=== PATIENT | male | born 1965 | race Caucasian/White ===

== ENCOUNTER 2017-12-19 02:00 | Emergency (ER) | payer OTHER, MEDICARE ==
[2017-12-19] MEDS ORDERED: Ketorolac Tromethamine 60 MG/2 ML VIAL ONE (03:55)
--- NOTE | 2017-12-19 07:56 | RAD ---
LEFT HIP TWO VIEWS: History: Fall, left hip pain. FINDINGS/IMPRESSION: No definite fracture or dislocation is seen. POS: [facility]
== END 2017-12-19 04:10 | disposition home or self-care (01) ==
LOC: ERS 02:00
DX: S70.02XA Contusion of left hip, initial encounter (principal); E78.5 Hyperlipidemia, unspecified; E78.00 Pure hypercholesterolemia, unspecified; K74.60 Unspecified cirrhosis of liver; E11.9 Type 2 diabetes mellitus without complications; F32.9 Major depressive disorder, single episode, unspecified; F17.210 Nicotine dependence, cigarettes, uncomplicated; Z79.4 Long term (current) use of insulin; Z79.899 Other long term (current) drug therapy; Z86.73 Personal history of transient ischemic attack (TIA), and cerebral infarction without residual deficits; Z79.891 Long term (current) use of opiate analgesic; W01.0XXA Fall on same level from slipping, tripping and stumbling without subsequent striking against object, initial encounter
CPT/HCPCS: 96372; J1885

== ENCOUNTER 2018-02-02 21:11 | Inpatient (IN) | payer MEDICARE, OTHER ==
[~2018-02-02 21:11] MED LIST: ISOVUE-370 76%-LOCM 1 ML ONE
[2018-02-02 21:45] LABS: #Eosinphils 0.1 thou/uL (0.0-0.7); #Lymphocytes 0.9 thou/uL (1.20-3.40); #Monocytes 0.2 thou/uL (0.11-0.59); #Neutrophils 2.4 thou/uL (1.40-6.50); %Basophils 0.6 % (0.0-1.0); %Lymphocytes 24.7 % (21.0-51.0); %Monocytes 4.5 % (0.0-10.0); %Neutrophils 66.2 % (42.0-75.0); Hemoglobin 13.9 g/dL (14.0-18.0); Mean Corpuscular Hemoglobin 30.5 pg (27.0-31.0); Mean Corpuscular Volume 92.5 fl (80.0-94.0); Mean Platelet Volume 7.1 fL (7.4-10.4); Platelet Count 66 thou/uL (130-400); RBC Distribution Width 13.2 % (11.5-14.5); Red Blood Cell (RBC) Count 4.55 mill/uL (4.70-6.10); White Blood Cell (WBC) Count 3.7 thou/uL (4.8-10.8)
[2018-02-02 22:04] LABS: ALT (SGPT) 18 U/L (8-55); AST (SGOT) 19 U/L (5-34); Albumin 3.2 g/dL (3.5-5.0); Alkaline Phosphatase 180 U/L (40-150); Anion Gap 12 mmol/L (10-20); BUN (Urea Nitrogen) 11 mg/dL (8.9-20.6); Bilirubin, Total 1.6 mg/dL (0.2-1.2); CK (CPK) 45 U/L (30-200); Calc. Creatinine Clearance 0 mL/min (70-130); Calcium 8.8 mg/dL (7.8-10.44); Carbon Dioxide 24 mmol/L (22-29); Chloride 105 mmol/L (98-107); Estimated GFR-MDRD Greater than 90; Globulin 3.7 g/dL (2.4-3.5); Glucose 230 mg/dL (70-105); Lipase 70 U/L (8-78); Potassium 3.3 mmol/L (3.5-5.1); Protein, Total 6.9 g/dL (6.0-8.3); Sodium 138 mmol/L (136-145)
[2018-02-02 22:07] LABS: Base Excess-Venous 0.9 mmol/L (0 (+/- 2.5)); Bicarbonate (HCO3v) 26.4 mmol/L (1.0-85.0); CO2 Tension (PvCO2) 44.3 mmHg (41.0-51.0); Calcium, Ionized 1.13 mmol/L (1.12-1.32); Hemoglobin - Calc 13.7 g/dL (12.0-18.0); O2 Tension (PvO2) 39.7 mmHg (35.0-45.0); Potassium 3.5 mmol/L (3.4-4.7); T. Carbon Dioxide 27.8 mmol/L (1.0-85.0); pH (Venous) 7.383 (7.35-7.45); vO2 Saturation-calc 73.3 % (94-98)
--- NOTE | 2018-02-02 22:24 | RAD ---
PORTABLE AP CHEST X-RAY 02/02/18 HISTORY: Chest pain. Intermittent altered mental status. Liver failure. COMPARISON: 06/24/15. FINDINGS: Endotracheal tube is not visualized on this exam. The cardiac silhouette and pulmonary vasculature ar e within normal limits for the portable technique of the study. The lungs are clear. There is persist ent mild elevation of the right hemidiaphragm. No other interval change. IMPRESSION: No acute cardiopulmonary process. POS: [facility]
[2018-02-02 22:27] LABS: Bilirubin Negative (Negative); Blood, Urine Small (Negative); Clarity CLEAR (Clear); Glucose, Urine (Dipstick) >=1000 mg/dL (Negative); Leukocyte Negative (Negative); Nitrite Negative (Negative); Protein, Urine (Dipstick) 30 mg/dL (Neg-Trace); Specific Gravity, Urine 1.035 (1.002-1.036); pH, Urine 6.5 (5.0-9.0)
[2018-02-02 22:29] LABS: Bacteria/HPF None Seen HPF (None Seen); Hyaline Casts/LPF 0-3 HYALINE CAST LPF (0-3 Hyaline); Pathc Cast-AUWi Flag 0.14 (0-2.49); Squamous Epithelial None Seen HPF (0-3); WBC/HPF 0-3 HPF (0-3)
[2018-02-02] MEDS ORDERED: Potassium Chloride 20 MEQ TAB ONE (22:30)
[2018-02-02] MEDS ORDERED: Fentanyl 100 MCG/2 ML VIAL ONE (22:30)
--- NOTE | 2018-02-02 23:08 | CT ---
NONCONTRAST CT HEAD 02/02/18 HISTORY: Altered mental status. Drowsiness and weakness. COMPARISON: MRI of brain on 05/01/13. FINDINGS: Noted on prior MRI examination, there is an area of encephalomalacia in the left occipital lobe. A fe w scattered low density areas are seen in the periventricular and subcortical white matter which are nonspecific but likely reflective of chronic small vessel ischemic changes, better visualized on prio r MRI exam. There is no evidence of an acute cortical infarction, hemorrhage, mass effect or midline shift. There is no evidence of hydrocephalus. Visualized paranasal sinuses and mastoid air cells are clear. Calvarial structures are intact. IMPRESSION: 1. No acute intracranial abnormality is demonstrated. 2. Stable encephalomalacia left occipital lobe likely related to prior infarction. POS: [facility]
[2018-02-03] MEDS ORDERED: Potassium Chloride 40 MEQ in Premix Bag 1 BAG IVPB SCH (00:15)
--- NOTE | 2018-02-03 00:25 | PDOC.FPRHP ---
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 at bedside reports he has had some drowsiness and difficulty with word finding as well. They deny slurred speech, weakness, syncope, facial droop, and fever. Patient reports he normally takes Rifaximin for his cirrhosis, but has been out of it for about a week along with other medications such as his long acting insulin, his blood pressure medication, and his antidepressant. Patient reports he is prescribed Lactulose to take and titrate to 3 BM's per day, but doesn't take at home because Rifaximin usually prevents enchephalopathy without the side effects of diarrhea. With his recent loss of Rifaximin, patient has been taking Lactulose as prescribed. First took full dose and had 40-50 bowel movements, then titrated to 10mg once daily of the Lactulose and continues to have >3 BM's per day. ED Course: In the ER he received 50mcg of Fentanyl, had a negative head CT and CXR. - Allergies/Adverse Reactions Allergies Allergy/AdvReac Type Severity Reaction Status Date / Time No Known Drug Allergies Allergy Verified 02/03/18 01:47 - Home Medications Medication Instructions Recorded Confirmed Type Gabapentin 600 tab PO BID 06/23/15 02/03/18 History Insulin Aspart [NovoLOG Vial] 40 unit SC TID-WM 06/23/15 02/03/18 History Venlafaxine HCl [Venlafaxine HCl 150 mg PO BID 06/23/15 02/03/18 History ER] Nadolol [Corgard] 20 mg PO DAILY #0 tab 06/29/15 02/03/18 Rx Spironolactone [Aldactone] 100 mg PO 1200 08/13/15 02/03/18 History HYDROcodone Bit/APAP 10/325 [[place]] 1 tab PO Q6HR PRN 09/28/15 02/03/18 History Lactulose 30 gm PO TID 09/28/15 02/03/18 History Pantoprazole [Protonix] 40 mg PO BID 10/27/15 02/03/18 History Rifaximin [Xifaxan] 550 mg PO BID 08/10/16 02/03/18 History Furosemide 20 mg PO QAM 01/04/17 02/03/18 History Ferrous Sulfate, Dried [Iron] 160 mg PO DAILY 02/03/18 02/03/18 History Insulin Degludec [Tresiba 100 unit SQ DAILY 02/03/18 02/03/18 History Flextouch U-100] - History PMHx: 1. 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 T2DM 3. HTN 4. HLD 5. Depression 6. Hx of CVA (2011) PSHx: 1. Bilateral BKA 2. Esophageal Varices Repair x5 3. PFO repair FHx: 1. Mom- [place] (50's) 2. Dad- CAD 3. T2DM Social: Patient reports hx of tobacco abuse, no etoh or drug use. Specialists: Dr. Quinteros, GI ([place]) Dr. Garcia, PCP - Review of Systems General: reports: weight/appetite/sleep changes. denies: fever/chills Eyes: denies: eye pain, vision changes ENT: denies: nasal congestion, rhinorrhea Respiratory: reports: cough. denies: congestion, shortness of breath Cardiovascular: denies: chest pain, palpitation, edema Gastrointestinal: reports: nausea, diarrhea, abdominal pain. denies: vomiting, GI bleeding Genitourinary: denies: incontinence, dysuria Skin: denies: rashes, lesions, jaundice, itching Musculoskeletal: reports: swelling. denies: pain, tenderness, stiffness Neurological: denies: numbness, syncope, seizure Psychological: denies: anxiety, depression - Vital signs BP: 133/80 HR: 91 RR: 22 Tmax: 98.9 Pox: 97% on RA Wt: 104.3kg - Physical Exam Constitutional: NAD, awake, alert and oriented -Constitutional: obese HEENT: normocephalic and atraumatic, PERRLA, EOMI, conjunctiva clear, no scleral icterus, grossly normal vision, grossly normal hearing, MMM Neck: supple, FROM, no LAD Chest: no-tender to palpation Heart: RRR, no murmurs/rubs/gallops, pulses present Lungs: CTAB, no respiratory distress, good air movement Abdomen: bowel sounds present -Abdomen: firm, liver edge 8-10cm below the costal margin, no ttp, no fluid wave noted, dullness to percussion in LUQ and RUQ, splenomegaly. A reducible umbilical hernia is at the center of the abdomen. Musculoskeletal: normal structure, normal tone Neurological: no focal deficit, CN II-XII intact, normal sensation -Neurological: no difficulty with word finding during exam, answers questions appropriately and accurately -Skin: No petichiae. Purpuric areas on abdomen at insulin injection sites, one bruise on L lateral chest wall from recent fall. Psychiatric: normal mood and affect, good judgment and insight FMR H&P: Results - Labs Result Diagrams: 02/03/18 03:40 02/03/18 03:40 Lab results: WBC 3.7 thou/uL (4.8-10.8) L 02/02/18 21:37 Hgb 13.9 g/dL (14.0-18.0) L 02/02/18 21:37 Hct 42.1 % (42.0-52.0) 02/02/18 21:37 MCV 92.5 fl (80.0-94.0) 02/02/18 21:37 Plt Count 66 thou/uL (130-400) L 02/02/18 21:37 Neutrophils % 66.2 % (42.0-75.0) 02/02/18 21:37 VBG pCO2 44.3 mmHg (41.0-51.0) 02/02/18 22:05 VBG pO2 39.7 mmHg (35.0-45.0) 02/02/18 22:05 Sodium 138 mmol/L (136-145) 02/02/18 21:37 Potassium 3.3 mmol/L (3.5-5.1) L 02/02/18 21:37 Chloride 105 mmol/L (98-107) 02/02/18 21:37 Carbon Dioxide 24 mmol/L (22-29) 02/02/18 21:37 BUN 11 mg/dL (8.9-20.6) 02/02/18 21:37 Creatinine 0.84 mg/dL (0.6-1.3) 02/02/18 21:37 Glucose 230 mg/dL (70-105) H 02/02/18 21:37 Lactic Acid 2.8 mmol/L (0.5-2.2) H 02/02/18 21:37 Calcium 8.8 mg/dL (7.8-10.44) 02/02/18 21:37 Total Bilirubin 1.6 mg/dL (0.2-1.2) H 02/02/18 21:37 AST 19 U/L (5-34) 02/02/18 21:37 ALT 18 U/L (8-55) 02/02/18 21:37 Alkaline Phosphatase 180 U/L (40-150) H 02/02/18 21:37 Ammonia 58 umol/L (18-72) 02/02/18 21:40 Creatine Kinase 45 U/L (30-200) 02/02/18 21:37 Serum Total Protein 6.9 g/dL (6.0-8.3) 02/02/18 21:37 Albumin 3.2 g/dL (3.5-5.0) L 02/02/18 21:37 Lipase 70 U/L (8-78) 02/02/18 21:37 Urine Ketones Negative mg/dL (Negative) 02/02/18 22:21 Urine Blood Small (Negative) H 02/02/18 22:21 Urine Nitrite Negative (Negative) 02/02/18 22:21 Ur Leukocyte Esterase Negative (Negative) 02/02/18 22:21 Urine RBC 11-20 HPF (0-3) H 02/02/18 22:21 Urine WBC 0-3 HPF (0-3) 02/02/18 22:21 Ur Squamous Epith Cells None Seen HPF (0-3) 02/02/18 22:21 Urine Bacteria None Seen HPF (None Seen) 02/02/18 22:21 - Radiology Interpretation Chest x-ray Status: image reviewed by me, report reviewed by me Additional comment: No acute findings CT scan - head Status: image reviewed by me, report reviewed by me Additional comment: No acute findings US - abdomen Status: image reviewed by me Additional comment: Bedside U/S performed by myself and Dr. 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) Current Visit: No Status: Chronic Code(s): K75.81 - NONALCOHOLIC STEATOHEPATITIS (PITTMAN); K74.60 - UNSPECIFIED CIRRHOSIS OF LIVER (2) Abdominal pain Current Visit: No Status: Acute Code(s): R10.9 - UNSPECIFIED ABDOMINAL PAIN (3) Hyperbilirubinemia Current Visit: No Status: Acute Code(s): E80.6 - OTHER DISORDERS OF BILIRUBIN METABOLISM (4) Thrombocytopenia Current Visit: No Status: Acute Code(s): D69.6 - THROMBOCYTOPENIA, UNSPECIFIED (5) Hypertension Current Visit: No Status: Chronic Code(s): I10 - ESSENTIAL (PRIMARY) HYPERTENSION (6) Hyperlipidemia Current Visit: No Status: Chronic Code(s): E78.5 - HYPERLIPIDEMIA, UNSPECIFIED (7) Depression Current Visit: No Status: Chronic Code(s): F32.9 - MAJOR DEPRESSIVE DISORDER , SINGLE EPISODE, UNSPECIFIED (8) Diabetes mellitus type 2 in obese Current Visit: No Status: Chronic Code(s): E11.9 - TYPE 2 DIABETES MELLITUS WITHOUT COMPLICATIONS; E66.9 - OBESITY, UNSPECIFIED (9) S/P bilateral below knee amputation Current Visit: No Status: Chronic Code(s): Z89.512 - ACQUIRED ABSENCE OF LEFT LEG BELOW KNEE; Z89.511 - ACQUIRED ABSENCE OF RIGHT LEG BELOW KNEE - Plan Patient is a 52yo M with hx of cirrhosis 2/2 PITTMAN who presents with acute worsening of cirrhosis likely due to lack of medications. Cirrhosis 2/2 PITTMAN, acute worsening - Due to financial situation, has been unable to obtain Rifaximin and Spironolactone for the past week. Since that time has started Lactulose therapy , giving him severe diarrhea. Patient with fatigue and some mild confusion/ trouble finding words per although AOx4 with no neurological deficits. DDx includes infection, dehydration, and worsening cirrhosis status due to medication changes. - Plan to restart home Rifaximin, Spironolactone, and continue Lactulose to titrate to 3 BM per day. - LA initially elevated, will give 1L NS and repeat. No indication of infection at this time. WBC at baseline, no fever. Blood cx and urine cx pending. - Plan for CTabd/pelvis with firm distended abdomen on exam. Exam not appreciable for significant ascities, confirmed by u/s. - Order coags to compare to baseline and calculate MELD-Na score. Hyperbilirubinemia - elevated from baseline - will get direct bili and RUQ u/s Elevated Alkaline Phosphatase - elevated from baseline - evaluate with RUQ u/s but could be due to chronic liver disease Hyperglycemia in the setting of T2DM - last A1c in clinic 10 in 06/2017, repeat - likely 2/2 patient not being able to obtain home Tresiba. Will restart patient on long acting insulin and monitor Abdominal Pain - worsening distension of abdomen per patient, as described above, exam not consistent with ascites, but more concern for hepatomegaly, splenomegaly, and firmness of abdomen. R/o mass with CTabd/pelvis. No concern for SBP at this time with patient being afebrile, no elevation in WBC. Will continue to monitor. - possible that abdominal pain could be associated with Lactulose causing diarrhea. Hypokalemia - replace and recheck HTN - home medications and monitor HLD - Not currently under treatment for this, likely due to cirrhosis - encourage to manage with diet Depression - has been off Venlafaxine for 1 week. Will restart to avoid withdrawal syndrome. Code Status: Full VTE PPx: none, patient is a bleeding risk and has bilateral BKA's. Disposition/LOS: Length of hospital stay: 2 days Symptomatic meds will be provided. FMR H&P: Upper Level - Pertinent history Patient is 52yo CM with PMHx of non-alcoholic cirrhosis, esophageal varices, IDDM and HTN who presents with altered mental status. He reports lower abd pain and diarrhea over the past few days. reports confusion for the past week and has had word finding difficulty. She has also noticed his belly getting bigger. Patient has been out of his medications for the past week and has only been taking his insulin meds and lactulose. reports that he normally takes spironolactone, rifaximin and nadolol but she lost her job recently so they currently do not have insurance. He does not normally take lactulose but because he is out of his other meds, he has been taking it for his cirrhosis. When he started it last week, he took 30g but had about 50-60 BM/day. Thus, decreased it to 10g and has had about 6-7 BM/day. Denies any fever or chills. Endorses nausea, but no vomiting. Of note, patient followed by Dr. Boyer in [place] but has not followed up in about 1yr due to lack of insurance. In the ED, given: Fentanyl 50mcg iv, K-dur, Rocephin 2g IV - Pertinent findings T 98.9 RR 22 HR 91 BP 133/80 O2 97% on RA Wt 104.3kg Gen: NAD, AAOx4 Eyes: EOMI, PERRL CV: RRR, S1 S2 Resp: CTAB Abd: hepatomegaly- about 8-10cm from the costal margin and splenomegaly; dullness to percussion at LUQ/LLQ, no fluid wave Ext: BL BKA Ammonia: 58 Lipase: 70 Lactic acid: 2.8 - Plan Date/Time: 02/03/18 0016 1. Acute worsening of non-alcoholic cirrhosis (likely 2/2 PITTMAN): Patient has not been on his routine meds including Rifaximin, Spironolactone and Nadolol due to loss of insurance. reports that he was previously on lactulose but was switched to rifaximin which helped significantly with his encephalopathy and BMs. However, he ran out of his meds and thus has been taking lactulose for symptomatic control. Ammonia level normal at 58 and patient does not appear to be encephalopathic though reports a slight change from his baseline as he has had more word finding difficulty. Suspect this is from his change in meds. Will re-start him back on his home regimen and discontinue lactulose. Bedside US done showing no ascites. Patient is afebrile, no ascites and without significant abd pain and do no suspect SBP at this time. Obtain coags. MELD score of 11- 6% estimated 3mo mortality. 2. Abd pain: likely 2/2 to #1 vs. possible mass/malignancy. Dullness to percussion noted on abd exam and could be 2/2 hepatosplenomegaly vs mass. Obtain CT Abd/pelv w/ contrast for further evaluation. 3. Elev lactic acid: likely 2/ 2 mild dehydration from lactulose medication. Gentle hydration and repeat. 4. Hypokalemia: likely 2/2 mild dehydration from lactulose medication. Replenish and monitor. 5. Hyperbilirubinemia: slightly elev from baseline. Obtain RUQ US. 6. Elev Alk phos: slightly elev from baseline. Obtain RUQ US. 7. Thrombocytopenia: 2/2 #1. At baseline. Monitor. 8. Hypoalbuminemia: 2/2 #1. 9. Uncontrolled IDDM: last A1c of 10.8% on 06/2017. Obtain A1c. Restart home insulin, SSI and accuchecks ACHS. 10. Hx of esophageal varices: No hematemesis. Cont nadolol 11. PPx: no anti-coagulation due to thrombocytopenia and hx of esophageal varices. No SCDs as patient has BL BKA. 12. Diet: CLD 13. Code Status: Full I, Genoveva Hurt, have evaluated this patient and agree with findings/ plan as outlined by journalism internship resident. Pertinent changes/additions are listed here. Attending Addendum - Attending Addendum Date/Time: 02/03/18 1003 I personally evaluated the patient and discussed the management with Dr. Cuellar. I agree with the History, Examination, Assessment and Plan documented above with any addition or exceptions noted below. The patient state that his abdominal pain is improved today. CT read and abdominal u/s read is pending. Hip XR are pending. Pt's ammonia level is better than baseline. He has hepatosplenomegaly on abdominal exam. CT showed hip fracture. Will get Xr and talk with ortho about plan. Patient's liver failure exacerbation is likely related to losing his insurance and being unable to get his meds. Will be transitioning insulin to 70/30. Will continue lactulose as pt cannot afford xifaxan. This morning he is threatening to leave AMA. He has agreed to stay for a few more hours until we can finish our tests.
[2018-02-03] MEDS ORDERED: Dextrose 5% in Water 1,000 ML IV PRN (00:50)
[2018-02-03] MEDS ORDERED: Dextrose 50% Abboject 50 ML SYRINGE SLOW IVP PRN (00:50)
[2018-02-03] MEDS ORDERED: Insulin Regular 300 UNITS/3 ML VIAL SC PRN (00:50)
[2018-02-03 00:55] LABS: INR-International Normal Ratio 1.3; PTT 33.3 SEC (22.9-36.1); Prothrombin Time 16.6 SEC (12.0-14.7)
[2018-02-03 01:30] VITALS: BMI 42.9
[2018-02-03 01:36] LABS: Lactic Acid 1.6 mmol/L (0.5-2.2)
[2018-02-03] MEDS ORDERED: Rifaximin 550 MG TAB PO SCH (02:00)
[2018-02-03] MEDS ORDERED: Spironolactone 25 MG TAB PO SCH (02:00)
[2018-02-03] MEDS: Sodium Chloride 0.9% 1,000 ML IV SCH ×2 (02:50→02:52)
[2018-02-03] MEDS: Potassium Chloride 20 MEQ TAB PO SCH ×3 (02:51→17:04)
[2018-02-03 04:41] LABS: #Basophils 0.1 thou/uL (0.0-0.2); #Eosinphils 0.2 thou/uL (0.0-0.7); #Lymphocytes 0.8 thou/uL (1.20-3.40); #Monocytes 0.3 thou/uL (0.11-0.59); #Neutrophils 2.6 thou/uL (1.40-6.50); %Basophils 1.3 % (0.0-1.0); %Eosinophils 4.6 % (0.0-10.0); %Lymphocytes 20.3 % (21.0-51.0); %Monocytes 7.7 % (0.0-10.0); %Neutrophils 66.1 % (42.0-75.0); Hemoglobin 12.6 g/dL (14.0-18.0); Mean Corpuscular HGB CONC 33.3 g/dL (32.0-36.0); Mean Corpuscular Hemoglobin 31.3 pg (27.0-31.0); Mean Corpuscular Volume 93.9 fl (80.0-94.0); Mean Platelet Volume 7.7 fL (7.4-10.4); Platelet Count 66 thou/uL (130-400); RBC Distribution Width 13.2 % (11.5-14.5); Red Blood Cell (RBC) Count 4.04 mill/uL (4.70-6.10); White Blood Cell (WBC) Count 3.9 thou/uL (4.8-10.8)
[2018-02-03 04:47] LABS: ALT (SGPT) 16 U/L (8-55); AST (SGOT) 16 U/L (5-34); Alkaline Phosphatase 159 U/L (40-150); Anion Gap 9 mmol/L (10-20); BUN (Urea Nitrogen) 12 mg/dL (8.9-20.6); Bilirubin, Total 1.5 mg/dL (0.2-1.2); Calc. Creatinine Clearance 233 mL/min (70-130); Calcium 8.9 mg/dL (7.8-10.44); Carbon Dioxide 26 mmol/L (22-29); Chloride 106 mmol/L (98-107); Estimated GFR-MDRD Greater than 90; Globulin 3.3 g/dL (2.4-3.5); Glucose 95 mg/dL (70-105); Potassium 3.4 mmol/L (3.5-5.1); Protein, Total 6.3 g/dL (6.0-8.3); Sodium 138 mmol/L (136-145)
[2018-02-03] MEDS ORDERED: Fentanyl 100 MCG/2 ML VIAL SLOW IVP PRN (05:16)
[2018-02-03] MEDS: Nadolol 40 MG TAB PO SCH (08:29)
[2018-02-03] MEDS: Venlafaxine HCl XR 150 MG CAP PO SCH (08:33)
[2018-02-03] MEDS: Rifaximin 550 MG TAB PO SCH ×2 (08:34→20:31)
[2018-02-03] MEDS: Gabapentin 300 MG CAP PO SCH ×2 (08:35→20:31)
[2018-02-03] MEDS: Insulin Detemir 100 UNITS/ML 50 UNITS in Pre-Filled Syringe 1 EACH SC SCH (08:36)
[2018-02-03] MEDS: HumaLOG 300 UNITS/3 ML VIAL SC SCH ×3 (08:36→17:07)
[2018-02-03] MEDS: Furosemide 20 MG TAB PO SCH (08:46)
--- NOTE | 2018-02-03 10:26 | ULT ---
ULTRASOUND GALLBLADDER RIGHT UPPER QUADRANT: Date: 02/03/18 HISTORY: Elevated bilirubin and alk phos. COMPARISON: CT abdomen and pelvis same date. FINDINGS: Pancreas is not well seen. The hepatic echotexture is coarsened with nodular contour. Moderate ascite s. Sonographic Bob's sign is negative. Liver measures 16.5 cm in length. Portal vein is patent with a ntegrade flow. Common bile duct measures less than 6.0 mm. Gallbladder wall thickness is mildly thick ened. No pericholecystic fluid. Cholelithiasis is present. Right kidney measures 11.6 x 6.9 x 6.2 cm. IMPRESSION: 1. Cholelithiasis without evidence of cholecystitis. 2. Hepatic cirrhosis. POS: [facility]
[2018-02-03] MEDS ORDERED: Spironolactone 100 MG TAB PO SCH (12:00)
--- NOTE | 2018-02-03 12:14 | CT ---
PRELIMINARY REPORT/[facility]/EMERGENTY AFTER-HOURS PROCEDURE CT Abdomen and Pelvis With Intravenous Contrast CLINICAL HISTORY: 52 years old, male; Pain; Abdominal pain; Patient HX: Er9; Abd distention and diarrhea (given lactulose) x4 days and weakness with drowsiness and trouble getting words out today, per . Hepatomegaly, splenomegaly, abdominal pain TECHNIQUE: Axial computed tomography images of the abdomen and pelvis with intravenous contrast. Coronal reforma tted images were created and reviewed. COMPARISON: No relevant prior studies available. FINDINGS: Lung bases: Mild basilar atelectasis/scarring. ABDOMEN: Liver: Nodular cirrhotic liver. No obvious discrete mass. Gallbladder and bile ducts: Cholelithiasis. Pancreas: No ductal dilation. No mass. Spleen: Splenomegaly. Adrenals: No mass. Kidneys and ureters: No acute findings. No hydronephrosis. No solid mass. Stomach and bowel: Ascending colon mild wall thickening. No evidence of bowel obstruction. Diverticul osis. Mild dependent hyperdensity within the stomach. Appendix: Appendix is not discretely visualized. PELVIS: Bladder: The bladder is decompressed. No stones. Reproductive: No acute findings. ABDOMEN and PELVIS: Intraperitoneal space: Ascites within the abdomen and pelvis. No free air. Bones/joints: Comminuted fracture of the left femur greater trochanter extending into the neck, witho ut significant displacement. Soft tissues: No acute findings. Umbilical hernia. Vasculature: Atherosclerotic calcifications. No abdominal aortic aneurysm. Lymph nodes: No significant lymphadenopathy. A few prominent upper abdominal lymph nodes. IMPRESSION: Left femur fracture described above. Cirrhotic liver. Splenomegaly. Ascites. Ascending colon wall thickening could relate to edema/portal hypertension, mild colitis, underdistent ion. Cholelithiasis. Other findings above. THIS REPORT CONTAINS FINDINGS THAT MAY BE CRITICAL TO PATIENT CARE. The findings were verbally commun icated via telephone conference with Dr Nails at 12:57 AM CDT on 02/03/2018. The findings were acknow ledged and understood. Thank you for allowing us to participate in the care of your patient. Dictated and Authenticated by: Srini Caro MD 02/03/2018 1:36 AM Central Time ([place] & [place]) FINAL REPORT CT ABDOMEN AND PELVIS WITH CONTRAST: Date: 02/02/18 HISTORY: Hepatomegaly, splenomegaly, and abdominal pain. COMPARISON: CT abdomen and pelvis dated 07/13/15. FINDINGS/IMPRESSION: Findings and impression are concordant with the preliminary report by Armando. In addition, there is chr onic portal venous thrombosis. The left fracture through the intertrochanteric portion, as well as th rough the greater trochanter, is minimally displaced. There is cholelithiasis. POS: [facility]
--- NOTE | 2018-02-03 12:30 | RAD ---
LEFT HIP 2 VIEWS: Date: 02/03/18 HISTORY: Fracture. COMPARISON: Radiograph dated 12/19/17. FINDINGS: There is an intertrochanteric fracture of left femur with predominant involvement of the greater tro chanter. Obturator ring is intact. IMPRESSION: Nondisplaced intertrochanteric fracture of left femur. POS: [facility]
[2018-02-03] MEDS: HumaLOG 300 UNITS/3 ML VIAL SC PRN ×3 (12:44→21:31)
--- NOTE | 2018-02-03 19:24 | CON ---
DATE OF CONSULTATION: 02/03/2018 REASON FOR CONSULTATION: Cirrhosis, encephalopathy, preoperative risk assessment for possible Orthop edic Surgery. HISTORY OF PRESENT ILLNESS: Roni Farias is a 52-year-old man seen in the past by my GI colleague, Dr. Joel Latham. Mr. Farias has a history of cirrhosis secondary to nonalcoholic steatohepat itis and prior decompensations with esophageal variceal bleeding in 2014. He has had multiple bandin g procedures and continues on nadolol for secondary bleeding prophylaxis. He also has a history of h epatic encephalopathy for which he has been on lactulose and rifaximin at home. He has a history of ascites for which he has been on diuretics. Symptoms have been essentially stable. The patient esta blished with Dr. Merlin hernandez in [place] and has had some workup for liver transplant, but has not f ollowed up with them or with Dr. Latham in the past year. Symptoms have been essentially stable over the past year. For the past several weeks, the patient ran out of rifaximin due to a lapse in insur ance and it gone to taking the lactulose, but he could only take this once a day due to significant d iarrhea with this. He presented to the hospital and was admitted yesterday complaining of about a we ek of progressive fatigue, a bit of nausea and lower abdominal discomfort and there was some question of worsening mental status as well. However, today he feels his mental status is at baseline. He i s not really having any lower abdominal pain. In the course of workup, he had some imaging of the [facility], which showed a left femoral fracture. They state that he fell over a month ago onto his left side and that imaging at that time did not show any fracture, but now this is confirmed on x-ray imag ing. He has been getting around just fine, really not having any pain in his hip or his leg. Orthop edic evaluation is pending. We are consulted for preoperative risk assessment for possible Orthopedi c Surgery. REVIEW OF SYSTEMS: Full review of systems including constitutional, head, eyes, ears, nose, throat, GI, , cardiovascular, respiratory, musculoskeletal, and neurologic systems is negative except as no rahul in the HPI. PAST MEDICAL HISTORY: 1. Nonalcoholic steatohepatitis cirrhosis, hypertension, hyperlipidemia, diabetes type 2, depression , CVA in 2011, bilateral below the knee amputations. 2. Esophageal variceal bleeding in 2014 status post variceal band ligation, and multiple subsequent esophageal banding procedures, last one in December 2016. 3. Hepatic encephalopathy, on lactulose and rifaximin. 4. Ascites, on diuretics. ALLERGIES: No known drug allergies. OUTPATIENT MEDICATIONS: Gabapentin, insulin, venlafaxine, nadolol 20 mg daily, spironolactone 100 mg daily, [place] p.r.n., lactulose 30 mg p.o. t.i.d. as needed, Protonix 40 mg p.o. b.i.d., rifaximin 55 0 mg p.o. b.i.d., furosemide 20 mg p.o. daily, and ferrous sulfate 160 mg daily. SOCIAL HISTORY: Positive for history of tobacco abuse. No alcohol or drug use. FAMILY HISTORY: Noncontributory. PHYSICAL EXAMINATION: VITAL SIGNS: Temperature 98.0, pulse 69, blood pressure 123/73, and 96% oxygen saturation on room ai r. GENERAL: Obese 52-year-old man sitting up in bed comfortably in no distress. MENTAL: Alert and fully oriented, pleasant, conversational, can give a detailed coherent history. SKIN: No jaundice, no rash visible or palpable. EYES: No scleral icterus. Extraocular movements intact. ENT: Mucous membranes moist, no oral lesions. LYMPH: No submandibular, supraclavicular lymphadenopathy. THYROID: Nontender to palpation. HEART: Regular rate and rhythm. LUNGS: Clear to auscultation bilaterally. ABDOMEN: Obese, bowel sounds present, soft, nontender to palpation throughout. No masses or organom egaly appreciated. EXTREMITIES: No peripheral edema. VESSELS: Radial pulses 2+ bilaterally. NEUROLOGICAL: Cranial nerves II through XII intact bilaterally. No focal deficits. LABORATORY STUDIES: WBC 3.9, hemoglobin 12.6, and platelets 66. INR 1.3. Hemoglobin A1c is 10.0. Total bilirubin 1.5, alkaline phosphatase 159, AST 16, ALT 16, albumin 3.0. Ammonia only 58. Lipase normal at 70. Sodium 143, potassium 3.5, BUN 11, and creatinine 0.84. IMAGING STUDIES: CT of the abdomen and pelvis shows cirrhotic liver with no mass. There is a chroni c portal vein thrombus. He has splenomegaly and ascites. There is mild thickening of the wall of th e ascending colon, which is likely reactive to the ascites. He has some gallstones. There is also a left femoral fracture. CT head shows no acute processes. Chest x-ray shows no acute processes. Ab dominal ultrasound again shows gallstones, cirrhotic liver and ascites, normal common bile duct. Lef t hip x-ray shows nondisplaced left femoral fracture. ASSESSMENT AND PLAN: 1. Cirrhosis secondary to nonalcoholic steatohepatitis, with MELD score of 9. 2. Ascites, stable on diuretics. 3. Hepatic encephalopathy, appears well controlled as long as he stays on lactulose and rifaximin. Agree with restarting the rifaximin 550 mg b.i.d. Hopefully, this will enable him to avoid going to heavy on the lactulose as this does give him troublesome diarrhea. With regard to risk stratification for possible Orthopedic Surgery regarding his left hip fracture, t he patient is at a bit elevated risk for surgery due to his cirrhosis. Particular factors which incr eases risk are his known history of portal hypertension, hepatic encephalopathy and his mild hypoalbu minemia and ascites. On the other hand, his MELD score is only 9, so statistically his 90-day postop erative mortality would be only 9%. In addition, risk would be lower with an orthopedic as opposed t o an intra-abdominal surgery. So, while his risk is elevated due to his cirrhosis, I do not feel iman t the risk is prohibitive if surgery is needed. In the longer term, the patient needs to reestablish care in the GI Clinic with Dr. Latham, but for now, no changes to his home medications are recommend ed from a GI perspective. Please call back with any questions or concerns.
--- NOTE | 2018-02-03 19:36 | CON ---
DATE OF CONSULTATION: 02/03/2018 REQUESTING PHYSICIAN: Laure Montoya M.D. BRIEF HISTORY OF PRESENT ILLNESS: The patient is a 52-year-old gentleman with a past medical history remarkable for nonalcoholic cirrhosis, esophageal varices, insulin-dependent diabetes, and hypertens ion in addition to a history of encephalopathy. He currently is admitted due to a 1-week history of worsening fatigue, weakness, nausea, diarrhea, and increasing abdominal pain. Of note, approximately 6 weeks prior to this admission, the patient fell sustaining significant soft tissue trauma to his r ight lateral thigh. He was seen and evaluated at [facility] at that time and hip x-rays were obtaine d and read as negative. I have had an opportunity to review these films and there is no obvious frac ture, although perhaps a faint fracture line in the greater trochanter. In any event, the patient wa s discharged to home and placed himself on a walker due to left hip pain. He continued to use the wa lker for approximately 4 weeks and then eventually transitioned to a cane. He reports that the hip p ain has significantly diminished from where it was 6 weeks ago. Upon readmission for his acute abdom inal pain and weakness, a CT scan of the abdomen and pelvis was obtained and this showed evidence of an intertrochanteric femur fracture with extension and some comminution of the greater trochanter. F ollow up x-rays were then obtained and indeed now the fracture lines can be visualized. Despite now confirm diagnosis of intertrochanteric femur fracture, the patient reports minimal pain and has been ambulating with a cane. Of note, he is also status post bilateral below knee amputations for complic ations of his diabetes. Orthopedic consultation was requested due to this new finding of subacute in tertrochanteric femur fracture. PAST MEDICAL HISTORY: Remarkable for cirrhosis with nonalcoholic steatohepatitis, type 2 diabetes, h ypertension, depression, history of cerebrovascular accident in 2011. PAST SURGICAL HISTORY: Includes bilateral below knee amputations with an earlier foot surgery, histo ry of esophageal variceal repair x5. FAMILY HISTORY: Remarkable for significant peripheral vascular disease and myocardial infarction. SOCIAL HISTORY: The patient reports history of tobacco abuse. Denies alcohol or drug abuse. MEDICATIONS: I will refer you to the patient's medication reconciliation form. ALLERGIES: None known. PHYSICAL EXAMINATION: VITAL SIGNS: Temperature 98.3, heart rate of 72, respiratory rate of 18, and blood pressure 155/82. HEENT: Atraumatic, normocephalic. RESPIRATORY: With no labored breathing. ABDOMEN: Round, distended with evidence of umbilical hernia present. PELVIS: Stable. EXTREMITIES: Remarkable for bilateral upper extremities are atraumatic. He has intact subjective se nsation distally. He does not complain of any shoulder, elbow, wrist or hand pain. Bilateral lower extremities remarkable for bilateral below knee amputations. The patient does report some irritation of the stumps and this has been present for quite some time. The hips are remarkable for subtle ran ge of motion of both left and right hip, and the left hip as I stress in abduction and flexion, does not elicit any groin pain or significant lateral thigh pain. I am unable to elicit any obvious asymm etry between the two hip exam. X-rays review of 2 view hip x-ray done today is remarkable for an intertrochanteric or femur fracture with some comminution of the greater trochanter. There is absolutely no displacement on AP and late ral views. I have also reviewed a pelvis CT scan that confirms this diagnosis and does show a fractu re line extending towards the level of the lesser trochanter. LABORATORY: He is found to have a white count of 3.9, hematocrit of 37.9, 66,000 platelets. ASSESSMENT: A 52-year-old gentleman with significant past medical history and with subacute intertr ochanteric femur fracture, now six weeks old with no displacement. PLAN: Today, I had an extensive discussion with patient regarding the past history for this hip and the fact that he has thus far successfully treated this nonsurgically with no displacement. I do bel ieve that on CT scan, there is early evidence of bridging callus along the medial calcar. We have di scussed treatment options which include continued nonsurgical management versus proceeding with open reduction internal fixation. Given that he has successfully lived with this hip for 6 weeks, he is n o longer experiencing pain, and there does appear to be some early healing on CT scan, we have now de cided to continue with nonsurgical management. I have asked the patient to go back to using a walker and be 25% partial weightbearing if possible to minimize any stress wall, the fracture continues to heal. I would like to see the patient back in my office in approximately 3 weeks for reevaluation an d follow up x-ray of his hip. I would anticipate at that time advanced him back to a cane and allow him to resume more normal activities. The patient appears comfortable with this discussion and plan. I have also had the opportunity and pleasure to discuss this case with his medical team.
--- NOTE | 2018-02-03 19:49 | DIS-2 ---
DATE OF ADMISSION: 02/03/2018 DATE OF DISCHARGE: 02/04/2018 RESIDENT: JUSTIN MIJARES MD ADMITTING ATTENDING: Laure Montoya MD DISCHARGE ATTENDING: Laure Montoya MD CONSULTATIONS: None. PROCEDURES: None. PRIMARY DIAGNOSIS: Abdominal pain secondary to hepatic cirrhosis. SECONDARY DIAGNOSES: L intertrochanteric fracture, Hyperbilirubinemia, elevated alkaline phosphatase, hyperglycemia with type 2 diabetes mellitus, hypokalemia, hypertension, hyperlipidemia, depression. DISCHARGE MEDICATIONS: Gabapentin 900 b.i.d.; insulin 70/30, 50 units b.i.d.; Humulin sliding scale; lactulose 5 grams daily; Lasix 20 mg daily; nadolol 20 mg daily; pantoprazole 40 mg daily; venlafaxine 75 mg daily; iron 160 mg daily. DISCONTINUED MEDICATIONS: Rifaximin, Bailey. HISTORY OF PRESENT ILLNESS AND HOSPITAL COURSE: A 52-year-old patient presented to the ED with 1 week of worsening fatigue, weakness, nausea, diarrhea , and increasing abdominal pain in lower abdomen unassociated with eating or movement. The patient reports that he ran out of medications including long- acting insulin, blood pressure medication, and rifaximin about a week ago 2/2 being unable to afford them. The patient has been taking lactulose and trying to titrate to 3 BMs per day, his ammonia was 58 on admission, he states it is often 300-400 when he is feeling bad. The patient had abdominal and pelvis CT, which showed no acute findings, but did show mild ascites as well as left trochanteric fracture. The patient had brain CT, which was found to be negative. Abdominal ultrasound showed cholelithiasis without evidence of cholecystitis, hepatic cirrhosis. Hip x-ray shows nondisplaced left trochanteric fracture history. The patient threatened to leave AMA. The patient was then convinced to stick around until imaging could be resulted. Changed patient's medications in order to get medications that will be more affordable including insulin 70/30 as well as lactulose in place of rifaximin. Orthopedics was consulted as a result of the intertrochanteric fracture. They initially considered surgery, thus GI was consulted for pre-operative eval. GI recommended no changes and stated that rifaximin was the best regimen. Unfortunately, the patient will not be able to afford this until getting better insurance. Ortho then made co-decision with patient to proceed with outpatient management of fracture. Patient is sent home with walker and instructions for 25 % weight-bearing status which he was educated on per PT. Patient is to f/u w/ Dr. Smith in clinic in 2-3 weeks. DISPOSITION: Stable. DISCHARGE INSTRUCTIONS: 1. Location: Home. 2. Diet: Heart healthy. ACTIVITY: As tolerated. FOLLOWUP: Dr. Christi Garcia 2-3 days, Dr. Smith 2-3 weeks MTDD
[2018-02-03] MEDS ORDERED: Ketorolac Tromethamine 30 MG/ML VIAL IVP SCH (20:45)
[2018-02-03] MEDS ORDERED: Insulin Detemir 100 UNITS/ML 50 UNITS in Pre-Filled Syringe 1 EACH SC SCH (21:00)
[2018-02-03] MEDS: HYDROcodone/Acetaminophen 10/325 mg Tablet PO PRN (21:44)
[2018-02-03] MEDS ORDERED: Ibuprofen 800 MG TAB PO PRN (23:59)
[2018-02-04 04:43] LABS: ALT (SGPT) 16 U/L (8-55); AST (SGOT) 15 U/L (5-34); Albumin 2.8 g/dL (3.5-5.0); Alkaline Phosphatase 151 U/L (40-150); Anion Gap 9 mmol/L (10-20); BUN (Urea Nitrogen) 10 mg/dL (8.9-20.6); Bilirubin, Total 0.9 mg/dL (0.2-1.2); Calc. Creatinine Clearance 205 mL/min (70-130); Calcium 8.7 mg/dL (7.8-10.44); Carbon Dioxide 29 mmol/L (22-29); Chloride 104 mmol/L (98-107); Estimated GFR-MDRD 89; Globulin 3.2 g/dL (2.4-3.5); Glucose 246 mg/dL (70-105); Sodium 138 mmol/L (136-145)
[2018-02-04] MEDS: HumaLOG 300 UNITS/3 ML VIAL SC PRN (06:46)
[2018-02-04] MEDS: HYDROcodone/Acetaminophen 10/325 mg Tablet PO PRN (06:50)
--- NOTE | 2018-02-04 07:32 | PDOC.FM ---
- Subjective Subjective: This morning the patient states he slept well and has no pain this morning. He appreciates being seen by GI and Ortho and his questions about treatment plan are answered. Patient states he is tolerating PO intake without difficulty. No abdominal pain. No issues with BM or urination. No pain in L hip this AM. - Objective Vital Signs & Weight: Vital Signs (12 hours) Temp Pulse Resp BP Pulse Ox 02/03/18 21:16 98.3 F 78 18 137/76 96 02/03/18 20:00 98.3 F 78 18 Weight Weight 149.323 kg I&O: 02/03/18 02/04/18 02/05/18 06:59 06:59 06:59 Intake Total 2700.5 Output Total 300 800 Balance 2400.5 -800 Result Diagrams: 02/03/18 03:40 02/04/18 04:13 <Eduardo Murphy - Last Filed: 02/04/18 07:38> - Objective Vital Signs & Weight: Vital Signs (12 hours) Temp Pulse Resp BP Pulse Ox 02/04/18 08:21 97.9 F 73 16 117/72 96 02/04/18 07:57 98.3 F 78 18 Weight Weight 149.323 kg I&O: 02/03/18 02/04/18 02/05/18 06:59 06:59 06:59 Intake Total 2700.5 Output Total 300 800 Balance 2400.5 -800 Result Diagrams: 02/03/18 03:40 02/04/18 04:13 <Laure Montoya - Last Filed: 02/04/18 13:18> Phys Exam - Physical Examination Constitutional: NAD HEENT: PERRLA, moist MMs Neck: no nodes, full ROM Respiratory: no wheezing, clear to auscultation bilateral Cardiovascular: RRR, no significant murmur, no rub Gastrointestinal: soft, non-tender, positive bowel sounds moderate distension, no rebound or guarding bilateral BKA Neurological: non-focal, normal sensation Psychiatric: normal affect, A&O x 3 Skin: no rash, cap refill <2 seconds <Eduardo Murphy - Last Filed: 02/04/18 07:38> Dx/Plan (1) Trochanteric fracture of left femur Code(s): S72.102A - UNSP TROCHANTERIC FRACTURE OF LEFT FEMUR, INIT FOR CLOS FX Status: Acute (2) ALEXANDER (acute kidney injury) Code(s): N17.9 - ACUTE KIDNEY FAILURE, UNSPECIFIED Status: Acute (3) Abdominal pain Code(s): R10.9 - UNSPECIFIED ABDOMINAL PAIN Status: Acute (4) Hyperbilirubinemia Code(s): E80.6 - OTHER DISORDERS OF BILIRUBIN METABOLISM Status: Acute (5) Nonalcoholic steatohepatitis (PITTMAN) Code(s): K75.81 - NONALCOHOLIC STEATOHEPATITIS (PITTMAN) Status: Acute (6) Thrombocytopenia Code(s): D69.6 - THROMBOCYTOPENIA, UNSPECIFIED Status: Acute (7) Diabetes mellitus type 2 in obese Code(s): E11.9 - TYPE 2 DIABETES MELLITUS WITHOUT COMPLICATIONS; E66.9 - OBESITY , UNSPECIFIED Status: Chronic (8) Hyperlipidemia Code(s): E78.5 - HYPERLIPIDEMIA, UNSPECIFIED Status: Chronic (9) Hypertension Code(s): I10 - ESSENTIAL (PRIMARY) HYPERTENSION Status: Chronic (10) Liver cirrhosis secondary to PITTMAN (nonalcoholic steatohepatitis) Code(s): K75.81 - NONALCOHOLIC STEATOHEPATITIS (PITTMAN); K74.60 - UNSPECIFIED CIRRHOSIS OF LIVER Status: Chronic (11) S/P bilateral below knee amputation Code(s): Z89.512 - ACQUIRED ABSENCE OF LEFT LEG BELOW KNEE; Z89.511 - ACQUIRED ABSENCE OF RIGHT LEG BELOW KNEE Status: Chronic - Plan Plan: Patient is a 52yo M with hx of cirrhosis 2/2 PITTMAN who presents with acute worsening of cirrhosis likely due to lack of medications. # L trocanteric fracture - non-displaced, injury occurred 4 weeks ago - Evaluated by Dr. Smith, recs appreciate - co-decision made with patient for conservative care and close f/u - PT to evaluate for proper walker today, then anticipate D/c # Cirrhosis 2/2 PITTMAN, acute worsening - Patient has not had meds for 2 weeks 2/2 financing - CM consulted - Plan to restart home Rifaximin, Spironolactone, and continue Lactulose to titrate to 3 BM per day while in hospital - MELD- 9 - Plan for spironolactone and lactulose at home until insurance obtained - Evaluated by Dr. Orellana, recs appreciated Hyperbilirubinemia - t bili 1.6 likely 2/2 decreased hepatic uptake Elevated Alkaline Phosphatase - RUQ shows cholelithiasis w/o cholecystitis Hyperglycemia in the setting of T2DM - A1C 10.0 - 50U levemir BID - nursing notes patient is refusing SSI Abdominal Pain - resolved Hypokalemia - resolved HTN - home medications and monitor Depression - has been off Venlafaxine for 1 week. Will restart to avoid withdrawal syndrome. Code Status: Full VTE PPx: none, patient is a bleeding risk and has bilateral BKA's. Disposition/LOS: anticipate d/c after evaluated by PT for walker Symptomatic meds will be provided. <Eduardo Murphy - Last Filed: 02/04/18 07:38> (1) Liver cirrhosis secondary to PITTMAN (nonalcoholic steatohepatitis) Code(s): K75.81 - NONALCOHOLIC STEATOHEPATITIS (PITTMAN); K74.60 - UNSPECIFIED CIRRHOSIS OF LIVER Status: Chronic (2) Abdominal pain Code(s): R10.9 - UNSPECIFIED ABDOMINAL PAIN Status: Acute (3) Hyperbilirubinemia Code(s): E80.6 - OTHER DISORDERS OF BILIRUBIN METABOLISM Status: Acute (4) Thrombocytopenia Code(s): D69.6 - THROMBOCYTOPENIA, UNSPECIFIED Status: Acute (5) Hypertension Code(s): I10 - ESSENTIAL (PRIMARY) HYPERTENSION Status: Chronic (6) Hyperlipidemia Code(s): E78.5 - HYPERLIPIDEMIA, UNSPECIFIED Status: Chronic (7) Depression Code(s): F32.9 - MAJOR DEPRESSIVE DISORDER, SINGLE EPISODE, UNSPECIFIED Status : Chronic (8) Diabetes mellitus type 2 in obese Code(s): E11.9 - TYPE 2 DIABETES MELLITUS WITHOUT COMPLICATIONS; E66.9 - OBESITY , UNSPECIFIED Status: Chronic (9) S/P bilateral below knee amputation Code(s): Z89.512 - ACQUIRED ABSENCE OF LEFT LEG BELOW KNEE; Z89.511 - ACQUIRED ABSENCE OF RIGHT LEG BELOW KNEE Status: Chronic <Laure Montoya - Last Filed: 02/04/18 13:18> Attending Addendum - Attending Addendum Date/Time: 02/04/18 1317 I personally evaluated the patient and discussed the management with Dr. Murphy. I agree with the History, Examination, Assessment and Plan documented above with any addition or exceptions noted below. The patient is feeling better today. He has been seen by ortho who want PT to work with him this morning and can likely go home to f/u outpt for the fracture. Pt will continue on lactulose. He is unable to afford the xifaxan at this time. <Laure Montoya - Last Filed: 02/04/18 13:18>
[2018-02-04 08:24] VITALS: BP 117/72; TEMP 97.9
[2018-02-04] MEDS: Insulin Detemir 100 UNITS/ML 50 UNITS in Pre-Filled Syringe 1 EACH SC SCH (08:55)
[2018-02-04] MEDS: HumaLOG 300 UNITS/3 ML VIAL SC SCH (08:57)
[2018-02-04] MEDS: Rifaximin 550 MG TAB PO SCH (08:59)
[2018-02-04] MEDS: Nadolol 40 MG TAB PO SCH (08:59)
[2018-02-04] MEDS: Potassium Chloride 20 MEQ TAB PO SCH (09:01)
[2018-02-04] MEDS: Gabapentin 300 MG CAP PO SCH (09:01)
[2018-02-04] MEDS: Furosemide 20 MG TAB PO SCH (09:01)
[2018-02-04] MEDS: Venlafaxine HCl XR 150 MG CAP PO SCH (09:07)
== END 2018-02-04 10:48 | disposition home or self-care (01) | DRG 441 ==
LOC: ERS 21:11 → T4-B 23:05
PROVIDERS: ADMIT Family Medicine; ATTEND Family Medicine
DX: K75.81 Nonalcoholic steatohepatitis (NASH) (principal); S72.115A Nondisplaced fracture of greater trochanter of left femur, initial encounter for closed fracture; N17.9 Acute kidney failure, unspecified; D69.6 Thrombocytopenia, unspecified; K72.90 Hepatic failure, unspecified without coma; E11.65 Type 2 diabetes mellitus with hyperglycemia; R18.8 Other ascites; E86.0 Dehydration; K74.60 Unspecified cirrhosis of liver; E80.6 Other disorders of bilirubin metabolism; E66.9 Obesity, unspecified; E78.5 Hyperlipidemia, unspecified; I10 Essential (primary) hypertension; Z89.512 Acquired absence of left leg below knee; Z89.511 Acquired absence of right leg below knee; K80.20 Calculus of gallbladder without cholecystitis without obstruction; E87.6 Hypokalemia; F32.9 Major depressive disorder, single episode, unspecified; Z86.73 Personal history of transient ischemic attack (TIA), and cerebral infarction without residual deficits; F17.210 Nicotine dependence, cigarettes, uncomplicated; R74.0 Nonspecific elevation of levels of transaminase and lactic acid dehydrogenase [LDH]
CPT/HCPCS: 36415; 36416; 70450; 71045; 74177; 76705; 80053; 81003; 81015; 82140; 82248; 82330; 82550; 82803; 83036; 83605; 83690; 85025; 85610; 85730; 87040; 87086; 94760; 96374; 96375; 99406; G8978-GP-CI; G8979-GP-CI; G8980-GP-CI; J0696; J1815; J1885; J3010

== ENCOUNTER 2018-11-30 12:45 | Inpatient (IN) | payer MEDICARE ==
[2018-11-30 13:59] LABS: #Eosinphils 0.1 thou/uL (0.0-0.7); #Lymphocytes 0.5 thou/uL (1.20-3.40); #Monocytes 0.2 thou/uL (0.11-0.59); #Neutrophils 1.6 thou/uL (1.40-6.50); %Basophils 1.4 % (0.0-1.0); %Eosinophils 4.4 % (0.0-10.0); %Lymphocytes 21.2 % (21.0-51.0); %Monocytes 6.3 % (0.0-10.0); %Neutrophils 66.7 % (42.0-75.0); Hemoglobin 11.1 g/dL (14.0-18.0); Mean Corpuscular HGB CONC 31.2 g/dL (32.0-36.0); Mean Corpuscular Hemoglobin 28.4 pg (27.0-31.0); Mean Corpuscular Volume 90.9 fL (78.0-98.0); Mean Platelet Volume 9.5 fL (7.4-10.4); Platelet Count 56 thou/uL (130-400); RBC Distribution Width 16.5 % (11.5-14.5); Red Blood Cell (RBC) Count 3.92 mill/uL (4.70-6.10); White Blood Cell (WBC) Count 2.4 thou/uL (4.8-10.8)
[2018-11-30 14:21] LABS: ALT (SGPT) 14 U/L (8-55); ALT (SGPT) 17 U/L (8-55); AST (SGOT) 27 U/L (5-34); AST (SGOT) 29 U/L (5-34); Albumin 2.4 g/dL (3.5-5.0); Alkaline Phosphatase 95 U/L (40-150); Anion Gap 12 mmol/L (10-20); BUN (Urea Nitrogen) 11 mg/dL (8.4-25.7); Bilirubin, Direct 0.7 mg/dL (0.1-0.3); Bilirubin, Total 1.3 mg/dL (0.2-1.2); Bilirubin, Total 1.4 mg/dL (0.2-1.2); Calc. Creatinine Clearance 0 mL/min (70-130); Calcium 8.6 mg/dL (7.8-10.44); Carbon Dioxide 26 mmol/L (22-29); Chloride 99 mmol/L (98-107); Estimated GFR-MDRD 74; Globulin 5.4 g/dL (2.4-3.5); Glucose 337 mg/dL (70-105); Potassium 4.2 mmol/L (3.5-5.1); Protein, Total 7.8 g/dL (6.0-8.3); Sodium 133 mmol/L (136-145)
--- NOTE | 2018-11-30 14:46 | RAD ---
PORTABLE AP CHEST: Date: 11/30/18 HISTORY: Altered mental status. COMPARISON: 02/02/18. FINDINGS: Cardiac silhouette and pulmonary vasculature are within normal limits for the portable technique of t he study. Linear densities are seen within the left mid lung zone, likely related to atelectasis, alt day developing areas of pneumonitis cannot be entirely excluded. The right lung is clear. No other interval change. IMPRESSION: Interval development of linear and slight patchy densities in the left mid lung zone, probably attrib utable to atelectasis, but developing infiltrate/pneumonitis cannot be excluded. Follow-up PA and lat eral chest x-ray is recommended to ensure resolution. POS: [facility]
[2018-11-30 14:54] LABS: Acetaminophen Less than 6.0 mcg/mL (10.0-30.0); Alcohol Less than 10 mg/dL (Less than 10); Salicylate Less than 8.0 mg/dL (15.0-30.0)
--- NOTE | 2018-11-30 15:00 | CT ---
CT HEAD NONCONTRAST: INDICATIONS: Altered mental status. Slurred speech. Weakness. Recent viral illness. 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 There is mild to moderate chronic microvascular ischemic disease, which is advanced fo r the patient's age. No acute intracranial hemorrhage, mass effect, or midline shift. There is a sm all hypodensity of the right thalamus, which has developed since the prior exam. This indicates a la cunar infarction, likely subacute in time frame. Stable ex vacuo dilatation of the occipital horn of the left lateral ventricle, related to the above described encephalomalacia, is seen. The paranasal sinuses are patent. IMPRESSION: 1. No acute intracranial abnormalities. 2. Redemonstration of left occipital encephalomalacia and superimposed microvascular ischemic diseas e, advanced for the patient's age. Correlate clinically. POS: [facility]
--- NOTE | 2018-11-30 15:50 | PDOC.FM ---
- Objective Result Diagrams: 11/30/18 13:39 11/30/18 13:40
[2018-11-30 15:53] LABS: Cocaine Metabolite Screen Not Detected (NotDetected); Medtox Reader # READER 1; Methamphetamine Not Detected (NotDetected); Opiate Screen Detected (NotDetected); Phencyclidine (PCP) Not Detected (NotDetected); THC/Cannabinoid Screen Not Detected (NotDetected)
[2018-11-30 15:54] LABS: Amphetamine Not Detected (NotDetected); Barbiturates Screen Not Detected (NotDetected); Benzodiazepine Screen Not Detected (NotDetected); Medtox Control Line Valid? VALID (VALID); Methadone Not Detected (NotDetected); Oxycodone Screen Not Detected (NotDetected); Tricyclic Screen Not Detected (NotDetected)
[2018-11-30 16:08] LABS: Bilirubin Negative (Negative); Blood, Urine Negative (Negative); Clarity CLEAR (Clear); Glucose, Urine (Dipstick) 500 mg/dL (Negative); Leukocyte Negative (Negative); Nitrite Negative (Negative); Protein, Urine (Dipstick) Negative (Neg-Trace); pH, Urine 7.5 (5.0-9.0)
--- NOTE | 2018-11-30 16:53 | PDOC.FPRHP ---
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 provided much of the history as patient is unable to recall events. Reports multiple new symptoms over the last 5 days including loss of control of bowel and bladder, confusion, falling and leaning towards left side, slurred speech, right hand numbness. He has trouble even holding a fork up to eat. He has also had distension of his abdomen. He has required paracentesis once before in Aug 2018 where they removed 10L. reports his stomach is much larger than it looked then. Before 4 days ago it was less than half the size. He also reports band like abdominal pain similar to the time he received the paracentesis. She reports he has been taking Lantus 10U qHS for his DMII since that is all they could afford. Prior October he had not been on insulin for 3-6months. His blood glucose still runs 300-400 despite 10U insulin. Report he has been on as much as 75U BID with Humalog in the past. Denies fevers, chills, nausea, vomiting, melena, hematemesis. PCP: Dr. Garcia - Allergies/Adverse Reactions Allergies Allergy/AdvReac Type Severity Reaction Status Date / Time No Known Drug Allergies Allergy Verified 02/03/18 01:47 - Home Medications Medication Instructions Recorded Confirmed Type Venlafaxine HCl [Venlafaxine HCl 150 mg PO DAILY 06/23/15 11/30/18 History ER] Nadolol [Corgard] 20 mg PO DAILY #0 tab 06/29/15 11/30/18 Rx Spironolactone [Aldactone] 50 mg PO DAILY 08/13/15 11/30/18 History Pantoprazole [Protonix] 40 mg PO BID 10/27/15 11/30/18 History Furosemide 20 mg PO QAM 01/04/17 11/30/18 History Ferrous Sulfate, Dried [Iron] 65 mg PO DAILY 02/03/18 11/30/18 History Gabapentin 900 tab PO BID 30 Days #60 tablet 04/21/18 02/15/19 Rx HYDROcodone/Acetaminophen 1 tab PO Q6HR PRN 11/30/18 11/30/18 History [Hydrocodone-Acetamin 10-325 mg] Lactulose 15 ml PO SEEPHYS 11/30/18 11/30/18 History - History PMHx: 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 denies: fever/chills Eyes: denies: eye pain, vision changes ENT: denies: nasal congestion, rhinorrhea Respiratory: denies: cough, congestion, shortness of breath Cardiovascular: reports: edema (abdominal). denies: chest pain, palpitation Gastrointestinal: reports: diarrhea (related to lactulose), abdominal pain. denies: nausea, vomiting, GI bleeding Genitourinary: reports: incontinence. denies: dysuria Skin: denies: rashes, lesions Musculoskeletal: reports: swelling. denies: pain Neurological: reports: weakness Psychological: reports: anxiety, depression - Vital signs BP: 112/82 HR: 88 RR: 18 Tmax: 97.9 Pox: 99% on RA Wt: 113kg - Physical Exam Constitutional: NAD HEENT: normocephalic and atraumatic, PERRLA, conjunctiva clear, no scleral icterus, grossly normal hearing, MMM, oropharynx clear, other (deep fissures on tongue) Neck: supple, trachea midline Heart: RRR, no murmurs/rubs/gallops Lungs: CTAB, no respiratory distress Abdomen: soft -Abdomen: umbilical hernia. Distended. Fluid wave present. Mildly tender. -Musculoskeletal: Bilateral BKAs Neurological: CN II-XII intact -Neurological: Dysarthria Left: Wrist injection wax molder 4/5, flexion 4/5 Right: 5/5 Sensation to light touch intact bilaterally all 4 extremities Normal rapid alternating movements Unable to spell WORLD backwards but reports this is not new Unable to do finger nose test. Skin: capillary refill <2 seconds -Heme/Lymphatic: bruising on left side of stomach. Acanthosis nigrans neck Psychiatric: normal mood and affect -Psychiatric: poor insight and recent memory FMR H&P: Results - Labs Result Diagrams: 11/30/18 13:39 11/30/18 13:40 Lab results: WBC 2.4 thou/uL (4.8-10.8) L 11/30/18 13:39 Hgb 11.1 g/dL (14.0-18.0) L 11/30/18 13:39 Hct 35.6 % (42.0-52.0) L 11/30/18 13:39 MCV 90.9 fL (78.0-98.0) 11/30/18 13:39 Plt Count 56 thou/uL (130-400) L 11/30/18 13:39 Neutrophils % 66.7 % (42.0-75.0) 11/30/18 13:39 Sodium 133 mmol/L (136-145) L 11/30/18 13:40 Potassium 4.2 mmol/L (3.5-5.1) 11/30/18 13:40 Chloride 99 mmol/L (98-107) 11/30/18 13:40 Carbon Dioxide 26 mmol/L (22-29) 11/30/18 13:40 BUN 11 mg/dL (8.4-25.7) 11/30/18 13:40 Creatinine 1.05 mg/dL (0.7-1.3) 11/30/18 13:40 Glucose 337 mg/dL (70-105) H 11/30/18 13:40 Calcium 8.6 mg/dL (7.8-10.44) 11/30/18 13:40 Total Bilirubin 1.4 mg/dL (0.2-1.2) H 11/30/18 13:40 AST 29 U/L (5-34) 11/30/18 13:40 ALT 17 U/L (8-55) 11/30/18 13:40 Alkaline Phosphatase 95 U/L (40-150) 11/30/18 13:40 Ammonia 80 umol/L (18-72) H 11/30/18 13:39 B-Natriuretic Peptide 80.7 pg/mL (0-100) 11/30/18 14:12 Serum Total Protein 7.8 g/dL (6.0-8.3) 11/30/18 13:40 Albumin 2.4 g/dL (3.5-5.0) L 11/30/18 13:40 Urine Ketones Negative mg/dL (Negative) 11/30/18 15:16 Urine Blood Negative (Negative) 11/30/18 15:16 Urine Nitrite Negative (Negative) 11/30/18 15:16 Ur Leukocyte Esterase Negative (Negative) 11/30/18 15:16 - Radiology Interpretation CT scan - head Status: report reviewed by me Additional comment: Small hypodensity of right thalamus which has developed since prior exam. Indicates a lacunar infarct likely subacute in time frame. Stable ex vacuo dilation of occipital horn of the left lateral ventricle related to encephalomalacia. Chest x-ray Status: report reviewed by me Additional comment: Interval development of linear and slight patchy densities in L mid lung zone, probably atelectasis but developing infiltrate/pneumonitis cannot be excluded. Follow up PA and lateral CXR. FMR H&P: A/P - Problem List (1) CVA (cerebral vascular accident) Current Visit: Yes Status: Acute Code(s): I63.9 - CEREBRAL INFARCTION, UNSPECIFIED (2) Insulin dependent diabetes mellitus Current Visit: Yes Status: Acute Code(s): E11.9 - TYPE 2 DIABETES MELLITUS WITHOUT COMPLICATIONS; Z79.4 - LOTTERY SALES CLERK (CURRENT) USE OF INSULIN (3) Abdominal pain Current Visit: No Status: Acute Code(s): R10.9 - UNSPECIFIED ABDOMINAL PAIN (4) Esophageal varices with hemorrhage Current Visit: No Status: Acute Code(s): I85.01 - ESOPHAGEAL VARICES WITH BLEEDING (5) Gastroparesis due to secondary diabetes Current Visit: No Status: Acute Code(s): E13.43 - OTH DIABETES MELLITUS W DIABETIC AUTONOMIC (POLY)NEUROPATHY (6) Hyperbilirubinemia Current Visit: No Status: Acute Code(s): E80.6 - OTHER DISORDERS OF BILIRUBIN METABOLISM (7) Nonalcoholic steatohepatitis (PITTMAN) Current Visit: No Status: Acute Code(s): K75.81 - NONALCOHOLIC STEATOHEPATITIS (PITTMAN) (8) Depression Current Visit: No Status: Chronic Code(s): F32.9 - MAJOR DEPRESSIVE DISORDER , SINGLE EPISODE, UNSPECIFIED (9) Hyperlipidemia Current Visit: No Status: Chronic Code(s): E78.5 - HYPERLIPIDEMIA, UNSPECIFIED (10) Hypertension Current Visit: No Status: Chronic Code(s): I10 - ESSENTIAL (PRIMARY) HYPERTENSION (11) Liver cirrhosis secondary to PITTMAN (nonalcoholic steatohepatitis) Current Visit: No Status: Chronic Code(s): K75.81 - NONALCOHOLIC STEATOHEPATITIS (PITTMAN); K74.60 - UNSPECIFIED CIRRHOSIS OF LIVER (12) PAD (peripheral artery disease) Current Visit: No Status: Chronic Code(s): I73.9 - PERIPHERAL VASCULAR DISEASE, UNSPECIFIED (13) S/P bilateral below knee amputation Current Visit: No Status: Chronic Code(s): Z89.512 - ACQUIRED ABSENCE OF LEFT LEG BELOW KNEE; Z89.511 - ACQUIRED ABSENCE OF RIGHT LEG BELOW KNEE (14) Encephalopathy Current Visit: Yes Status: Acute Code(s): G93.40 - ENCEPHALOPATHY, UNSPECIFIED (15) History of CVA (cerebrovascular accident) Current Visit: Yes Status: Acute Code(s): Z86.73 - PRSNL HX OF TIA (TIA), AND CEREB INFRC W/O RESID DEFICITS - Plan Mr Farias is a 53yo male with pmh of 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 A&Ox3 - CT: Small hypodensity of right thalamus which has developed since prior exam. Indicates a lacunar infarct likely subacute in time frame - MRI ordered - CTA of neck to eval for carotid stenosis - Echo ordered - Admit to Stroke - Neurochecks q4hr Encephalopathy - Unknown etiology possibly related to CVA vs Alcoholic encephalopathy - Afebrile, but CXR with possible pneumonia. - Will follow up with CXR Abdominal Pain - Likely related to new ascities. No concern for SBP. Afebrile, no leukocytosis. - Will order US to eval - Will continue to monitor Cirrhosis 2/2 likely PITTMAN - Ammonia 80 - Ordered Coags to calc MELD - Has been taking Lactulose every other day due to rectal irritation. - Will also start Rifaximin, pt was unable to afford outpt. Will put in CM consult to see if qualifies for prescription voucher - Will increase to daily or until 3-4 BMs daily, adding barrier ointment - Continue other home meds Insulin Dependent DM - Last A1c in clinic 10.8% on 06/30 - Ordered A1c - Currently uncontrolled on 10U Lantus, prev on 75U BID with humalog. Will start at 20U HS and titrate up. - Moderate SSI/Hypoglycemic protocol - CC diet Hx of CVA - Continue home meds, manage as above HTN - Continue home meds Hyperbilirubinemia, stable Hx of Esophageal Varices - Stable, no signs of acute bleed HLD Depression - Continue home meds Hx of bilateral BKA's - usually able to ambulate with prosthetics Code Status: Full DVT PPx: none, Pt at risk of bleeding and bilateral BKA's. FMR H&P: Upper Level - Pertinent history Patient is a 52 yo M with PMH of hx/o CVA 2009, Cirrhosis 2/2 likely PITTMAN, HTN, and uncontrolled T2DM presents with slurred speech and weakness. Started acutely around 4d ago and has worsened since. Associated slurred speech, L weakness, possible incontinence, and inability to ambulate. Additionally patient admits to weight gain and abdominal distension. He has had one paracentesis in the past and states he is larger than he as then. Has seen Dr Campbell (GI) in the past and has a GI physician in [place] in the event he needs a transplant. He is on lactulose QOD and BMs have been regular. States he has had abdominal pain more than usual in the past several days, but not currently tender. Hx/o esophageal bleeding and not a candidate for anticoagulation per previous chart. He has b/l BKA's, denies CP, dizziness. CT in ED showed likely subacute lacunar infarct. Pt is stable and holding converstion well, but most accurate history is taken from family. - Pertinent findings See above and below. Agree with undergraduate intern's physical exam. PE NEURO: 4/5 weakness un LUE. slurred speech ABD: Abdomen large and fluid wave present. nondistended. umbilical hernia present. MSK: B/l BKA - Plan Date/Time: 11/30/18 1851 Nickolas Mcdermott, have evaluated this patient and agree with findings/plan as outlined by undergraduate intern resident. Pertinent changes/additions are listed here. Patient is a 52yo M with hx of CVA, T2DM, and Cirrhosis who presents with acute slurred speech and weakness. 1. Probably CVA: CT shows likely lacunar infarct. Will order MRI, CTA neck, ECHO. Not a food candidate for ASA or statin given complications 2/2 Cirrhosis. 2. Cirrhosis 2/2 PITTMAN - Worsening problem.- Plan to restart home Rifaximin, Spironolactone, and increase Lactulose daily and titrate to ~3 BM per day. No indication of infection as WBC at baseline, no fever, but is at high risk of SPB. Urine cx pending.Will consider therapeutic paracentesis for his ascites. Has also had esophagel banding in the past. Check coagulation and MELD score. 3. Hyperglycemia in the setting of T2DM - Pt only taking 10u Lantus which is not adequate. Will increase basal and place on SSI. May need to be switched to 70/30 for financial reasons. 4. Hypernatremia- chronic; 131, continue to monitor 5. HTN- home medications and monitor 6. HLD- encourage to manage with diet. Not a statin candidate. 7. Depression - Will verify medications. Resume Venlafaxine Addendum - Attending - Attending Attestation Date/Time: 11/30/182129 I personally evaluated the patient and discussed the management with Dr. Wild I agree with the History, Examination, Assessment and Plan documented above with any addition or exceptions noted below- 53 yo male with h/o DM, cirrhosis secondary to PITTMAN, esophageal varices, CVA, b/l LE amputations presents c/o multiple recent falls. States that he feels unsteady. Denies any dizziness. States that he seems to fall to the left and his family has noted that he leans to the left when sitting. They have also noticed some slurred speech. Symptoms began 4 days ago. Has also had some [place] for last few days. PMH/PSH/All/Meds reviewed and agree with residents documentation. Afebrile VSS Exam repeated by me and agree with residents findings. CT brain- hypoechoic area in right thalamus c/w subacute lacunar infarct. A/P: 1) Subacute CVA- Admit to stroke unit. Will order echo, MRI brain and MRA brain/neck. Unable to give ASA secondary to low platelets and h/o massive GI bleed from varices. 2) Type 2 DM uncontrolled- Titrate basal insulin; monitor accuchecks. 3) Ascites- will obtain USG. Consider therapeutic tap. Continue aldactone and lasix. 4) Irhrhosis - continue lactulose and start xifixan.
[2018-11-30] MEDS ORDERED: Dextrose 5% in Water 1,000 ML IV PRN (18:54)
[2018-11-30] MEDS ORDERED: Dextrose 50% Abboject 50 ML SYRINGE SLOW IVP PRN (18:54)
[2018-11-30] MEDS ORDERED: HYDROcodone/Acetaminophen 10/325 mg Tablet PO SCH (20:30)
[2018-11-30] MEDS: Rifaximin 550 MG TAB PO SCH (20:48)
[2018-11-30] MEDS: Gabapentin 300 MG CAP PO SCH (20:48)
[2018-11-30] MEDS: Venlafaxine HCl XR 150 MG CAP PO SCH (20:49)
[2018-11-30] MEDS: Insulin Glargine 20 UNITS in Pre-Filled Syringe SC SCH (20:50)
[2018-11-30 21:00] LABS: Hemoglobin A1c 10.9 % (4.0-6.0); INR-International Normal Ratio 1.4; Prothrombin Time 16.9 SEC (12.0-14.7)
--- NOTE | 2018-11-30 22:19 | CT ---
CT ANGIO OF NECK WITH IV CONTRAST AND 3D POSTPROCESSIN11/30/18 HISTORY: Neck pain. Increasing confusion, weakness, slurred speech, altered mental status. FINDINGS: Atherosclerotic plaque formation is seen in the carotid artery systems on both sides. There is good f low in the carotid arteries and vertebrobasilar systems on either side with a dominant left vertebral artery. No major branch occlusion or high grade stenosis is seen. There is about 30% stenosis in the proximal ICAs on both sides. A heterogeneous and enlarged thyroid gland is present. There is focal area of peripheral consolidatio n in the left upper lobe. There is mucosal disease in the paranasal sinuses. The airway is patent. IMPRESSION: Mild (less than 50%) stenosis involving both proximal ICAs. Please see above report. POS: [facility]
[2018-12-01 06:10] LABS: #Eosinphils 0.2 thou/uL (0.0-0.7); #Lymphocytes 0.6 thou/uL (1.20-3.40); #Monocytes 0.2 thou/uL (0.11-0.59); #Neutrophils 1.3 thou/uL (1.40-6.50); %Basophils 0.9 % (0.0-1.0); %Lymphocytes 25.6 % (21.0-51.0); %Monocytes 10.1 % (0.0-10.0); %Neutrophils 55.4 % (42.0-75.0); Hemoglobin 9.9 g/dL (14.0-18.0); Mean Corpuscular HGB CONC 31.3 g/dL (32.0-36.0); Mean Corpuscular Hemoglobin 28.6 pg (27.0-31.0); Mean Corpuscular Volume 91.2 fL (78.0-98.0); Mean Platelet Volume 9.9 fL (7.4-10.4); Platelet Count 52 thou/uL (130-400); RBC Distribution Width 16.5 % (11.5-14.5); Red Blood Cell (RBC) Count 3.47 mill/uL (4.70-6.10); White Blood Cell (WBC) Count 2.3 thou/uL (4.8-10.8)
[2018-12-01 06:21] LABS: ALT (SGPT) 11 U/L (8-55); AST (SGOT) 22 U/L (5-34); Albumin 2.1 g/dL (3.5-5.0); Alkaline Phosphatase 79 U/L (40-150); Anion Gap 12 mmol/L (10-20); BUN (Urea Nitrogen) 10 mg/dL (8.4-25.7); Bilirubin, Total 1.3 mg/dL (0.2-1.2); Calc. Creatinine Clearance 190 mL/min (70-130); Calcium 8.4 mg/dL (7.8-10.44); Carbon Dioxide 23 mmol/L (22-29); Cardiac Risk 3.7 (Less than 4.5); Chloride 104 mmol/L (98-107); Cholesterol 97 mg/dl (< 200 Desired); Estimated GFR-MDRD 90; Globulin 4.6 g/dL (2.4-3.5); Glucose 137 mg/dL (70-105); HDL Cholesterol 26 mg/dL (>60 Neg Risk); LDL Cholesterol, Calculated 53 mg/dL; Potassium 3.6 mmol/L (3.5-5.1); Protein, Total 6.7 g/dL (6.0-8.3); Sodium 135 mmol/L (136-145); Triglycerides 88 mg/dL (Less than 150)
[2018-12-01] MEDS ORDERED: HYDROcodone/Acetaminophen 10/325 mg Tablet PO SCH (06:30)
--- NOTE | 2018-12-01 07:04 | PDOC.FM ---
- Subjective Subjective: No overnight events. Denies new weakness. Has headache. At home he takes [employer] for this. Only takes one a day due to cirrhosis. Voiding and stooling. Continues to have mild abdominal pain. - Objective MAR Reviewed: Yes Vital Signs & Weight: Vital Signs (12 hours) Temp Pulse Resp BP Pulse Ox 12/01/18 04:00 99.1 F 85 16 106/56 L 95 12/01/18 00:00 98.7 F 89 16 136/78 98 11/30/18 20:20 98 11/30/18 20:00 98.8 F 81 16 148/83 H 98 Weight Weight 136.531 kg I&O: 11/30/18 12/01/18 12/02/18 06:59 06:59 06:59 Intake Total 710 Output Total 650 Balance 60 Result Diagrams: 12/01/18 05:43 12/01/18 05:43 Phys Exam - Physical Examination Constitutional: NAD HEENT: moist MMs Neck: supple Respiratory: no wheezing, clear to auscultation bilateral Cardiovascular: RRR, no significant murmur Distended, fluid wave, umbilical hernia Musculoskeletal: pulses present Neurological: moves all 4 limbs Psychiatric: normal affect, A&O x 3 Skin: cap refill <2 seconds Dx/Plan (1) CVA (cerebral vascular accident) Code(s): I63.9 - CEREBRAL INFARCTION, UNSPECIFIED Status: Acute (2) Insulin dependent diabetes mellitus Code(s): E11.9 - TYPE 2 DIABETES MELLITUS WITHOUT COMPLICATIONS; Z79.4 - LONGTERM (CURRENT) USE OF INSULIN Status: Acute (3) Abdominal pain Code(s): R10.9 - UNSPECIFIED ABDOMINAL PAIN Status: Acute (4) Esophageal varices with hemorrhage Code(s): I85.01 - ESOPHAGEAL VARICES WITH BLEEDING Status: Acute (5) Gastroparesis due to secondary diabetes Code(s): E13.43 - OTH DIABETES MELLITUS W DIABETIC AUTONOMIC (POLY)NEUROPATHY Status: Acute (6) Hyperbilirubinemia Code(s): E80.6 - OTHER DISORDERS OF BILIRUBIN METABOLISM Status: Acute (7) Nonalcoholic steatohepatitis (PITTMAN) Code(s): K75.81 - NONALCOHOLIC STEATOHEPATITIS (PITTMAN) Status: Acute (8) Depression Code(s): F32.9 - MAJOR DEPRESSIVE DISORDER, SINGLE EPISODE, UNSPECIFIED Status : Chronic (9) Hyperlipidemia Code(s): E78.5 - HYPERLIPIDEMIA, UNSPECIFIED Status: Chronic (10) Hypertension Code(s): I10 - ESSENTIAL (PRIMARY) HYPERTENSION Status: Chronic (11) Liver cirrhosis secondary to PITTMAN (nonalcoholic steatohepatitis) Code(s): K75.81 - NONALCOHOLIC STEATOHEPATITIS (PITTMAN); K74.60 - UNSPECIFIED CIRRHOSIS OF LIVER Status: Chronic (12) PAD (peripheral artery disease) Code(s): I73.9 - PERIPHERAL VASCULAR DISEASE, UNSPECIFIED Status: Chronic (13) S/P bilateral below knee amputation Code(s): Z89.512 - ACQUIRED ABSENCE OF LEFT LEG BELOW KNEE; Z89.511 - ACQUIRED ABSENCE OF RIGHT LEG BELOW KNEE Status: Chronic (14) Encephalopathy Code(s): G93.40 - ENCEPHALOPATHY, UNSPECIFIED Status: Acute (15) History of CVA (cerebrovascular accident) Code(s): Z86.73 - PRSNL HX OF TIA (TIA), AND CEREB INFRC W/O RESID DEFICITS Status: Acute - Plan Plan: Mr Farias is a 53yo male with pmh of 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 A&Ox3 - CT: Small hypodensity of right thalamus which has developed since prior exam. Indicates a lacunar infarct likely subacute in time frame - MRI ordered - CTA of neck to eval for carotid stenosis - Echo ordered - Admit to Stroke - Neurochecks q4hr Encephalopathy - Unknown etiology possibly related to CVA vs Alcoholic encephalopathy - Afebrile, but CXR with possible pneumonia. Will order procal - Will follow up with CXR Abdominal Pain - Likely related to new ascities. No concern for SBP. Afebrile, no leukocytosis. - US ordered - Continue to monitor Cirrhosis 2/2 likely PITTMAN - Ammonia 80, will repeat tomorrow - MELD: 15 - Has been taking Lactulose every other day due to rectal irritation. Ordered barrier cream - Continue Rifaximin, pt was unable to afford outpt. CM consulted for outpt acquisition - Titrate Lactulose to 3 BM's day - Continue other home meds Insulin Dependent DM - A1c 10.9% - Currently uncontrolled on 10U Lantus, prev on 75U BID with humalog. Will start at 20U HS and titrate up. - Moderate SSI/Hypoglycemic protocol - CC diet Hx of CVA - Continue home meds, manage as above HTN - Continue home meds Hyperbilirubinemia, stable Hx of Esophageal Varices - Stable, no signs of acute bleed HLD Depression - Continue home meds Hx of bilateral BKA's - usually able to ambulate with prosthetics Code Status: Full DVT PPx: none, Pt at risk of bleeding and bilateral BKA's. PCP: Radha Addendum - Attending - Attending Attestation Date/Time: 12/01/18 4839 I personally evaluated the patient and discussed the management with Dr. Veras I agree with the History, Examination, Assessment and Plan documented above with any addition or exceptions noted below. Continue trend Ammonia level increased lactulose and rixampin restarted await MRI brain result. IV lasix today continue other home RX.
[2018-12-01] MEDS ORDERED: Furosemide 20 MG TAB PO SCH (09:00)
[2018-12-01] MEDS: Rifaximin 550 MG TAB PO SCH ×2 (09:46→20:48)
[2018-12-01] MEDS: Nadolol 40 MG TAB PO SCH (09:48)
[2018-12-01] MEDS: Gabapentin 300 MG CAP PO SCH ×2 (09:49→20:49)
[2018-12-01] MEDS: Ferrous Sulfate 325 MG TAB PO SCH (09:50)
--- NOTE | 2018-12-01 10:28 | ULT ---
ABDOMINAL ULTRASOUND: Date: 12/01/18 HISTORY: Ascites, cirrhosis. FINDINGS: The pancreas and abdominal aorta are obscured from shadowing by bowel gas. The IVC is also mostly obs cured and not well evaluated on this exam. The spleen is enlarged, measuring 19.0 cm in craniocaudal dimensions. There are echogenic foci in the gallbladder lumen with posterior shadowing suggesting gallbladder mary culi, in addition to echogenic material related to sludge within the gallbladder lumen. Gallbladder i s mildly contracted, but the wall is at the upper limits of normal in thickness measuring 0.3 cm. Com mon duct is also at the upper limits of normal in diameter measuring 0.6 cm. Liver appears small in size, but no focal hepatic lesions are identified. Bilateral kidneys demonstrate a normal sonographic appearance. Right kidney measures 11.8 cm in lengt h and left kidney measures 11.6 cm in length. There is a moderate amount of intraperitoneal free fluid seen within the abdomen. IMPRESSION: 1. Moderate amount of ascites. 2. Splenomegaly. 3. Cholelithiasis and gallbladder sludge. Common duct is at the upper limits of normal in size measu ring 0.6 cm in diameter. POS: [facility]
[2018-12-01] MEDS ORDERED: Furosemide 20 MG/2 ML VIAL SLOW IVP SCH (10:45)
[2018-12-01] MEDS: Spironolactone 100 MG TAB PO SCH (11:24)
[2018-12-01] MEDS: HumaLOG 300 UNITS/3 ML VIAL SC PRN ×2 (11:24→17:30)
[2018-12-01] MEDS: Venlafaxine HCl XR 150 MG CAP PO SCH ×2 (11:25→20:48)
--- NOTE | 2018-12-01 12:16 | MRI ---
NONCONTRAST MRI BRAIN: Date: 12/01/18 HISTORY: Altered mental status, slurred speech, weakness. Recent viral illness. COMPARISON: CT head dated 11/30/18. FINDINGS: As noted on recent CT scan of the head, there is an area of encephalomalacia and associated gliosis i n the medial left occipital lobe in the distribution of the left posterior cerebral artery related to remote infarction. 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 There is an area of CSF signal intensity seen in the right posteri or parietal region measuring 2.2 cm x 1.3 cm, which is thought to more likely represent a focal area of volume loss as opposed to an arachnoid cyst, as this does appear contiguous with the CSF within th e adjacent cerebral sulci. This finding is also stable when compared to prior MRI of the brain on . The chronic small vessel ischemic changes are also similar to the prior exam. Septum pellucidum and third ventricle are on the midline. The ventricular system is normal in size, s hape, and position, aside from mild ex vacuo dilatation of the occipital horn of the left lateral elmer tricle. Mucus retention cysts are seen in each maxillary antrum. The orbits and remainder of the skull base h ave a normal MRI appearance. The left vertebral artery flow-void is dominant. There are appropriate f low-voids demonstrated at the base of the brain. IMPRESSION: 1. No acute intracranial abnormality demonstrated. 2. Findings likely reflective of chronic small vessel ischemic changes, not significantly progressed compared to study in 2013. 3. Stable area of encephalomalacia and gliosis with hemosiderin deposition along the margins of the area of encephalomalacia likely related to remote infarction in distribution of left posterior cerebr al artery. 4. Chronic small vessel ischemic changes not significantly progressed when compared to the prior amarjit dy in 2013. 5. Mild cerebral volume loss. POS: [facility]
[2018-12-01 15:06] VITALS: BMI 38.6
[2018-12-01] MEDS: HYDROcodone/Acetaminophen 10/325 mg Tablet PO PRN (17:29)
[2018-12-01] MEDS: Insulin Glargine 20 UNITS in Pre-Filled Syringe SC SCH (20:49)
[2018-12-02 04:15] LABS: #Eosinphils 0.2 thou/uL (0.0-0.7); #Lymphocytes 0.7 thou/uL (1.20-3.40); #Monocytes 0.3 thou/uL (0.11-0.59); #Neutrophils 1.8 thou/uL (1.40-6.50); %Basophils 0.3 % (0.0-1.0); %Eosinophils 5.4 % (0.0-10.0); %Lymphocytes 23.7 % (21.0-51.0); %Monocytes 8.7 % (0.0-10.0); %Neutrophils 61.9 % (42.0-75.0); Hemoglobin 9.9 g/dL (14.0-18.0); Mean Corpuscular HGB CONC 31.2 g/dL (32.0-36.0); Mean Corpuscular Hemoglobin 28.5 pg (27.0-31.0); Mean Corpuscular Volume 91.4 fL (78.0-98.0); Mean Platelet Volume 9.4 fL (7.4-10.4); Platelet Count 50 thou/uL (130-400); RBC Distribution Width 16.3 % (11.5-14.5); Red Blood Cell (RBC) Count 3.47 mill/uL (4.70-6.10)
[2018-12-02 04:26] LABS: ALT (SGPT) 9 U/L (8-55); AST (SGOT) 22 U/L (5-34); Albumin 2.1 g/dL (3.5-5.0); Alkaline Phosphatase 81 U/L (40-150); Anion Gap 12 mmol/L (10-20); BUN (Urea Nitrogen) 10 mg/dL (8.4-25.7); Calc. Creatinine Clearance 196 mL/min (70-130); Calcium 8.3 mg/dL (7.8-10.44); Carbon Dioxide 23 mmol/L (22-29); Chloride 104 mmol/L (98-107); Estimated GFR-MDRD Greater than 90; Globulin 4.6 g/dL (2.4-3.5); Glucose 134 mg/dL (70-105); Potassium 3.8 mmol/L (3.5-5.1); Protein, Total 6.7 g/dL (6.0-8.3); Sodium 135 mmol/L (136-145)
--- NOTE | 2018-12-02 06:04 | PDOC.FM ---
Addendum entered and electronically signed by Ameena Wild MD 12/02/18 11:52 : Correction: Lantus 20U today Original Note: - Subjective Subjective: Feeling well today. Still reports slurred speech and weakness. Only one hard bowel movement yesterday. No changes in vision. No overnight events. - Objective MAR Reviewed: Yes Vital Signs & Weight: Vital Signs (12 hours) Temp Pulse Resp BP Pulse Ox 12/02/18 04:00 97.7 F 88 16 133/80 94 L 12/02/18 00:00 97.8 F 84 16 145/84 H 95 12/01/18 20:00 98.1 F 80 16 131/76 95 Weight Admit Weight 136.73 kg Weight 136.35 kg I&O: 11/30/18 12/01/18 12/02/18 06:59 06:59 06:59 Intake Total 710 820 Output Total 650 575 Balance 60 245 Result Diagrams: 12/02/18 03:59 12/02/18 03:59 Phys Exam - Physical Examination Constitutional: NAD HEENT: moist MMs normal vision snyder Neck: supple Respiratory: no wheezing, clear to auscultation bilateral Cardiovascular: RRR, no significant murmur Gastrointestinal: soft, positive bowel sounds distended Neurological: moves all 4 limbs Psychiatric: normal affect, A&O x 3 Skin: cap refill <2 seconds Dx/Plan (1) CVA (cerebral vascular accident) Code(s): I63.9 - CEREBRAL INFARCTION, UNSPECIFIED Status: Acute (2) Insulin dependent diabetes mellitus Code(s): E11.9 - TYPE 2 DIABETES MELLITUS WITHOUT COMPLICATIONS; Z79.4 - GROUP HOME (CURRENT) USE OF INSULIN Status: Acute (3) Abdominal pain Code(s): R10.9 - UNSPECIFIED ABDOMINAL PAIN Status: Acute (4) Esophageal varices with hemorrhage Code(s): I85.01 - ESOPHAGEAL VARICES WITH BLEEDING Status: Acute (5) Gastroparesis due to secondary diabetes Code(s): E13.43 - OTH DIABETES MELLITUS W DIABETIC AUTONOMIC (POLY)NEUROPATHY Status: Acute (6) Hyperbilirubinemia Code(s): E80.6 - OTHER DISORDERS OF BILIRUBIN METABOLISM Status: Acute (7) Nonalcoholic steatohepatitis (PITTMAN) Code(s): K75.81 - NONALCOHOLIC STEATOHEPATITIS (PITTMAN) Status: Acute (8) Depression Code(s): F32.9 - MAJOR DEPRESSIVE DISORDER, SINGLE EPISODE, UNSPECIFIED Status : Chronic (9) Hyperlipidemia Code(s): E78.5 - HYPERLIPIDEMIA, UNSPECIFIED Status: Chronic (10) Hypertension Code(s): I10 - ESSENTIAL (PRIMARY) HYPERTENSION Status: Chronic (11) Liver cirrhosis secondary to PITTMAN (nonalcoholic steatohepatitis) Code(s): K75.81 - NONALCOHOLIC STEATOHEPATITIS (PITTMAN); K74.60 - UNSPECIFIED CIRRHOSIS OF LIVER Status: Chronic (12) PAD (peripheral artery disease) Code(s): I73.9 - PERIPHERAL VASCULAR DISEASE, UNSPECIFIED Status: Chronic (13) S/P bilateral below knee amputation Code(s): Z89.512 - ACQUIRED ABSENCE OF LEFT LEG BELOW KNEE; Z89.511 - ACQUIRED ABSENCE OF RIGHT LEG BELOW KNEE Status: Chronic (14) Encephalopathy Code(s): G93.40 - ENCEPHALOPATHY, UNSPECIFIED Status: Acute (15) History of CVA (cerebrovascular accident) Code(s): Z86.73 - PRSNL HX OF TIA (TIA), AND CEREB INFRC W/O RESID DEFICITS Status: Acute - Plan Plan: Mr Farias is a 53yo male with pmh of 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 A&Ox3 - CT: Small hypodensity of right thalamus which has developed since prior exam. Indicates a lacunar infarct likely subacute in time frame - MRI no acute changes, evidence of prior CVA - CTA of neck: <50% stenosis involving both proximal ICAs - Echo: EF 50-55%, no abnormalities - Neurochecks q4hr Encephalopathy - Unknown etiology possibly related to CVA vs hepatic encephalopathy - Afebrile, but CXR with possible pneumonia. - Pro mary 0.06 - Consider follow up CXR - Titrate lactulose to 3 BM's/day Abdominal Pain - Likely related to new ascities. No concern for SBP. Afebrile, no leukocytosis. - US mod ascities - Continue to monitor Cirrhosis 2/2 likely PITTMAN - Ammonia 80-> 66 - MELD: 15 - Has been taking Lactulose every other day due to rectal irritation. Ordered barrier cream - Continue Rifaximin, pt was unable to afford outpt. CM consulted for outpt acquisition - Titrate Lactulose to 3 BM's day - Continue other home meds Insulin Dependent DM - A1c 10.9% - Continue Lantus 30U daily - Moderate SSI/Hypoglycemic protocol - CC diet Hx of CVA - Continue home meds, manage as above HTN - Continue home meds Hyperbilirubinemia, stable Hx of Esophageal Varices - Stable, no signs of acute bleed HLD Depression - Continue home meds Hx of bilateral BKA's - usually able to ambulate with prosthetics Code Status: Full DVT PPx: none, Pt at risk of bleeding and bilateral BKA's. PCP: Radha Cooney - Attending - Attending Attestation Date/Time: 12/02/18 2152 I personally evaluated the patient and discussed the management with Dr. Wild I agree with the History, Examination, Assessment and Plan documented above with any addition or exceptions noted below. Remote ischemic CVA changes noted on MRI history of slurred speech last several week and history RUE weakness numbness. Patient staes usual encephalopathic changes at ammonia in 100s . Increased lactulose only single stool noted yesterday ammonia 60. Continue IV attempt diuresis note significant ascites no respiratory compromise consider paracentesis prn.
[2018-12-02] MEDS: Rifaximin 550 MG TAB PO SCH ×2 (10:01→22:32)
[2018-12-02] MEDS: Ferrous Sulfate 325 MG TAB PO SCH (10:01)
[2018-12-02] MEDS: Venlafaxine HCl XR 150 MG CAP PO SCH ×2 (10:01→22:32)
[2018-12-02] MEDS: Gabapentin 300 MG CAP PO SCH ×2 (10:02→22:31)
[2018-12-02] MEDS: Nadolol 40 MG TAB PO SCH (10:02)
[2018-12-02] MEDS: HYDROcodone/Acetaminophen 10/325 mg Tablet PO PRN ×2 (10:10→17:22)
[2018-12-02] MEDS: Spironolactone 100 MG TAB PO SCH (12:43)
[2018-12-02] MEDS: HumaLOG 300 UNITS/3 ML VIAL SC PRN ×3 (12:44→22:46)
[2018-12-02] MEDS: Insulin Glargine 20 UNITS in Pre-Filled Syringe SC SCH (22:46)
[2018-12-03] MEDS: HYDROcodone/Acetaminophen 10/325 mg Tablet PO PRN ×3 (01:14→15:38)
[2018-12-03 05:33] LABS: #Eosinphils 0.2 thou/uL (0.0-0.7); #Lymphocytes 0.6 thou/uL (1.20-3.40); #Monocytes 0.3 thou/uL (0.11-0.59); #Neutrophils 1.8 thou/uL (1.40-6.50); %Basophils 1.1 % (0.0-1.0); %Eosinophils 6.5 % (0.0-10.0); %Lymphocytes 22.2 % (21.0-51.0); %Monocytes 8.8 % (0.0-10.0); %Neutrophils 61.5 % (42.0-75.0); Hemoglobin 9.9 g/dL (14.0-18.0); Mean Corpuscular HGB CONC 31.3 g/dL (32.0-36.0); Mean Corpuscular Hemoglobin 28.8 pg (27.0-31.0); Mean Corpuscular Volume 91.9 fL (78.0-98.0); Mean Platelet Volume 9.2 fL (7.4-10.4); Platelet Count 51 thou/uL (130-400); RBC Distribution Width 16.5 % (11.5-14.5); Red Blood Cell (RBC) Count 3.45 mill/uL (4.70-6.10); White Blood Cell (WBC) Count 2.9 thou/uL (4.8-10.8)
[2018-12-03] MEDS: HumaLOG 300 UNITS/3 ML VIAL SC PRN ×3 (05:38→17:26)
[2018-12-03 05:44] LABS: ALT (SGPT) 12 U/L (8-55); AST (SGOT) 27 U/L (5-34); Albumin 2.1 g/dL (3.5-5.0); Alkaline Phosphatase 84 U/L (40-150); Anion Gap 12 mmol/L (10-20); BUN (Urea Nitrogen) 9 mg/dL (8.4-25.7); Calc. Creatinine Clearance 195 mL/min (70-130); Calcium 8.3 mg/dL (7.8-10.44); Carbon Dioxide 22 mmol/L (22-29); Chloride 104 mmol/L (98-107); Estimated GFR-MDRD Greater than 90; Globulin 4.7 g/dL (2.4-3.5); Glucose 160 mg/dL (70-105); Potassium 3.8 mmol/L (3.5-5.1); Protein, Total 6.8 g/dL (6.0-8.3); Sodium 134 mmol/L (136-145)
--- NOTE | 2018-12-03 05:57 | PDOC.FM ---
- Subjective Subjective: Feeling well. No overnight events. Had 3 BM's overnight. Per mental status is improving. - Objective MAR Reviewed: Yes Vital Signs & Weight: Vital Signs (12 hours) Temp Pulse Resp BP Pulse Ox 12/03/18 04:00 98.6 F 80 20 148/68 H 95 12/03/18 00:00 97 F L 79 18 143/83 H 97 12/02/18 20:35 99 12/02/18 20:00 98.1 F 73 18 140/75 96 Weight Admit Weight 136.73 kg Weight 132.812 kg I&O: 12/01/18 12/02/18 12/03/18 06:59 06:59 06:59 Intake Total 710 1680 920 Output Total 650 1475 Balance 60 205 920 Result Diagrams: 12/03/18 05:03 12/03/18 05:03 Phys Exam - Physical Examination Constitutional: NAD HEENT: moist MMs Neck: supple Respiratory: no wheezing, clear to auscultation bilateral Cardiovascular: RRR, no significant murmur distended with fluid wave bilateral BKAs Neurological: moves all 4 limbs Psychiatric: normal affect, A&O x 3 Skin: cap refill <2 seconds Dx/Plan (1) CVA (cerebral vascular accident) Code(s): I63.9 - CEREBRAL INFARCTION, UNSPECIFIED Status: Acute (2) Insulin dependent diabetes mellitus Code(s): E11.9 - TYPE 2 DIABETES MELLITUS WITHOUT COMPLICATIONS; Z79.4 - FIRST ASSIST (CURRENT) USE OF INSULIN Status: Acute (3) Abdominal pain Code(s): R10.9 - UNSPECIFIED ABDOMINAL PAIN Status: Acute (4) Esophageal varices with hemorrhage Code(s): I85.01 - ESOPHAGEAL VARICES WITH BLEEDING Status: Acute (5) Gastroparesis due to secondary diabetes Code(s): E13.43 - OTH DIABETES MELLITUS W DIABETIC AUTONOMIC (POLY)NEUROPATHY Status: Acute (6) Hyperbilirubinemia Code(s): E80.6 - OTHER DISORDERS OF BILIRUBIN METABOLISM Status: Acute (7) Nonalcoholic steatohepatitis (PITTMAN) Code(s): K75.81 - NONALCOHOLIC STEATOHEPATITIS (PITTMAN) Status: Acute (8) Depression Code(s): F32.9 - MAJOR DEPRESSIVE DISORDER, SINGLE EPISODE, UNSPECIFIED Status : Chronic (9) Hyperlipidemia Code(s): E78.5 - HYPERLIPIDEMIA, UNSPECIFIED Status: Chronic (10) Hypertension Code(s): I10 - ESSENTIAL (PRIMARY) HYPERTENSION Status: Chronic (11) Liver cirrhosis secondary to PITTMAN (nonalcoholic steatohepatitis) Code(s): K75.81 - NONALCOHOLIC STEATOHEPATITIS (PITTMAN); K74.60 - UNSPECIFIED CIRRHOSIS OF LIVER Status: Chronic (12) PAD (peripheral artery disease) Code(s): I73.9 - PERIPHERAL VASCULAR DISEASE, UNSPECIFIED Status: Chronic (13) S/P bilateral below knee amputation Code(s): Z89.512 - ACQUIRED ABSENCE OF LEFT LEG BELOW KNEE; Z89.511 - ACQUIRED ABSENCE OF RIGHT LEG BELOW KNEE Status: Chronic (14) Encephalopathy Code(s): G93.40 - ENCEPHALOPATHY, UNSPECIFIED Status: Acute (15) History of CVA (cerebrovascular accident) Code(s): Z86.73 - PRSNL HX OF TIA (TIA), AND CEREB INFRC W/O RESID DEFICITS Status: Acute - Plan Plan: Mr Farias is a 53yo male with pmh of Nonalcoholic Cirrhosis 2/2 likely PITTMAN with esophageal banding (banding in 2012), Insulin dependent DMII, HTN, HLD, and Hx of CVA (2011) with subacute CVA Acute Encephalopathy - Likely hepatic encephalopathy - Infectious workup neg. CXR could not r/o pneumonia. Pro mary 0.06 - Ammonia 80-> 66-> 59 - Titrate lactulose to 3 BM's/day - Continue Rifaximin, CM consulted for outpt acquisition Subacute CVA on CT - NIH 1 - Left sided weakness, dysphagia. A&Ox3 - CT: Small hypodensity of right thalamus which has developed since prior exam. Indicates a lacunar infarct likely subacute in time frame - MRI no acute changes, evidence of prior CVA - CTA of neck: <50% stenosis involving both proximal ICAs - Echo: EF 50-55%, no abnormalities - Neurochecks q4hr Abdominal Pain - Likely related to new ascities. No concern for SBP. Afebrile, no leukocytosis. - US mod ascities - Continue to monitor Cirrhosis 2/2 likely PITTMAN - Ammonia 80-> 66-> 59 - MELD: 15 - Has been taking Lactulose every other day due to rectal irritation. Ordered barrier cream - Continue Rifaximin, pt was unable to afford outpt. CM consulted for outpt acquisition - Titrate Lactulose to 3 BM's day - Continue other home meds Insulin Dependent DM - A1c 10.9% - Increase Lantus to 24U daily - Moderate SSI/Hypoglycemic protocol - CC diet Hx of CVA - Continue home meds, manage as above HTN - Continue home meds Hyperbilirubinemia, stable Hx of Esophageal Varices - Stable, no signs of acute bleed HLD Depression - Continue home meds Hx of bilateral BKA's - usually able to ambulate with prosthetics Code Status: Full DVT PPx: none, Pt at risk of bleeding and bilateral BKA's. PCP: Radha Addendum - Attending - Attending Attestation Date/Time: 12/03/18 3572 I personally evaluated the patient and discussed the management with Dr. Wild. I agree with the History, Examination, Assessment and Plan documented above with any addition or exceptions noted below. Patient mentation improved. Has had some edema issues and ascites but will increase his diuretic regimen to Lasix 4 and Aldactone 100mg qday. Encourage ambulation and anticipate that discharge is coming in next 1-2 days. No evidence of acute infarct on MRI.
[2018-12-03] MEDS: Nadolol 40 MG TAB PO SCH (09:21)
[2018-12-03] MEDS: Venlafaxine HCl XR 150 MG CAP PO SCH ×2 (09:21→22:27)
[2018-12-03] MEDS: Ferrous Sulfate 325 MG TAB PO SCH (09:22)
[2018-12-03] MEDS: Gabapentin 300 MG CAP PO SCH ×2 (09:22→22:27)
[2018-12-03] MEDS: Rifaximin 550 MG TAB PO SCH ×2 (09:23→22:15)
[2018-12-03] MEDS: Spironolactone 100 MG TAB PO SCH (12:00)
--- NOTE | 2018-12-03 16:27 | PQF ---
CLINICAL DOCUMENTATION IMPROVEMENT CLARIFICATION FORM: ICD-10 Updated PLEASE DO AN ADDENDUM TO THE PROGRESS NOTE WITH ANY DOCUMENTATION UPDATES OR ADDITIONS AND CARRY THROUGH TO DC SUMMARY. THANK YOU. DATE: 12/03/2018 ATTN: Dr. Wild/ Attending Dr. Maldonado Please exercise your independent, professional judgment in responding to the clarification form. Clinical indicators are provided on the bottom of this form for your review Please check appropriate box(s): [x] Encephalopathy: Type: [x] Acute [ ] Subacute [ ] Chronic Etiology: [ ] Hepatic with Coma [x] Hepatic w/o Coma [ ] Other diagnosis [ ] Unable to determine In addition, please specify: Present on Admission (POA): [x] Yes [ ] No [ ] Unable to determine For continuity of documentation, please document condition throughout progress notes and discharge summary. Thank You. CLINICAL INDICATORS - SIGNS / SYMPTOMS / LABS PN 12/03: Acute Encephalopathy -Likely hepatic encephalopathy Attending: Pt mentation improved. RISKS: H&P 11/30: PM Hx Nonalcoholic Cirrhosis 2/2 likely PITTMAN, Insulin dependent DMII , HTN. Hx of CVA. TREATMENT: PN 12/03: Titrate lactulose to 3 BM's/day Continue Rifaximin Thank you, Mary (This form is maintained as a part of the permanent medical record) 2014 [employer], [employer]. All Rights Reserved Mary Jiménez RN, BSN [email or web address] Office: [phone] [facility]
[2018-12-03] MEDS ORDERED: Insulin Glargine 24 UNITS in Pre-Filled Syringe 1 EACH SC SCH (21:00)
[2018-12-04] MEDS: HYDROcodone/Acetaminophen 10/325 mg Tablet PO PRN ×2 (02:09→13:34)
[2018-12-04 05:14] LABS: ALT (SGPT) 13 U/L (8-55); AST (SGOT) 30 U/L (5-34); Alkaline Phosphatase 84 U/L (40-150); Anion Gap 9 mmol/L (10-20); BUN (Urea Nitrogen) 8 mg/dL (8.4-25.7); Bilirubin, Total 1.1 mg/dL (0.2-1.2); Calc. Creatinine Clearance 195 mL/min (70-130); Calcium 8.2 mg/dL (7.8-10.44); Carbon Dioxide 26 mmol/L (22-29); Chloride 104 mmol/L (98-107); Estimated GFR-MDRD Greater than 90; Globulin 4.8 g/dL (2.4-3.5); Glucose 158 mg/dL (70-105); Potassium 4.1 mmol/L (3.5-5.1); Protein, Total 6.8 g/dL (6.0-8.3); Sodium 135 mmol/L (136-145)
--- NOTE | 2018-12-04 06:29 | PDOC.FM ---
- Subjective Subjective: Feeling well this morning. He and his agree he is back to his baseline mental status. Had 4 BM's yesterday. His is concerned about the fluid, as it is harder for her to care for him with more weight. Social work are attempting to set up home health services. - Objective MAR Reviewed: Yes Vital Signs & Weight: Vital Signs (12 hours) Temp Pulse Resp BP Pulse Ox 12/04/18 04:00 97.8 F 73 16 132/76 96 12/04/18 00:00 97.9 F 76 16 120/74 97 12/03/18 20:00 98.1 F 78 16 134/77 97 Weight Admit Weight 136.73 kg Weight 133.81 kg I&O: 12/02/18 12/03/18 12/04/18 06:59 06:59 06:59 Intake Total 7835 767 7787 Output Total 1475 751 Balance 205 970 579 Result Diagrams: 12/03/18 05:03 12/04/18 04:19 Phys Exam - Physical Examination Constitutional: NAD HEENT: moist MMs Neck: supple Respiratory: no wheezing, clear to auscultation bilateral Cardiovascular: RRR, no significant murmur distended bilateral BKAs Neurological: moves all 4 limbs slurred speech improving Psychiatric: normal affect, A&O x 3 Skin: normal turgor Dx/Plan (1) CVA (cerebral vascular accident) Code(s): I63.9 - CEREBRAL INFARCTION, UNSPECIFIED Status: Acute (2) Insulin dependent diabetes mellitus Code(s): E11.9 - TYPE 2 DIABETES MELLITUS WITHOUT COMPLICATIONS; Z79.4 - PHYSICIAN CHIEF OF PATHOLOGY (CURRENT) USE OF INSULIN Status: Acute (3) Abdominal pain Code(s): R10.9 - UNSPECIFIED ABDOMINAL PAIN Status: Acute (4) Esophageal varices with hemorrhage Code(s): I85.01 - ESOPHAGEAL VARICES WITH BLEEDING Status: Acute (5) Gastroparesis due to secondary diabetes Code(s): E13.43 - OTH DIABETES MELLITUS W DIABETIC AUTONOMIC (POLY)NEUROPATHY Status: Acute (6) Hyperbilirubinemia Code(s): E80.6 - OTHER DISORDERS OF BILIRUBIN METABOLISM Status: Acute (7) Nonalcoholic steatohepatitis (PITTMAN) Code(s): K75.81 - NONALCOHOLIC STEATOHEPATITIS (PITTMAN) Status: Acute (8) Depression Code(s): F32.9 - MAJOR DEPRESSIVE DISORDER, SINGLE EPISODE, UNSPECIFIED Status : Chronic (9) Hyperlipidemia Code(s): E78.5 - HYPERLIPIDEMIA, UNSPECIFIED Status: Chronic (10) Hypertension Code(s): I10 - ESSENTIAL (PRIMARY) HYPERTENSION Status: Chronic (11) Liver cirrhosis secondary to PITTMAN (nonalcoholic steatohepatitis) Code(s): K75.81 - NONALCOHOLIC STEATOHEPATITIS (PITTMAN); K74.60 - UNSPECIFIED CIRRHOSIS OF LIVER Status: Chronic (12) PAD (peripheral artery disease) Code(s): I73.9 - PERIPHERAL VASCULAR DISEASE, UNSPECIFIED Status: Chronic (13) S/P bilateral below knee amputation Code(s): Z89.512 - ACQUIRED ABSENCE OF LEFT LEG BELOW KNEE; Z89.511 - ACQUIRED ABSENCE OF RIGHT LEG BELOW KNEE Status: Chronic (14) Encephalopathy Code(s): G93.40 - ENCEPHALOPATHY, UNSPECIFIED Status: Acute (15) History of CVA (cerebrovascular accident) Code(s): Z86.73 - PRSNL HX OF TIA (TIA), AND CEREB INFRC W/O RESID DEFICITS Status: Acute - Plan Plan: Mr Farias is a 53yo male with pmh of Nonalcoholic Cirrhosis 2/2 likely PITTMAN with esophageal banding (banding in 2012), Insulin dependent DMII, HTN, HLD, and Hx of CVA (2011) with subacute CVA Acute Encephalopathy - 2/2 hepatic encephalopathy. Symptoms improving with lactulose and rifaximin - Infectious workup neg. CXR could not r/o pneumonia. Pro mary 0.06 - Ammonia downtrending from 80 - Titrate lactulose to 3 BM's/day - Continue Rifaximin, CM consulted for outpt acquisition Subacute CVA on CT - Left sided weakness, dysphagia. A&Ox3 - CT: Small hypodensity of right thalamus which has developed since prior exam. Indicates a lacunar infarct likely subacute in time frame - MRI no acute changes, evidence of prior CVA - CTA of neck: <50% stenosis involving both proximal ICAs - Echo: EF 50-55%, no abnormalities - Pt cannot be on ASA or statin due to cirrhosis and esophageal varices Abdominal Pain - Likely related to new ascities. No concern for SBP. Afebrile, no leukocytosis. - US mod ascities - Continue to monitor Cirrhosis 2/2 likely PITTMAN - Ammonia downtrending. MELD initially 15 - Continue Rifaximin, pt was unable to afford outpt. CM consulted for outpt acquisition - Titrate Lactulose to 3 BM's day - Continue other home meds Insulin Dependent DM - A1c 10.9% - Lantus to 24U daily, Add Humalog 5U with meals TID - Moderate SSI/Hypoglycemic protocol - CC diet Hx of CVA - Continue home meds, manage as above HTN - Continue home meds Hyperbilirubinemia, stable Hx of Esophageal Varices - Stable, no signs of acute bleed HLD Depression - Continue home meds Hx of bilateral BKA's - usually able to ambulate with prosthetics - May benefit from HH PT/OT, continue walking program BID Code Status: Full DVT PPx: none, Pt at risk of bleeding and bilateral BKA's. PCP: Radha Addendum - Attending - Attending Attestation Date/Time: 12/04/18 5275 I personally evaluated the patient and discussed the management with Dr. Wild. I agree with the History, Examination, Assessment and Plan documented above with any addition or exceptions noted below. Patient doing well, back to baseline. No acute CVA. Likely hepatic encephalopathy induced that is resolved with decrease in ammonia from lactulose use. We have escalated his diuretic therapy to help with fluid overload and ascites. Coordinating outpatient follow up and likely d/c later today.
[2018-12-04] MEDS: HumaLOG 300 UNITS/3 ML VIAL SC PRN ×2 (06:40→11:58)
[2018-12-04] MEDS ORDERED: Furosemide 20 MG TAB PO SCH ×2 (09:00)
[2018-12-04] MEDS: Nadolol 40 MG TAB PO SCH (10:10)
[2018-12-04] MEDS: Gabapentin 300 MG CAP PO SCH (10:11)
[2018-12-04] MEDS: Venlafaxine HCl XR 150 MG CAP PO SCH (10:11)
[2018-12-04] MEDS: Ferrous Sulfate 325 MG TAB PO SCH (10:11)
[2018-12-04] MEDS: Insulin Regular 300 UNITS/3 ML VIAL SC SCH ×2 (10:13→13:35)
[2018-12-04] MEDS: Rifaximin 550 MG TAB PO SCH (11:23)
[2018-12-04] MEDS: Spironolactone 100 MG TAB PO SCH (11:23)
[2018-12-04 16:42] VITALS: BP 142/73; TEMP 98.1
--- NOTE | 2018-12-05 08:38 | DIS ---
DATE OF ADMISSION: 11/30/2018 DATE OF DISCHARGE: 12/04/2018 RESIDENT: Aemena Wild MD, PGY-1. ADMITTING ATTENDING: Christi Garcia MD. DISCHARGE ATTENDING: Obie Maldonado MD. CONSULTS: None. PROCEDURES: 1. Brain CT, no acute intracranial abnormalities. Redemonstration of left occipital encephalomalacia and superimposed microvascular ischemic disease advanced for the patient's age. There is a small hypodensity of the right thalamus, which has developed since the prior exam. This indicate a lacunar infarction, likely subacute time frame. 2. Chest x-ray, interval development of linear and slightly patchy densities in the left mid lung zone, probably attributable to atelectasis but developing infiltrate, pneumonitis cannot be excluded. Followup PA and lateral chest x-ray. X-ray is recommended to ensure resolution. 3. CTA neck, mild less than 50% stenosis involving both proximal ICAs, heterogeneous and enlarged thyroid gland is present. There is focal area of peripheral consolidation in the left upper lobe. There is mucosal disease in the paranasal sinuses. The airway is patent. 4. Echocardiogram, EF 50% to 55%. Mild mitral annular calcification. Trace tricuspid regurg. The left atrium is moderately dilated. 5. Brain MRI, no acute intracranial abnormality. Findings likely reflective of chronic small-vessel ischemic changes, not significantly progressed compared to study in 2013. Stable area of encephalomalacia and gliosis with hemosiderin deposition along the margins of the area of encephalomalacia likely related to remote infarction in distribution of left posterior cerebral artery. Chronic small-vessel ischemic changes not significantly progressed when compared to the prior study in 2013. Mild cerebral volume loss. DISCHARGE DIAGNOSES: 1. Acute encephalopathy secondary to hepatic encephalopathy. 2. Subacute cerebrovascular accident on CT. SECONDARY DIAGNOSES: 1. Abdominal pain. 2. Cirrhosis secondary to likely PITTMAN. 3. Insulin-dependent diabetes. 4. History of cerebrovascular accident. 5. Hypertension. 6. Hyperbilirubinemia, stable. 7. History of esophageal varices. 8. Hyperlipidemia. 9. Depression. 10. History of bilateral below knee amputation. DISCHARGE MEDICATIONS: 1. Ferrous sulfate 325 daily. 2. Furosemide 40 mg daily. 3. Gabapentin 900 mg b.i.d. 4. Kelso 10/325 one tab q.6 hours p.r.n. 5. Insulin 5 units subcutaneously t.i.d. 6. Lactulose 10 g t.i.d. 7. Nadolol 20 mg daily. 8. Pantoprazole 40 mg b.i.d. 9. Rifaximin 550 mg b.i.d. 10. Spironolactone 50 mg daily. 11. Venlafaxine 150 mg daily. 12. Insulin glargine 24 units at bedtime. DISCONTINUED MEDICATIONS: Spironolactone 50 and Lasix 20 mg daily. HISTORY OF PRESENT ILLNESS/HOSPITAL COURSE: Mr. Farias is a 53-year-old male, who presented to the ED for acute encephalopathy. He has a history of nonalcoholic cirrhosis likely secondary to PITTMAN with history of esophageal banding in 2012, insulin-dependent diabetes, and history of CVA in 2011 with no residual deficits. He presented with acute encephalopathy and weakness of 5 days duration. His symptoms seemed consistent with acute CVA including loss of control of bowel and bladder, confusion, falling and leaning towards left side, slurred speech, and some hand numbness. He also had remarkable distention of abdomen and required a paracentesis once before in August 2018. At this time, they removed 10 L. He has not required a paracentesis since then. He does have a long history of noncompliance with insulin due to financial reasons. He is currently approved for Lantus 10 units at bedtime through the Lantus program. His vitals were stable at admission. Chest x-ray showed linear and slight patchy densities in the left mid lung zone, probably atelectasis, pneumonitis infiltrate cannot be ruled out. The patient was afebrile. procalcitonin 0.06. The patient denied any URI symptoms. For this reason, antibiotics were not started. His CT showed small hypodensity in the right thalamus, which had developed since prior exam indicates lacunar infarct likely subacute in timeframe. Stroke workup was pursued with MRI, CTA, echo, and he was admitted to stroke with neuro check q.4 hours. MRI was negative. Neuro was consulted, who did not feel that this was an acute stroke and declined evaluation. CTA of the neck showed less than 50% carotid stenosis. Echo was normal with EF 50% to 55%. For his acute encephalopathy on further questioning, the patient has not been taking lactulose due to soreness from diarrhea. His lactulose was increased to titrate bowel movements 3 to 4 per day. The patient also has not been taking rifaximin at home, not able to acquire due to financial reasons Ammonia was 80, which downtrended to 66, 69, and 47. His mental status improved each day and was at 95% per and patient at discharge. Lactulose was titrated, where patient was having 3 to 4 bowel movements a day. Rifaximin was given inpatient, although case management was consulted to see if patient would qualify for any programs for medication acquisition. It looks as though they will not be able to provide any for this patient in regard to his abdominal pain, this was likely related to his ascites. His home Lasix and spironolactone were doubled in dose. There were no concern for SBP. He is afebrile and there is no leukocytosis. Ultrasound was performed that showed moderate ascites. We elected to not do paracentesis as the patient's ascites was improving with diuresis and we did not want to put the patient in a cycle, where he would need weekly outpatient paracentesis if we could resolve symptoms with Lasix. In regard to his cirrhosis , this is likely secondary to PITTMAN. His MELD on admission was 15. Ammonia was downtrending with adjustments in lactulose. In the future, the patient would benefit from rifaximin although right now, he is unable to afford it as an outpatient. Insulin-dependent diabetes. A1c was checked at 10.9. The patient is currently on Lantus 10 units and is unable to afford Humalog. On looking at his clinic record , he has been on as much as 75 units Lantus b.i.d. in the past to control diabetes although inpatient, he only needed 24 units daily with Humalog 5 units t.i.d. with meals. is looking into increase the dose of Lantus outpatient through the Lantus medication assistance program. It was encouraged for patient to be compliant with carb consistent diet. His history of CVA was managed with his home medications. He cannot be on a statin due to his cirrhosis or due to esophageal varices. Hypertension and depression were managed on home medications and stable throughout the hospital course. He has a history of esophageal is, this was stable. There were no signs of acute bleed. Hyperbilirubinemia as high as 1.4 during hospitalization, likely secondary to hepatic disease. He has a history of bilateral BKA. He is usually able to ambulate with prosthetics. His balance improved as his hepatic encephalopathy resolved. He will benefit from Home Health, PT/OT services, and this can be continued at home. DISPOSITION: Stable. DISCHARGE INSTRUCTIONS: 1. Location: Home. 2. Diet: Carb consistent heart healthy. 3. Activity: As tolerated with assistance. 4. Followup: Follow up with Dr. Garcia, PCP, within 3 days. Job ID: [id number] [facility] C[facility]ERSatinder
== END 2018-12-04 17:05 | disposition home health service (06) | DRG 64 ==
LOC: ERS 12:45 → 2SE 15:37
PROVIDERS: ADMIT Family Medicine; ATTEND Family Medicine
DX: I63.81 Other cerebral infarction due to occlusion or stenosis of small artery (principal); J18.9 Pneumonia, unspecified organism; G81.94 Hemiplegia, unspecified affecting left nondominant side; R18.8 Other ascites; I85.10 Secondary esophageal varices without bleeding; E87.0 Hyperosmolality and hypernatremia; J98.11 Atelectasis; K72.90 Hepatic failure, unspecified without coma; K75.81 Nonalcoholic steatohepatitis (NASH); E11.43 Type 2 diabetes mellitus with diabetic autonomic (poly)neuropathy; K31.84 Gastroparesis; E80.6 Other disorders of bilirubin metabolism; R40.2362 Coma scale, best motor response, obeys commands, at arrival to emergency department; R40.2132 Coma scale, eyes open, to sound, at arrival to emergency department; R40.2252 Coma scale, best verbal response, oriented, at arrival to emergency department; F32.9 Major depressive disorder, single episode, unspecified; E11.65 Type 2 diabetes mellitus with hyperglycemia; R29.6 Repeated falls; E78.5 Hyperlipidemia, unspecified; I10 Essential (primary) hypertension; I73.9 Peripheral vascular disease, unspecified; I07.1 Rheumatic tricuspid insufficiency; K42.9 Umbilical hernia without obstruction or gangrene; Z89.512 Acquired absence of left leg below knee; Z89.511 Acquired absence of right leg below knee; Z79.4 Long term (current) use of insulin; Z86.73 Personal history of transient ischemic attack (TIA), and cerebral infarction without residual deficits; Z91.14 Patient's other noncompliance with medication regimen
CPT/HCPCS: 36415; 36416; 70450; 70498; 70551; 71045; 76700; 80053; 80061; 80306; 80307; 81003; 82140; 83036; 83880; 84145; 84484; 85025; 85610; 85730; 93005; 93306; J1815; J1825; J1940; Q9966

== ENCOUNTER 2018-12-09 22:25 | Emergency (ER) | payer MEDICARE ==
--- NOTE | 2018-12-09 23:17 | RAD ---
CHEST TWO VIEWS: History: Shortness of breath. Comparison: 11-30-18 FINDINGS: There is scarring at the lingula. Lungs otherwise clear. No pneumothorax of effusion. Cardiac silhoue tte is similar. No acute osseous abnormality. IMPRESSION: Similar changes in the chest. No acute thoracic abnormality. POS: [facility]
[2018-12-09 23:34] LABS: ALT (SGPT) 13 U/L (8-55); AST (SGOT) 25 U/L (5-34); Albumin 2.4 g/dL (3.5-5.0); Alkaline Phosphatase 87 U/L (40-150); Anion Gap 11 mmol/L (10-20); BUN (Urea Nitrogen) 16 mg/dL (8.4-25.7); Calc. Creatinine Clearance 0 mL/min (70-130); Calcium 8.7 mg/dL (7.8-10.44); Carbon Dioxide 28 mmol/L (22-29); Chloride 101 mmol/L (98-107); Estimated GFR-MDRD 67; Globulin 5.2 g/dL (2.4-3.5); Glucose 195 mg/dL (70-105); Potassium 4.8 mmol/L (3.5-5.1); Protein, Total 7.6 g/dL (6.0-8.3); Sodium 135 mmol/L (136-145)
[2018-12-10] MEDS ORDERED: Furosemide 40 MG/4 ML VIAL ONE (00:12)
[2018-12-10] MEDS ORDERED: Morphine 4 MG/ML VIAL ONE (00:18)
== END 2018-12-10 00:38 | disposition home or self-care (01) ==
LOC: ERS 22:25
DX: R18.8 Other ascites (principal); R10.9 Unspecified abdominal pain; E78.5 Hyperlipidemia, unspecified; E11.9 Type 2 diabetes mellitus without complications; I10 Essential (primary) hypertension; Z86.73 Personal history of transient ischemic attack (TIA), and cerebral infarction without residual deficits; F32.9 Major depressive disorder, single episode, unspecified; F17.210 Nicotine dependence, cigarettes, uncomplicated; Z79.899 Other long term (current) drug therapy; Z79.4 Long term (current) use of insulin
CPT/HCPCS: 36415; 71046; 80053; 82140; 96374; 96375; J1940; J2270

== ENCOUNTER 2019-02-13 06:43 | Outpatient (CLI) | payer MEDICARE ==
--- NOTE | 2019-02-13 07:38 | ULT ---
HEPATIC DOPPLER EVALUATION WITH WALL SCALE AND DOPPLER COLOR FLOW IMAGING: Date: 02/13/19 INDICATION: Hepatitis C. FINDINGS: There is a moderate volume of ascites. Liver is nodular in morphology, indicating cirrhosis. Spleen i s enlarged, measuring greater than 17 cm in length, indicative of portal hypertension. There is shado wing cholelithiasis. The gallbladder wall is borderline at nearly 3 mm in thickness. Doppler evaluati on reveals arterial waveform of the hepatic and splenic arteries. The hepatic and portal venous syste ms are documented as patent with appropriate waveforms. Common duct is 4mm. IMPRESSION: 1. Cirrhotic morphology of the liver with associated portal hypertension. 2. Moderate ascites. 3. Appropriate hepatic and portal venous flow is documented. 3. Cholelithiasis. POS: [facility]
== END 2019-02-13 06:44 | disposition home or self-care (01) ==
LOC: ULT 06:43
PROVIDERS: ATTEND Internal Medicine Gastroenterology
DX: K74.60 Unspecified cirrhosis of liver (principal); R18.8 Other ascites; K72.90 Hepatic failure, unspecified without coma; K76.0 Fatty (change of) liver, not elsewhere classified; I81 Portal vein thrombosis; I85.11 Secondary esophageal varices with bleeding; K80.20 Calculus of gallbladder without cholecystitis without obstruction; K76.6 Portal hypertension
CPT/HCPCS: 76705

== ENCOUNTER 2019-02-25 09:04 | Day surgery (SDC) | payer MEDICARE ==
[2019-02-22 10:38] VITALS: BMI 35.3
[2019-02-25] MEDS ORDERED: Lidocaine 1% PF 5 ML VIAL ONE (09:30)
[2019-02-25] MEDS ORDERED: PROPOFOL 200 MG/20 ML VIAL ONE (09:30)
--- NOTE | 2019-02-25 13:23 | OP ---
DATE OF PROCEDURE: 02/25/2019 PROCEDURE PERFORMED: Esophagogastroduodenoscopy with banding of esophageal varices x4. HISTORY: 1. Cirrhosis secondary to nonalcoholic steatohepatitis. 2. Diabetes, poorly controlled. 3. Morbid obesity. 4. History of variceal bleeding in the past. POSTOPERATIVE DIAGNOSES: 1. One column of grade 3 varix with red steffany sign. 2. Two columns of grade 2 varices in the distal esophagus. 3. Retained gastric contents in the stomach consistent with gastroparesis prohibiting any meaningful evaluation of the stomach. 4. Normal duodenum. COMPLICATIONS: None. RECOMMENDATIONS: 1. Repeat EGD in 6 months. Continue present medications. 2. Low carb diet and weight loss. The patient is to follow up with Hepatology in [place]. PROCEDURE IN DETAIL: The patient was informed of the risks, benefits, and possible complications of endoscopy including perforation, reaction to medication, aspiration, and informed consent was obtained. The patient was brought to endoscopy suite, where he was sedated in gradual fashion. He was sedated and a bite-block was placed inside the orifice. The endoscope was advanced through the esophagus, stomach, and second and third portions of the duodenum and slowly removed. The esophagus was notable for, 1. One column of grade 3 varix at the distal third of the esophagus with red steffany sign, but no stigmata of recent bleeding. 2. There were small varices present. The stomach was entered and a large amount of food was found. The food had soft components irrigated away and removed. The duodenum was entered and found to be normal with no signs of obstruction. Pyloric channel was clear. The stomach was desufflated. The scope was brought back into the esophagus and removed, and a banding kit was placed. Four bands were placed in varices in the esophagus. Good ablation. No remaining varices were seen. No bleeding was encountered. The scope was removed. The patient tolerated procedure well. There were no complications. Job ID: [id number]
== END 2019-02-25 12:10 | disposition home or self-care (01) ==
LOC: SDC 09:04
PROVIDERS: ATTEND Internal Medicine Gastroenterology
PROC: 06L38CZ Occlusion of Esophageal Vein with Extraluminal Device, Via Natural or Artificial Opening Endoscopic (ICD-10-PCS; principal; 2019-02-25)
DX: K75.81 Nonalcoholic steatohepatitis (NASH) (principal); K74.60 Unspecified cirrhosis of liver; I85.10 Secondary esophageal varices without bleeding; K72.90 Hepatic failure, unspecified without coma; D64.9 Anemia, unspecified; E11.9 Type 2 diabetes mellitus without complications; E78.00 Pure hypercholesterolemia, unspecified; F17.210 Nicotine dependence, cigarettes, uncomplicated; I10 Essential (primary) hypertension; I25.2 Old myocardial infarction; E66.01 Morbid (severe) obesity due to excess calories; Z68.35 Body mass index [BMI] 35.0-35.9, adult; Z79.2 Long term (current) use of antibiotics; Z79.4 Long term (current) use of insulin; Z79.899 Other long term (current) drug therapy
CPT/HCPCS: 36416; J2001; J2704

== ENCOUNTER 2019-09-02 22:24 | Inpatient (IN) | payer MEDICARE ==
--- NOTE | 2019-09-02 23:16 | RAD ---
EXAM: Chest one view: HISTORY: Cough COMPARISON: 11/30/2018 FINDINGS: Heart size: Within normal limits. Lungs: Clear of acute process. No evidence for confluent pneumonia, pleural effusion, acute edema, or pneumothorax, or other signifi cant acute process. IMPRESSION: No significant acute intrathoracic disease. Stable chest.
[2019-09-02 23:58] LABS: Hemoglobin 13.7 g/dL (14.0-18.0); Mean Corpuscular HGB CONC 33.7 g/dL (32.0-36.0); Mean Corpuscular Hemoglobin 30.6 pg (27.0-31.0); Mean Corpuscular Volume 90.8 fL (78.0-98.0); Mean Platelet Volume 8.3 fL (7.4-10.4); Platelet Count 50 thou/uL (130-400); RBC Distribution Width 13.5 % (11.5-14.5); Red Blood Cell (RBC) Count 4.46 mill/uL (4.70-6.10); White Blood Cell (WBC) Count 8.4 thou/uL (4.8-10.8)
[2019-09-03 00:06] LABS: Band 17 % (5-11); Lymphocytes 1 % (21-51); MDiff Complete? YES; Monocytes 6 % (0-10); Neutrophil 76 % (42-75); Platelet Morphology Comment Appears Decreased
[2019-09-03 00:14] LABS: ALT (SGPT) 14 U/L (8-55); AST (SGOT) 23 U/L (5-34); Alkaline Phosphatase 68 U/L (40-110); Anion Gap 15 mmol/L (10-20); BUN (Urea Nitrogen) 29 mg/dL (8.4-25.7); Bilirubin, Total 2.1 mg/dL (0.2-1.2); Calc. Creatinine Clearance 0 mL/min (70-130); Calcium 8.4 mg/dL (7.8-10.44); Carbon Dioxide 20 mmol/L (22-29); Chloride 103 mmol/L (98-107); Estimated GFR-MDRD 46; Globulin 4.6 g/dL (2.4-3.5); Glucose 209 mg/dL (70-105); Lipase 11 U/L (8-78); Potassium 3.8 mmol/L (3.5-5.1); Protein, Total 7.6 g/dL (6.0-8.3); Sodium 134 mmol/L (136-145)
[2019-09-03 00:36] LABS: CKMB 0.4 ng/mL (0-6.6)
[2019-09-03] MEDS ORDERED: Aspirin Chewable 81 MG TAB ONE (00:45)
--- NOTE | 2019-09-03 01:29 | PDOC.FPRHP ---
- History of Present Illness Chief Complaint: Weakness, Chest pain History of Present Illness: Patient is a 53 yo male who presents with complaint of generalized weakness since yesterday morning. He also says that yesterday he had chest pain that was burning and stabbing, located over left side of chest, rated 7 out of 10, no radiation. This pain is not currently present. Has never had pain like this before. Patient additionally complains of sore on right LE stump, this was cultured by home health nurse and was started on Doxycycline 2-3 days ago. Patient's son is present in room and reports history that patient does not always take his medications. Patient has a history of non-alcoholic fatty liver cirrhosis and takes lactulose but sometimes forgets. The cirrhosis is monitored by Dr. Boyer, GI physician in [place], [place]. He is not on a liver transplant list. Patient does say he monitors his blood sugars, with recent sugars in 180s to 260s, however patient's son says when he got home from work yesterday evening the patient's glucose was 300. ED Course: Given 324 mg ASA. Flu negative. CXR neg. Labs revealed elevated troponin 0.034, BUN 29, Cr 1.58, GFR 46, Ammonia 46. - Allergies/Adverse Reactions Allergies Allergy/AdvReac Type Severity Reaction Status Date / Time No Known Drug Allergies Allergy Verified 09/03/19 03:24 - Home Medications Medication Instructions Recorded Confirmed Type Venlafaxine HCl [Venlafaxine HCl 150 mg PO DAILY 06/23/15 09/03/19 History ER] Nadolol [Corgard] 20 mg PO DAILY #0 tab 06/29/15 09/03/19 Rx Spironolactone [Aldactone] 100 mg PO 1200 08/13/15 09/03/19 History Pantoprazole [Protonix] 40 mg PO BID 10/27/15 09/03/19 History Ferrous Sulfate, Dried [Iron] 65 mg PO DAILY 02/03/18 09/03/19 History Gabapentin 900 tab PO BID 30 Days #60 tablet 02/03/18 09/03/19 Rx HYDROcodone/Acetaminophen 1 tab PO Q6HR PRN 11/30/18 09/03/19 History [Hydrocodone-Acetamin 10-325 mg] Lactulose 10 gm PO TID #1 udcup 12/04/18 09/03/19 Rx Furosemide 20 mg PO 0900,1400 02/22/19 09/03/19 History Insulin Glargine [Lantus Vial] 40 units SC HS 02/22/19 09/03/19 History Insulin Aspart [Novolog] 0 unit SQ ASDIR 09/03/19 09/03/19 History Nystatin [Mycostatin Powder] 1 applic TOP TID PRN 09/03/19 09/03/19 History - History PMHx: HLD, T2DM, HTN, CVA x 2 in 2012, non-alcoholic fatty liver cirrhosis, Depression PSHx: bilateral BKAs, esophageal varices banding in 2014 FHx: non-contributory Social: smokes 1/2 ppd, denies EtOH use - Review of Systems ROS unobtainable: other (history partially given by patient's son) General: reports: fever/chills (chills for past day), fatigue. denies: weight/ appetite/sleep changes Eyes: denies: vision changes ENT: denies: nasal congestion Respiratory: denies: cough, congestion, shortness of breath Cardiovascular: reports: chest pain. denies: palpitation, edema Gastrointestinal: denies: nausea, vomiting, diarrhea, constipation, abdominal pain Genitourinary: denies: dysuria, polyuria Skin: reports: jaundice. denies: rashes, lesions Musculoskeletal: denies: pain, tenderness, stiffness, swelling Neurological: reports: weakness. denies: numbness, syncope - Vital signs BP: 99/56 HR: 98 RR: 16 Tmax: 99.0F Pox: 97% on RA Wt: 116 kg - Physical Exam Constitutional: NAD, awake, alert and oriented, well developed HEENT: normocephalic and atraumatic, EOMI, grossly normal vision, grossly normal hearing -HEENT: dry mucous membranes Neck: supple, no JVD Chest: no-tender to palpation, no lesions Heart: RRR, normal S1/S2, no murmurs/rubs/gallops, pulses present, no edema Lungs: CTAB, no respiratory distress, good air movement, no rales/rhonchi, no wheezing Abdomen: soft, non-tender, bowel sounds present -Abdomen: mild fluid wave present Musculoskeletal: normal tone -Musculoskeletal: bilateral BKA present Neurological: no focal deficit, normal sensation -Skin: jaundice, poor skin turgor. Approx 2x2 cm open ulcer on right LE stump. Heme/Lymphatic: no unusual bruising or bleeding Psychiatric: normal mood and affect FMR H&P: Results - Labs Result Diagrams: 09/03/19 05:31 09/03/19 05:31 Lab results: WBC 8.4 thou/uL (4.8-10.8) 09/02/19 23:43 Hgb 13.7 g/dL (14.0-18.0) L 09/02/19 23:43 Hct 40.5 % (42.0-52.0) L 09/02/19 23:43 MCV 90.8 fL (78.0-98.0) 09/02/19 23:43 Plt Count 50 thou/uL (130-400) L 09/02/19 23:43 Band Neuts % (Manual) 17 % (5-11) H 09/02/19 23:43 Sodium 134 mmol/L (136-145) L 09/02/19 23:43 Potassium 3.8 mmol/L (3.5-5.1) 09/02/19 23:43 Chloride 103 mmol/L (98-107) 09/02/19 23:43 Carbon Dioxide 20 mmol/L (22-29) L 09/02/19 23:43 BUN 29 mg/dL (8.4-25.7) H 09/02/19 23:43 Creatinine 1.58 mg/dL (0.7-1.3) H 09/02/19 23:43 Glucose 209 mg/dL (70-105) H 09/02/19 23:43 Calcium 8.4 mg/dL (7.8-10.44) 09/02/19 23:43 Total Bilirubin 2.1 mg/dL (0.2-1.2) H 09/02/19 23:43 AST 23 U/L (5-34) 09/02/19 23:43 ALT 14 U/L (8-55) 09/02/19 23:43 Alkaline Phosphatase 68 U/L (40-110) 09/02/19 23:43 Ammonia 46 umol/L (18-72) 09/02/19 23:43 CK-MB (CK-2) 0.4 ng/mL (0-6.6) 09/02/19 23:43 B-Natriuretic Peptide 138.3 pg/mL (0-100) H 09/02/19 23:43 Serum Total Protein 7.6 g/dL (6.0-8.3) 09/02/19 23:43 Albumin 3.0 g/dL (3.5-5.0) L 09/02/19 23:43 Lipase 11 U/L (8-78) 09/02/19 23:43 - Radiology Interpretation Chest x-ray Status: report reviewed by me (no acute pathology) FMR H&P: A/P - Problem List (1) Elevated troponin Current Visit: Yes Status: Acute Code(s): R79.89 - OTHER SPECIFIED ABNORMAL FINDINGS OF BLOOD CHEMISTRY (2) Chest pain Current Visit: Yes Status: Acute Code(s): R07.9 - CHEST PAIN, UNSPECIFIED Qualifiers: Chest pain type: other chest pain Qualified Code(s): R07.89 - Other chest pain; R07.8 - Other chest pain (3) ALEXANDER (acute kidney injury) Current Visit: No Status: Acute Code(s): N17.9 - ACUTE KIDNEY FAILURE, UNSPECIFIED (4) Diabetes mellitus type 2 in obese Current Visit: No Status: Chronic Code(s): E11.9 - TYPE 2 DIABETES MELLITUS WITHOUT COMPLICATIONS; E66.9 - OBESITY, UNSPECIFIED (5) Liver cirrhosis secondary to PITTMAN (nonalcoholic steatohepatitis) Current Visit: No Status: Chronic Code(s): K75.81 - NONALCOHOLIC STEATOHEPATITIS (PITTMAN); K74.60 - UNSPECIFIED CIRRHOSIS OF LIVER (6) S/P bilateral below knee amputation Current Visit: No Status: Chronic Code(s): Z89.512 - ACQUIRED ABSENCE OF LEFT LEG BELOW KNEE; Z89.511 - ACQUIRED ABSENCE OF RIGHT LEG BELOW KNEE - Plan 53 yo male with complaint of weakness and chest pain is admitted for elevated troponin and ALEXANDER: #ALEXANDER -likely d/t dehydration -admission BUN 29, Cr 1.58, GFR 46 -will give LR 1L bolus then start maintenance IVF LR @ 150 ml/h -recheck CMP in AM -check urine Na & urine Cr -hold home Lasix for now, consider resuming once volume status improves #Chest Pain, Elevated Troponin -trop 0.034, will continue to trend -will make NPO, consider obtaining stress test in AM given co-morbidities -place on telemetry -monitor vitals q4hr #T2DM -per [facility] records is taking Lantus 45 units qHS -last A1C in Jul 2019 was 9.6% -Moderate SSI -Accuchecks ACHS #Cirrhosis -due to fatty liver, nonalcoholic -followed by GI Dr. Boyer in [place] -Ammonia 46 -currently alert & oriented -continue home meds: Lactulose, Spironolactone Diet: NPO pending stress test decision VTE: contraindicated d/t BKAs & low platelet count Code: Intubate only Dispo: Stable, admitted to observation on telemetry unit. Will continue to trend troponins, provide fluid resuscitation. Anticipate LOS <48 hrs. FMR H&P: Upper Level - Pertinent history 53 year old male presents to the ED by EMS for c/o of generalized weakness with altered mental status. Reports a history of liver cirrhosis and patient experiences episodes of altered mentation when ammonia levels get high. Son reports patient does not always take his lactulose. Pt states that he has been taking all his medications as prescribed. He presented today due to his children being concerned with his mental status. Here he is able to answer questions appropriately. He states that he has been taking his meds, however generally feels bad. He notes a period of substernal chest pain earlier today. This has now resolved. He denies fever, headache, vision changes, SOB, urinary complaints. He admits to increased thirst and glucose over 250, his son checked his glucose today and it was as high as 370 at home. Labs in ED show an ALEXANDER, ammonia of 53, and elevated troponin. Glucose was 209. EKG shows sinus tach. PMHx Cirrhosis 2/2 PITTMAN DM2 GERD Iron deficient anemia Pseudobulbar affect HTN Surgical Hx b/l BKA Esophageal variceal banding x5 PFO repair Social Hx No etoh or recreational drugs 0.5 ppd smoker FHx Non contributory - Pertinent findings See product management internship note for full ROS, PE, vitals, and labs ROS pt is altered, ROS per son General Denies fever/chills. Complains of AMS and confusion CV Denies CP or palpitation Resp Denies SOB GI Denies n/v/d/c Neuro Denies weakness or numbness Skin denies rash PE General A&O x4, NAD HEENT NCAT, scleral icterus CV RRR, no murmur Resp CTA b/l Abd Distended, non tender, no fluid wave Skin medial R knee with tender shallow ulceration. No purulence or erythema Neuro No focal deficits. Normal strength. Normal CN II-XII Extremities b/l BKA, otherwise normal - Plan Date/Time: 09/03/19 0128 I, Mike Briceno DO, have evaluated this patient and agree with findings/plan as outlined by product management internship resident. Pertinent changes/additions are listed here. 1.Atypical chest pain -Continue to trend troponin, may consider stress test in am -Cardiac source is certainly possible, however it is also possible that his elevated trop is related to low volume status. -Admit to tele 2.ALEXANDER -Bolus 1L, then start LR at 150. -Monitor renal function in am -Given recent elevation of glucose and increased urinary frequency, pt is likely volume down -BUN/Cr ratio is 18/1. Urine Na and Cr pending 3.DM2 -Home meds -Accucheck ACHS -SSI -Low carb diet 4.Cirrhosis -Restart home meds -Low protein diet -No encephalopathy at this point. 5.GERD -Restart home meds 6.Hypotension -IVF, continue to monitor. No need for pressers at this time 7.Thrombocytopenia -At baseline Diet NPO anticipating stress, when appropriate for diet will start Low carb, low protein PPx None, will hold lovenox dt thrombocytopenia. Code Intubate only Addendum - Attending - Attending Attestation Date/Time: 09/03/19 [id number] I personally evaluated the patient and discussed the management with Dr. Chairez I agree with the History, Examination, Assessment and Plan documented above with any addition or exceptions noted below.
[2019-09-03 02:05] LABS: INR-International Normal Ratio 1.5; Prothrombin Time 18.3 SEC (12.0-14.7)
[2019-09-03 02:06] LABS: PTT 36.7 SEC (22.9-36.1)
[2019-09-03] MEDS ORDERED: Calcium Carbonate 500 MG ChewTAB PO PRN (02:45)
[2019-09-03] MEDS ORDERED: Ondansetron ODT 4 MG TAB PO PRN (02:45)
[2019-09-03] MEDS ORDERED: Dextrose 50% Abboject 50 ML SYRINGE SLOW IVP PRN (02:45)
[2019-09-03] MEDS ORDERED: Dextrose 5% in Water 1,000 ML IV PRN (02:45)
[2019-09-03] MEDS ORDERED: Lactated Ringer's 1,000 ML IV SCH ×2 (02:45→15:45)
[2019-09-03] MEDS ORDERED: Ondansetron PF 4 MG/2 ML Vial IVP PRN (02:45)
[2019-09-03 03:08] LABS: Troponin I 0.021 ng/mL (< 0.028)
[2019-09-03] MEDS: Lactated Ringer's 1,000 ML IV SCH ×2 (03:36→12:13)
[2019-09-03] MEDS: Acetaminophen 325 MG TAB PO PRN ×3 (03:57→16:16)
[2019-09-03 05:55] LABS: Band 28 % (5-11); Hemoglobin 13.1 g/dL (14.0-18.0); Lymphocytes 1 % (21-51); MDiff Complete? YES; Mean Corpuscular HGB CONC 33.3 g/dL (32.0-36.0); Mean Corpuscular Hemoglobin 30.1 pg (27.0-31.0); Mean Corpuscular Volume 90.3 fL (78.0-98.0); Mean Platelet Volume 9.4 fL (7.4-10.4); Metamyelocyte 1 % (0-0); Monocytes 4 % (0-10); Neutrophil 66 % (42-75); Nucleated RBC 1 % (0); Platelet Count 43 thou/uL (130-400); Platelet Morphology Comment Appears Decreased; RBC Distribution Width 13.6 % (11.5-14.5); Red Blood Cell (RBC) Count 4.33 mill/uL (4.70-6.10); White Blood Cell (WBC) Count 2.4 thou/uL (4.8-10.8)
[2019-09-03 06:07] LABS: Troponin I 0.038 ng/mL (< 0.028)
[2019-09-03 06:13] LABS: ALT (SGPT) 16 U/L (8-55); AST (SGOT) 25 U/L (5-34); Albumin 2.7 g/dL (3.5-5.0); Alkaline Phosphatase 68 U/L (40-110); Anion Gap 19 mmol/L (10-20); BUN (Urea Nitrogen) 32 mg/dL (8.4-25.7); Bilirubin, Total 2.6 mg/dL (0.2-1.2); Calc. Creatinine Clearance 86 mL/min (70-130); Calcium 8.5 mg/dL (7.8-10.44); Carbon Dioxide 15 mmol/L (22-29); Chloride 101 mmol/L (98-107); Estimated GFR-MDRD 46; Globulin 4.7 g/dL (2.4-3.5); Glucose 319 mg/dL (70-105); Potassium 4.4 mmol/L (3.5-5.1); Protein, Total 7.4 g/dL (6.0-8.3); Sodium 131 mmol/L (136-145)
[2019-09-03] MEDS: HumaLOG 300 UNITS/3 ML VIAL SC PRN ×3 (06:35→16:25)
[2019-09-03] MEDS: Venlafaxine HCl XR 150 MG CAP PO SCH (08:45)
[2019-09-03] MEDS: Ferrous Sulfate 325 MG TAB PO SCH (08:46)
[2019-09-03] MEDS: Gabapentin 300 MG CAP PO SCH ×2 (08:46→23:05)
[2019-09-03] MEDS ORDERED: FERROUS SULFATE DRIED 65 MG PO SCH (09:00)
[2019-09-03] MEDS ORDERED: GABAPENTIN PO SCH (09:00)
[2019-09-03] MEDS ORDERED: Non-Formulary Item 1 EACH (Venlafaxine Hcl [Venlafaxine Hcl Er] 150 MG) PO SCH (09:00)
--- NOTE | 2019-09-03 09:05 | RAD ---
RADIOGRAPH CHEST 1 VIEW: DATE: 09/03/2019 HISTORY: 53-year-old male with fever FINDINGS: There are no airspace densities, pulmonary edema, pneumothorax, or cardiomegaly. The lateral costophr enic angles are sharp. IMPRESSION: No acute cardiopulmonary findings.
[2019-09-03] MEDS ORDERED: Vancomycin HCl 1 GM in Sodium Chloride 0.9% 250 ML 250 ML IVPB SCH (09:48)
[2019-09-03] MEDS ORDERED: Lactated Ringer's 1,000 ML IV ONE (09:50)
[2019-09-03] MEDS ORDERED: Enoxaparin Sodium 40 MG/0.4 ML SYRINGE SC SCH (10:00)
[2019-09-03] MEDS: Piperacillin/Tazobactam 3.375 GM in Sodium Chloride 0.9% 100 ML IVPB SCH ×3 (11:46→23:06)
[2019-09-03] MEDS ORDERED: SPIRONOLACTONE 100 MG PO SCH (12:00)
[2019-09-03] MEDS: Vancomycin 1.5 GRAM/300 ML BAG 1.5 GM in Premix Bag 1 BAG IVPB SCH ×2 (12:25→23:06)
[2019-09-03] MEDS: Sodium Chloride 0.9% 1,000 ML IV SCH ×2 (12:25→23:07)
[2019-09-03] MEDS: Spironolactone 100 MG TAB PO SCH (12:25)
--- NOTE | 2019-09-03 15:18 | ULT ---
Exam: Bilateral renal ultrasound HISTORY: Acute kidney insufficiency COMPARISON: None FINDINGS: Right kidney: Normal cortical echotexture. No hydronephrosis. Right kidney measurements: 6.5 x 6.1 x 11.6 cm. Left kidney: Normal cortical echotexture. No hydronephrosis Left kidney measurements 6.2 x 7.6 x 10.7 cm. Urinary bladder: Normal bladder mucosa There is a small amount of perisplenic fluid. There is ascites in the right lower quadrant and right upper quadrant. Spleen appears be mildly enlarged. IMPRESSION: 1. Small amount of ascites 2. Possible splenomegaly 3. No hydronephrosis.
[2019-09-03 15:24] LABS: Lactic Acid 6.2 mmol/L (0.5-2.2)
[2019-09-03 16:25] LABS: RBC/HPF 0-3 HPF (0-3); Squamous Epithelial 0-3 HPF (0-3); WBC/HPF 0-3 HPF (0-3)
[2019-09-03 16:37] LABS: Legionella Urinary Ag Negative (Negative); Strep pneumo Urine Ag NEGATIVE (NEGATIVE)
[2019-09-03 16:38] LABS: Bacteria/HPF Rare-Few HPF (None Seen)
[2019-09-03 16:50] LABS: Creatinine, Urine 91.34 mg/dL (63-166)
--- NOTE | 2019-09-03 17:30 | RAD ---
Exam: Right knee 4 views: HISTORY: Right knee wound, concern for osteomyelitis, fever FINDINGS: B-K amputation changes are noted with bony demineralization. There is some soft tissue dimpling at th e level of the amputation site anteriorly distally which could represent a wound. Mild degenerative changes. IMPRESSION: Skin dimpling at the site of the amputation which could represent a wound. Bony demineralization. The re is some minimal nonspecific irregularity of the cortex at the amputation site. If there is concern for osteomyelitis, follow-up MRI exam is recommended.
--- NOTE | 2019-09-03 18:07 | PDOC.EVN ---
Event Note - Event Note Event Note: Patient spiked fever of 103F, was given tylenol. Infectious workup including CXR , UA have been negative Procal elevated at 22, will empirically treat with vanc & zosyn, blood cx pending. Pt w/ no respiratory sxs and non hypoxic Due to renal function will hold of on CTA but will get b/l stump u/s Will get xray of wound to r/o osteomyelitis, cover with abx in meantime In regards to lactic acid, will bolus another 1L recheck later this evening Sugars in 200s, will give 8 units and then start home regimen tonight
[2019-09-03 19:18] LABS: Actual Bicarbonate (HCO3a) 19.5 mEq/L (22-28); Base Excess (BEa) -3.4 mEq/L (-2.0 to +3.0); CO2 Tension 29.2 mmHg (35.0-45.0); Calcium, Ionized 1.12 mmol/L (1.12-1.30); Carboxyhemoglobin (COHb) 0.7 gm% (0.0-3.0); Hemoglobin (Hb) 12.7 g/dL (14.0-18.0); O2 Tension (PaO2) 104.4 mmHg (80.0-100.0); Potassium - ABG Lab 3.81 mmol/L (3.70-5.30); pH, Arterial 7.44 (7.35-7.45)
--- NOTE | 2019-09-03 19:18 | PDOC.EVN ---
Event Note - Event Note Event Note: Called to bedside for clau ambrosio 2/2 AMS On arrival patient responding, AxOx3 Patient's bp was trending around 96/50, fevered earlier this afternoon to 103 Ordered ABG, CBC, CMP, Ammonia, repeat lactic acid Transferred to IMCU Will plan for paracentesis to r/o SBP bladder scan showed retention of 650ml, patel placed Addendum - Attending - Attending Attestation Date/Time: 09/03/19 1939 Responded to bedside with residents. Clau ambrosio called due to hypotension and decreased responsiveness/MS. On arrival, patient arousable but falls asleep easily. A&O x 3. Initial BP 70/40 repeat in 90/50s. P100 Patient c/o abdominal pain across lower abdomen. Pe: Lungs- coarse rhonchi, CV- tachycardic, Abd mild RLQ and LLQ tenderness. No rebound. Ext- B/l BKA stumps; small wound on right medial aspect of right knee with dressing. A/P: 1) Sepsis- uncertain source- will need paracentesis if able to find large enoigh pocket to rule out SBP. Blood cultures and urine culture already obtained. Continue current abx. If pfluid stuidies negative from paracentesis, will need to consider MRI of right knee. 2) Hypotension- improved; continue to monitor closely. Consider giving albumin to assist with volume.
--- NOTE | 2019-09-03 19:18 | PDOC.EVN ---
Event Note - Event Note Event Note: Onelia ambrosio called at 1845 (09/03) for hypotension and difficulty breathing. Stat labs drawn. Bladder scan revealed 690mL.
[2019-09-03 19:20] LABS: Puncture Site RRA
[2019-09-03 19:28] LABS: PTT 48.4 SEC (22.9-36.1)
[2019-09-03 19:29] LABS: INR-International Normal Ratio 2.1; Prothrombin Time 23.5 SEC (12.0-14.7)
[2019-09-03 19:31] LABS: ALT (SGPT) 24 U/L (8-55); AST (SGOT) 45 U/L (5-34); Albumin 2.3 g/dL (3.5-5.0); Alkaline Phosphatase 37 U/L (40-110); Anion Gap 13 mmol/L (10-20); BUN (Urea Nitrogen) 41 mg/dL (8.4-25.7); Bilirubin, Total 2.3 mg/dL (0.2-1.2); Calc. Creatinine Clearance 78 mL/min (70-130); Carbon Dioxide 21 mmol/L (22-29); Chloride 101 mmol/L (98-107); Estimated GFR-MDRD 42; Globulin 4.1 g/dL (2.4-3.5); Glucose 220 mg/dL (70-105); Lactic Acid 6.2 mmol/L (0.5-2.2); Potassium 3.7 mmol/L (3.5-5.1); Protein, Total 6.4 g/dL (6.0-8.3); Sodium 131 mmol/L (136-145)
--- NOTE | 2019-09-03 19:46 | CON ---
DATE OF CONSULTATION: REASON FOR CONSULTATION: Elevated creatinine. HISTORY OF PRESENT ILLNESS: A very pleasant 53-year-old gentleman who presented to the hospital earlier today with weakness and chest pain. The patient's creatinine was 0.8, which increased to 1.5, so I was consulted. The patient also has a history of liver failure. The patient has been noted some increased fluid in the abdomen. The patient denies any nausea, vomiting, or chest pain. PAST MEDICAL HISTORY: Hyperlipidemia, diabetes mellitus, hypertension, CVA, history of nonalcoholic fatty liver, depression, bilateral BKA, esophageal varices. FAMILY HISTORY: Negative for ESRD. SOCIAL HISTORY: Normally the patient smokes. Denies alcohol use. ALLERGIES: REVIEWED. HOME MEDICATIONS: List reviewed. REVIEW OF SYSTEMS: Fifteen-point review of system was performed, negative except for positives noted above. GENERAL: HEAD: NECK: No swelling or lumps. NOSE: No epistaxis or discharge. EYES: No diplopia or pain. 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 NEUROPSYCHIATIC SYSTEMS: No suicidal ideation. No ideation. SKIN: Denies any rash or ulcer. CONSTITUTIONAL: No fever or chills. PHYSICAL EXAMINATION: GENERAL: Awake, alert. VITAL SIGNS: Temperature 102, pulse 124, blood pressure 112/58. GENERAL APPEARANCE AND MENTAL STATUS: Fair. HEAD/NECK: Normocephalic. Atraumatic. EYES: EOMI. No deformity. EARS: Clear. No ulcers. NOSE: Intact. No lesions. MOUTH: Clear. No discharge. THROAT: Clear. No exudate. LUNGS: Clear. No crackles. CARDIAC: S1, S2. No rub. ABDOMEN: Benign. Bowel sounds positive. GENITALIA/RECTUM: Knox absent. BACK/EXTREMITIES: Edema 0+. NEUROLOGICAL: Alert and motor intact. SKIN: LYMPHATICS: LABORATORY DATA: Hemoglobin is 13.1, creatinine 1.5. ASSESSMENT: 1. Acute kidney injury with chronic kidney disease, most likely due to hepatorenal syndrome versus sepsis. I would recommend hydration. 2. Hypertension, stable. 3. Anemia, stable. 4. Metabolic acidosis. I would recommend getting a blood gas. 5. Medication based on GFR appropriate. I would recommend getting a vancomycin level. Job ID: [id number]
[2019-09-03 22:02] LABS: RBC Count-Automated (BF) 2073 /cumm; WBC/Nucleated-Auto (BF) 162 uL
--- NOTE | 2019-09-03 22:03 | RAD ---
Exam: Chest one view: HISTORY: Check volume status, follow-up fever COMPARISON: 09/03/2019 FINDINGS: Minimal patchy linear parenchymal changes in the lateral aspect of the left midlung zone possibly art e subsegmental atelectasis or mild developing pneumonitis. Heart size is within normal limits. The right lung is clear. IMPRESSION: Minimal linear parenchymal changes in the lateral aspect of the left midlung zone possibly minimal ea rly pneumonitis or some subsegmental atelectasis.
[2019-09-03 22:20] LABS: BF Color Yellow; Body Fluid Source Paracentesis Fluid; Clarity Clear (Clear); Tube # EDTA
[2019-09-03 22:28] LABS: BF Segmented Neutrophils 4 %; Cell Count Non Hematic 65 %; Lymphocytes 31 %
[2019-09-03] MEDS: Insulin Glargine 45 UNITS in Pre-Filled Syringe 1 EACH SC SCH (23:30)
[2019-09-04] MEDS: Sodium Chloride 0.9% 1,000 ML IV SCH ×4 (01:47→20:34)
[2019-09-04] MEDS: metroNIDAZOLE 500 MG in Premix Bag 1 BAG IVPB SCH ×3 (01:50→16:20)
[2019-09-04 02:21] LABS: Lactic Acid 2.4 mmol/L (0.5-2.2)
--- NOTE | 2019-09-04 02:32 | PDOC.BPN ---
- Brief Progress Note Bilateral DVT on doppler Fluid WBC 162 not suggestive of SBP Lactic acid trended down to 2.4 Will order V/Q scan to eval for PE Patient's INR is currently therapeutic at 2.1 would consider hematology consult for anticoag recs in the AM warfarin would be one option
--- NOTE | 2019-09-04 03:47 | PDOC.OP ---
Operative Note - Operative Note Operative Note: INDICATION: Diagnostic, rule out spontaneous bacterial peritonitis PROCEDURE BLAST [employer] SUPERVISOR: Dr. Guadalupe Fernandez ATTENDING PHYSICIAN: Dr. Jesus Manuel Villalobos, In Attendance Ultrasound used to edin location: Y CONSENT: Consent was obtained from patient prior to the procedure. Indications, risks, and benefits were explained at length. PROCEDURE SUMMARY: A time-out was performed. My hands were washed immediately prior to the procedure. I wore sterile gloves throughout the procedure. The area was cleansed and draped in usual sterile fashion using chlorhexidine scrub. Anesthesia was achieved with 1% lidocaine. The left lower quadrant of the abdomen was prepped and draped in a sterile fashion using chlorhexidine scrub. 1 % lidocaine was used to numb the skin, soft tissue and peritoneum. The paracentesis catheter was inserted and advanced with negative pressure until carloz colored fluid was aspirated. Approximately 30mL of ascitic fluid was collected and sent for laboratory analysis. The catheter was then connected to the vaccutainer and 3 liters of additional ascitic fluid were drained. The catheter was removed and no leaking was noted. A bandaid was placed over the puncture wound. The patient tolerated the procedure well without any immediate complications. Estimated blood loss was 0mL. Addendum - Attending - Attending Attestation Date/Time: 09/09/19 0558 I, Jesus Manuel Villalobos MD, personally evaluated the patient and discussed indications for the procedure described by Dr. Rainey. I directly supervised and participated in the Paracentesis and I agree with the description of procedure as documented above without any addition or exceptions.
[2019-09-04 04:26] VITALS: BMI 49.3
[2019-09-04] MEDS: Piperacillin/Tazobactam 3.375 GM in Sodium Chloride 0.9% 100 ML IVPB SCH ×4 (04:36→22:24)
[2019-09-04] MEDS: HumaLOG 300 UNITS/3 ML VIAL SC PRN ×3 (05:25→16:23)
--- NOTE | 2019-09-04 06:18 | PDOC.FM ---
- Subjective Subjective: Onelia ambrosio called last night for AMS. Patient with low nml BPs, moved to [facility]. This AM was a&o x4. Feeling well. Some pain at wound site. Denies fevers or any other complaints. No problems breathing, on N.C. - Objective MAR Reviewed: Yes Vital Signs & Weight: Vital Signs (12 hours) Temp Temp Pulse Pulse Pulse Pulse Pulse 09/04/19 04:00 97.7 F 09/04/19 00:00 97.7 F 09/03/19 20:00 09/03/19 19:42 100.4 F H 09/03/19 18:49 99.7 F H 104 H 104 H 103 H 99 98 Resp Resp Resp BP BP BP BP 09/04/19 04:00 09/04/19 00:00 09/03/19 20:00 09/03/19 19:42 09/03/19 18:49 36 H 36 H 33 H 79/40 L 92/54 L 95/44 L 104/60 BP Pulse Ox Pulse Ox Pulse Ox Pulse Ox 09/04/19 04:00 09/04/19 00:00 09/03/19 20:00 100 09/03/19 19:42 09/03/19 18:49 98/64 90 L 94 L 100 Weight Admit Weight 109.679 kg Weight 114.6 kg Most Recent Monitor Data Heart Rate from ECG 80 NIBP 97/63 NIBP BP-Mean 74 Respiration from ECG 25 SpO2 100 I&O: 09/02/19 09/03/19 09/04/19 06:59 06:59 06:59 Intake Total 1305 720 Output Total 1020 Balance 1305 -300 Result Diagrams: 09/04/19 06:54 09/04/19 06:54 Phys Exam - Physical Examination Constitutional: NAD HEENT: PERRLA Respiratory: no wheezing, no rhonchi dec breath sounds inleft lower lung bases Cardiovascular: RRR, no significant murmur Gastrointestinal: soft mild distension, mild tenderness, no erythmea, no signfiicant fluid wave b/l amputations Neurological: moves all 4 limbs Psychiatric: normal affect, A&O x 3 Deviation from normal: 2x2cm wound on right lower amputation site Dx/Plan (1) DVT (deep venous thrombosis) Code(s): I82.409 - ACUTE EMBOLISM AND THOMBOS UNSP DEEP VN UNSP LOWER EXTREMITY Status: Acute (2) History of hemorrhagic stroke with residual hemiparesis Code(s): I69.359 - HEMIPLGA FOLLOWING CEREBRAL INFARCTION AFFECTING UNSP SIDE Status: Acute (3) ALEXANDER (acute kidney injury) Code(s): N17.9 - ACUTE KIDNEY FAILURE, UNSPECIFIED Status: Acute (4) History of CVA (cerebrovascular accident) Code(s): Z86.73 - PRSNL HX OF TIA (TIA), AND CEREB INFRC W/O RESID DEFICITS Status: Acute (5) Hyperbilirubinemia Code(s): E80.6 - OTHER DISORDERS OF BILIRUBIN METABOLISM Status: Acute (6) Thrombocytopenia Code(s): D69.6 - THROMBOCYTOPENIA, UNSPECIFIED Status: Acute (7) Transaminitis Code(s): R74.0 - NONSPEC ELEV OF LEVELS OF TRANSAMNS & LACTIC ACID DEHYDRGNSE Status: Acute (8) Diabetes mellitus type 2 in obese Code(s): E11.9 - TYPE 2 DIABETES MELLITUS WITHOUT COMPLICATIONS; E66.9 - OBESITY , UNSPECIFIED Status: Chronic (9) Hyperlipidemia Code(s): E78.5 - HYPERLIPIDEMIA, UNSPECIFIED Status: Chronic (10) Hypertension Code(s): I10 - ESSENTIAL (PRIMARY) HYPERTENSION Status: Chronic (11) 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 Bilateral DVTs: Due to thrombocytopenia and reported hx of hemorrhagic CVA anticoag and GI bleed. contraindicated. Pending V/Q scan this AM. Heme consult for anticoagulation d/t thrombocytopenia 2. IDDM2: Not at goal. Continue home regimen, inc to agg. sliding scale to cover. Goal 140-180 3. Lactic acid: Improved with fluids- 6.2 -> 2.4. Rpt this AM. 4. Sepsis 2/2 possible osteo- MRI to r/o osteo this AM. Suspected source of fever. Vanc/Zosyn/flagyl to empirically cover. Diagnostic paracentesis studies neg thus far, pending cx. CXR neg. 6. Cirrhosis 2/2 PITTMAN- MELD 23 this hospitalization. Continue cirrhosis meds- lactulose, aldactone. Monitor for copmlications. Will need to f/u with GI doc in [place] outpt. 7. 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 Stable, no signs of GI bleeding. Will consult heme/onc. 8. Positive blood cx- S. agalac, hemolytic beta- TTE to r/o infective endocarditis 9. CKD-stable, improved. monitor. dvt ppx: lovenox lines: patel abx: vanc, zosyn, flagyl Addendum - Attending - Attending Attestation Date/Time: 09/04/19 2678 I personally evaluated the patient and discussed the management with Dr. Hinton I agree with the History, Examination, Assessment and Plan documented above with any addition or exceptions noted below. Patient more alert this am plan to de-escalate antibiotics soon note positive blood culture for GBH strep on one and note elevated procalcitonin will proceed with MRI right LE BKA r/o osteomyelitis in setting of chronic draining wound. No murmur appreciated on cardiac exam but reasonable to consider endocarditis as well. DVT in BKA in lower extremities noted and history prior portal vein thrombosis by history and GI and intracranial bleed. Patient not viable candidate anticoagulants note plts lower today. Will discuss with Pulmonary consideration of IVC filter placement if advisable or worth consideration. SBP considered however exam and paracentesis not suggestive will await c&s. Recommend albumin to avoid third spacing fluid and hopefully improved renal perfusion as well.
[2019-09-04] MEDS ORDERED: HumaLOG 300 UNITS/3 ML VIAL SC PRN (06:24)
[2019-09-04 07:32] LABS: ALT (SGPT) 31 U/L (8-55); AST (SGOT) 56 U/L (5-34); Albumin 2.1 g/dL (3.5-5.0); Alkaline Phosphatase 31 U/L (40-110); Anion Gap 10 mmol/L (10-20); BUN (Urea Nitrogen) 36 mg/dL (8.4-25.7); Calc. Creatinine Clearance 114 mL/min (70-130); Calcium 7.9 mg/dL (7.8-10.44); Carbon Dioxide 20 mmol/L (22-29); Chloride 104 mmol/L (98-107); Estimated GFR-MDRD 61; Globulin 4.1 g/dL (2.4-3.5); Glucose 219 mg/dL (70-105); Potassium 3.5 mmol/L (3.5-5.1); Protein, Total 6.2 g/dL (6.0-8.3); Sodium 130 mmol/L (136-145)
--- NOTE | 2019-09-04 07:48 | ULT ---
PRELIMINARY REPORT/[facility]/EMERGENCY AFTER HOURS PROCEDURE Addendum created by Jil Vernon MD on 09/04/2019 1:28 AM Central Time ([place] & [place]) Findi ngs were discussed with Dr. 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 Initial Report created on 09/04/2019 1:20 AM Central Time ([place] & [place]) PROCEDURE INFORMATION: Exam: US Duplex Lower Extremity Veins Exam date and time: 09/04/2019 12:20 AM Age: 53 years old Clinical history: Edema, localized; Lower extremity, bilateral; Prior surgery; Surgery date: 6+ months; Surgery type: Amputation below knees ble; Patient HX: Ble edema TECHNIQUE: Imaging protocol: Real-time duplex ultrasound of the Lower Extremities with 2-D cortés scale, color Doppler flow and spectral waveform analysis with image documentation. Complete exam focused on the bilateral lower extremity veins. COMPARISON: No relevant prior studies available. FINDINGS: Left deep veins: The common femoral, femoral, proximal profunda femoral and popliteal veins are non compressible with tricke flow on color and spectral Doppler, consistent with thrombus. Right deep veins: The common femoral, femoral, proximal profunda femoral and popliteal veins are partially compressible with residual intraluminal flow consistent with nonocclussive thrombus. IMPRESSION: Exam is postive for bilateral deep vein thrombosis reaching the common femoral veins. Thank you for allowing us to participate in the care of your patient. Dictated and Authenticated by: Jil Gallardo MD 09/04/2019 1:20 AM Central Time ([place] & [place]) FINAL REPORT BILATERAL LOWER EXTREMITY VENOUS DOPPLER ULTRASOUND: IMPRESSION: I agree with the report given by Armando. Transcribed Date/Time: 09/04/2019 8:01 AM
[2019-09-04 08:07] LABS: Hemoglobin 12.5 g/dL (14.0-18.0); Mean Corpuscular HGB CONC 33.6 g/dL (32.0-36.0); Mean Corpuscular Volume 92.2 fL (78.0-98.0); Mean Platelet Volume 10.6 fL (7.4-10.4); Platelet Count 33 thou/uL (130-400); RBC Distribution Width 13.6 % (11.5-14.5); Red Blood Cell (RBC) Count 4.05 mill/uL (4.70-6.10); White Blood Cell (WBC) Count 5.3 thou/uL (4.8-10.8)
[2019-09-04 08:18] LABS: Band 34 % (5-11); Lymphocytes 4 % (21-51); MDiff Complete? YES; Monocytes 4 % (0-10); Neutrophil 58 % (42-75); Platelet Morphology Comment Appears Decreased; Polychromasia SLIGHT = 2-3 cells (100X) (0-2/hpf)
[2019-09-04] MEDS ORDERED: Enoxaparin Sodium 40 MG/0.4 ML SYRINGE SC SCH (09:00)
[2019-09-04] MEDS ORDERED: Albumin 25% 25 GM/100 ML BOT IVPB SCH (09:04)
[2019-09-04] MEDS: Ferrous Sulfate 325 MG TAB PO SCH (09:17)
[2019-09-04] MEDS: Gabapentin 300 MG CAP PO SCH ×2 (09:17→20:23)
[2019-09-04] MEDS: Venlafaxine HCl XR 150 MG CAP PO SCH (09:17)
--- NOTE | 2019-09-04 09:25 | RAD ---
Portable frontal chest radiograph: 09/04/2019 COMPARISON: 09/02/2019 HISTORY: Evaluate pulmonary parenchymal infiltrates FINDINGS: Lungs are clear. Heart and mediastinal contours appear within normal limits. IMPRESSION: No acute findings.
[2019-09-04 10:01] LABS: Lactic Acid 2.3 mmol/L (0.5-2.2)
[2019-09-04] MEDS ORDERED: HYDROcodone/Acetaminophen 7.5/325 mg Tablet PO PRN (10:26)
--- NOTE | 2019-09-04 11:13 | PRG ---
DATE OF SERVICE: 09/04/2019 SUBJECTIVE: This is a 53-year-old gentleman, being seen for acute kidney injury, improving renal function. The patient denied nausea, vomiting, or chest pain. OBJECTIVE: GENERAL: The patient is awake and alert. VITAL SIGNS: Pulse 79, breathing 16, and blood pressure 100/68. GENERAL APPEARANCE AND MENTAL STATUS: Fair. HEAD/NECK: Normocephalic. Atraumatic. EYES: EOMI. No deformity. EARS: Clear. No ulcers. NOSE: Intact. No lesions. MOUTH: Clear. No discharge. THROAT: Clear. No exudate. LUNGS: Clear. No crackles. CARDIAC: S1, S2. No rub. ABDOMEN: Benign. Bowel sounds positive. GENITALIA/RECTUM: Knox absent. BACK/EXTREMITIES: Edema 0+. NEUROLOGICAL: Alert and motor intact. SKIN: LYMPHATICS: LABORATORY DATA: Hemoglobin 12.5 and creatinine is 1.2. ASSESSMENT: 1. Acute kidney injury, resolved. 2. Hypertension, stable. 3. Anemia, stable. 4. Hypernatremia, stable. No indication for dialysis or hypertonic saline. Continue adequate hydration. Job ID: [id number]
[2019-09-04] MEDS: Vancomycin 1.5 GRAM/300 ML BAG 1.5 GM in Premix Bag 1 BAG IVPB SCH (12:48)
[2019-09-04] MEDS: Spironolactone 100 MG TAB PO SCH (12:48)
--- NOTE | 2019-09-04 13:21 | NM ---
VQ SCAN: HISTORY: Bilateral lower extremity DVT. TECHNIQUE: A ventilation perfusion scan was performed using 9.6 mCi Xenon by injection for the ventilation study followed by the intravenous administration of 5.8 mCi Technetium 99m-MAA for the perfusion scan. FINDINGS: Correlation is made with the portable chest radiograph of the same date. There is a matched subsegmental defect in the left lung base. A mismatched segmental perfusion defect is seen in the anterobasal segment of the right lower lobe. There is tracer retention on the ventil ation scan on the washout phase consistent with COPD. IMPRESSION: Intermediate probability for pulmonary embolism. POS: OFF
--- NOTE | 2019-09-04 14:30 | CON ---
DATE OF CONSULTATION: 09/04/2019 REASON FOR CONSULTATION: IMCU placement. HISTORY OF PRESENT ILLNESS: This is a 53-year-old male, who came to the hospital 3 days ago with chest pain, abdominal pain, and severe weakness. He is bacteremic. He underwent diagnostic and therapeutic paracentesis last night. He says he feels better today after paracentesis. As part of the workup, he has had Dopplers of his lower extremities (he has bilateral below-knee amputations), which showed noncompressible veins, which is thought to be from thrombus. He is pending a ventilation-perfusion scan. PAST MEDICAL HISTORY: 1. Fatty liver with cirrhosis. 2. Hyperlipidemia. 3. Diabetes mellitus. 4. Hypertension. 5. Stroke. 6. Osteomyelitis. 7. Esophageal varices. 8. Depression. PAST SURGICAL HISTORY: Bilateral BKAs, esophageal banding. SOCIAL HISTORY: Smokes half pack per day. Does not consume alcohol. Does not use illicit drugs. FAMILY MEDICAL HISTORY: Essentially negative. ALLERGIES: NONE. MEDICATIONS: Reviewed, listed under summary section on the chart. PHYSICAL EXAMINATION: VITAL SIGNS: Temperature 97.7, pulse 81, blood pressure 93/61, O2 saturation 98%. Intake 1768, output 1070 plus what was taken out by paracentesis - approximately 3 L. GENERAL: He is awake, alert, in no distress. HEENT: Unremarkable. NECK: No adenopathy or JVD. LUNGS: Clear anteriorly. CARDIAC: S1 and S2 regular without audible murmur. ABDOMEN: Somewhat distended. He has an umbilical hernia. EXTREMITIES: Bilateral [id number] amputations without swelling. IMAGING STUDIES: His chest x-ray shows some linear atelectasis on the left, otherwise appears fairly clear. LABORATORY DATA: Peritoneal fluid showed a white blood cell count of 162, glucose of 239, total protein 3.3, LDH of 121. White blood cell count 2.4, hematocrit 39.2, and platelet count 43. INR is 2.1. A pH of 7.44, pCO2 of 29, PO2 of 104 on 3 L. Sodium 130, potassium 3.5, chloride 104, CO2 of 20, BUN 36, creatinine 1.2, glucose 219, AST 56, ALT 31, procalcitonin 58. His cultures show Streptococcus agalactiae. ASSESSMENT: 1. End-stage liver disease for fatty liver with the development of ascites. 2. Bacteremia - peritoneal fluid actually did not show too many white blood cells indicating this may not be SBP. 3. Noncompressible femoral veins - I am not sure if this is reflective of clots or not. I do not completely know the value of ultrasound of the patient with bilateral below-knee amputations. I will think any hypoxemia in this patient will be more likely due to compressive atelectasis from the ascites. 4. Thrombocytopenia. PLAN: 1. Agree with antibiotics. 2. Ventilation-perfusion scan is pending for today. 3. If anticoagulation is needed, I would agree that Hematology input would be preferable as he may need to be on Arixtra or some other medications given his severe thrombocytopenia. 4. Dr. Campo has seen this patient before, he will assume care tomorrow. Job ID: [id number]
--- NOTE | 2019-09-04 15:42 | PDOC.PALFU ---
Palliative Care Follow-up Note Attempted x2 to introduce Palliative Care to patient and family. Initial attempt patient off the floor, second RN requested patient be allowed to rest. Palliative Care Team will follow up 09/05.
[2019-09-04] MEDS: HYDROcodone/Acetaminophen 10/325 mg Tablet PO PRN ×2 (16:19→20:23)
--- NOTE | 2019-09-04 16:56 | MRI ---
MRI OF THE RIGHT KNEE WITH AND WITHOUT CONTRAST: 09/04/19 INDICATION: Right knee wound. Concern for osteomyelitis. COMPARISON: Right knee radiograph dated 09/03/19. CONTRAST: 20 mL of Multihance. FINDINGS: There is a small superficial ulceration surrounding cellulitis involving the medial soft tissues of t he right knee. There is no overt marrow signal intensity or abnormal enhancement such as osteomyeliti s of the right knee. No definite joint effusion is evident to suggest presence of septic arthritis. N o large drainable fluid collection is evident. There is some increased T2 signal involving the anteri or musculature of the proximal foreleg which is likely related to denervation. The patient has a belo w knee amputation with prominent muscular atrophy of the foreleg musculature. IMPRESSION: Soft tissue wound involving the medial soft tissues of the right knee without a drainable fluid colle ction. There is adjacent cellulitis near this region. No evidence of osteomyelitis of the adjacent os seous structures. POS: [facility]
--- NOTE | 2019-09-04 17:12 | CON ---
DATE OF CONSULTATION: REASON FOR CONSULTATION: DVT. HISTORY OF PRESENT ILLNESS: Mr. Farias is a pleasant 53-year-old male, who presented to the hospital with complaints of generalized weakness. He is having some chest pain as well. He was admitted for further workup. He has a history of nonalcoholic fatty liver cirrhosis and has had multiple admissions for hepatic encephalopathy. He also has a history of esophageal varices banding, portal vein thrombosis, and hemorrhagic CVA. He has bilateral BKAs. On this admission, he had a venous Doppler of his lower extremities. It was positive for bilateral deep vein thrombosis reaching the common femoral veins. The patient has a longstanding history of thrombocytopenia secondary to cirrhosis. His platelets are currently 33,000 and were 50,000 on admission. He does not take aspirin, nor has he been anticoagulated in the past secondary to massive GI bleed several years ago. He was seen at bedside with his son present. He complains of pain and is requesting his narcotic pain medicine. Denies any hemoptysis, hematuria, hematochezia, or melena. PAST MEDICAL HISTORY: 1. Hemorrhagic CVA. 2. Portal vein thrombosis. 3. Nonalcoholic steatohepatitis. 4. Peripheral artery disease. 5. Cirrhosis. 6. Anxiety and depression. 7. Diabetes. PAST SURGICAL HISTORY: 1. Esophageal varices banding. 2. Bilateral BKAs. ALLERGIES: NO KNOWN DRUG ALLERGIES. HOME MEDICATIONS: 1. Iron. 2. Lasix. 3. [place]. 4. Insulin. 5. Protonix. 6. Spironolactone. 7. Effexor. 8. Gabapentin. 9. Lactulose. 10. [place]. FAMILY HISTORY: Not significant. SOCIAL HISTORY: , lives with his spouse. Smokes cigarettes half a pack daily. No alcohol or illicit drug use. REVIEW OF SYSTEMS: Positive for generalized pain, otherwise negative. PHYSICAL EXAMINATION: VITAL SIGNS: Temperature is 97.1, pulse is 104, respiratory rate 36, BP is 104/60. GENERAL: This is a chronically ill-appearing male, in no acute distress. HEENT: Normocephalic and atraumatic. Pupils are equal and reactive to light. NECK: Supple. CV: Regular rate and rhythm. LUNGS: He has expiratory wheezing. ABDOMEN: Obese and nontender. Bowel sounds are positive. EXTREMITIES: Bilateral BKAs. SKIN: No rash. HEMATOLOGIC: No petechiae or purpura. NEUROLOGIC: Nonfocal. PSYCHIATRIC: He is alert, oriented, and appropriate. PERTINENT LABORATORY DATA AND X-RAYS: Current WBCs 5.3, hemoglobin 12.5, hematocrit 37.3, and platelet count is 33,000. He has 58% neutrophils, 34% bands, 4% lymphocytes. PT is 23.5, INR is 2.1, and PTT is 48.4. Sodium is 130, potassium 3.5, chloride 104, CO2 is 20, BUN is 36, creatinine 1.24, lactic acid 2.3, calcium 7.9, bilirubin 2, AST is 53, ALT is 31, alkaline phosphatase is 31, serum total protein 6.4, albumin 2.1, and globulin 4.1. ASSESSMENT: 1. Bilateral lower extremity deep vein thromboses. 2. History of cirrhosis with esophageal banding and massive gastrointestinal bleed. 3. History of hemorrhagic strokes. 4. History of portal vein thrombus. 5. Prolonged PT and INR secondary to cirrhosis. 6. Chronic thrombocytopenia. DISCUSSION: The patient has had multiple life-threatening GI bleeding episodes in the past. He also had multiple hemorrhagic strokes. He has been instructed to avoid aspirin and was not anticoagulated for his portal vein thrombosis several years ago. He does have a prolonged PT and INR and low platelets. I would recommend no anticoagulation at this time as he is risk for bleeding given his history is very high. No further workup is required at this time. Thank you for the consult in this unfortunate gentleman. Job ID: [id number]
[2019-09-04] MEDS: Insulin Glargine 45 UNITS in Pre-Filled Syringe 1 EACH SC SCH (20:24)
[2019-09-04 22:24] LABS: Vancomycin, Trough 24.1 ug/mL
[2019-09-04] MEDS: Vancomycin HCl 1.25 GM in Sodium Chloride 0.9% 250 ML 250 ML IVPB SCH (23:24)
[2019-09-05] MEDS: HYDROcodone/Acetaminophen 10/325 mg Tablet PO PRN ×6 (00:23→23:03)
[2019-09-05] MEDS: metroNIDAZOLE 500 MG in Premix Bag 1 BAG IVPB SCH ×2 (00:24→09:29)
[2019-09-05] MEDS: Piperacillin/Tazobactam 3.375 GM in Sodium Chloride 0.9% 100 ML IVPB SCH ×3 (04:03→16:42)
[2019-09-05 04:13] LABS: Platelet Count 29 thou/uL (130-400)
[2019-09-05 04:20] LABS: ALT (SGPT) 35 U/L (8-55); AST (SGOT) 56 U/L (5-34); Albumin 2.1 g/dL (3.5-5.0); Alkaline Phosphatase 28 U/L (40-110); Anion Gap 7 mmol/L (10-20); BUN (Urea Nitrogen) 27 mg/dL (8.4-25.7); Bilirubin, Total 1.5 mg/dL (0.2-1.2); Calc. Creatinine Clearance 142 mL/min (70-130); Calcium 7.6 mg/dL (7.8-10.44); Carbon Dioxide 24 mmol/L (22-29); Chloride 105 mmol/L (98-107); Estimated GFR-MDRD 79; Globulin 3.7 g/dL (2.4-3.5); Glucose 164 mg/dL (70-105); Potassium 3.5 mmol/L (3.5-5.1); Protein, Total 5.8 g/dL (6.0-8.3); Sodium 132 mmol/L (136-145)
[2019-09-05 04:33] LABS: Band 10 % (5-11); Hemoglobin 11.8 g/dL (14.0-18.0); Lymphocytes 7 % (21-51); MDiff Complete? YES; Mean Corpuscular HGB CONC 33.1 g/dL (32.0-36.0); Mean Corpuscular Hemoglobin 30.3 pg (27.0-31.0); Mean Corpuscular Volume 91.4 fL (78.0-98.0); Mean Platelet Volume 10.5 fL (7.4-10.4); Monocytes 1 % (0-10); Neutrophil 82 % (42-75); Platelet Morphology Comment Appears Decreased; RBC Distribution Width 13.7 % (11.5-14.5); Red Blood Cell (RBC) Count 3.89 mill/uL (4.70-6.10); White Blood Cell (WBC) Count 2.6 thou/uL (4.8-10.8)
--- NOTE | 2019-09-05 06:33 | PDOC.FM ---
- Subjective Subjective: NAEO. Patient denies problems breahthing, no fever, no abd pain. No bleeding - Objective MAR Reviewed: Yes Vital Signs & Weight: Vital Signs (12 hours) Temp Pulse Ox 09/05/19 04:00 97.7 F 09/05/19 00:00 97.3 F L 09/04/19 19:05 98 09/04/19 19:00 97.8 F Weight Admit Weight 109.679 kg Weight 114.6 kg Most Recent Monitor Data Heart Rate from ECG 77 NIBP 103/69 NIBP BP-Mean 80 Respiration from ECG 22 SpO2 93 I&O: 09/03/19 09/04/19 09/05/19 06:59 06:59 06:59 Intake Total 1305 1768 1660 Output Total 1070 1525 Balance 1305 698 135 Result Diagrams: 09/05/19 08:59 09/05/19 03:45 Phys Exam - Physical Examination Constitutional: NAD HEENT: PERRLA Neck: full ROM dec left lower lung bases Cardiovascular: RRR, no significant murmur Gastrointestinal: soft, positive bowel sounds distended b/l BKA Neurological: non-focal, moves all 4 limbs Psychiatric: normal affect, A&O x 3 Deviation from normal: mild isolated petechial lesins Dx/Plan (1) DVT (deep venous thrombosis) Code(s): I82.409 - ACUTE EMBOLISM AND THOMBOS UNSP DEEP VN UNSP LOWER EXTREMITY Status: Acute (2) History of hemorrhagic stroke with residual hemiparesis Code(s): I69.359 - HEMIPLGA FOLLOWING CEREBRAL INFARCTION AFFECTING UNSP SIDE Status: Acute (3) ALEXANDER (acute kidney injury) Code(s): N17.9 - ACUTE KIDNEY FAILURE, UNSPECIFIED Status: Acute (4) History of CVA (cerebrovascular accident) Code(s): Z86.73 - PRSNL HX OF TIA (TIA), AND CEREB INFRC W/O RESID DEFICITS Status: Acute (5) Hyperbilirubinemia Code(s): E80.6 - OTHER DISORDERS OF BILIRUBIN METABOLISM Status: Acute (6) Thrombocytopenia Code(s): D69.6 - THROMBOCYTOPENIA, UNSPECIFIED Status: Acute (7) Transaminitis Code(s): R74.0 - NONSPEC ELEV OF LEVELS OF TRANSAMNS & LACTIC ACID DEHYDRGNSE Status: Acute (8) Diabetes mellitus type 2 in obese Code(s): E11.9 - TYPE 2 DIABETES MELLITUS WITHOUT COMPLICATIONS; E66.9 - OBESITY , UNSPECIFIED Status: Chronic (9) Hyperlipidemia Code(s): E78.5 - HYPERLIPIDEMIA, UNSPECIFIED Status: Chronic (10) Hypertension Code(s): I10 - ESSENTIAL (PRIMARY) HYPERTENSION Status: Chronic (11) 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 Bilateral DVTs: Due to thrombocytopenia and reported hx of hemorrhagic CVA anticoag and GI bleed anticoagulation contraindicated. Pending V/Q scan: Subsegmental defect at left lung base- indeterminate probability. 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 anticoagulation, and possibly no any surgical procedure i.e. IVF filter. Hemo stable. 2. IDDM2: At goal. Continue home regimen, agg. sliding scale to cover. Goal 140-180 3. Lactic acid: resolved 4. Streptococcal bacteremia- Bcx with S. agalactiae (GBS) & beta hemolytic strep (GAS)-pending workup for source and blood cx finalization. CXR neg. MRI neg for osteo. Urine cx neg. Vanc/Zosyn/flagyl to empirically cover. AVSS. Will consult Dr. Blount 6. Cirrhosis 2/2 PITTMAN- MELD 23 this hospitalization. Continue cirrhosis meds- lactulose, aldactone. Monitor for complications. Will need to continue f/u with GI doc in [place] outpt/ and here. Prognosis is poor, pt understands. Current smoker that is why he is not on transplant list. Will consult GI to guide this 7. 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 Plts 33 -> 29. Stable, no signs of GI bleeding. Likely from cirrhosis however since worsening will order PBS, b12/ b9, lactic acid, HIV, rpt hepatitis studies. Ddx includes: infection, DIC, medication induced, cirrhosis 8. ALEXANDER on CKD-resolved, stable. Nephro on board 9. Low WBC- 2.6. Fluctuating. Likely from cirrhosis. No neutropenia, ANC >1500 dvt ppx: lovenox, anti xa today lines: patel abx: vanc, zosyn, flagyl Addendum - Attending - Attending Attestation Date/Time: 09/05/19 1124 I personally evaluated the patient and discussed the management with Dr. Hinton I agree with the History, Examination, Assessment and Plan documented above with any addition or exceptions noted below. Patient with streptococcal sepsis markedly improved will transfer to floor . Consult with ID today for further recommendation deescalation of antibiotics. Echocardiogram pending (history of patch graft for PFO doubt this would be source or nidus),oral hygiene poor and right stump with cellulitis as potential sources, no peritonitis, no UTI, no PNA, no osteomyelitis. Regard DVT lower extremity and abnormal V/Q scan patient not candidate for anticoagulation and since clinical improvement and s/s of any significant PE would not consider benefits of potential IVC filter placement to outweigh risks currently.
[2019-09-05] MEDS: Sodium Chloride 0.9% 1,000 ML IV SCH ×2 (08:54→09:29)
[2019-09-05 09:19] LABS: Hemoglobin 12.6 g/dL (14.0-18.0); Mean Corpuscular HGB CONC 33.1 g/dL (32.0-36.0); Mean Corpuscular Hemoglobin 30.4 pg (27.0-31.0); Mean Corpuscular Volume 91.9 fL (78.0-98.0); Mean Platelet Volume 10.4 fL (7.4-10.4); Platelet Count 29 thou/uL (130-400); RBC Distribution Width 13.7 % (11.5-14.5); Red Blood Cell (RBC) Count 4.15 mill/uL (4.70-6.10); White Blood Cell (WBC) Count 2.7 thou/uL (4.8-10.8)
[2019-09-05 09:23] LABS: INR-International Normal Ratio 1.3; PTT 34.9 SEC (22.9-36.1); Prothrombin Time 15.9 SEC (12.0-14.7)
[2019-09-05] MEDS: Gabapentin 300 MG CAP PO SCH ×2 (09:28→20:26)
[2019-09-05] MEDS: Ferrous Sulfate 325 MG TAB PO SCH (09:28)
[2019-09-05] MEDS: Venlafaxine HCl XR 150 MG CAP PO SCH (09:30)
[2019-09-05 09:44] LABS: Band 13 % (5-11); Lymphocytes 15 % (21-51); MDiff Complete? YES; Monocytes 4 % (0-10); Neutrophil 68 % (42-75); Platelet Morphology Comment Appears Decreased; RBC Morphology Normal
[2019-09-05 10:00] LABS: HBSAB Concentration 0.52 mIU/mL; HIV (1/2) Antibody/Antigen Non-Reactive (NonReactive); Hep B Surf AB Non-Reactive (NonReactive); Hep C IgG Ab Non-Reactive (NonReactive); Hep C Index 0.13 S/CO (0-0.79)
--- NOTE | 2019-09-05 10:00 | PDOC.PALCO ---
Palliative Care Consult - Consult Details Requesting Physician: Dr Hinton Reason for Consult: goals of care, advance directives assistance, assistance with communication prognosis/disease Family Members Present: none - Pertinent HPI 53 year old male who presented to the emergency room with increase in weakness, chest pain and wound to right lower stump from bka. Admitted for medical management secondary to elevated troponin and acute kidney injury. During course of hospital stay patient had a code green called secondary to shortness of breath and hypotension and was admitted to CCU - Pertinent PMH Cirrhosis of the liver PITTMAN, DM@, Iron Deficient anemia, Psuedobulbar affect, HTN, bilateral BKA - Medications MAR Reviewed: Yes - Allergies Allergies/Adverse Reactions: Allergies Allergy/AdvReac Type Severity Reaction Status Date / Time No Known Drug Allergies Allergy Verified 09/03/19 03:24 - Subjective Awake, alert, converses easily. not available as she is with patients father. - ROS Constitutional: alert Eyes: other (Denies visual changes, hearing loss) ENT: alteration in dentition Respiratory: other (Denies shortness of breath, cough) Cardiology: other (Denies chest pain, palpitations, orthopnea) Gastrointestinal: bloating Musculoskeletal: limited mobility, other (bilateral bka, phantom pain. ) Neurological: numbness (phantom pain to right lower) - Objective Vital Signs: Vital Signs - Most Recent Temp Pulse Resp BP Pulse Ox 98.2 F 104 H 36 H 79/40 L 97 09/05/19 07:00 09/03/19 18:49 09/03/19 18:49 09/03/19 18:49 09/05/19 08:00 Palliative Performance Scale: 40 - Physical Exam Constitutional: ill appearing HEENT: EOMI, moist MMs Respiratory: clear to auscultation bilateral, unlabored breathing Cardiovascular: RRR Gastrointestinal: positive bowel sounds Deviation from normal: distended Genitourinary: patel catheter Musculoskeletal: pulses present (bilateral bka) Deviation from normal: phantom pain to right lower Skin: cap refill <2 seconds Deviation from normal: wound as documented Psychiatric: A&O x 3 - Problem List (1) Palliative care encounter Code(s): Z51.5 - ENCOUNTER FOR PALLIATIVE CARE Current Visit: Yes Status: Acute (2) ALEXANDER (acute kidney injury) Code(s): N17.9 - ACUTE KIDNEY FAILURE, UNSPECIFIED Current Visit: No Status : Acute (3) Diabetes mellitus type 2 in obese Code(s): E11.9 - TYPE 2 DIABETES MELLITUS WITHOUT COMPLICATIONS; E66.9 - OBESITY , UNSPECIFIED Current Visit: No Status: Chronic (4) 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 *Patient states he does not want to have dialysis if ever indicated. *Patient followed by GI in [place] for cirrhosis and wants to be placed on a transplant list, however has to be tobacco free for aproxx a year. *Discussed smoking cessation with patent and triggers and measures to ensure abstinence at discharge. *Education in relation to resuscitation status. *Continued education in relation to disease trajectory *Personal goal is to go camping and catch a rainbow trout. Palliative Care RNs to continue to follow. [75] minutes spent on this encounter with >50% of the time in counseling and coordination of care. Thank you for this very appropriate consult.
--- NOTE | 2019-09-05 10:45 | PRG ---
DATE OF SERVICE: 09/05/2019 SUBJECTIVE: A 53-year-old gentleman, being seen for acute kidney injury. The patient denies any nausea, vomiting, or chest pain. OBJECTIVE: CONSTITUTIONAL: The patient is awake and alert. VITAL SIGNS: Afebrile. Pulse 75, breathing 16, blood pressure 111/70. GENERAL APPEARANCE AND MENTAL STATUS: Fair. HEAD/NECK: Normocephalic. Atraumatic. EYES: EOMI. No deformity. EARS: Clear. No ulcers. NOSE: Intact. No lesions. MOUTH: Clear. No discharge. THROAT: Clear. No exudate. LUNGS: Clear. No crackles. CARDIAC: S1, S2. No rub. ABDOMEN: Benign. Bowel sounds positive. GENITALIA/RECTUM: Knox absent. BACK/EXTREMITIES: Edema 0+. NEUROLOGICAL: Alert and motor intact. SKIN: LYMPHATICS: LABORATORY DATA: Showed hemoglobin 12.6. Creatinine was 1. ASSESSMENT AND PLAN: 1. Acute kidney injury, resolved. 2. Hypertension, stable. 3. Anemia, stable. I will sign off on this patient. Please reconsult as needed. Job ID: [id number]
[2019-09-05] MEDS: HumaLOG 300 UNITS/3 ML VIAL SC PRN ×2 (11:22→16:46)
[2019-09-05 11:34] LABS: HBSAg Index 0.15 S/CO (0-0.99); Hep B Surf Ag NonReactive S/CO (NonReactive)
[2019-09-05] MEDS: Spironolactone 100 MG TAB PO SCH (12:55)
[2019-09-05] MEDS: Vancomycin HCl 1.25 GM in Sodium Chloride 0.9% 250 ML 250 ML IVPB SCH (12:56)
--- NOTE | 2019-09-05 14:10 | PRG ---
DATE OF SERVICE: 09/05/2019 SERVICE: Pulmonary Medicine. INTERVAL HISTORY: The patient is doing fine from respiratory standpoint. He is breathing comfortably. His blood pressure is firmed up very nicely. He has been on good antibiotics. Otherwise, there has been no interval change to his condition. He indicates he is breathing comfortably and denies having a cough, sputum production, or fevers overnight. PHYSICAL EXAMINATION: VITAL SIGNS: Afebrile, pulse 84, blood pressure 111/70, respirations 21, and saturation 97%, on room air. GENERAL: The patient is awake and alert, in no apparent distress. LUNGS: Good air entry bilaterally. No prolonged expiratory phase or wheezing is appreciated. HEART: Normal rate, regular. ABDOMEN: Soft, nontender, and nondistended. Bowel sounds are positive. MUSCULOSKELETAL: No cyanosis or clubbing. There is no pitting in the bilateral lower extremities. NEUROLOGIC: Grossly nonfocal. EXTREMITIES: His lower extremities are surgically absent. NEUROLOGIC: Grossly nonfocal. LABORATORY DATA: WBC 2.7, hemoglobin 12.6, and platelets 29,000. INR 1.3. Bilirubin 1.5. AST 56. Alkaline phosphatase is low. B12 is high, folate falls within normal limits. Procalcitonin is quite elevated. CRP is 8, and ESR was previously elevated. HIV 1 and 2 are nonreactive. Strep and Legionella urine antigens are negative. Two out of two blood cultures are growing Strep agalactiae, which is a fairly sensitive organism. Body fluid culture, influenza A and B, and urine culture all negative to date. IMAGING: MRI of the lower extremity demonstrates no evidence of osteomyelitis. ASSESSMENT: 1. Severe sepsis, resolved. 2. Bacteremia secondary to streptococcus. 3. 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 4. Pancytopenia. DISCUSSION AND PLAN: The patient has been told multiple times that he is not a candidate for anticoagulation moving forward. His GI physician in [place] has suggested that the risks of this would outweigh the benefits. He is tolerating p.o. just fine. IV fluids will be interrupted. We will discontinue the nebulized medications as he does not have any known underlying lung disease and has no difficulty with breathing presently. From a hemodynamic standpoint, he is stable for transition to the floor. When he arrives there, he will have no further requirement for inpatient Pulmonary/Critical Care opinion, and I will sign off. Please call with additional questions or concerns through time. Job ID: [id number]
--- NOTE | 2019-09-05 14:48 | PQF ---
VERÓNICA MCGEEGURMEET *r [id number] [facility] [id number] CLINICAL DOCUMENTATION IMPROVEMENT CLARIFICATION FORM: ICD-10 Updated PLEASE DO AN ADDENDUM TO THE PROGRESS NOTE WITH ANY DOCUMENTATION UPDATES OR ADDITIONS AND CARRY THROUGH TO DC SUMMARY. THANK YOU. DATE: 09/05/19 ATTN:DR. Xiomara SUTHERLAND Please exercise your independent, professional judgment in responding to the clarification form. Clinical indicators are provided on the bottom of this form for your review. Please check appropriate box(s): Encephalopathy: Type: [ x ] Acute [ ] Subacute [ ] Chronic Etiology: [ ] Hypertensive [ ] Metabolic [ ] Toxic [ ] Hepatic with Coma [x ] Hepatic w/o Coma [ ] Hypoxic [ ] Septic [ ] Wernickes [ ] Unspecified [ ] Other (please specify) [ ] Other diagnosis [ ] Unable to determine In addition, please specify: Present on Admission (POA): [ ] Yes [ x ] No [ ] Unable to determine For continuity of documentation, please document condition throughout progress notes and discharge summary. Thank You. CLINICAL INDICATORS - SIGNS / SYMPTOMS / LABS / RESULTS AND LOCATION IN EMR 09/02 ED REPORT: PATIENT FELL THIS MORNING, REFUSED EMS TRANSPORT. ALTERED MENTAL STATUS UPON ARRIVAL TO ED. 09/03 LACTIC ACID 5.0 > 6.2 > 6.2 09/04 LACTIC ACID 2.4 > 2.3 09/03 CONSULT (NICK) ASSESSMENT : 4). METABOLIC ACIDOSIS 09/03 BLOOD CULTURES: STREPTOCOCCUS AGALACTIAE, Gp.B X 2 09/03 TEMP : 102.8 > 99.2 > 103.1 09/04 PN (GURMEET SUTHERLAND) A CODE GREEN WAS CALLED LAST NIGHT FOR AMS. RISK: DX CIRRHOSIS (H&P/ CHHAYA) 09/03 DX SEPSIS, STREPTOCOCCAL BACTEREMIA (SUTHERLAND/PN ) 09/04 TREATMENTS: BLOOD CULTURES 09/03 ID CONSULT ORDERED 09/05 NS IV (09/03-PRESENT) THANK YOU! OFELIA (This form is maintained as a part of the permanent medical record) 2014 [employer]. All Rights Reserved [email or web address] [phone] [facility] MEDICAL CENTERSatinder
[2019-09-05] MEDS: cefTRIAXone\\ROCEPHIN 2 GM in Sodium Chloride 0.9% 100 ML IVPB SCH (17:56)
[2019-09-05] MEDS: Insulin Glargine 45 UNITS in Pre-Filled Syringe 1 EACH SC SCH (20:26)
--- NOTE | 2019-09-05 23:35 | CON ---
DATE OF CONSULTATION: 09/05/2019 REASON FOR CONSULTATION: Bacteremia, cirrhosis of liver. HISTORY OF PRESENT ILLNESS: A 53-year-old gentleman with a longstanding history of liver cirrhosis, presumably secondary to steatohepatitis, nonalcoholic. Initial admission in 2014 for severe variceal bleeding, controlled with banding and transfusions. He had 2 more admissions in 2014, one for hepatic encephalopathy , he also had portal vein thrombosis. The second one for volume depletion, acute kidney injury. In 2015, he had one admission for hepatic encephalopathy. In January 2018, he came in because of abdominal pain and left intertrochanteric fracture. At the time, he had abdomen and pelvis CT, which showed no acute findings, but mild ascites and finally in November 2018, the patient developed again hepatic encephalopathy , had some abdominal pain as well. There was concern with CVA at that time. He had a CT, which showed small hypodensity in the right thalamus, probably a small lacunar infarct. MRI of the brain did not show any remarkable findings. He did have 50 % carotid artery stenosis. At this time, he came in because of weakness and some mental state changes. The symptoms had a gradual onset. He had not had any documented fever. Also, the patient has had this chronic wound in the medial aspect of the right knee, right above the BKA site on the right side, which has been draining intermittently. Has been treated with antimicrobial therapy in the past. Initial vital signs with pulse 108, temperature 99.9, and BP 105/66, and the exam showed the patient to be tachycardic. He is a little bit confused. The abdominal exam showed diffuse tenderness. There is a stage III ulceration, which is actually this ulcer that I described above, which is chronic. Initial laboratory findings included sodium 134, creatinine 1.58 with a baseline of 0.9 in 2018. Bilirubin 2.1 with a baseline of 1.0. AST and ALT 23 and 14, alkaline phosphatase 68, albumin 3.0. CRP was 6.97. BNP was 138, lipase 11. White cell count is 8.4, hemoglobin 13.7, platelets of 50, and 76% neutrophils and 17% bands. INR was 1.5. PH 7.44, pCO2 29, PO2 104. Urinalysis actually was not done. The urine wbc was 0 to 3. He had a paracentesis. The fluid with 65 wbc's with 31% neutrophils, 4% segmented neutrophils, 65 non-hematological cells. Amylase was 15 and LDH 121, albumin 1.3 in the fluid. The patient has been receiving vancomycin since the admission. He also had Zosyn given to him on admission. He has definitely improved over the past few days. His mental state has returned to normal. He has jqiz-py-[id number] pain in the mid thoracic spine area, which is a chronic process. No headaches. No visual symptoms, sore throat, odynophagia, or dysphagia. The patient has no remaining teeth. No more abdominal pain. No genitourinary symptoms except for a Knox catheter which was inserted upon admission. No diarrhea. No bleeding. No neurological symptoms. PAST MEDICAL HISTORY: Liver cirrhosis, presumably secondary to steatohepatitis; type 2 diabetes, obesity, hypertension, CVA, complications with gangrene of lower extremities requiring bilateral BKAs, carried out many years ago here in this hospital. The patient had a patent foramen ovale repaired in the past. SOCIAL HISTORY: [place]. Never used illicit drugs. He used to drink, but mostly small amounts, beer and liquor. Current smoker. KNOWN ALLERGIES: Negative. MEDICATIONS: At this moment: 1. Tylenol. 2. DuoNeb. 3. Tums. 4. Dextrose. 5. Feosol. 6. Neurontin. 7. Insulin. 8. Lactulose. 9. Ondansetron. 10. Zosyn. 11. Vancomycin. 12. Spironolactone. FAMILY HISTORY: Noncontributory. ALLERGIES: NONE. PHYSICAL EXAMINATION: VITAL SIGNS: T-max 103. He has been afebrile since. Blood pressure 108/67, pulse 84, respirations 18 to 20, O2 saturation 95. SKIN: Shows the irregular ulceration in the medial aspect of the right knee, right above the BKA amputation site with a fresh appearing granulation tissue at the base. Some undermining, but no erythema, no drainage. The patient has a Knox catheter inserted. He has a peripheral IV access. GENERAL: He appears chronically ill, but in no acute distress, oriented. HEENT: No lymphadenopathy. Ocular movements conjugate. Scleral icterus, mild. Oral cavity with no nisqually teeth remaining in place. Oral mucosa is normal. NECK: Supple. No jugular vein distention or carotid bruits. LUNGS: Symmetric air entry. No crackles or wheezing. HEART: S1 and S2. Regular rate. No S3 or S4. ABDOMEN: Soft, not distended or tender. No ascites. No bladder distention. MUSCULOSKELETAL: No other joint inflammatory process. His cognitive function appears to be intact. No asterixis. NEUROLOGICAL: He moves extremities with limitations imposed by the amputation, but is nonfocal in the strength exam. He is oriented. Follows commands. Speech is normal. Recollection is normal. LABORATORY DATA: The latest labs; white cell count is down to 2.7, hemoglobin 12.6, platelets 29 with 13% bands. INR 1.3. Sodium 132, creatinine 1.0, bilirubin 1.6, AST 56, albumin 2.1. CRP 7.9. He had serologies for hep B, C, and HIV which were nonreactive. Legionella pneumophila negative. Streptococcus pneumoniae antigen negative. IMAGING STUDIES: Renal ultrasound, which showed possible splenomegaly. No hydronephrosis. Brain CT with no significant findings. There is a chest x-ray with no acute findings, clear lungs. ASSESSMENT: Steatohepatitis, presumably causing liver cirrhosis and various complications secondary to portal hypertension. The most severe one was one admission with severe upper GI bleeding, which was controlled with banding. The patient has been managed with antimicrobial prophylaxis, is unable to procure because of financial difficulty and diuretics. He now comes with bacteremia due to group B Streptococcus. DISCUSSION: The antimicrobial will be switched to Rocephin and a question will be the origin of this bacteremia. The initial process that led to the bacteremia may have to be related to the ulcer in the medial aspect of the right BKA stump, there is no evidence of osteomyelitis, but there is evidence of cellulitis and he did notice purulent drainage intermittently in the past. This could have led to the bacteremia that amplified in view of the poor liver function with reticuloendothelial dysfunction. The other concern is with the fixed patent foramen ovale. Those are notorious for having increased propensity for getting infected , although infrequently, and that something to be concerned about, echocardiogram transthoracic has been ordered and I do not know what the technical quality of it will be. A SHAINA might be needed. Meantime, we will switch him to IV Rocephin 2 g daily, discontinue current antimicrobials. If the heart scan does not show any evidence of endocarditis, then we would be able to switch him to oral antimicrobial therapy for discharge planning. Job ID: [id number] [facility]
[2019-09-06] MEDS: HYDROcodone/Acetaminophen 10/325 mg Tablet PO PRN ×4 (03:33→17:16)
[2019-09-06 06:34] LABS: ALT (SGPT) 29 U/L (8-55); AST (SGOT) 42 U/L (5-34); Albumin 2.2 g/dL (3.5-5.0); Alkaline Phosphatase 48 U/L (40-110); Anion Gap 8 mmol/L (10-20); BUN (Urea Nitrogen) 19 mg/dL (8.4-25.7); Bilirubin, Total 1.1 mg/dL (0.2-1.2); Calc. Creatinine Clearance 152 mL/min (70-130); Calcium 7.4 mg/dL (7.8-10.44); Carbon Dioxide 22 mmol/L (22-29); Chloride 102 mmol/L (98-107); Estimated GFR-MDRD 86; Globulin 3.8 g/dL (2.4-3.5); Glucose 215 mg/dL (70-105); Hemoglobin 12.2 g/dL (14.0-18.0); Mean Corpuscular Volume 90.9 fL (78.0-98.0); Mean Platelet Volume 10.8 fL (7.4-10.4); Platelet Count 28 thou/uL (130-400); Potassium 3.8 mmol/L (3.5-5.1); RBC Distribution Width 13.7 % (11.5-14.5); Red Blood Cell (RBC) Count 4.08 mill/uL (4.70-6.10); Sodium 128 mmol/L (136-145); White Blood Cell (WBC) Count 3.3 thou/uL (4.8-10.8)
[2019-09-06] MEDS: HumaLOG 300 UNITS/3 ML VIAL SC PRN ×3 (06:41→17:17)
--- NOTE | 2019-09-06 06:44 | PDOC.FM ---
- Subjective Subjective: naeo. Pt denies fever, abdominal pain, no concenrs at this time. breathing no issues - Objective MAR Reviewed: Yes Vital Signs & Weight: Vital Signs (12 hours) Temp Pulse Resp BP Pulse Ox 09/06/19 04:00 98.5 F 59 L 16 115/71 94 L 09/05/19 23:42 98.1 F 90 20 109/70 95 09/05/19 20:16 97.6 F 86 16 113/71 97 09/05/19 20:00 95 Weight Admit Weight 109.679 kg Weight 114.6 kg Most Recent Monitor Data Heart Rate from ECG 83 NIBP 111/70 NIBP BP-Mean 83 Respiration from ECG 25 SpO2 95 I&O: 09/04/19 09/05/19 09/06/19 06:59 06:59 06:59 Intake Total 1768 1900 1780 Output Total 1070 1885 275 Balance 514 50 1566 Result Diagrams: 09/06/19 05:39 09/06/19 05:39 Phys Exam - Physical Examination Constitutional: NAD HEENT: PERRLA, moist MMs Neck: full ROM Respiratory: no wheezing dec breath soundson LLL Cardiovascular: RRR, no significant murmur Gastrointestinal: soft, non-tender distended, ascites, no acute abdomen b/l amputation Psychiatric: normal affect Skin: cap refill <2 seconds Dx/Plan (1) DVT (deep venous thrombosis) Code(s): I82.409 - ACUTE EMBOLISM AND THOMBOS UNSP DEEP VN UNSP LOWER EXTREMITY Status: Acute (2) History of hemorrhagic stroke with residual hemiparesis Code(s): I69.359 - HEMIPLGA FOLLOWING CEREBRAL INFARCTION AFFECTING UNSP SIDE Status: Acute (3) ALEXANDER (acute kidney injury) Code(s): N17.9 - ACUTE KIDNEY FAILURE, UNSPECIFIED Status: Acute (4) History of CVA (cerebrovascular accident) Code(s): Z86.73 - PRSNL HX OF TIA (TIA), AND CEREB INFRC W/O RESID DEFICITS Status: Acute (5) Hyperbilirubinemia Code(s): E80.6 - OTHER DISORDERS OF BILIRUBIN METABOLISM Status: Acute (6) Thrombocytopenia Code(s): D69.6 - THROMBOCYTOPENIA, UNSPECIFIED Status: Acute (7) Transaminitis Code(s): R74.0 - NONSPEC ELEV OF LEVELS OF TRANSAMNS & LACTIC ACID DEHYDRGNSE Status: Acute (8) Diabetes mellitus type 2 in obese Code(s): E11.9 - TYPE 2 DIABETES MELLITUS WITHOUT COMPLICATIONS; E66.9 - OBESITY , UNSPECIFIED Status: Chronic (9) Hyperlipidemia Code(s): E78.5 - HYPERLIPIDEMIA, UNSPECIFIED Status: Chronic (10) Hypertension Code(s): I10 - ESSENTIAL (PRIMARY) HYPERTENSION Status: Chronic (11) 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 Bilateral DVTs: Due to thrombocytopenia and reported hx of hemorrhagic CVA anticoag and GI bleed anticoagulation contraindicated. Pending V/Q scan: Subsegmental defect at left lung base- indeterminate probability. Will discuss CTA to confirm PE however will not exchange operator since patient is not candidate for th. anticoagulation, and possibly no any surgical procedure i.e. IVF filter. Hemo stable. 2. IDDM2: Elevated, continue regimen, change to CC diet. 3. Lactic acid: resolved 4. Streptococcal bacteremia- Bcx with S. agalactiae (GBS) & beta hemolytic strep (GAS)-pending workup for source and blood cx finalization. CXR neg. MRI neg for osteo. Urine cx neg. Vanc/Zosyn/flagyl to empirically cover. AVSS. TTE w / fixed PFO/ASD. Possible sources: stump wound vs. PFO/ASD. ID on board 6. Cirrhosis 2/2 PITTMAN- MELD 23 this hospitalization. Continue cirrhosis meds- lactulose, aldactone. Monitor for complications. Will need to continue f/u with GI doc in [place] outpt/ and here. Prognosis is poor, pt understands. Current smoker that is why he is not on transplant list. Palliative care on board. 7. 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 Plts 33 -> 29-> 28. Stable, no signs of GI bleeding. Likely from cirrhosis however since worsening will order PBS, b12/b9, lactic acid, HIV, rpt hepatitis studies. Ddx includes: infection, DIC, medication induced, cirrhosis 8. ALEXANDER on CKD-resolved, stable. Nephro on board 9. Low WBC- 2.6. Fluctuating. Likely from cirrhosis. No neutropenia, ANC >1500 dvt ppx: held d/t thrombocytopenia lines: peripheral abx: rocephin dispo: Pending s/s of blood cx, pending ID recs, much appreciated. Addendum - Attending - Attending Attestation Date/Time: 09/06/19 7764 I personally evaluated the patient and discussed the management with Dr. Hinton I agree with the History, Examination, Assessment and Plan documented above with any addition or exceptions noted below. Antibiotics de-escalated to Rocephin.Patient feeling better still need to mobilize more fluid consider additional albumin today ascites is returning no obvious respiratory compromise. Restart Nadolol and continue aldactone. Need to increase patient activity and will recalculate Meld score today. Sees transplant specialist in [place] and Dr Latham is his local GI.Discussed care plan and possible TE with patient and family.
[2019-09-06] MEDS: Furosemide 20 MG TAB PO SCH ×2 (08:58→15:48)
[2019-09-06] MEDS: Venlafaxine HCl XR 150 MG CAP PO SCH (08:58)
[2019-09-06] MEDS: Gabapentin 300 MG CAP PO SCH ×2 (08:58→20:57)
[2019-09-06] MEDS: Ferrous Sulfate 325 MG TAB PO SCH (08:58)
[2019-09-06 09:55] LABS: Band 26 % (5-11); Eosinophils 1 % (0-10); Lymphocytes 10 % (21-51); MDiff Complete? YES; Monocytes 6 % (0-10); Neutrophil 55 % (42-75); Platelet Morphology Comment Appears Decreased; Polychromasia SLIGHT = 2-3 cells (100X) (0-2/hpf); Reactive Lymphocytes 2 % (0-10)
[2019-09-06] MEDS ORDERED: Albumin 25% 25 GM/100 ML BOT IVPB SCH (11:19)
[2019-09-06] MEDS ORDERED: Nadolol 40 MG TAB PO SCH (11:30)
[2019-09-06] MEDS: Spironolactone 100 MG TAB PO SCH (12:18)
[2019-09-06] MEDS: cefTRIAXone\\ROCEPHIN 2 GM in Sodium Chloride 0.9% 100 ML IVPB SCH (17:18)
[2019-09-06] MEDS: Insulin Glargine 45 UNITS in Pre-Filled Syringe 1 EACH SC SCH (20:57)
[2019-09-07] MEDS: HYDROcodone/Acetaminophen 10/325 mg Tablet PO PRN ×3 (01:06→09:24)
--- NOTE | 2019-09-07 05:32 | PDOC.FM ---
- Subjective Subjective: NAEO, no chest pain, no abd pain, no fevers, comfortable-ready to go home. - Objective Vital Signs & Weight: Vital Signs (12 hours) Temp Pulse Resp BP Pulse Ox 09/07/19 03:00 97.9 F 67 18 121/79 95 09/06/19 21:00 122/76 09/06/19 20:00 97.7 F 76 18 98/65 96 Weight Admit Weight 109.679 kg Weight 114.6 kg Most Recent Monitor Data Heart Rate from ECG 83 NIBP 111/70 NIBP BP-Mean 83 Respiration from ECG 25 SpO2 95 I&O: 09/05/19 09/06/19 09/07/19 06:59 06:59 06:59 Intake Total 1900 1780 900 Output Total 1885 275 750 Balance 15 1505 150 Result Diagrams: 09/07/19 07:06 09/07/19 07:07 Phys Exam - Physical Examination Constitutional: NAD HEENT: PERRLA, moist MMs Neck: full ROM Respiratory: no wheezing, clear to auscultation bilateral Cardiovascular: RRR, no significant murmur Gastrointestinal: soft, non-tender distended, fluid wave b/l BKA with wounds covered Neurological: non-focal, moves all 4 limbs Deviation from normal: petechia, purpura, umbilical hernia Dx/Plan (1) Group B streptococcal bacteriuria Code(s): R82.71 - BACTERIURIA Status: Acute (2) Cellulitis of right leg Code(s): L03.115 - CELLULITIS OF RIGHT LOWER LIMB Status: Acute (3) DVT (deep venous thrombosis) Code(s): I82.409 - ACUTE EMBOLISM AND THOMBOS UNSP DEEP VN UNSP LOWER EXTREMITY Status: Acute (4) History of hemorrhagic stroke with residual hemiparesis Code(s): I69.359 - HEMIPLGA FOLLOWING CEREBRAL INFARCTION AFFECTING UNSP SIDE Status: Acute (5) ALEXANDER (acute kidney injury) Code(s): N17.9 - ACUTE KIDNEY FAILURE, UNSPECIFIED Status: Acute (6) History of CVA (cerebrovascular accident) Code(s): Z86.73 - PRSNL HX OF TIA (TIA), AND CEREB INFRC W/O RESID DEFICITS Status: Acute (7) Hyperbilirubinemia Code(s): E80.6 - OTHER DISORDERS OF BILIRUBIN METABOLISM Status: Acute (8) Thrombocytopenia Code(s): D69.6 - THROMBOCYTOPENIA, UNSPECIFIED Status: Acute (9) Transaminitis Code(s): R74.0 - NONSPEC ELEV OF LEVELS OF TRANSAMNS & LACTIC ACID DEHYDRGNSE Status: Acute (10) Diabetes mellitus type 2 in obese Code(s): E11.9 - TYPE 2 DIABETES MELLITUS WITHOUT COMPLICATIONS; E66.9 - OBESITY , UNSPECIFIED Status: Chronic (11) Hyperlipidemia Code(s): E78.5 - HYPERLIPIDEMIA, UNSPECIFIED Status: Chronic (12) Hypertension Code(s): I10 - ESSENTIAL (PRIMARY) HYPERTENSION Status: Chronic (13) 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 Streptococcal bacteremia likely 2/2 chronic right stump wound- Bcx with S. agalactiae (GBS) x2, patient on rocephin. Will discuss switching to oral. CXR neg. MRI neg for osteo. Urine cx neg. AVSS. TTE w/ fixed PFO/ASD no signs of vegetation on leaflets Possible sources: stump wound vs. PFO/ASD. ID on board. Touch base with Dr. Blount if okay to transition to oral with discharge. #. Bilateral DVTs: Due to thrombocytopenia and reported hx of hemorrhagic CVA anticoag and GI bleed anticoagulation contraindicated. V/Q scna; Subsegmental defect at left lung base- indeterminate probability. Not good candidate for IVC filter with high risk of complications and poor surgical candidate. Same with CTA. Discussed this w/ patient. Hemo stable, non hypoxic. #. IDDM2: Not at goal.Will adjust home regimen, continue aggressive sliding scale #. Lactic acid: resolved #. Cirrhosis 2/2 PITTMAN- MELD 23 -> 19 this hospitalization. Continue cirrhosis meds-lactulose, aldactone, nadolol. Monitor for complications. Will need to continue f/u with GI doc in [place] outpt/ and here. Prognosis is poor, pt understands. Current smoker that is why he is not on transplant list. Palliative care on board. #. Hx of esophageal varices- continue nadolol for pxpx #. 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 Plts 33 -> 29-> 28. Stable, no signs of GI bleeding. Likely from cirrhosis. Patient with no signs of active bleeding. Discussed w/ patient not taking NSAIDs in light of platelets. Will need f/u with GI doc/PCP for discussion of transplant and possible therapeutic centeis.s #. ALEXANDER on CKD-resolved, stable. Nephro on board #. Low WBC- Fluctuating. Likely from cirrhosis. No neutropenia, ANC >1500 dvt ppx: held d/t thrombocytopenia lines: peripheral abx: rocephin dispo: Likely d/c on PO home abx after touching base with Dr. Blount Will discuss with Dr. Maldonado Addendum - Attending - Attending Attestation Date/Time: 09/07/19 1207 I personally evaluated the patient and discussed the management with Dr. Hinton. I agree with the History, Examination, Assessment and Plan documented above with any addition or exceptions noted below. Patient here with chronically poor health but found to be with GBS bacteremia. He has been fever free and reports feeling well. He is on Rocephin and ID on board. Will reassess and see what future studies are planned as the workup so far has not revealed major infection source. Patient reports feeling well enough to go home. Dispo pending ID workup and recs. He is otherwise chronically ill but stable for outpatient mgmt.
[2019-09-07] MEDS: HumaLOG 300 UNITS/3 ML VIAL SC PRN (05:44)
[2019-09-07 07:40] LABS: ALT (SGPT) 24 U/L (8-55); AST (SGOT) 35 U/L (5-34); Albumin 2.4 g/dL (3.5-5.0); Alkaline Phosphatase 68 U/L (40-110); Anion Gap 8 mmol/L (10-20); BUN (Urea Nitrogen) 16 mg/dL (8.4-25.7); Bilirubin, Total 1.4 mg/dL (0.2-1.2); Calc. Creatinine Clearance 167 mL/min (70-130); Calcium 7.8 mg/dL (7.8-10.44); Carbon Dioxide 25 mmol/L (22-29); Chloride 103 mmol/L (98-107); Estimated GFR-MDRD Greater than 90; Globulin 3.7 g/dL (2.4-3.5); Glucose 264 mg/dL (70-105); Potassium 3.9 mmol/L (3.5-5.1); Protein, Total 6.1 g/dL (6.0-8.3); Sodium 132 mmol/L (136-145)
[2019-09-07 07:43] LABS: Band 18 % (5-11); Hemoglobin 12.5 g/dL (14.0-18.0); Lymphocytes 17 % (21-51); MDiff Complete? YES; Mean Corpuscular HGB CONC 33.2 g/dL (32.0-36.0); Mean Corpuscular Hemoglobin 30.2 pg (27.0-31.0); Mean Corpuscular Volume 90.9 fL (78.0-98.0); Mean Platelet Volume 10.1 fL (7.4-10.4); Monocytes 1 % (0-10); Neutrophil 64 % (42-75); Platelet Count 32 thou/uL (130-400); Platelet Morphology Comment Appears Decreased; RBC Distribution Width 13.7 % (11.5-14.5); Red Blood Cell (RBC) Count 4.15 mill/uL (4.70-6.10); Toxic Granulation SLIGHT; Vacuoles SLIGHT; White Blood Cell (WBC) Count 3.4 thou/uL (4.8-10.8)
[2019-09-07 08:13] VITALS: BP 125/77; TEMP 98
[2019-09-07] MEDS: Furosemide 20 MG TAB PO SCH (08:26)
[2019-09-07] MEDS: Gabapentin 300 MG CAP PO SCH (08:26)
[2019-09-07] MEDS: Ferrous Sulfate 325 MG TAB PO SCH (08:27)
[2019-09-07] MEDS: Venlafaxine HCl XR 150 MG CAP PO SCH (08:28)
[2019-09-07] MEDS ORDERED: Nadolol 40 MG TAB PO SCH (09:00)
--- NOTE | 2019-09-07 12:58 | DIS ---
DATE OF ADMISSION: 09/03/2019 DATE OF DISCHARGE: 09/07/2019 ADMITTING ATTENDING: Napoleon Dean MD. DISCHARGE ATTENDING: Napoleon Dean MD. RESIDENT: Trna Hinton, PGY-2. CONSULTS: 1. Pulmonology, Dr. Campo. 2. Oncology, Dr. Mejias. 3. Nephrology, Dr. Pike. 4. Infectious Disease, Dr. Blount. 5. PT. 6. Wound Care. PRIMARY DIAGNOSES: 1. Sepsis secondary to right lower extremity cellulitis and wound. 2. Bilateral deep venous thromboses. 3. Cirrhosis, secondary to PITTMAN. 4. Thrombocytopenia related to above. 5. Bilateral below knee amputation. 6. Above knee amputation, resolved. SECONDARY DIAGNOSES: 1. Chronic kidney disease. 2. Insulin-dependent diabetes mellitus 2. 3. Gastroesophageal reflux disease. 4. History of gastrointestinal bleed. 5. History of esophageal variceal bleed. 6. History of hemorrhagic cerebrovascular accident. 7. History of patent foramen ovale/atrial septal defect status post repair. PROCEDURES AND IMAGIN. Venogram: Positive for bilateral DVTs reaching the common femoral veins. 2. V/Q scan: Intermediate probability for PE. 3. Right lower extremity MRI: Cellulitis near soft tissue wound with no evidence of osteomyelitis of the adjacent osseous structures. 4. Transthoracic echo: Ejection fraction 55% to 60%, grade 1/3 diastolic dysfunction, septal bounce consistent with BBB morphology, mildly dilated left atrium, small PFO/ASD with [id number]-mh-[id number] shunt, borderline bileaflet MVP. 5. Mild mitral regurgitation. 6. Aortic valve sclerosis. 7. Mild tricuspid regurgitation. DISCHARGE MEDICATIONS: 1. Keflex 500 mg p.o. b.i.d. for 10 days. 2. Resume home medications. a. Venlafaxine 150 mg p.o. daily. b. Nadolol 20 mg p.o. daily. c. Aldactone 100 mg p.o. daily. d. Protonix 40 mg p.o. b.i.d. e. Ferrous sulfate 65 mg p.o. daily. f. Gabapentin 900 mg p.o. b.i.d. g. Hydrocodone and acetaminophen 1 tab p.o. q.6 hours p.r.n. for pain. h. Lactulose 10 g p.o. t.i.d. i. Lasix 20 mg p.o. b.i.d. j. Lantus 40 units subcu at bedtime. k. Nystatin topical. l. NovoLog sliding scale as directed. PERTINENT MICROBIOLOGY: Strep agalactiae positive blood cultures x2. PROCEDURES: Diagnostic paracentesis with studies negative for SBP or bacterial organisms. HISTORY OF PRESENT ILLNESS/HOSPITAL COURSE: Mr. Roni Farias is a 53-year-old male with an unfortunate history of cirrhosis secondary to PITTMAN, who originally came in for altered mental status. He has been here before due to hepatic encephalopathy. Actually by the time he arrived to the ER, he returned to baseline mental status. He was originally admitted for chest pain, ACS rule out. Before any further testing could be conducted he developed a fever and low blood pressures- a code green was called called for somnolence and difficulty breathing. He was transferred to the ICU. He underwent a diagnostic/therapeutic paracentesis in which he was negative for SBP. The paracentesis rapidly improved in his breathing status. It is likely that his breathing was caused by inability to fully expand his diaphragm from his ascites. B/L DVTs: He was also found to have b/l DVTs at his stumps. Because of his ALEXANDER V/Q scan was performed which was indeterminate. There was no follow up CTA since patient was thrombocytopenic and would not be placed on any anticoagulation even if he had a PE. Pulmonlogy agreed he was a poor candidate for an IVC filter. His DVTs could be chronic being a bilateral amputee. 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 Underlying infectious source was thought to be from his chronic wound. Proceeded with full workup which was negative for osteomyelitis. His blood cultures did grow positive for group B strep, and it is thought that these he may be chronically bacteremic due to his inability to clear the bacteria because of poor reticuloendothelial function of the liver- this may not be a new finding. The patient remained stable and afebrile on antibiotics. He was sent home with Keflex. As far as endocarditis was considered, this patient also does have a history of surgical procedures on the heart including very remote repair of an ASD/PFO. However, after talking to Dr. Blount, it seems it is not likely the source of his fevers. However, should the patient have a fever recurrence, SHAINA would be the next step. ACS rule out: As discussed, we should continue to have an outpatient workup. His chest pain had resolved and he said it was probably likely from not being able to breathe due to his ascites. EKG showed no acute changes and troponins were indeterminate. Instructions were discussed with the patient to follow up outpatient with Dr. Garcia in regard to this. During his stay here, telemonitoring never revealed any acute coronary changes. Palliative Care: Patient prognosis is poor. He is aware of this. Apparently, he sees Dr. Latham here in [facility], has been seen by a GI doc in [place] and would like to be on the transplant list. However, he was instructed that he has to stop smoking for a year. The patient is still currently smoking. The patient understands prognosis is bad and still only wants to be intubated in regard to code status. I think he could benefit from further discussion about this with his PCP and Dr. Latham and so his also may have a better understanding of how poor his prognosis is. ALEXANDER versus CKD: Nephrology was on board since patient's ALEXANDER was worsening despite fluids. However it had resolved. Patient with acute severe thrombocytopenia. No clinical signs of bleeding. However, no anticoagulation is given due to contraindication. DISPOSITION: Stable. DISCHARGE INSTRUCTIONS: 1. Location: Home. 2. Diet: Heart healthy, carb consistent. 3. Activity: Ad ronald as tolerated. 4. Followup: a. Please follow up Dr. Latham next week. b. Please follow up with Dr. Garcia next week. 5. I will follow through the hospital and also consider outpatient stress test if the patient is more stable to undergo this. 6. Consider repeat blood cultures to see if he clears that on being antibiotics. 7. If patient has fevers, please consider SHAINA and talk with Dr. Blount. Job ID: [id number] [facility]
--- NOTE | 2019-09-08 13:27 | EKG ---
Test Reason : Blood Pressure : / mmHG Vent. Rate : 134 BPM Atrial Rate : 134 BPM P-R Int : 132 ms QRS Dur : 104 ms QT Int : 296 ms P-R-T Axes : 039 -33 082 degrees QTc Int : 442 ms Sinus tachycardia Left axis deviation Minimal voltage criteria for LVH, may be normal variant Septal infarct (cited on or before 26-OCT-2015) Abnormal ECG When compared with ECG of 02-SEP-2019 23:03, (Unconfirmed) Questionable change in initial forces of Septal leads Nonspecific T wave abnormality no longer evident in Inferior leads T wave inversion now evident in Lateral leads Confirmed by LILI CARMEN ([id number]) on 09/08/2019 1:27:09 PM Referred By: GURMEET SUTHERLAND *R Confirmed By:LILI CARMEN
--- NOTE | 2019-09-09 21:07 | PQF ---
VERÓNICA MCGEE GRADY [id number] CLINICAL DOCUMENTATION CLARIFICATION FORM: POST DISCHARGE Addendum to original discharge summary date: ____ Late entry note date: __ DATE: 09/09/19 ATTN: Napoleon Rubin Please exercise your independent, professional judgment in responding to the clarification form. Clinical indicators are provided on the bottom of this form for your review In your clinical opinion based on clinical findings below, can you please identify the condition as the reason for Inpatient admission if due to: Please check appropriate box(s): [ ] Non-Alcoholic Steatohepatitis [ ] Cirrhosis [ x ] Infected Amputated Stump [ ] Other condition, please specify: [ ] Unable to determine In addition, please specify: Present on Admission (POA): [ x] Yes [ ] No [ ] Unable to determine For continuity of documentation, please document condition throughout progress notes and discharge summary. Thank You. CLINICAL INDICATORS - SIGNS / SYMPTOMS / LABS Family Med H&P p1 09/03 Dr Chairez Pt is a 53 yo male who presents with compliant of generalized weakness since yesterday morning Family Med H&P p1 09/03 Dr Chairez He also says that yesterday he had chest pain that was burning and stabbing, located over left side of chest rated 7 out of 10, no radiation. Family Med H&P p1 09/03 Dr Chairez Pt additionally complains of sore on RLE stump, this was cultured by home health nurse and was started on Doxcycline 2-3 days ago. Family Med H&P p1 09/03 Dr Chairez Pt had s history of non-alcoholic fatty liver cirrhosis and takes lactulose but sometimes forgets Family Med H&P p1 09/03 Dr Chairez Lavs reveled elevated troponin 0.034, BUN 29 , Cr 1.58, GFR 46 and Ammonia 46 ID consult p3 09/05 Dr Blount The initial process that led to the bacteremia mat have to be related to ulcer in the medial aspect of the right BKA stump there is no evidence of OM but there is evidence of cellulitis and he did notice purulent drainage intermittently in the past RISK FACTORS Family Med H&P p5 09/03 Liver Cirrhosis secondary to PITTMAN Family Med H&P p5 09/03 ALEXANDER Family Med H&P p5 09/03 Type 2 DM Family Med H&P p5 09/03 Bilateral BKA TREATMENTS: DEC 24 1L LR Bolus DEC 24 Lactulose DEC 24 Spironolactone Operative report 09/03 Paracentesis (This form is maintained as a part of the permanent medical record) 2014 [employer], [employer]. All Rights Reserved [email or web address] [not provided] MTDD
--- NOTE | 2019-09-14 21:08 | EKG ---
Test Reason : Blood Pressure : / mmHG Vent. Rate : 102 BPM Atrial Rate : 102 BPM P-R Int : 176 ms QRS Dur : 116 ms QT Int : 356 ms P-R-T Axes : 044 -28 027 degrees QTc Int : 463 ms Sinus tachycardia Left ventricular hypertrophy with QRS widening Cannot rule out Septal infarct , age undetermined Abnormal ECG Confirmed by BINDU JAMES ([id number]), web editor NAHED KEMP ([id number]) on 09/14/2019 9:07:17 PM Referred By: Confirmed By:BINDU JAMES
== END 2019-09-07 12:08 | disposition home health service (06) | DRG 564 ==
LOC: ERS 22:24 → 2SW 09-03 02:39 → OBSVTOIN 09-03 10:14 → 2NO 09-03 17:33 → CCU 09-03 19:16 → T4-B 09-05 12:39
PROVIDERS: ADMIT Family Medicine; ATTEND Family Medicine
PROC: 0W9G3ZZ Drainage of Peritoneal Cavity, Percutaneous Approach (ICD-10-PCS; principal; 2019-09-04)
DX: T87.43 Infection of amputation stump, right lower extremity (principal); K72.00 Acute and subacute hepatic failure without coma; R65.20 Severe sepsis without septic shock; A40.1 Sepsis due to streptococcus, group B; L03.115 Cellulitis of right lower limb; N17.9 Acute kidney failure, unspecified; E87.2 Acidosis; R18.8 Other ascites; D61.818 Other pancytopenia; K76.6 Portal hypertension; I82.513 Chronic embolism and thrombosis of femoral vein, bilateral; E87.1 Hypo-osmolality and hyponatremia; K74.60 Unspecified cirrhosis of liver; K75.81 Nonalcoholic steatohepatitis (NASH); D69.59 Other secondary thrombocytopenia; K21.9 Gastro-esophageal reflux disease without esophagitis; I08.3 Combined rheumatic disorders of mitral, aortic and tricuspid valves; F32.9 Major depressive disorder, single episode, unspecified; F17.200 Nicotine dependence, unspecified, uncomplicated; D63.1 Anemia in chronic kidney disease; E11.22 Type 2 diabetes mellitus with diabetic chronic kidney disease; E11.51 Type 2 diabetes mellitus with diabetic peripheral angiopathy without gangrene; I12.9 Hypertensive chronic kidney disease with stage 1 through stage 4 chronic kidney disease, or unspecified chronic kidney disease; N18.9 Chronic kidney disease, unspecified; Y83.5 Amputation of limb(s) as the cause of abnormal reaction of the patient, or of later complication, without mention of misadventure at the time of the procedure; R07.9 Chest pain, unspecified; Z86.73 Personal history of transient ischemic attack (TIA), and cerebral infarction without residual deficits; Z87.74 Personal history of (corrected) congenital malformations of heart and circulatory system; Z79.899 Other long term (current) drug therapy; Z79.4 Long term (current) use of insulin; Z89.512 Acquired absence of left leg below knee
CPT/HCPCS: 36415; 36416; 71045; 76770; 78582; 80053; 80202; 81015; 82042; 82140; 82150; 82553; 82570; 82607; 82746; 82805; 82945; 83605; 83615; 83690; 83880; 84145; 84156; 84157; 84300; 84484; 85025; 85060; 85610; 85652; 85730; 86140; 86706; 86803; 87040; 87070; 87077; 87086; 87149; 87186; 87205; 87340; 87389; 87449; 87804; 87899; 89051; 93005; 93010; 93306; 93970; 99406; A9540; A9558; J0696; J1650; J1815; J2543; J3370; J3490; J7050; P9047

== ENCOUNTER 2019-10-17 21:11 | Emergency (ER) | payer MEDICARE ==
[2019-10-17 22:14] LABS: Mean Corpuscular HGB CONC 32.2 g/dL (32.0-36.0); Mean Corpuscular Hemoglobin 30.1 pg (27.0-31.0); Mean Corpuscular Volume 93.8 fL (78.0-98.0); Platelet Count 80 thou/uL (130-400); RBC Distribution Width 14.2 % (11.5-14.5); White Blood Cell (WBC) Count 3.1 thou/uL (4.8-10.8)
[2019-10-17 22:28] LABS: #Eosinphils 0.2 thou/uL (0.0-0.7); #Lymphocytes 0.5 thou/uL (1.20-3.40); #Monocytes 0.3 thou/uL (0.11-0.59); #Neutrophils 2.1 thou/uL (1.40-6.50); %Basophils 0.7 % (0.0-1.0); %Eosinophils 6.3 % (0.0-10.0); %Lymphocytes 15.6 % (21.0-51.0); %Neutrophils 68.5 % (42.0-75.0); Platelet Morphology Comment Appears Decreased
[2019-10-17 22:31] LABS: ALT (SGPT) 11 U/L (8-55); AST (SGOT) 21 U/L (5-34); Albumin 2.6 g/dL (3.5-5.0); Alkaline Phosphatase 80 U/L (40-110); Anion Gap 9 mmol/L (10-20); BUN (Urea Nitrogen) 19 mg/dL (8.4-25.7); Bilirubin, Total 1.2 mg/dL (0.2-1.2); Calc. Creatinine Clearance 0 mL/min (70-130); Calcium 8.3 mg/dL (7.8-10.44); Carbon Dioxide 27 mmol/L (22-29); Chloride 104 mmol/L (98-107); Estimated GFR-MDRD 67; Glucose 218 mg/dL (70-105); Potassium 4.1 mmol/L (3.5-5.1); Protein, Total 7.6 g/dL (6.0-8.3); Sodium 136 mmol/L (136-145)
--- NOTE | 2019-10-17 23:16 | RAD ---
EXAM: XR Tib Fib Rt Leg 2 View PROVIDED CLINICAL HISTORY: Wound FINDINGS: Changes of ahyut-azr-dhuu amputation are demonstrated. There is no evidence for fracture or other acu te osseous abnormality. Alignment appears anatomic. Joint spaces appear preserved. IMPRESSION: No evidence for an acute osseous abnormality. If there is persistent clinical concern, conservative m anagement and follow-up imaging advised.
== END 2019-10-18 00:25 | disposition home or self-care (01) ==
LOC: ERS 21:11
DX: E11.622 Type 2 diabetes mellitus with other skin ulcer (principal); L97.119 Non-pressure chronic ulcer of right thigh with unspecified severity; S81.811A Laceration without foreign body, right lower leg, initial encounter; E78.5 Hyperlipidemia, unspecified; E78.00 Pure hypercholesterolemia, unspecified; K74.60 Unspecified cirrhosis of liver; F17.210 Nicotine dependence, cigarettes, uncomplicated; I10 Essential (primary) hypertension; Z86.73 Personal history of transient ischemic attack (TIA), and cerebral infarction without residual deficits; Z79.4 Long term (current) use of insulin; Z79.899 Other long term (current) drug therapy
CPT/HCPCS: 36415; 80053; 85025

== ENCOUNTER 2019-12-02 22:30 | Inpatient (IN) | payer MEDICARE ==
[2019-12-02] MEDS ORDERED: Morphine 4 MG/ML VIAL ONE (23:33)
[2019-12-02] MEDS ORDERED: Cefepime 2 GM VIAL ONE (23:34)
[2019-12-02] MEDS ORDERED: Ondansetron PF 4 MG/2 ML Vial ONE (23:34)
[2019-12-02 23:52] LABS: Hemoglobin 11.6 g/dL (14.0-18.0); Mean Corpuscular HGB CONC 32.8 g/dL (32.0-36.0); Mean Corpuscular Hemoglobin 30.9 pg (27.0-31.0); Mean Corpuscular Volume 94.3 fL (78.0-98.0); RBC Distribution Width 12.7 % (11.5-14.5); Red Blood Cell (RBC) Count 3.74 mill/uL (4.70-6.10)
[2019-12-02 23:57] LABS: ALT (SGPT) 10 U/L (8-55); AST (SGOT) 16 U/L (5-34); Albumin 2.5 g/dL (3.5-5.0); Alkaline Phosphatase 70 U/L (40-110); Anion Gap 11 mmol/L (10-20); BUN (Urea Nitrogen) 18 mg/dL (8.4-25.7); Band 7 % (5-11); Bilirubin, Total 1.5 mg/dL (0.2-1.2); Calc. Creatinine Clearance 0 mL/min (70-130); Calcium 8.1 mg/dL (7.8-10.44); Carbon Dioxide 27 mmol/L (22-29); Chloride 103 mmol/L (98-107); Eosinophils 3 % (0-10); Estimated GFR-MDRD 58; Globulin 5.3 g/dL (2.4-3.5); Glucose 178 mg/dL (70-105); Lymphocytes 6 % (21-51); MDiff Complete? YES; Mean Platelet Volume 8.3 fL (7.4-10.4); Monocytes 9 % (0-10); Neutrophil 74 % (42-75); Platelet Count 76 thou/uL (130-400); Platelet Morphology Comment Appears Decreased; Potassium 4.1 mmol/L (3.5-5.1); Protein, Total 7.8 g/dL (6.0-8.3); Sodium 137 mmol/L (136-145); White Blood Cell (WBC) Count 4.7 thou/uL (4.8-10.8)
--- NOTE | 2019-12-02 23:58 | RAD ---
EXAM: XR Tib Fib Rt Leg 2 View PROVIDED CLINICAL HISTORY: Brownish-yellow discharge from the right stump with swelling and pain COMPARISON: 10/17/2019 FINDINGS: Changes of srwls-wop-mszc amputation are demonstrated. There is no evidence for fracture or other acute osseous abnormality. Alignment appears anatomic. Joint spaces appear preserved. IMPRESSION: No evidence for an acute osseous abnormality. If there is persistent clinical concern, c onservative management and follow-up imaging advised.
[2019-12-03] MEDS ORDERED: Ondansetron PF 4 MG/2 ML Vial IVP PRN (01:44)
[2019-12-03] MEDS ORDERED: Dextrose 50% Abboject 50 ML SYRINGE SLOW IVP PRN (01:54)
[2019-12-03] MEDS ORDERED: Dextrose 5% in Water 1,000 ML IV PRN (01:54)
--- NOTE | 2019-12-03 01:59 | PDOC.FPRHP ---
- Allergies/Adverse Reactions Allergies Allergy/AdvReac Type Severity Reaction Status Date / Time No Known Drug Allergies Allergy Verified 09/15/19 06:17 - Home Medications Medication Instructions Recorded Confirmed Type Venlafaxine HCl [Venlafaxine HCl 150 mg PO DAILY 06/23/15 12/03/19 History ER] Nadolol [Corgard] 20 mg PO DAILY #0 tab 06/29/15 12/03/19 Rx Spironolactone [Aldactone] 100 mg PO 1200 08/13/15 12/03/19 History Pantoprazole [Protonix] 40 mg PO BID 10/27/15 12/03/19 History HYDROcodone/Acetaminophen 1 tab PO Q6HR PRN 11/30/18 12/03/19 History [Hydrocodone-Acetamin 10-325 mg] Lactulose 10 gm PO TID #1 udcup 12/04/18 12/03/19 Rx Furosemide 20 mg PO DAILY 02/22/19 12/03/19 History Insulin Aspart [Novolog] 15 unit SQ ASDIR 09/03/19 12/03/19 History Ferrous Sulfate 65 mg PO DAILY 09/15/19 12/03/19 History Gabapentin 600 tab PO BID 09/15/19 12/03/19 History Insulin Glargine [Lantus Vial] 50 units SC HS vial 09/16/19 12/03/19 Rx Nystatin [Nystatin Powder] 1 applic TOP BID PRN 12/03/19 12/03/19 History - History PMHx: PSHx: FHx: Social: - Vital signs BP: [] HR: [] RR: [] Tmax: [] Pox: []% on [] Wt: [] FMR H&P: Results - Labs Result Diagrams: 12/02/19 23:00 12/02/19 23:00 Lab results: WBC 4.7 thou/uL (4.8-10.8) L 12/02/19 23:00 Hgb 11.6 g/dL (14.0-18.0) L 12/02/19 23:00 Hct 35.2 % (42.0-52.0) L 12/02/19 23:00 MCV 94.3 fL (78.0-98.0) 12/02/19 23:00 Plt Count 76 thou/uL (130-400) L 12/02/19 23:00 Band Neuts % (Manual) 7 % (5-11) 12/02/19 23:00 Sodium 137 mmol/L (136-145) 12/02/19 23:00 Potassium 4.1 mmol/L (3.5-5.1) 12/02/19 23:00 Chloride 103 mmol/L (98-107) 12/02/19 23:00 Carbon Dioxide 27 mmol/L (22-29) 12/02/19 23:00 BUN 18 mg/dL (8.4-25.7) 12/02/19 23:00 Creatinine 1.30 mg/dL (0.7-1.3) 12/02/19 23:00 Glucose 178 mg/dL (70-105) H 12/02/19 23:00 Lactic Acid 1.9 mmol/L (0.5-2.2) 12/02/19 23:43 Calcium 8.1 mg/dL (7.8-10.44) 12/02/19 23:00 Total Bilirubin 1.5 mg/dL (0.2-1.2) H 12/02/19 23:00 AST 16 U/L (5-34) 12/02/19 23:00 ALT 10 U/L (8-55) 12/02/19 23:00 Alkaline Phosphatase 70 U/L (40-110) 12/02/19 23:00 Serum Total Protein 7.8 g/dL (6.0-8.3) 12/02/19 23:00 Albumin 2.5 g/dL (3.5-5.0) L 12/02/19 23:00 FMR H&P: Upper Level - Plan Date/Time: 12/03/19 0157 PCP: Ratna CROOK HPI: Patient comes in infected stump. He denies fevers or sweats. Has had chills. He states he started having swelling 3 days. Then yesterday swelling and pain go worse and mother noted discharge from the stump starting yesterday. Patient is tolerating PO. Patient is usually able to bear weight for transfers but has been having difficulty for the last 24 hours. Home health has been seeing him and he was supposed to have wound care apt on . He ran out of [facility] 1 week ago and has been covering with novolog. PMHx: HLD, T2DM, HTN, CVA x 2 in 2013, non-alcoholic fatty liver cirrhosis, Depression PSHx: bilateral BKAs, esophageal varices banding in 2014 FHx: non-contributory Social: smokes 1/2 ppd, denies EtOH use REVIEW OF SYSTEMS: Gen: see hpi Neuro: denies headache Eyes: no visual changes ENT: no hearing changes, no sore throat, no congestion Resp: denies cough, SOB Card: denies murmurs, rubs, gallups GI: no N/V/D, no abdominal pain Skin: see hpi Vitals: BP: 113/64, Pulse:70, Resp: 18, Temp: 98.1 O2 sat: 95 PHYSICAL EXAMINATION: General: NAD, alert and oriented x3 HEENT: PERRLA, EOMI, normal sclera, oropharynx without erythema or exudate Neck: Supple. Full ROM. Heart/Cardiovascular System: RRR, Cap refill < 3 seconds, no rub, no murmur Lungs/Respiratory System: CTA-B, no resp distress Abdomen/Gastro-Intestinal System: no abdominal tenderness, normal bowel sounds, mild fluid wave Extremities: bilateral BKA, quarter size ulcer on R stump, see photo, surrounding erythema, induration, no crepitus Neuro: No gross deficits appreciated. CN 2-12 grossly intact Psychiatry: Awake, Alert and cooperative with exam Musculoskeletal: Full ROM, lifts leg off bed, states painful to bear weight A/P: # Diabetic stub infection - Vanc, Cefepime, Flaggyl - Consult surgery in AM, will likely need debridement - Surrounding erythema and induration - Bcx pending, not meeting sirs criteria currently, check procal - No evidence of osteo noted on x-ray, MRI not indicated currently - Wound care #CKD II - cr 1.3, about baseline #T2DM -per last d/c note 50U qHS lantus -last A1C in Jul 2019 was 9.6% -Moderate SSI -Accuchecks ACHS #Cirrhosis -due to fatty liver, nonalcoholic -followed by GI Dr. Boyer in [place] -Ammonia pending -continue home meds: Lactulose, Spironolactone Diet: NPO pending surgery eval VTE: low plts, possible debridement will hold off for now Code: full Dispo: inpt, pending surgery eval Addendum - Attending - Attending Attestation Date/Time: 12/03/19 2407 I personally evaluated the patient and discussed the management with Residents I agree with the History, Examination, Assessment and Plan documented above with any addition or exceptions noted below. 54 yo diabetic male s/p Bilateral BKA with recent wound right stump under evaluation and treatment by wound therapy . Patient with fever chills and increased pain with moderate amount purulent drainage from Right sided BKA stump. 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 MELD score stable HX FPO , CKD Exam ascites noted with no respiratory compromise Patient started on empirical AB and will hold NPO and surgery consultation for possible debridement. Plain film do not reveal any worrisome signs osteomyelitis. Will control BS and consult wound care as well.
[2019-12-03] MEDS: metroNIDAZOLE 500 MG in Premix Bag 1 BAG IVPB SCH ×3 (03:07→17:23)
[2019-12-03] MEDS: HYDROcodone/Acetaminophen 10/325 mg Tablet PO PRN ×2 (03:07→20:47)
[2019-12-03] MEDS: Morphine 4 MG/ML VIAL SLOW IVP PRN ×6 (03:08→23:10)
[2019-12-03] MEDS: HumaLOG 300 UNITS/3 ML VIAL SC PRN (06:44)
[2019-12-03] MEDS ORDERED: Vancomycin HCl 750 MG in Sodium Chloride 0.9% 250 ML 250 ML IVPB SCH (07:45)
[2019-12-03] MEDS ORDERED: Vancomycin HCl 1.5 GM in Sodium Chloride 0.9% 250 ML 300 ML IVPB SCH (09:00)
[2019-12-03] MEDS ORDERED: Famotidine 20 MG TAB PO SCH (09:00)
[2019-12-03] MEDS: Ferrous Sulfate 325 MG TAB PO SCH (10:05)
[2019-12-03] MEDS: Gabapentin 300 MG CAP PO SCH ×2 (10:06→20:47)
[2019-12-03] MEDS: Furosemide 20 MG TAB PO SCH (10:06)
[2019-12-03] MEDS: Nadolol 40 MG TAB PO SCH (10:06)
[2019-12-03] MEDS: Venlafaxine HCl XR 150 MG CAP PO SCH (10:07)
[2019-12-03] MEDS: Cefepime 2 GM in Sodium Chloride 0.9% 100 ML IVPB SCH ×2 (12:20→23:35)
[2019-12-03] MEDS: Spironolactone 100 MG TAB PO SCH (12:30)
[2019-12-03] MEDS ORDERED: Magnevist 469MG/ML 20 ML VIAL ONE (12:59)
--- NOTE | 2019-12-03 15:20 | OP ---
DATE OF PROCEDURE: 12/03/2019 PREOPERATIVE DIAGNOSES: 1. Bilateral gklad-ezu-ieia amputation status cirrhosis secondary to fatty liver. 2. Open wound, right tpilc-aww-matb amputation stump, greenish slough. POSTOPERATIVE DIAGNOSES: 1. Bilateral kowsp-sen-ttqs amputation status cirrhosis secondary to fatty liver. 2. Open wound, right hgwgf-xgu-qavx amputation stump, greenish slough. 3. Deep wound, extending 3.5 to 4 cm with a large cavity, unroofed. ANESTHESIA: None. DESCRIPTION OF PROCEDURE: With the patient at bedside in his room, his right BKA stump wound approximately 2.5 to 3 cm in diameter was debrided, greenish slough after an alcohol prep. Under this, there was a sinus tract tunnel deep, extending 3.5 to 4 cm with a wide cavernous undermining. I could not appreciate clinically that this approximated the bone. Culture submitted. The wound packed open. PLAN: Wound Care consult for wound VAC care. Dr. Blount consult. MRI scan. We will base further recommendations on clinical course. Job ID: [id number]
[2019-12-03 15:35] VITALS: BMI 35.5
--- NOTE | 2019-12-03 16:01 | CON ---
DATE OF CONSULTATION: HISTORY OF PRESENT ILLNESS: Roni Farias is a 54-year-old male, bilateral aetyy-ork-tjif amputee. He has cirrhosis from fatty liver, type 2 diabetes mellitus, hypertension, obesity, 52 BMI, 5 feet tall, 269 pounds. He does have ascites. Platelet count is 76,000, white count 4.7. Hepatitis serology is negative. HIV negative, August 2019. Although hepatitis B surface antibody is greater than 12. He has never been treated for viral hepatitis. The patient has developed a wound on his right lateral stump. He is admitted on 12/02/2019. Plain x-rays did not reveal any significant findings. Antibiotic regimen of Flagyl, vancomycin, cefepime have been ordered. Blood cultures, positive Streptococcus Staphylococcus, but I am not sure as the depth of the culture. I have been asked to see him regarding the right leg wound. ALLERGIES: NONE. SOCIAL HISTORY: Tobacco, none. Alcohol, none. MEDICATIONS: Vancomycin, Flagyl, cefepime in the hospital. At home; 1. Gabapentin. 2. Furosemide. 3. Corgard. 4. Lactulose. 5. Insulin. 6. Hydrocodone. 7. Spironolactone. 8. Protonix. 9. [place] 10. 10. Gabapentin as mentioned above. 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 Rasheed, February of 2008 guillotine amputation with subsequent below-knee amputation closure performed by me. The patient does have a history of tobacco abuse, cessation for more than 5 to 10 years. PHYSICAL EXAMINATION: VITAL SIGNS: Bilateral BKA, 5 feet tall, 269 pounds, 52 BMI. 97.6, 66, 109/63. LUNGS: Clear to auscultation. CARDIAC: Regular rate and rhythm without murmur or gallop. ABDOMEN: Soft, protuberant. Positive fluid wave. Umbilical hernia reducible. EXTREMITIES: Palpable femoral pulses. Bilateral BKA. Right lateral BKA stump open wound with greenish slough. This was debrided sharply at the bedside revealing deep sinus tract extending 3.5 to 4 cm to the tibia from lateral to medial. Cultures obtained. Gauze dressing applied. ASSESSMENT AND PLAN: Right BKA deep wound. Would recommend wound care consult for wound VAC care. Dr. Blount consulted for antibiotics, MRI of right BKA stump. The patient is at risk for further surgical intervention pending clinical course. Job ID: [id number]
--- NOTE | 2019-12-03 18:02 | MRI ---
EXAM: RIGHT LOWER EXTREMITY MRI WITH AND WITHOUT IV CONTRAST: 12/03/19 HISTORY: BK amputation, chronic nonhealing wound on bottom of stump. There is evidence for an open wound involving the somewhat posterolateral aspect of the stump with landaverde rrounding enhancing phlegmon. Cranial to this open wound there is an irregular complex complicated ap pearing fluid collection measuring 1.7 x 3.5 cm. Somewhat more cranial to this location, there are nu merous smaller somewhat loculated foci of abnormal fluid collection including one measuring 1.0 x 2.2 cm at the level of the fibular head. Somewhat more cranial to this, at the level of the iliotibial band insertion there is also a fluid collection measuring 1.1 x 2.5 cm in size. I feel that all of th dudley are probably multiple abscesses with considerable surrounding enhancing inflammatory tissue and p hlegmon. There is extensive diffuse subcutaneous edema and cellulitis more marked laterally. There is prominent fatty change of the calf musculature with abnormal edema involving the anterior tibialis a nd adjacent extensor muscle as well as the posterior tibialis muscle all concerning for the possibili ty of myositis given that the phlegmon and abscess is immediately adjacent to these areas. There is s ome abnormal subchondral marrow signal involving the posterior lateral femoral condyle with some cristian cent marrow edema, evidence for an insufficiency or stress type subchondral fracture. No evidence for osteomyelitis. IMPRESSION: Extensive subcutaneous edema and cellulitis, more marked laterally with multiple loculated areas of f luid collection within the superficial soft tissues probably representing multiple abscesses with hosea rounding enhancing phlegmon or cellulitis tissue. Abnormal T2 hyperintensity involving the anterior a nd lateral compartments at the level of the proximal tibia and fibula as well as the posterior tibial is muscle given the adjacent probable abscess, this certainly could represent acute myositis but no e vidence for myonecrosis. These changes could potentially be related to denervation. No evidence for o steomyelitis. Small probable subchondral insufficiency type fracture involving the posterior aspect o f the lateral femoral condyle. POS: [facility]
[2019-12-03] MEDS ORDERED: Insulin Glargine 50 UNITS in Pre-Filled Syringe 1 EACH SC SCH (21:00)
--- NOTE | 2019-12-03 23:23 | CON ---
DATE OF CONSULTATION: 12/03/2019 HISTORY OF PRESENT ILLNESS: A 54-year-old whom I had seen recently at the end of 2019 when he presented with a history of liver cirrhosis presumably nonalcoholic secondary to steatohepatitis with prior variceal bleeding, hepatic encephalopathy, portal vein thrombosis. He has had bilateral BKAs, which have complications of gangrene of the lower extremities and he wears prosthesis in both lower extremities. Apparently, recently he wore his right prosthesis without the sleeve and has developed an ulcer at the tip with some inflammatory changes associated with cellulitis. Dr. Fernandes did a bedside debridement, there seemed to be some tunneling and an MRI has been ordered. The patient otherwise appears to be chronically ill, but stable. He denies any headaches, no visual symptoms, sore throat, odynophagia, dysphagia. No dyspnea. No chest pain. No abdominal pain. He does have quite a bit of abdominal distention with likely ascites. PAST MEDICAL HISTORY: Liver cirrhosis, possibly due to steatohepatitis; type 2 diabetes, obesity, hypertension, CVA, gangrene in lower extremities, which led to bilateral BKAs many years ago, patent foramina ovale, prior large volume paracentesis. SOCIAL HISTORY: Never used illicit drugs. Used to drink, but reportedly small amounts, beer and liquor, current smoker. ALLERGIES: ALLERGY HISTORY IS NEGATIVE. CURRENT MEDICATION LIST: 1. Cefepime. 2. Ferrous sulfate. 3. Glucagon. 4. Insulin. 5. Flagyl. 6. Vancomycin. PHYSICAL EXAMINATION: VITAL SIGNS: T-max 98.3, blood pressure 109/63, pulse 66, respirations 16 and O2 saturation 96. SKIN: Shows the original ulcer is round-shaped measuring about 2.5 cm with a central area of necrosis. This has been debrided and there is a tunneling reported by Dr. Fernandes. There is erythema surrounding this area extending up towards to the mid thigh, particularly in the medial aspect of his right thigh. There is an area of bruising and deep tissue injury in the left gluteal region. The patient has peripheral IV access and urinates in the urinal. GENERAL: Chronically ill appearing, but in no distress. HEENT: Mild icterus in the scleral area. Conjunctivae are normal. Oral cavity is unremarkable. NECK: Supple. LUNGS: With symmetric air entry and basilar inspiratory crackles. HEART: S1-S2 regular rate. ABDOMEN: Quite distended with positive fluid wave, but no tenderness. There is an umbilical hernia, non reducible, but not tender. GENITOURINARY: No scrotal edema noted. No bladder distention. EXTREMITIES: The left BKA site appears intact with no inflammatory changes or breakdown of the skin. NEUROLOGIC: Nonfocal including cognitive function. No evidence of asterixis. LABORATORY DATA: White cell count 4.7, hemoglobin 11.6, platelets 76,000 with normal differential except for lymphocytopenia and chemistry is normal except for glucose 178, bilirubin 1.5, albumin 2.5, globulin 5.3. A sample submitted to the lab for cultures. The Gram stain with many GPC in clusters. The patient had a lower extremity MRI completed and there was evidence of extensive edema, cellulitis, areas of fluid collection within the superficial soft tissues, possibly representing multiple abscesses with surrounding phlegmon. There was some abnormal T2 hyperintensity in the anterior and lateral compartments at the level of proximal tibia and fibula, probably an abscess or myositis, it could be denervation as well. No osteomyelitis noted. ASSESSMENT: Bilateral below the knee amputation following gangrene of lower extremities in the past now with an area of pressure ulceration associated with necrosis with tunneling on the tip aspect of the right mnrjc-fhh-xltn amputation site, which was secondary to damage from not wearing the sleeve associated with his prosthesis, which led to an abrasion. The patient had those findings in the MRI , but no osteomyelitis and since overnight there has been quite a bit of improvement and we will continue with antimicrobial therapy administration. Await on the culture and then transition to oral antimicrobial therapy. He may need further surgical debridement depending on clinical progress and those abscesses in the lateral aspect will have to be monitored. It could be just fluid collections without true purulent exudate. In view of his cirrhosis, he may have a more opportunistic, more resistant pathogen such as GNR, MRSA, so I think that the current regimen appears to be adequate. Job ID: [id number] [facility]
[2019-12-04] MEDS: metroNIDAZOLE 500 MG in Premix Bag 1 BAG IVPB SCH ×3 (02:30→17:05)
[2019-12-04 05:21] LABS: #Eosinphils 0.1 thou/uL (0.0-0.7); #Lymphocytes 0.4 thou/uL (1.20-3.40); #Monocytes 0.3 thou/uL (0.11-0.59); #Neutrophils 1.4 thou/uL (1.40-6.50); %Eosinophils 5.8 % (0.0-10.0); %Lymphocytes 18.8 % (21.0-51.0); %Neutrophils 64.4 % (42.0-75.0); Hemoglobin 10.9 g/dL (14.0-18.0); Mean Corpuscular HGB CONC 32.6 g/dL (32.0-36.0); Mean Corpuscular Hemoglobin 30.8 pg (27.0-31.0); Mean Corpuscular Volume 94.4 fL (78.0-98.0); Mean Platelet Volume 8.5 fL (7.4-10.4); Platelet Count 79 thou/uL (130-400); RBC Distribution Width 12.7 % (11.5-14.5); Red Blood Cell (RBC) Count 3.54 mill/uL (4.70-6.10); White Blood Cell (WBC) Count 2.2 thou/uL (4.8-10.8)
[2019-12-04 05:29] LABS: ALT (SGPT) 10 U/L (8-55); AST (SGOT) 15 U/L (5-34); Albumin 2.2 g/dL (3.5-5.0); Alkaline Phosphatase 57 U/L (40-110); Anion Gap 10 mmol/L (10-20); BUN (Urea Nitrogen) 17 mg/dL (8.4-25.7); Calc. Creatinine Clearance 143 mL/min (70-130); Carbon Dioxide 27 mmol/L (22-29); Chloride 104 mmol/L (98-107); Estimated GFR-MDRD 75; Globulin 4.7 g/dL (2.4-3.5); Glucose 111 mg/dL (70-105); Potassium 4.1 mmol/L (3.5-5.1); Protein, Total 6.9 g/dL (6.0-8.3); Sodium 137 mmol/L (136-145)
[2019-12-04] MEDS ORDERED: Vancomycin HCl 1.75 GM in Sodium Chloride 0.9% 500 ML IVPB SCH (06:00)
[2019-12-04] MEDS: Morphine 4 MG/ML VIAL SLOW IVP PRN ×4 (06:22→20:29)
--- NOTE | 2019-12-04 06:50 | PDOC.FM ---
- Subjective Subjective: pt sitting up comfortably in bed, eating, reports 8/10 pain. awoke last night because of the room being cold, denies fevers or sob - Objective Vital Signs & Weight: Vital Signs (12 hours) Temp Pulse Resp BP Pulse Ox 12/03/19 19:39 98.2 F 73 16 114/69 98 Weight Admit Weight 122.101 kg Weight 122.101 kg I&O: 12/02/19 12/03/19 12/04/19 06:59 06:59 06:59 Intake Total 100 960 Output Total 200 1450 Balance -100 -490 Result Diagrams: 12/04/19 04:41 12/04/19 04:41 Phys Exam - Physical Examination Constitutional: NAD HEENT: moist MMs Neck: supple Respiratory: clear to auscultation bilateral Cardiovascular: no significant murmur Gastrointestinal: soft distended Musculoskeletal: no edema Neurological: moves all 4 limbs Deviation from normal: dressing with a small amount of fluid Dx/Plan (1) History of CVA (cerebrovascular accident) Code(s): Z86.73 - PRSNL HX OF TIA (TIA), AND CEREB INFRC W/O RESID DEFICITS Status: Acute (2) Insulin dependent diabetes mellitus Code(s): E11.9 - TYPE 2 DIABETES MELLITUS WITHOUT COMPLICATIONS; Z79.4 - EMISSIONS 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 Fernandes consulted, bedside debridement and vac placement - Wound care CKD II - cr 1.3, about baseline T2DM - 50U qHS lantus -Moderate SSI -Accuchecks ACHS Cirrhosis -due to fatty liver, nonalcoholic -continue home meds: Lactulose, Spironolactone Code: full Dispo: continue broad spectrum abx until cx results Addendum - Attending - Attending Attestation Date/Time: 12/04/19 1037 I personally evaluated the patient and discussed the management with Dr. Alan. I agree with the History, Examination, Assessment and Plan documented above with any addition or exceptions noted below. Patient here for leg stump infection. Wound care and GenSurgery on board, awaiting further recs. Wound vac in place. MRI did not show osteomyelitis but did show multiple fluid collections. Continues on IV abx. Continue lactulose. Pain control as needed.
[2019-12-04] MEDS ORDERED: Non-Formulary Item 1 EACH (Insulin Aspart [Novolog] 15 UNIT) SQ SCH (07:00)
[2019-12-04] MEDS ORDERED: HumaLOG 300 UNITS/3 ML VIAL SC SCH (07:00)
[2019-12-04] MEDS: Ferrous Sulfate 325 MG TAB PO SCH (08:31)
[2019-12-04] MEDS: Furosemide 20 MG TAB PO SCH (08:32)
[2019-12-04] MEDS: Venlafaxine HCl XR 150 MG CAP PO SCH (08:37)
[2019-12-04] MEDS: Gabapentin 300 MG CAP PO SCH ×2 (08:37→20:22)
[2019-12-04] MEDS: Nadolol 40 MG TAB PO SCH (08:37)
[2019-12-04] MEDS: Nicotine 7 MG PATCH TOP SCH (09:36)
[2019-12-04] MEDS: Cefepime 2 GM in Sodium Chloride 0.9% 100 ML IVPB SCH (11:24)
[2019-12-04] MEDS: HumaLOG 300 UNITS/3 ML VIAL SC PRN ×2 (11:26→20:23)
[2019-12-04] MEDS: Spironolactone 100 MG TAB PO SCH (11:27)
[2019-12-04] MEDS: HYDROcodone/Acetaminophen 10/325 mg Tablet PO PRN ×2 (12:52→18:43)
--- NOTE | 2019-12-04 18:27 | PRG ---
DATE OF SERVICE: 12/04/2019 SUBJECTIVE: Still having intermittent pain. No vomiting. No respiratory symptoms. OBJECTIVE: VITAL SIGNS: T max 98.2, blood pressure 140/80, pulse 78, respirations 18. LUNGS: Clear to auscultation and percussion. HEART: S1 and S2 regular rate. ABDOMEN: Soft, not distended. EXTREMITIES: Right BKA site with wound, which has a better appearing base. There is a central hole, which penetrates deeply into the area. The erythema has subsided significantly. DIAGNOSTIC AND LABORATORY DATA: White cell count is 2.2, hemoglobin 10.9, platelets 79,000, probably related to his hypersplenism secondary to cirrhosis. Creatinine 1.04, which is improved. Microbiology thus far shows many gram-positive cocci in clusters. Isolation of possible pathogens is in progress. Blood culture, no growth to date. The MRI as noted before without any evidence of osteomyelitis. Does have fluid collections, which would be consistent with abscess. The patient is currently on cefepime, vancomycin, metronidazole. ASSESSMENT AND DISCUSSION: Bilateral ebaec-myy-jgbz amputation following gangrene of lower extremities with an area of pressure ulceration associated with necrosis and tunneling tip of the right below knee amputation site from not wearing the sleeve with his prosthesis. Abscesses had developed, those have been incisioned and drainaged. Still has some residual ones, and our plan is to continue hopefully oral therapy once we have the final identification of the organism. There is no evidence of osteomyelitis. Job ID: [id number]
[2019-12-04] MEDS: Insulin Glargine 50 UNITS in Pre-Filled Syringe 1 EACH SC SCH (20:22)
[2019-12-05] MEDS: Cefepime 2 GM in Sodium Chloride 0.9% 100 ML IVPB SCH ×2 (00:10→11:58)
[2019-12-05] MEDS: HYDROcodone/Acetaminophen 10/325 mg Tablet PO PRN ×4 (00:50→22:16)
[2019-12-05] MEDS: metroNIDAZOLE 500 MG in Premix Bag 1 BAG IVPB SCH ×3 (01:24→17:06)
[2019-12-05] MEDS: Morphine 4 MG/ML VIAL SLOW IVP PRN (02:10)
[2019-12-05 05:38] LABS: #Eosinphils 0.1 thou/uL (0.0-0.7); #Lymphocytes 0.4 thou/uL (1.20-3.40); #Monocytes 0.3 thou/uL (0.11-0.59); #Neutrophils 1.4 thou/uL (1.40-6.50); %Eosinophils 5.4 % (0.0-10.0); %Lymphocytes 19.2 % (21.0-51.0); %Monocytes 12.2 % (0.0-10.0); %Neutrophils 63.2 % (42.0-75.0); Hemoglobin 10.5 g/dL (14.0-18.0); Mean Corpuscular Hemoglobin 30.9 pg (27.0-31.0); Mean Corpuscular Volume 93.8 fL (78.0-98.0); Platelet Count 75 thou/uL (130-400); RBC Distribution Width 12.6 % (11.5-14.5); Red Blood Cell (RBC) Count 3.38 mill/uL (4.70-6.10); White Blood Cell (WBC) Count 2.3 thou/uL (4.8-10.8)
[2019-12-05 05:43] LABS: Vancomycin, Trough 10.7 ug/mL
[2019-12-05 05:47] LABS: ALT (SGPT) 9 U/L (8-55); AST (SGOT) 16 U/L (5-34); Albumin 2.2 g/dL (3.5-5.0); Alkaline Phosphatase 65 U/L (40-110); Anion Gap 9 mmol/L (10-20); BUN (Urea Nitrogen) 16 mg/dL (8.4-25.7); Bilirubin, Total 0.7 mg/dL (0.2-1.2); Calc. Creatinine Clearance 141 mL/min (70-130); Calcium 8.1 mg/dL (7.8-10.44); Carbon Dioxide 27 mmol/L (22-29); Chloride 104 mmol/L (98-107); Estimated GFR-MDRD 73; Globulin 4.6 g/dL (2.4-3.5); Glucose 185 mg/dL (70-105); Potassium 4.1 mmol/L (3.5-5.1); Protein, Total 6.8 g/dL (6.0-8.3); Sodium 136 mmol/L (136-145)
[2019-12-05] MEDS: HumaLOG 300 UNITS/3 ML VIAL SC PRN ×2 (06:07→17:05)
--- NOTE | 2019-12-05 06:33 | PDOC.FM ---
- Subjective Subjective: pt resting comfortably in bed, having a bowel movement. reports some pain with wound vac, denies fevers. - Objective Vital Signs & Weight: Vital Signs (12 hours) Temp Pulse Resp BP Pulse Ox 12/05/19 04:08 98.2 F 86 16 118/75 96 12/05/19 00:00 98.5 F 81 16 107/70 97 12/04/19 20:20 97 12/04/19 20:00 97.6 F 81 16 123/79 97 Weight Admit Weight 122.101 kg Weight 122.101 kg I&O: 12/03/19 12/04/19 12/05/19 06:59 06:59 06:59 Intake Total 300 335 5656 Output Total 200 1450 800 Balance -100 -490 1100 Result Diagrams: 12/05/19 05:10 12/05/19 05:10 Phys Exam - Physical Examination Constitutional: NAD HEENT: moist MMs Neck: supple distended Musculoskeletal: pulses present Neurological: moves all 4 limbs Psychiatric: normal affect Skin: no rash Dx/Plan (1) History of CVA (cerebrovascular accident) Code(s): Z86.73 - PRSNL HX OF TIA (TIA), AND CEREB INFRC W/O RESID DEFICITS Status: Acute (2) Insulin dependent diabetes mellitus Code(s): E11.9 - TYPE 2 DIABETES MELLITUS WITHOUT COMPLICATIONS; Z79.4 - SNF (CURRENT) USE OF INSULIN Status: Acute (3) Nonalcoholic steatohepatitis (PITTMAN) Code(s): K75.81 - NONALCOHOLIC STEATOHEPATITIS (PITTMAN) Status: Acute (4) Diabetes mellitus type 2 in obese Code(s): E11.9 - TYPE 2 DIABETES MELLITUS WITHOUT COMPLICATIONS; E66.9 - OBESITY , UNSPECIFIED Status: Chronic - Plan Plan: Diabetic stub infection - Vanc, Cefepime, Flagyl to cover DFI - Bcx/wcx pending, transition to oral pending results - No evidence of osteo noted on x-ray/MRI - gen surg- Dr. Fernandes consulted, bedside debridement and vac placement - Wound care CKD II - cr 1.3, about baseline T2DM - 50U qHS lantus -Moderate SSI -Accuchecks ACHS Cirrhosis -due to fatty liver, nonalcoholic -continue home meds: Lactulose, Spironolactone Code: full Dispo: continue broad spectrum abx until cx results Addendum - Attending - Attending Attestation Date/Time: 12/05/19 1006 I personally evaluated the patient and discussed the management with Dr. Alan. I agree with the History, Examination, Assessment and Plan documented above with any addition or exceptions noted below. Patient stable. Continue IV abx for stump infection, awaiting further recs from General Surgery regarding need for other procedures. Will need CM on board for WoundVac and possibly custodial abx setup. He needs to take his Lactulose as rx' d to help prevent onset of encephalopathy, currently no signs of that.
[2019-12-05] MEDS: Nadolol 40 MG TAB PO SCH (08:11)
[2019-12-05] MEDS: Ferrous Sulfate 325 MG TAB PO SCH (08:11)
[2019-12-05] MEDS: Furosemide 20 MG TAB PO SCH (08:11)
[2019-12-05] MEDS: Venlafaxine HCl XR 150 MG CAP PO SCH (08:11)
[2019-12-05] MEDS: Gabapentin 300 MG CAP PO SCH ×2 (08:11→22:14)
[2019-12-05] MEDS: Nicotine 7 MG PATCH TOP SCH (10:16)
[2019-12-05] MEDS: Spironolactone 100 MG TAB PO SCH (11:58)
--- NOTE | 2019-12-05 14:35 | PQF ---
CLINICAL DOCUMENTATION IMPROVEMENT CLARIFICATION FORM: ICD-10 Updated PLEASE DO AN ADDENDUM TO THE PROGRESS NOTE WITH ANY DOCUMENTATION UPDATES OR ADDITIONS AND CARRY THROUGH TO DC SUMMARY. THANK YOU. DATE: 12/05/19 ATTN: DR. BAZAN Please exercise your independent, professional judgment in responding to the clarification form. Clinical indicators are provided on the bottom of this form for your review Please check appropriate box(s): [yes ] Excisional Debridement: [ yes] Excised [ yes ] Cut away [ ] Other: Depth / layer: (deepest layer of debridement): [ yes] Skin[ yes] SubQ Tissue [ ] Fascia [ ] Muscle [ ] Tendon [ ] Bone Appearance of wound: (e.g., down to fresh bleeding tissue, etc.)___ Margins: (please specify): / x x Instruments used: [ ] Scissors [ yes] Scalpel [ ] Curette [ ] Soft tissue clipper [ ] Other: [ ] Non-excisional Debridement: (Removal by flushing, brushing, chemical, or washing) Depth / layer: (deepest layer of debridement: [ ] Skin[ ] Subcutaneous [ ] Fascia [ ] Muscle [ ] Tendon [ ] Bone [ ] Incision and Drainage only (No Debridement): Depth:[ ] Skin [ ] Subcutaneous [ ] Fascia [ ] Muscle [ ] Tendon [ ] Bone [ ] Escharectomy [ ] Other procedure diagnosis [ ] Unable to determine For continuity of documentation, please document condition throughout progress notes and discharge summary. Thank You. CLINICAL INDICATORS - SIGNS / SYMPTOMS / LABS / RESULTS AND LOCATION IN EMR OP NOTE 12/03: "RIGHT BKA STUMP WOUND APPROXIMATELY 2.5 TO 3 CM IN DIAMETER WAS DEBRIDED" "THERE WAS A SINUS TRACT TUNNEL DEEP, EXTENDING 3.5 TO 4 CM WITH A WIDE CAVERNOUS UNDERMINING." "I COULD NOT APPRECIATE CLINICALLY THAT THIS APPROXIMATED THE BONE." RISKS: OPEN WOUND RIGHT [id number] AMPUTATION STUMP (OP NOTE 12/03) H/O DIABETES (H&P 12/03) TREATMENT: GENERAL SURGERY CONSULT 12/03 DEBRIDEMENT 12/03 IV VANCOMYCIN (ER-PRESENT) IV CEFEPIME (ER-PRESENT) CULTURE OF LEFT LEG WOUND (12/03) BLOOD CULTURES (12/02) (This form is maintained as a part of the permanent medical record) 2014 [employer], [employer]. All Rights Reserved LIZZ [email or web address] Office: [phone] [facility]
--- NOTE | 2019-12-05 21:32 | PRG ---
DATE OF SERVICE: 12/05/2019 SUBJECTIVE: The patient has a negative pressure dressing applied to his right BKA site. He denies any respiratory symptoms. No abdominal pain or diarrhea. OBJECTIVE: VITAL SIGNS: Normal temperature, blood pressure 110/73, pulse 77. GENERAL: Awake, alert, oriented. LUNGS: Clear. HEART: S1 and S2. Regular rate. ABDOMEN: Soft, not distended or tender. No ascites. No bladder distention. LABORATORY DATA: White cell count 2.3, hemoglobin 10.5, platelets 75,000. Sodium 136, creatinine 1.06. Liver profile normal. Albumin 2.2. The cultures from the leg wound with group B strep on a gram-negative staci yet to be identified and susceptibility tested. ASSESSMENT AND DISCUSSION: Liver cirrhosis presumably secondary to steatohepatitis, bilateral below-knee amputation, and now area of pressure ulceration with few abscesses in the distal end of the right lower extremity. No evidence of osteomyelitis, then we are awaiting on the susceptibility profile of the organism to define outpatient therapy hopefully oral combination. Job ID: [id number]
[2019-12-05] MEDS: Insulin Glargine 50 UNITS in Pre-Filled Syringe 1 EACH SC SCH (22:25)
--- NOTE | 2019-12-05 23:35 | OP ---
DATE OF PROCEDURE: 12/05/2019 PREOPERATIVE DIAGNOSES: 1. Bilateral [id number] amputation, cirrhosis secondary to fatty liver, deconditioning. 2. Open wound, right below-knee amputation stump, greenish slough. POSTOPERATIVE DIAGNOSES: 1. Bilateral [id number] amputation, cirrhosis secondary to fatty liver, deconditioning. 2. Open wound, right below-knee amputation stump, greenish slough with deep wound extending laterally, 3.5 to 4 cm with a large cavity unroofed. ANESTHESIA: None. DESCRIPTION OF PROCEDURE: With the patient at the bedside in his room, his right BKA stump wound approximately 2.5 to 3 cm in diameter was debrided sharply, excisional resectional, green slough and underlying subcutaneous tissue and scan revealing a deep sinus tract and opening cavern 3.5 to 4 cm deep and wide without obvious involvement of bone by probing. Cultures were submitted. Wound packed open for wound care to place a wound VAC. The patient tolerated procedure well. Subsequently, MRI was obtained revealing absence of osteomyelitis. Hopefully this wound will heal with antibiotic guidance per Dr. Blount and care as an outpatient. Job ID: [id number]
[2019-12-06] MEDS: Cefepime 2 GM in Sodium Chloride 0.9% 100 ML IVPB SCH ×2 (00:35→12:33)
[2019-12-06] MEDS: metroNIDAZOLE 500 MG in Premix Bag 1 BAG IVPB SCH ×3 (02:20→17:46)
[2019-12-06 05:37] LABS: #Eosinphils 0.2 thou/uL (0.0-0.7); #Lymphocytes 0.4 thou/uL (1.20-3.40); #Monocytes 0.3 thou/uL (0.11-0.59); #Neutrophils 1.8 thou/uL (1.40-6.50); %Eosinophils 5.7 % (0.0-10.0); %Lymphocytes 15.1 % (21.0-51.0); %Monocytes 11.5 % (0.0-10.0); %Neutrophils 67.6 % (42.0-75.0); Hemoglobin 10.2 g/dL (14.0-18.0); Mean Corpuscular HGB CONC 31.6 g/dL (32.0-36.0); Mean Corpuscular Hemoglobin 29.8 pg (27.0-31.0); Mean Corpuscular Volume 94.3 fL (78.0-98.0); Mean Platelet Volume 8.3 fL (7.4-10.4); Platelet Count 76 thou/uL (130-400); RBC Distribution Width 12.6 % (11.5-14.5); Red Blood Cell (RBC) Count 3.41 mill/uL (4.70-6.10); White Blood Cell (WBC) Count 2.6 thou/uL (4.8-10.8)
[2019-12-06 05:57] LABS: ALT (SGPT) 9 U/L (8-55); AST (SGOT) 18 U/L (5-34); Albumin 2.1 g/dL (3.5-5.0); Alkaline Phosphatase 71 U/L (40-110); Anion Gap 8 mmol/L (10-20); BUN (Urea Nitrogen) 14 mg/dL (8.4-25.7); Bilirubin, Total 0.5 mg/dL (0.2-1.2); Calc. Creatinine Clearance 149 mL/min (70-130); Calcium 8.1 mg/dL (7.8-10.44); Carbon Dioxide 27 mmol/L (22-29); Chloride 104 mmol/L (98-107); Estimated GFR-MDRD 78; Globulin 4.5 g/dL (2.4-3.5); Glucose 244 mg/dL (70-105); Potassium 4.2 mmol/L (3.5-5.1); Protein, Total 6.6 g/dL (6.0-8.3); Sodium 135 mmol/L (136-145)
[2019-12-06] MEDS: HYDROcodone/Acetaminophen 10/325 mg Tablet PO PRN ×3 (06:27→18:17)
[2019-12-06] MEDS: HumaLOG 300 UNITS/3 ML VIAL SC PRN ×3 (06:29→17:46)
--- NOTE | 2019-12-06 08:37 | PDOC.FM ---
- Subjective Subjective: pt resting in bed, reports pain controlled, no fever, tolerating PO well - Objective Vital Signs & Weight: Vital Signs (12 hours) Temp Pulse Resp BP Pulse Ox 12/06/19 07:32 98.2 F 81 18 113/74 97 Weight Admit Weight 122.101 kg Weight 122.101 kg I&O: 12/05/19 12/06/19 12/07/19 06:59 06:59 06:59 Intake Total 1900 1290 Output Total 800 250 Balance 1100 1040 Result Diagrams: 12/06/19 05:13 12/06/19 05:13 Dx/Plan (1) History of CVA (cerebrovascular accident) Code(s): Z86.73 - PRSNL HX OF TIA (TIA), AND CEREB INFRC W/O RESID DEFICITS Status: Acute (2) Insulin dependent diabetes mellitus Code(s): E11.9 - TYPE 2 DIABETES MELLITUS WITHOUT COMPLICATIONS; 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 Fernandes consulted, bedside debridement and vac placement - Wound care CKD II - cr 1.3, about baseline T2DM - 50U qHS lantus -Moderate SSI -Accuchecks ACHS Cirrhosis -due to fatty liver, nonalcoholic -continue home meds: Lactulose, Spironolactone Code: full Dispo: continue broad spectrum abx until cx results Addendum - Attending - Attending Attestation Date/Time: 12/06/19 [id number] I personally evaluated the patient and discussed the management with Dr. Alan. I agree with the History, Examination, Assessment and Plan documented above with any addition or exceptions noted below. Patient overall stable. Awaiting sensitivities and ID input on outpatient abx therapy. Needs wound vac approval. Continue current chronic meds otherwise.
[2019-12-06] MEDS: Ferrous Sulfate 325 MG TAB PO SCH (09:46)
[2019-12-06] MEDS: Furosemide 20 MG TAB PO SCH (09:46)
[2019-12-06] MEDS: Gabapentin 300 MG CAP PO SCH ×2 (09:46→21:02)
[2019-12-06] MEDS: Nadolol 40 MG TAB PO SCH (09:46)
[2019-12-06] MEDS: Venlafaxine HCl XR 150 MG CAP PO SCH (09:46)
[2019-12-06] MEDS: Spironolactone 100 MG TAB PO SCH (12:33)
[2019-12-06] MEDS: Nicotine 7 MG PATCH TOP SCH (12:33)
--- NOTE | 2019-12-06 14:29 | PRG ---
DATE OF SERVICE: 12/06/2019 SUBJECTIVE: Mr. Farias is upset because he wants to go home and the cultures are not yet resulted, delaying the discharge planning. He has quite a bit of pain after exchange of the negative pressure dressing this morning in the right lower extremity BKA site. No respiratory symptoms or abdominal pain. No diarrhea. OBJECTIVE: VITAL SIGNS: His vital signs have been normal including normal temperature. GENERAL: Chronically ill appearing. LUNGS: Clear. HEART: S1 and S2, regular rate. ABDOMEN: Distended as noted previously, but not tender. EXTREMITIES: The right BKA site with negative pressure dressing. There has been marked improvement in the erythema, but there is still quite a bit of tenderness. The swelling has decreased as well. LABORATORY DATA: White cell count 2.6, hemoglobin 10.2, platelets 76,000, and 67% neutrophils. Creatinine 1.0 and glucose 244 with a normal liver profile. Albumin 2.1. The wound cultures with group B strep, Proteus mirabilis, and Staph aureus. The Proteus and Staph aureus susceptibilities are not yet resulted. ASSESSMENT AND DISCUSSION: 1. Liver cirrhosis, presumably secondary to steatohepatitis. 2. Bilateral below-knee amputations and now area of pressure ulceration and soft tissue abscesses status post I and D. No evidence of osteomyelitis. Awaiting on the susceptibility of the organisms to see if we can arrange for outpatient oral antimicrobial therapy. Otherwise, we will have to place a PICC line, which will delay discharge planning. Job ID: [id number]
--- NOTE | 2019-12-06 18:21 | PRG ---
DATE OF SERVICE: 12/06/2019 SUBJECTIVE: Roni Farias is doing well today. He feels somewhat better. Wound VAC was changed, right BKA stump and the wound is granulating healthy. There are no external signs of infection. There is hardly any drainage in the wound VAC. OBJECTIVE: VITAL SIGNS: Temperature 98.2 degrees, pulse 81, respirations 18, and blood pressure 113/74. LABORATORY DATA: Hemoglobin 10.2, white count 2.6. Basic metabolic profile unremarkable. Cultures from the leg wound reveal Streptococcus, Proteus mirabilis, and Staphylococcus. Dr. Blount is seeing the patient. ASSESSMENT AND PLAN: The patient is doing well. We would continue wound VAC, right below knee amputation stump. Oral antibiotics per Dr. Blount. The patient is ready to be discharged home. Refers surgical standpoint whenever antibiotics are arranged and wound VAC is approved. I will see him in office as outpatient in 2 to 3 weeks. I will see him as needed this hospitalization. Call if necessary. Job ID: [id number]
[2019-12-06] MEDS: Insulin Glargine 50 UNITS in Pre-Filled Syringe 1 EACH SC SCH (21:03)
[2019-12-07] MEDS: Cefepime 2 GM in Sodium Chloride 0.9% 100 ML IVPB SCH ×3 (00:07→23:45)
[2019-12-07] MEDS: HYDROcodone/Acetaminophen 10/325 mg Tablet PO PRN ×4 (00:17→21:03)
[2019-12-07] MEDS: Morphine 2 MG/ML SYRINGE SLOW IVP PRN (02:40)
[2019-12-07] MEDS: metroNIDAZOLE 500 MG in Premix Bag 1 BAG IVPB SCH ×3 (02:41→17:44)
[2019-12-07 06:39] LABS: Vancomycin, Trough 12.3 ug/mL
[2019-12-07 06:40] LABS: #Eosinphils 0.1 thou/uL (0.0-0.7); #Lymphocytes 0.5 thou/uL (1.20-3.40); #Monocytes 0.4 thou/uL (0.11-0.59); #Neutrophils 2.4 thou/uL (1.40-6.50); %Basophils 0.4 % (0.0-1.0); %Eosinophils 4.2 % (0.0-10.0); %Lymphocytes 13.2 % (21.0-51.0); %Monocytes 12.2 % (0.0-10.0); Hemoglobin 10.5 g/dL (14.0-18.0); Mean Corpuscular HGB CONC 32.4 g/dL (32.0-36.0); Mean Corpuscular Hemoglobin 30.4 pg (27.0-31.0); Mean Corpuscular Volume 93.8 fL (78.0-98.0); Mean Platelet Volume 7.6 fL (7.4-10.4); Platelet Count 83 thou/uL (130-400); RBC Distribution Width 12.8 % (11.5-14.5); Red Blood Cell (RBC) Count 3.46 mill/uL (4.70-6.10); White Blood Cell (WBC) Count 3.4 thou/uL (4.8-10.8)
[2019-12-07 06:42] LABS: ALT (SGPT) 11 U/L (8-55); AST (SGOT) 20 U/L (5-34); Albumin 2.2 g/dL (3.5-5.0); Alkaline Phosphatase 67 U/L (40-110); Anion Gap 7 mmol/L (10-20); BUN (Urea Nitrogen) 13 mg/dL (8.4-25.7); Bilirubin, Total 0.6 mg/dL (0.2-1.2); Calc. Creatinine Clearance 139 mL/min (70-130); Carbon Dioxide 28 mmol/L (22-29); Chloride 103 mmol/L (98-107); Estimated GFR-MDRD 73; Globulin 4.7 g/dL (2.4-3.5); Glucose 245 mg/dL (70-105); Potassium 4.1 mmol/L (3.5-5.1); Protein, Total 6.9 g/dL (6.0-8.3); Sodium 134 mmol/L (136-145)
[2019-12-07] MEDS: HumaLOG 300 UNITS/3 ML VIAL SC PRN ×3 (06:44→17:58)
--- NOTE | 2019-12-07 08:02 | PDOC.FM ---
- Subjective Subjective: Patient reports pain is improving. He did require morphine overnight, but he says he was having to move around a lot to use the restroom. He denies any fevers, chills. He is tolerating PO and denies N/V. - Objective MAR Reviewed: Yes Vital Signs & Weight: Vital Signs (12 hours) Temp Pulse Resp BP BP Pulse Ox 12/07/19 07:37 98.1 F 72 20 109/70 95 12/06/19 20:16 98.8 F 75 16 110/71 95 Weight Admit Weight 122.101 kg Weight 122.101 kg I&O: 12/06/19 12/07/19 12/08/19 06:59 06:59 06:59 Intake Total 1290 1310 Output Total 250 825 Balance 1040 485 Result Diagrams: 12/07/19 06:10 12/07/19 06:10 Phys Exam - Physical Examination Constitutional: NAD HEENT: moist MMs, sclera anicteric Respiratory: no wheezing, no rales, no rhonchi, clear to auscultation bilateral Cardiovascular: RRR, no significant murmur Gastrointestinal: soft, non-tender distended, +Fluid wave Musculoskeletal: no edema, pulses present R leg stump with wound vac in place, non-tender, no erythema Neurological: non-focal, moves all 4 limbs Psychiatric: normal affect, A&O x 3 Skin: no rash, normal turgor, cap refill <2 seconds Dx/Plan (1) Cellulitis of right leg Code(s): L03.115 - CELLULITIS OF RIGHT LOWER LIMB Status: Acute (2) Insulin dependent diabetes mellitus Code(s): E11.9 - TYPE 2 DIABETES MELLITUS WITHOUT COMPLICATIONS; Z79.4 - HALF-WAY (CURRENT) USE OF INSULIN Status: Acute (3) Hyperlipidemia Code(s): E78.5 - HYPERLIPIDEMIA, UNSPECIFIED Status: Chronic (4) Hypertension Code(s): I10 - ESSENTIAL (PRIMARY) HYPERTENSION Status: Chronic (5) 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 Currently group B strep, Proteus - pansensitive, staph aureus awaiting sensitivities - No evidence of osteo noted on x-ray/MRI - gen surg- Dr. Fernandes consulted, bedside debridement and vac placement - Wound care CKD II - cr 1.3, about baseline T2DM - 50U qHS lantus -Moderate SSI -Accuchecks ACHS Cirrhosis -due to fatty liver, nonalcoholic -continue home meds: Lactulose, Spironolactone Code: full Dispo: continue broad spectrum abx until cx results
[2019-12-07] MEDS: Vancomycin HCl 1.25 GM in Sodium Chloride 0.9% 250 ML 250 ML IVPB SCH ×2 (08:53→20:58)
[2019-12-07] MEDS: Ferrous Sulfate 325 MG TAB PO SCH (09:00)
[2019-12-07] MEDS: Nadolol 40 MG TAB PO SCH (09:00)
[2019-12-07] MEDS: Gabapentin 300 MG CAP PO SCH ×2 (09:01→20:49)
[2019-12-07] MEDS: Venlafaxine HCl XR 150 MG CAP PO SCH (09:01)
[2019-12-07] MEDS: Furosemide 20 MG TAB PO SCH (09:01)
[2019-12-07] MEDS: Nicotine 7 MG PATCH TOP SCH (10:22)
[2019-12-07] MEDS: Spironolactone 100 MG TAB PO SCH (13:21)
[2019-12-07] MEDS: Insulin Glargine 50 UNITS in Pre-Filled Syringe 1 EACH SC SCH (20:48)
[2019-12-08] MEDS: HYDROcodone/Acetaminophen 10/325 mg Tablet PO PRN ×3 (02:54→17:43)
[2019-12-08] MEDS: metroNIDAZOLE 500 MG in Premix Bag 1 BAG IVPB SCH ×3 (02:55→17:39)
[2019-12-08 05:32] LABS: #Eosinphils 0.2 thou/uL (0.0-0.7); #Lymphocytes 0.4 thou/uL (1.20-3.40); #Monocytes 0.4 thou/uL (0.11-0.59); #Neutrophils 2.6 thou/uL (1.40-6.50); %Basophils 0.4 % (0.0-1.0); %Eosinophils 4.5 % (0.0-10.0); %Lymphocytes 11.4 % (21.0-51.0); %Monocytes 11.4 % (0.0-10.0); %Neutrophils 72.3 % (42.0-75.0); Hemoglobin 10.7 g/dL (14.0-18.0); Mean Corpuscular HGB CONC 33.7 g/dL (32.0-36.0); Mean Corpuscular Hemoglobin 31.3 pg (27.0-31.0); Mean Corpuscular Volume 92.9 fL (78.0-98.0); Mean Platelet Volume 7.6 fL (7.4-10.4); Platelet Count 84 thou/uL (130-400); RBC Distribution Width 12.9 % (11.5-14.5); Red Blood Cell (RBC) Count 3.42 mill/uL (4.70-6.10); White Blood Cell (WBC) Count 3.6 thou/uL (4.8-10.8)
[2019-12-08 05:52] LABS: ALT (SGPT) 11 U/L (8-55); AST (SGOT) 18 U/L (5-34); Albumin 2.2 g/dL (3.5-5.0); Alkaline Phosphatase 60 U/L (40-110); Anion Gap 9 mmol/L (10-20); BUN (Urea Nitrogen) 13 mg/dL (8.4-25.7); Bilirubin, Total 0.7 mg/dL (0.2-1.2); Calc. Creatinine Clearance 176 mL/min (70-130); Calcium 8.1 mg/dL (7.8-10.44); Carbon Dioxide 26 mmol/L (22-29); Chloride 103 mmol/L (98-107); Estimated GFR-MDRD Greater than 90; Globulin 4.8 g/dL (2.4-3.5); Glucose 157 mg/dL (70-105); Potassium 4.1 mmol/L (3.5-5.1); Sodium 134 mmol/L (136-145)
--- NOTE | 2019-12-08 07:46 | PDOC.FM ---
- Subjective Subjective: Patient reports pain overnight, but did not have to take any IV pain medications. He denies F/C. He does reports more wheezing and SOB at night. He has a smoking history, but no known h/o COPD. He does report more abdominal distension during the hospitalization. Last paracentesis was over 6 months ago. - Objective MAR Reviewed: Yes Vital Signs & Weight: Vital Signs (12 hours) Temp Pulse Resp BP Pulse Ox 12/07/19 20:00 98.3 F 81 18 130/85 96 Weight Admit Weight 122.101 kg Weight 122.101 kg I&O: 12/07/19 12/08/19 12/09/19 06:59 06:59 06:59 Intake Total 1310 1670 Output Total 825 800 Balance 485 870 Result Diagrams: 12/08/19 05:15 12/08/19 05:15 Phys Exam - Physical Examination Constitutional: NAD HEENT: moist MMs decreased air movement, no rhonchi Cardiovascular: RRR, no significant murmur distended, + fluid wave. Non-tender Musculoskeletal: no edema, pulses present bilateral BKA, R with dressing and wound vac in place, non-tender Neurological: non-focal, moves all 4 limbs Psychiatric: normal affect, A&O x 3 Dx/Plan (1) Cellulitis of right leg Code(s): L03.115 - CELLULITIS OF RIGHT LOWER LIMB Status: Acute (2) Insulin dependent diabetes mellitus Code(s): E11.9 - TYPE 2 DIABETES MELLITUS WITHOUT COMPLICATIONS; Z79.4 - COMMUNITY RELATIONS SPECIALIST (CURRENT) USE OF INSULIN Status: Acute (3) Hyperlipidemia Code(s): E78.5 - HYPERLIPIDEMIA, UNSPECIFIED Status: Chronic (4) Hypertension Code(s): I10 - ESSENTIAL (PRIMARY) HYPERTENSION Status: Chronic (5) 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 Currently group B strep, Proteus - pansensitive, staph aureus awaiting sensitivities - No evidence of osteo noted on x-ray/MRI - gen surg- Dr. Fernandes consulted, bedside debridement and vac placement - Wound care CKD II - cr 1.3, about baseline T2DM - 50U qHS lantus -Moderate SSI -Accuchecks ACHS Cirrhosis -due to fatty liver, nonalcoholic -continue home meds: Lactulose, Spironolactone -Consider therapeutic paracentesis before d/c Code: full Dispo: continue broad spectrum abx until cx results
[2019-12-08] MEDS: Nadolol 40 MG TAB PO SCH (08:37)
[2019-12-08] MEDS: Gabapentin 300 MG CAP PO SCH ×2 (08:38→21:34)
[2019-12-08] MEDS: Ferrous Sulfate 325 MG TAB PO SCH (08:38)
[2019-12-08] MEDS: Furosemide 20 MG TAB PO SCH (08:39)
[2019-12-08] MEDS: Venlafaxine HCl XR 150 MG CAP PO SCH (08:39)
[2019-12-08] MEDS: Vancomycin HCl 1.25 GM in Sodium Chloride 0.9% 250 ML 250 ML IVPB SCH ×2 (08:40→21:34)
[2019-12-08] MEDS: Nicotine 7 MG PATCH TOP SCH (09:08)
[2019-12-08] MEDS ORDERED: Sodium Bicarb 50 MEQ/50 ML Abboject 8.4% SYRINGE IVP SCH (11:30)
--- NOTE | 2019-12-08 11:31 | PRG ---
DATE OF SERVICE: 12/08/2019 We are already awaiting final culture results on Mr. Farias to determine whether or not, he has MRSA and will need coverage for such. Afterward, he can be discharged. He would likely benefit from a therapeutic paracentesis and we will consult IR. Job ID: [id number]
[2019-12-08] MEDS: Cefepime 2 GM in Sodium Chloride 0.9% 100 ML IVPB SCH (12:20)
[2019-12-08] MEDS: HumaLOG 300 UNITS/3 ML VIAL SC PRN ×2 (12:24→17:57)
[2019-12-08] MEDS: Spironolactone 100 MG TAB PO SCH (13:00)
--- NOTE | 2019-12-08 14:56 | ULT ---
Ultrasound-guided paracentesis: HISTORY: Cirrhosis and ascites. FINDINGS: Informed consent obtained prior to the procedure. Preprocedural imaging demonstrated intrap eritoneal free fluid. An area was marked in the right mid abdomen in the mid axillary line, and then meticulously prepped a nd draped in normal sterile fashion and anesthetized with 1% buffered lidocaine. With direct sonographic guidance, a 19-gauge needle and 5 Swiss Yueh catheter were advanced into the abdomen. After the return of fluid, the catheter was advanced, and the needle was removed. Approximately 6 L of clear straw-colored fluid was aspirated. The introducer sheath was removed, and hemostasis was achieved with direct pressure. A dry sterile dressing was placed. The patient tolerated the procedure well and without immediate complication. IMPRESSION: Technically successful ultrasound-guided paracentesis.
--- NOTE | 2019-12-08 17:37 | PRG ---
DATE OF SERVICE: 12/07/2019 ADDENDUM: This is an addendum to the note of Dr. Bing Ford. Mr. Farias is a 54-year-old patient, who was admitted with an infected diabetic stump. He was treated with antibiotics and improved. He will be discharged today on oral antibiotics. This morning, he is awake and alert, in no acute distress. Job ID: [id number]
[2019-12-08 19:31] LABS: Vancomycin, Trough 17.4 ug/mL
[2019-12-08] MEDS: Insulin Glargine 50 UNITS in Pre-Filled Syringe 1 EACH SC SCH (21:34)
[2019-12-08] MEDS: Morphine 2 MG/ML SYRINGE SLOW IVP PRN (21:35)
[2019-12-09] MEDS: HYDROcodone/Acetaminophen 10/325 mg Tablet PO PRN ×2 (01:11→10:54)
[2019-12-09] MEDS: Cefepime 2 GM in Sodium Chloride 0.9% 100 ML IVPB SCH ×2 (01:11→12:06)
[2019-12-09] MEDS: metroNIDAZOLE 500 MG in Premix Bag 1 BAG IVPB SCH ×3 (02:18→20:18)
[2019-12-09] MEDS: Morphine 2 MG/ML SYRINGE SLOW IVP PRN (04:48)
[2019-12-09 05:46] LABS: #Eosinphils 0.2 thou/uL (0.0-0.7); #Lymphocytes 0.4 thou/uL (1.20-3.40); #Monocytes 0.4 thou/uL (0.11-0.59); #Neutrophils 2.1 thou/uL (1.40-6.50); %Monocytes 12.4 % (0.0-10.0); %Neutrophils 67.6 % (42.0-75.0); Hemoglobin 10.3 g/dL (14.0-18.0); Mean Corpuscular HGB CONC 32.9 g/dL (32.0-36.0); Mean Corpuscular Hemoglobin 30.7 pg (27.0-31.0); Mean Corpuscular Volume 93.4 fL (78.0-98.0); Mean Platelet Volume 8.5 fL (7.4-10.4); Platelet Count 79 thou/uL (130-400); RBC Distribution Width 12.9 % (11.5-14.5); Red Blood Cell (RBC) Count 3.34 mill/uL (4.70-6.10); White Blood Cell (WBC) Count 3.1 thou/uL (4.8-10.8)
[2019-12-09 06:08] LABS: ALT (SGPT) 9 U/L (8-55); AST (SGOT) 15 U/L (5-34); Alkaline Phosphatase 54 U/L (40-110); Anion Gap 9 mmol/L (10-20); BUN (Urea Nitrogen) 13 mg/dL (8.4-25.7); Bilirubin, Total 0.6 mg/dL (0.2-1.2); Calc. Creatinine Clearance 182 mL/min (70-130); Carbon Dioxide 28 mmol/L (22-29); Chloride 102 mmol/L (98-107); Estimated GFR-MDRD Greater than 90; Globulin 4.7 g/dL (2.4-3.5); Glucose 182 mg/dL (70-105); Potassium 3.9 mmol/L (3.5-5.1); Protein, Total 6.7 g/dL (6.0-8.3); Sodium 135 mmol/L (136-145)
[2019-12-09] MEDS: HumaLOG 300 UNITS/3 ML VIAL SC PRN ×2 (06:16→12:07)
--- NOTE | 2019-12-09 09:22 | PDOC.FM ---
- Subjective Subjective: NAEO. Patient resting comfortably in bed. No complaints or concerns noted per patient or nursing. Patient had therapeutic paracentesis done yesterday. Patient states he feels much better today. Denies any SOB. - Objective MAR Reviewed: Yes Vital Signs & Weight: Vital Signs (12 hours) Temp Pulse Resp BP BP Pulse Ox 12/09/19 07:52 98.5 F 74 20 98/62 93 L 12/09/19 04:00 98.5 F 73 20 147/79 H 95 12/09/19 00:00 99.3 F 70 20 118/73 97 Weight Admit Weight 122.101 kg Weight 122.101 kg I&O: 12/08/19 12/09/19 12/10/19 06:59 06:59 06:59 Intake Total 1670 1770 Output Total 800 6000 Balance 870 -4230 Result Diagrams: 12/09/19 05:09 12/09/19 05:09 Phys Exam - Physical Examination Constitutional: NAD HEENT: PERRLA, moist MMs, sclera anicteric mild sclera icterus Neck: supple, full ROM Respiratory: clear to auscultation bilateral Cardiovascular: RRR, no significant murmur, no rub Gastrointestinal: soft, non-tender, positive bowel sounds distended, liver edge palpable wound vac placed on r stump; no drainage from site; no erythema b/l BKAs Neurological: non-focal, moves all 4 limbs Psychiatric: normal affect, A&O x 3 Skin: no rash, normal turgor, cap refill <2 seconds Deviation from normal: jaundiced Dx/Plan (1) ALEXANDER (acute kidney injury) Code(s): N17.9 - ACUTE KIDNEY FAILURE, UNSPECIFIED Status: Acute (2) Abdominal pain Code(s): R10.9 - UNSPECIFIED ABDOMINAL PAIN Status: Acute (3) Cellulitis of right leg Code(s): L03.115 - CELLULITIS OF RIGHT LOWER LIMB Status: Acute (4) Insulin dependent diabetes mellitus Code(s): E11.9 - TYPE 2 DIABETES MELLITUS WITHOUT COMPLICATIONS; Z79.4 - USP (CURRENT) USE OF INSULIN Status: Acute (5) Nonalcoholic steatohepatitis (PITTMAN) Code(s): K75.81 - NONALCOHOLIC STEATOHEPATITIS (PITTMAN) Status: Acute (6) Diabetes mellitus type 2 in obese Code(s): E11.9 - TYPE 2 DIABETES MELLITUS WITHOUT COMPLICATIONS; E66.9 - OBESITY , UNSPECIFIED Status: Chronic (7) Hyperlipidemia Code(s): E78.5 - HYPERLIPIDEMIA, UNSPECIFIED Status: Chronic (8) Hypertension Code(s): I10 - ESSENTIAL (PRIMARY) HYPERTENSION Status: Chronic - Plan Plan: Diabetic Right BKA Stump Infection Patient with R stump infection presenting with fever/chills, swelling and redness to stump. S/p bedside debridement with Gen Surg. No evidence of osteo on x-ray or MRI. - Vanc, Cefepime, Flagyl to cover DFI - Bcx/wcx pending, transition to oral pending results. Currently group B strep, Proteus - pansensitive, staph aureus awaiting sensitivities. Will contact lab about S aureus as this has not been isolated on the culture. If no S aureus can discharge patient home on keflex and cipro. - No evidence of osteo noted on x-ray/MRI - Gen Surg- Dr. Fernandes consulted, appreciate recs. Debridement performed on . Pt to f/u with Dr. Fernandes in 2-3 wks. - ID Dr. Blount consulted, appreciate recs. - Wound care CKD II Cr 1.3, about baseline - Cr. 0.82 this AM T2DM - 50U qHS lantus - Moderate SSI - Accuchecks ACHS Cirrhosis Due to fatty liver, nonalcoholic - Continue home meds: Lactulose, Spironolactone - Th paracentesis performed 12/08 with great improvement in symptoms Code: full Diet: CC, HH Dispo: can likely dc later today Case discussed with Dr. Sigala
[2019-12-09] MEDS: Ferrous Sulfate 325 MG TAB PO SCH (10:35)
[2019-12-09] MEDS: Venlafaxine HCl XR 150 MG CAP PO SCH (10:35)
[2019-12-09] MEDS: Furosemide 20 MG TAB PO SCH (10:35)
[2019-12-09] MEDS: Gabapentin 300 MG CAP PO SCH (10:35)
[2019-12-09] MEDS: Nadolol 40 MG TAB PO SCH (10:44)
--- NOTE | 2019-12-09 11:24 | PRG ---
DATE OF SERVICE: 12/09/2019 ADDENDUM: This is an addendum to the note of Dr. Dacia Delgado. Mr. Farias had a therapeutic paracentesis of 6 L of fluid yesterday. He looks and feels much better. His wound cultures are growing strep and Proteus which are pansensitive to certain drugs, among which are ampicillin, cefepime, ceftriaxone, and cefoxitin as well as ciprofloxacin and levofloxacin. We will touch base with Dr. Blount as the patient is otherwise ready for discharge. Job ID: [id number]
[2019-12-09] MEDS: Spironolactone 100 MG TAB PO SCH (12:06)
[2019-12-09] MEDS: Nicotine 7 MG PATCH TOP SCH (12:07)
[2019-12-09] MEDS ORDERED: Vancomycin HCl 1.25 GM in Sodium Chloride 0.9% 250 ML 250 ML IVPB SCH (15:00)
[2019-12-09] MEDS: Vancomycin HCl 1.25 GM in Sodium Chloride 0.9% 250 ML 250 ML IVPB SCH (15:22)
[2019-12-09 17:27] VITALS: BP 121/70; TEMP 98.1
--- NOTE | 2019-12-10 11:31 | DIS ---
DATE OF ADMISSION: 12/03/2019 DATE OF DISCHARGE: 12/09/2019 RESIDENT: Dacia Delgado MD ADMITTING ATTENDING: Jesus Manuel Villalobos MD DISCHARGE ATTENDING: Amadou Sigala MD DISCHARGE MEDICATIONS: 1. Augmentin 875 one tab twice daily. 2. Venlafaxine ER 150 mg oral daily. 3. Nadolol 20 mg oral daily. 4. Aldactone 100 mg oral daily. 5. Pantoprazole 40 mg oral twice daily. 6. [place] 10/325 one tablet oral every 6 hours as needed. 7. Lactulose 10 g oral 3 times daily. 8. Furosemide 20 mg oral daily. 9. NovoLog 15 units subcutaneous as directed. 10. Ferrous sulfate 65 mg oral daily. 11. Gabapentin 600 tab oral twice daily. 12. Lantus 50 units subcutaneous at bedtime. 13. Nystatin powder applied topically twice daily as needed. DISCONTINUED MEDICATIONS: None. CONSULTATIONS: 1. General Surgery, Rajeev Fernandes MD. 2. Infectious Disease, Dipak Blount MD. 3. Wound Care, Case Management. PROCEDURES PERFORMED: 1. On 12/02/2019, tibia fibula x-ray showing no evidence for acute osseous abnormality. 2. Lower extremity MRI on 12/03/2019, showing extensive subcutaneous edema and cellulitis as well as possible multiple abscesses with surrounding enhancing phlegmon. No evidence of osteomyelitis. 3. Paracentesis. Ultrasound on 12/08/2019. 4. Bedside debridement on 12/[address] Fernandes PRIMARY DIAGNOSIS: Diabetic right below knee amputation stump infection. SECONDARY DIAGNOSES: 1. Chronic kidney disease stage 2, chronic type 2 diabetes. 2. Cirrhosis due to PITTMAN. HISTORY OF PRESENT ILLNESS/HOSPITAL COURSE: This is a 54-year-old male, who presented to the ER after multiple days of fevers, sweat, and swelling of his right BKA. The patient was admitted to the medical floor for cellulitis with abscess of right BKA. He was started on broad spectrum antibiotics with vancomycin, cefepime, and Flagyl. General Surgery was consulted, who performed a bedside debridement on 12/03/2019. The patient tolerated this well and continued to have improvement. The patient was seen by wound care throughout his stay. Wound VAC was attached to the right stump. He will continue on antibiotics. As the culture grew out group B strep and Proteus mirabilis. The patient's blood culture had no growth after five days. The patient is also noted to have cirrhosis from PITTMAN. He did become short of breath during his stay and a therapeutic paracentesis was performed on 12/07/2019 with improvement in shortness of breath. The patient was discharged in stable condition. The patient was discharged in good condition and will be following up with General Surgery, as well as his PCP and Wound Care. DISPOSITION: 1. Location: Home. 2. Activity: Ad ronald. 3. Diet: Heart healthy, consistent carbohydrate. 4. Followup: Follow up with Dr. Fernandes within 3 to 4 weeks, and Dr. Garcia within 7 days. Job ID: [id number] [id number]
== END 2019-12-09 19:50 | disposition home or self-care (01) | DRG 464 ==
LOC: ERS 22:30 → ONC 12-03 01:49 → T4-B 12-04 17:38
PROVIDERS: ADMIT Family Medicine; ATTEND Family Medicine
PROC: 0HBKXZZ Excision of Right Lower Leg Skin, External Approach (ICD-10-PCS; principal; 2019-12-03)
PROC: 0JBN0ZZ Excision of Right Lower Leg Subcutaneous Tissue and Fascia, Open Approach (ICD-10-PCS; 2019-12-05)
PROC: 0W9G3ZZ Drainage of Peritoneal Cavity, Percutaneous Approach (ICD-10-PCS; 2019-12-08)
DX: T87.43 Infection of amputation stump, right lower extremity (principal); L02.415 Cutaneous abscess of right lower limb; R18.8 Other ascites; L03.115 Cellulitis of right lower limb; N17.9 Acute kidney failure, unspecified; E11.22 Type 2 diabetes mellitus with diabetic chronic kidney disease; N18.2 Chronic kidney disease, stage 2 (mild); K74.60 Unspecified cirrhosis of liver; K75.81 Nonalcoholic steatohepatitis (NASH); E78.5 Hyperlipidemia, unspecified; B95.62 Methicillin resistant Staphylococcus aureus infection as the cause of diseases classified elsewhere; B96.4 Proteus (mirabilis) (morganii) as the cause of diseases classified elsewhere; Y83.5 Amputation of limb(s) as the cause of abnormal reaction of the patient, or of later complication, without mention of misadventure at the time of the procedure; Z89.511 Acquired absence of right leg below knee; Z88.1 Allergy status to other antibiotic agents; Z79.899 Other long term (current) drug therapy; Z79.4 Long term (current) use of insulin; Z86.73 Personal history of transient ischemic attack (TIA), and cerebral infarction without residual deficits
CPT/HCPCS: 36415; 36416; 49083; 80053; 80202; 82140; 83605; 84145; 85025; 87040; 87070; 87077; 87147; 87186; 87205; 96365; 96367; 96375; A9579; J0692; J1815; J2270; J2405; J3370; J3490; J7050

== ENCOUNTER 2020-03-27 23:37 | Inpatient (IN) | payer MEDICARE ==
[2020-03-28 00:10] LABS: INR-International Normal Ratio 1.3; PTT 32.7 sec (22.9-36.1); Prothrombin Time 16.1 sec (12.0-14.7)
[2020-03-28 00:12] LABS: #Eosinphils 0.1 thou/uL (0.0-0.7); #Lymphocytes 0.4 thou/uL (1.20-3.40); #Monocytes 0.3 thou/uL (0.11-0.59); #Neutrophils 1.6 thou/uL (1.40-6.50); %Basophils 0.8 % (0.0-1.0); %Eosinophils 3.3 % (0.0-10.0); %Lymphocytes 18.7 % (21.0-51.0); %Monocytes 10.5 % (0.0-10.0); %Neutrophils 66.6 % (42.0-75.0); Hemoglobin 10.8 g/dL (14.0-18.0); Mean Corpuscular HGB CONC 31.8 g/dL (32.0-36.0); Mean Corpuscular Hemoglobin 28.6 pg (27.0-31.0); Mean Corpuscular Volume 89.8 fL (78.0-98.0); Mean Platelet Volume 9.2 fL (7.4-10.4); Platelet Count 83 thou/uL (130-400); RBC Distribution Width 15.4 % (11.5-14.5); Red Blood Cell (RBC) Count 3.77 mill/uL (4.70-6.10); White Blood Cell (WBC) Count 2.4 thou/uL (4.8-10.8)
[2020-03-28 00:24] LABS: ALT (SGPT) 9 U/L (8-55); AST (SGOT) 13 U/L (5-34); Albumin 2.6 g/dL (3.5-5.0); Alkaline Phosphatase 74 U/L (40-110); Anion Gap 12 mmol/L (10-20); BUN (Urea Nitrogen) 19 mg/dL (8.4-25.7); Bilirubin, Total 0.8 mg/dL (0.2-1.2); Calc. Creatinine Clearance 0 mL/min (70-130); Calcium 8.3 mg/dL (7.8-10.44); Carbon Dioxide 26 mmol/L (22-29); Chloride 102 mmol/L (98-107); Estimated GFR-MDRD 61; Globulin 5.1 g/dL (2.4-3.5); Glucose 277 mg/dL (70-105); Lipase 59 U/L (8-78); Potassium 4.2 mmol/L (3.5-5.1); Protein, Total 7.7 g/dL (6.0-8.3); Sodium 136 mmol/L (136-145)
--- NOTE | 2020-03-28 00:57 | PDOC.FPRHP ---
- History of Present Illness Chief Complaint: blood in stool History of Present Illness: Pt is a 54 yo M with pmh of Alcoholic cirrhosis, HTN, DMII, CVA x2 (2012) who presents for blood in stool that started today. He had an episode of dark bloody diarrhea just prior to arrival. He had had a soft BM an hour before. He has not had lactulose in 3 days. He says he has generalized abdominal pain all day. He took a Lutsen 10 around 7 pm without relief. His appetite has recently decreased. He has had increased fatigue over the last couple of days. Denies hemorrhoids. He has never had a colonoscopy. He has bright red bleeding around the rectum when he uses too much lactulose. Endorses nausea, which he endorsed when he had a ruptured varice before 4-5 years ago. He had melena and was vomiting blood at that time and required 7-9 transfusions. ED Course: In the ED, labs and were significant for WBC: 2.4, Hgb: 10.8, INR: 1.3, Cre of 1.24, Plts: 83. - Allergies/Adverse Reactions Allergies Allergy/AdvReac Type Severity Reaction Status Date / Time No Known Drug Allergies Allergy Verified 02/27/20 18:22 - Home Medications Medication Instructions Recorded Confirmed Type Venlafaxine HCl [Venlafaxine HCl 150 mg PO DAILY 06/23/15 03/28/20 History ER] Nadolol [Corgard] 20 mg PO DAILY #0 tab 06/29/15 03/28/20 Rx Spironolactone [Aldactone] 100 mg PO 1200 08/13/15 03/28/20 History Pantoprazole [Protonix] 40 mg PO BID 10/27/15 03/28/20 History HYDROcodone/Acetaminophen 1 tab PO Q6HR PRN 11/30/18 03/28/20 History [Hydrocodone-Acetamin 10-325 mg] Lactulose 10 gm PO TID #1 udcup 12/04/18 03/28/20 Rx Furosemide 20 mg PO DAILY 02/22/19 03/28/20 History Ferrous Sulfate 65 mg PO DAILY 09/15/19 03/28/20 History Gabapentin 600 tab PO BID 09/15/19 03/28/20 History Nystatin [Nystatin Powder] 1 applic TOP BID PRN 12/03/19 03/28/20 History Insulin Aspart Prot/Insuln Asp 25 unit SQ QAM 03/28/20 03/28/20 History [Novolog Mix 70-30 Vial] Insulin Aspart Prot/Insuln Asp 45 unit SQ QPM 03/28/20 03/28/20 History [Novolog Mix 70-30 Vial] - History PMHx: Alcoholic cirrhosis, HTN, DMII, CVA x2 (2013, Ischemic & Hemorrhagic) PSHx: BBKA (2009,2010), Repair of whole in his heart, Variceal banding (6-7x) FHx: DM- Mom, Dad, Son CAD- Mom, Dad HTN- Mom, Dad TRINIDAD- Mom (60s) Social: He does not drink. He smokes half a pack a day for 40 years. No recreational drugs. - Review of Systems General: reports: weight/appetite/sleep changes, fatigue. denies: fever/chills Eyes: denies: vision changes ENT: denies: nasal congestion, rhinorrhea Respiratory: denies: cough, congestion, shortness of breath Cardiovascular: denies: chest pain, edema Gastrointestinal: reports: nausea, diarrhea, abdominal pain, GI bleeding (melena ). denies: vomiting, constipation Genitourinary: denies: dysuria Skin: reports: rashes Musculoskeletal: denies: pain, tenderness Neurological: denies: numbness, weakness Psychological: reports: depression - Vital signs BP: 139/46 HR: 95 RR: 20 Tmax: 98.4 Pox: 98% on RA Wt: 121.9 kg - Physical Exam Constitutional: awake, alert and oriented -Constitutional: Appears uncomfortable HEENT: normocephalic and atraumatic, PERRLA, EOMI, conjunctiva clear, normal nasal mucosa, MMM, oropharynx clear -HEENT: Temporal wasting Neck: supple, no LAD Heart: RRR, normal S1/S2 -Lungs: Diffuse wheezing present -Abdomen: Swollen, firm abdomen with ventral hernia present that is reducible Musculoskeletal: normal structure, normal tone Neurological: no focal deficit, CN II-XII intact, normal sensation -Skin: Rash underneath stump coverings -Heme/Lymphatic: Bruising on abdomen Psychiatric: normal mood and affect FMR H&P: Results - Labs Result Diagrams: 03/28/20 02:04 03/28/20 02:04 Lab results: WBC 2.4 thou/uL (4.8-10.8) L 03/27/20 23:55 Hgb 10.8 g/dL (14.0-18.0) L 03/27/20 23:55 Hct 33.8 % (42.0-52.0) L 03/27/20 23:55 MCV 89.8 fL (78.0-98.0) 03/27/20 23:55 Plt Count 83 thou/uL (130-400) L 03/27/20 23:55 Neutrophils % 66.6 % (42.0-75.0) 03/27/20 23:55 Sodium 136 mmol/L (136-145) 03/27/20 23:55 Potassium 4.2 mmol/L (3.5-5.1) 03/27/20 23:55 Chloride 102 mmol/L (98-107) 03/27/20 23:55 Carbon Dioxide 26 mmol/L (22-29) 03/27/20 23:55 BUN 19 mg/dL (8.4-25.7) 03/27/20 23:55 Creatinine 1.24 mg/dL (0.7-1.3) 03/27/20 23:55 Glucose 277 mg/dL (70-105) H 03/27/20 23:55 Calcium 8.3 mg/dL (7.8-10.44) 03/27/20 23:55 Total Bilirubin 0.8 mg/dL (0.2-1.2) 03/27/20 23:55 AST 13 U/L (5-34) 03/27/20 23:55 ALT 9 U/L (8-55) 03/27/20 23:55 Alkaline Phosphatase 74 U/L (40-110) 03/27/20 23:55 Serum Total Protein 7.7 g/dL (6.0-8.3) 03/27/20 23:55 Albumin 2.6 g/dL (3.5-5.0) L 03/27/20 23:55 Lipase 59 U/L (8-78) 03/27/20 23:55 FMR H&P: A/P - Problem List (1) GI bleed Current Visit: Yes Status: Acute Code(s): K92.2 - GASTROINTESTINAL HEMORRHAGE, UNSPECIFIED (2) History of CVA (cerebrovascular accident) Current Visit: No Status: Acute Code(s): Z86.73 - PRSNL HX OF TIA (TIA), AND CEREB INFRC W/O RESID DEFICITS (3) Depression Current Visit: No Status: Chronic Code(s): F32.9 - MAJOR DEPRESSIVE DISORDER , SINGLE EPISODE, UNSPECIFIED (4) Diabetes mellitus type 2 in obese Current Visit: No Status: Chronic Code(s): E11.9 - TYPE 2 DIABETES MELLITUS WITHOUT COMPLICATIONS; E66.9 - OBESITY, UNSPECIFIED (5) Hypertension Current Visit: No Status: Chronic Code(s): I10 - ESSENTIAL (PRIMARY) HYPERTENSION (6) 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 1. GI Bleed Melena this evening * Hgb: 10.8 * Type & Screened in ED * No need for transfusion at this time * Hx of Esophageal banding 6-7 times * Consult GI, Dr. Orlelana, in the am. Appreciate recs * NPO * Continue home med: Iron, & Protonix 2. Cirrhosis 2/2 Fatty Liver A&Ox3 * MELD-Na Score: 14 * <2% risk of 90 day mortality * Child-Curran Score: 9, Class B * derrick-operative mortality: 30% * Last lactulose dose: 3 days ago * Continue home meds: Lasix, Spironolactone, Nadolol * Ordered Ammonia * Unlikely SBP: WBC chronically low, No temp 3. HTN BP: 139/96 * Will monitor * Continue home med: Spironolactone 4. DMII B on admission * Continue home medication: Humulin 70/30 25 QAM & 45 QPM * Will hold AM dose due to NPO status * Moderate SSI, ACHS Accuchecks 5. Hx of CVA x2 MD aware 6. Bilateral BKA Continue home meds: Gabapentin & Lutsen 7. Depression Continue home med: Venlafaxine Code Status: Full Diet: NPO IVF: SL DVT PPx: None, plts low and bleed GI PPx: Protonix- home medication PCP: MARIBEL Garcia Dispo: Admit to medical inpt for GI bleed, consult GI in the morning. LOS > 48H. FMR H&P: Upper Level - Plan Date/Time: 03/28/20 0055 I, [], have evaluated this patient and agree with findings/plan as outlined by technology internship resident. Pertinent changes/additions are listed here. Addendum - Attending - Attending Attestation Date/Time: 03/28/20 3526 I personally evaluated the patient and discussed the management with Dr. Farris/ Mick. I agree with the History, Examination, Assessment and Plan documented above with any addition or exceptions noted below. Patient overall in his chronic state of poor health but has had multiple "maroon " colored bowel movements. Given his history of severe GI bleeds requiring transfusion, will seek out GI input. H/H stable at this time. Otherwise, continue current meds with Protonix until evaluation.
[2020-03-28] MEDS ORDERED: Dextrose 50% Abboject 50 ML SYRINGE SLOW IVP PRN (01:37)
[2020-03-28] MEDS ORDERED: Dextrose 5% in Water 1,000 ML IV PRN (01:37)
[2020-03-28] MEDS ORDERED: HumaLOG 300 UNITS/3 ML VIAL SC PRN ×2 (01:37)
[2020-03-28] MEDS ORDERED: Ondansetron ODT 4 MG TAB PO PRN (01:37)
[2020-03-28] MEDS ORDERED: Ondansetron PF 4 MG/2 ML Vial IVP PRN (01:37)
[2020-03-28] MEDS ORDERED: Nystatin Powder 15 GM BOT TOP PRN (01:57)
[2020-03-28 02:39] LABS: #Eosinphils 0.1 thou/uL (0.0-0.7); #Lymphocytes 0.4 thou/uL (1.20-3.40); #Monocytes 0.2 thou/uL (0.11-0.59); #Neutrophils 1.5 thou/uL (1.40-6.50); %Eosinophils 3.5 % (0.0-10.0); %Lymphocytes 18.4 % (21.0-51.0); %Monocytes 9.6 % (0.0-10.0); %Neutrophils 67.6 % (42.0-75.0); Hemoglobin 10.8 g/dL (14.0-18.0); Mean Corpuscular HGB CONC 32.6 g/dL (32.0-36.0); Mean Corpuscular Hemoglobin 29.2 pg (27.0-31.0); Mean Corpuscular Volume 89.6 fL (78.0-98.0); Platelet Count 75 thou/uL (130-400); RBC Distribution Width 15.3 % (11.5-14.5); Red Blood Cell (RBC) Count 3.71 mill/uL (4.70-6.10); White Blood Cell (WBC) Count 2.2 thou/uL (4.8-10.8)
[2020-03-28] MEDS: HYDROcodone/Acetaminophen 10/325 mg Tablet PO PRN ×4 (02:42→23:43)
[2020-03-28] MEDS: Nicotine 14 MG PATCH TD SCH (02:43)
[2020-03-28 02:53] LABS: ALT (SGPT) 7 U/L (8-55); AST (SGOT) 14 U/L (5-34); Albumin 2.5 g/dL (3.5-5.0); Alkaline Phosphatase 71 U/L (40-110); Anion Gap 11 mmol/L (10-20); BUN (Urea Nitrogen) 19 mg/dL (8.4-25.7); Bilirubin, Total 0.8 mg/dL (0.2-1.2); Calc. Creatinine Clearance 0 mL/min (70-130); Calcium 8.1 mg/dL (7.8-10.44); Carbon Dioxide 27 mmol/L (22-29); Chloride 103 mmol/L (98-107); Estimated GFR-MDRD 61; Globulin 5.1 g/dL (2.4-3.5); Glucose 258 mg/dL (70-105); Potassium 4.1 mmol/L (3.5-5.1); Protein, Total 7.6 g/dL (6.0-8.3); Sodium 137 mmol/L (136-145)
[2020-03-28] MEDS: Gabapentin 300 MG CAP PO SCH ×2 (09:57→20:49)
[2020-03-28] MEDS: HumuLIN 70/30 (300 UNITS/3 ML VIAL) SC SCH (09:57)
[2020-03-28] MEDS: Ferrous Sulfate 325 MG TAB PO SCH (09:57)
[2020-03-28] MEDS: Furosemide 20 MG TAB PO SCH (09:57)
[2020-03-28] MEDS: Nadolol 40 MG TAB PO SCH (09:58)
[2020-03-28] MEDS: Venlafaxine HCl XR 150 MG CAP PO SCH (09:59)
[2020-03-28] MEDS ORDERED: GoLYTELY 4,000 ml Bottle PO SCH (11:30)
[2020-03-28] MEDS: cefTRIAXone\\ROCEPHIN 1 GM in Sodium Chloride 0.9% 100 ML IVPB SCH (11:56)
[2020-03-28] MEDS: Spironolactone 100 MG TAB PO SCH (11:57)
--- NOTE | 2020-03-28 13:08 | ULT ---
Exam: Hepatic Doppler COMPARISON: 02/13/2019 HISTORY: Portal hypertension and cirrhosis TECHNIQUE: Grayscale, color flow, Doppler imaging and spectral waveform analysis liver is performed FINDINGS: Pancreas is obscured by bowel gas There is increased echogenicity of the liver. There is nodularity of the hepatic margin. Right hepat ic lobe measures 14.2 cm. Increased echogenicity limits evaluation for hepatic masses and intrahepatic biliary dilatation Common bile duct diameter 0.48 cm Sonographic evidence of cholelithiasis. Gallbladder wall does not appear to be thickened. Negative Mu rphy's sign. Spleen is enlarged measuring 16 cm in maximum dimension There is significant ascites Hepatic Doppler: Patency and appropriate directional flow of the left portal vein, right portal vein, main portal vein, left hepatic vein, middle hepatic vein, right hepatic vein and hepatic artery. Splenic vein and artery are patent IMPRESSION: 1. Marked ascites 2. Nodular liver with increased echotexture, compatible with cirrhosis. 2. Normal hepatic Doppler. Transcribed Date/Time: 03/28/2020 1:36 PM
[2020-03-28] MEDS: Dicyclomine 20 MG TAB PO PRN ×2 (14:17→20:58)
[2020-03-28 15:18] VITALS: BMI 35.4
--- NOTE | 2020-03-28 16:35 | CON ---
DATE OF CONSULTATION: 03/28/2020 REQUESTING PHYSICIAN: Dr. Margarito Farris. REASON FOR CONSULTATION: GI bleeding with cirrhosis. HISTORY OF PRESENT ILLNESS: Roni Farias is a 54-year-old man, followed by my GI colleague, Dr. Joel Latham for PITTMAN cirrhosis. He has had prior decompensations and issues with hepatic encephalopathy as well as chronic ascites and variceal hemorrhage. He had a variceal bleeding episode several years ago that had to be urgently banded and he has undergone multiple EGDs with repeat banding procedures since then. He is on nadolol chronically. His last EGD was in February [address] Latham applied four bands to the distal esophagus on grade 2 to 3 varices. Notably on that exam, he was also found to have a lot of food in the stomach consistent with possible gastroparesis. The patient has not had any endoscopy or any GI followup since then. He follows down in [place] with Dr. Boyer at the liver transplant center, but has not seen them in quite some time. He takes lactulose for prophylaxis against hepatic encephalopathy, he used to be on rifaximin, but insurance no longer covers this. He is not having any issues with encephalopathy episodes however. He does have chronic ascites, has not had to have a paracentesis yet this year. He is on Lasix and spironolactone. Yesterday evening, he started having some generalized abdominal pain throughout the abdomen. This was followed by several urgent normal brown loose bowel movements, but then later in the evening, he had a bowel movement with a lot of dark maroon blood and clots, there were some areas of black and some areas of bright red. This was large volume and was quite alarming to him and so it prompted his presentation. Since arrival here, he has had several smaller bowel movements, progressively clearing, the last bowel movement this morning was mostly brown with a small amount of red spots in it. He has had a bit of nausea, though no vomiting with this. He has remained hemodynamically stable and labs are showing stable pancytopenia with hemoglobin at baseline of 10.8, BUN only 19, and normal LFTs. His INR is only 1.3. He was started on oral Protonix b.i.d. He is currently feeling okay except for some mild persistent nausea and generalized abdominal discomfort. He has had no fever. Notably, his last colonoscopy was in [address] Latham. He had 5 polyps removed, was also found to have diverticulosis and internal hemorrhoids. The bowel preparation was poor. One of the polyps was a tubulovillous adenoma. Dr. Latham had recommended recall colonoscopy to 3-year interval, but that did not happen. REVIEW OF SYSTEMS: Full review of systems including constitutional, head, eyes, ears, nose, throat, GI, , cardiovascular, respiratory, musculoskeletal, neurologic systems is negative except as noted in the HPI. PAST MEDICAL HISTORY: PITTMAN cirrhosis; hepatic encephalopathy, on lactulose; history of esophageal variceal bleeding, multiple banding procedures, last one in February 2019, on nadolol; chronic ascites; CVA in 2011; hypertension; hyperlipidemia; diabetes; obesity; bilateral [id number] amputation; chronic portal vein thrombus. ALLERGIES: NO KNOWN DRUG ALLERGIES. OUTPATIENT MEDICATIONS: 1. Venlafaxine 150 mg daily. 2. Nadolol 20 mg daily. 3. Spironolactone 100 mg daily. 4. Lasix 20 mg daily. 5. Pantoprazole 40 mg twice daily. 6. Hydrocodone p.r.n. 7. Lactulose t.i.d. 8. Ferrous sulfate 65 mg daily. 9. Gabapentin 600 mg twice daily. 10. Nystatin powder applied topically p.r.n. 11. Insulin 25 units in the morning, 45 units in the evening. FAMILY HISTORY: Mother and father both had diabetes and coronary artery disease. SOCIAL HISTORY: No alcohol use. He does smoke a half pack of cigarettes per day for 40 years. No drug use. PHYSICAL EXAMINATION: VITAL SIGNS: Temperature 98.1, pulse 96, blood pressure 128/67, and 96% oxygen saturation on room air. GENERAL: Chronically ill-appearing, 54-year-old man, sitting up in bed comfortably, in no distress. SKIN: No jaundice. He is a bit pale. No rashes were palpable. EYES: No scleral icterus. Extraocular movements are intact. ENT: Mucous membranes are moist. No oral lesions. LYMPH: No submandibular or supraclavicular lymphadenopathy. THYROID: Nontender to palpation. HEART: Regular rate and rhythm. LUNGS: Clear to auscultation bilaterally. ABDOMEN: Distended with ascites, dull to percussion. The abdomen is not tense. There is some mild generalized tenderness to palpation, but no guarding or rebound tenderness. EXTREMITIES: 1+ bilateral lower extremity edema. He is status post bilateral [id number] amputation. NEUROLOGIC: Cranial nerves 2 through 12 are intact bilaterally. No focal deficits. No asterixis. LABORATORY STUDIES: Hemoglobin 10.8, WBC 2.2, platelets 75. INR 1.3. Ammonia 72. Sodium 137, potassium 4.1, BUN 19, creatinine 1.24, glucose 221, lipase 59, total bilirubin 0.8, alkaline phosphatase 71, AST 14, ALT 7, albumin 2.5. ASSESSMENT AND PLAN: 1. Gastrointestinal bleeding, suspect acute lower gastrointestinal source, but this is unclear at this time. Appears to be resolving already with bowel movements now more brown in color this morning. 2. Pancytopenia, stable, notably hemoglobin is at baseline at 10.8 and is stable so far this admission. 3. Non-alcoholic steatohepatitis (PITTMAN) cirrhosis. This was diagnosed years ago with chronic decompensation. Primary features appear to be related to portal hypertension including chronic ascites as well as esophageal varices. Liver synthetic function is holding steady with INR of 1.3. 4. History of esophageal varices, status post multiple banding procedures, last variceal banding was in February 2019, with repeat EGD in 6 months recommended, which the patient did not follow up for. He does continue on nadolol as variceal prophylaxis. Current presentation does not seem consistent with variceal bleed. 5. History of colon polyps. He had multiple polyps removed including a tubulovillous adenoma in 2016 with poor prep exam. He is overdue for surveillance colonoscopy. 6. Chronic ascites. The patient is on Lasix and spironolactone as an outpatient. He has not required paracentesis for the past 6 months at least. He has no leukocytosis or fever to suggest SBP. 7. History of hepatic encephalopathy, seems to be well controlled on lactulose. He used to be on rifaximin, but that was discontinued secondary to cost. Reassuringly, the patient's hemoglobin is stable and overt bleeding seems to be resolving, even this morning, he has remained hemodynamically stable. It is unclear what this episode represented. We discussed a wide differential. I suppose it is possible that he had a brief variceal hemorrhage event. Also consider the possibility of diverticular bleed, hemorrhoidal bleed, or ischemic colitis. I do think, given his decompensated cirrhosis, further investigation is certainly warranted. He is overdue for surveillance EGD and colonoscopy at any rate. For now, continue on the Protonix as well as the nadolol. We will administer bowel preparation this evening in anticipation for EGD and colonoscopy tomorrow. Given the GI bleeding in a patient with ascites, we will go ahead and give IV ceftriaxone as well. We will also obtain alpha fetoprotein level and abdominal ultrasound while he is here, to remain up to date on HCC screening. Thank you for the consultation. Please call anytime with questions or concerns. Job ID: [id number]
[2020-03-28] MEDS ORDERED: HumuLIN 70/30 (300 UNITS/3 ML VIAL) SC SCH (21:00)
[2020-03-29] MEDS: Nicotine 14 MG PATCH TD SCH (02:39)
[2020-03-29 05:42] LABS: #Eosinphils 0.1 thou/uL (0.0-0.7); #Lymphocytes 0.5 thou/uL (1.20-3.40); #Monocytes 0.3 thou/uL (0.11-0.59); #Neutrophils 1.3 thou/uL (1.40-6.50); %Basophils 1.6 % (0.0-1.0); %Eosinophils 4.3 % (0.0-10.0); %Lymphocytes 23.5 % (21.0-51.0); %Monocytes 13.5 % (0.0-10.0); %Neutrophils 57.1 % (42.0-75.0); Hemoglobin 10.3 g/dL (14.0-18.0); Mean Corpuscular Hemoglobin 27.8 pg (27.0-31.0); Mean Corpuscular Volume 92.5 fL (78.0-98.0); Mean Platelet Volume 10.4 fL (7.4-10.4); Platelet Count 54 thou/uL (130-400); RBC Distribution Width 15.6 % (11.5-14.5); White Blood Cell (WBC) Count 2.3 thou/uL (4.8-10.8)
[2020-03-29 06:02] LABS: ALT (SGPT) 9 U/L (8-55); AST (SGOT) 16 U/L (5-34); Albumin 2.3 g/dL (3.5-5.0); Alkaline Phosphatase 61 U/L (40-110); Anion Gap 11 mmol/L (10-20); BUN (Urea Nitrogen) 16 mg/dL (8.4-25.7); Bilirubin, Total 1.1 mg/dL (0.2-1.2); Calc. Creatinine Clearance 139 mL/min (70-130); Calcium 8.2 mg/dL (7.8-10.44); Carbon Dioxide 28 mmol/L (22-29); Chloride 101 mmol/L (98-107); Estimated GFR-MDRD 73; Globulin 4.6 g/dL (2.4-3.5); Glucose 128 mg/dL (70-105); Potassium 3.7 mmol/L (3.5-5.1); Protein, Total 6.9 g/dL (6.0-8.3); Sodium 136 mmol/L (136-145)
[2020-03-29] MEDS: HYDROcodone/Acetaminophen 10/325 mg Tablet PO PRN ×2 (06:05→12:31)
[2020-03-29] MEDS: Nadolol 40 MG TAB PO SCH (06:05)
--- NOTE | 2020-03-29 07:29 | PDOC.FM ---
- Subjective Subjective: Patient doing okay this morning, states he was able to finish his bowel prep. Having mostly liquid, with white material stools. Still having some pain over the liver. Also having some stump pain this morning, at bedside cleaning the stump areas. He is due to have EGD/[place] today with Dr. Orellana. - Objective MAR Reviewed: Yes Vital Signs & Weight: Vital Signs (12 hours) Temp Pulse Resp BP Pulse Ox 03/28/20 20:08 97.8 F 67 17 131/86 100 03/28/20 20:00 100 Weight Admit Weight 121.563 kg Weight 121.9 kg I&O: 03/28/20 03/29/20 03/30/20 06:59 06:59 06:59 Intake Total 1200 Balance 1200 Result Diagrams: 03/29/20 05:26 03/29/20 05:26 Phys Exam - Physical Examination Constitutional: NAD HEENT: moist MMs, sclera anicteric Neck: no JVD, supple, full ROM Respiratory: no wheezing, clear to auscultation bilateral Cardiovascular: RRR, no significant murmur Gastrointestinal: soft, positive bowel sounds TTP over liver and LUQ. Musculoskeletal: no edema, pulses present bilateral BKAs Neurological: non-focal Psychiatric: normal affect, A&O x 3 Skin: no rash, normal turgor Dx/Plan (1) GI bleed Code(s): K92.2 - GASTROINTESTINAL HEMORRHAGE, UNSPECIFIED Status: Acute Qualifiers: GI bleed type/associated pathology: unspecified gastrointestinal hemorrhage type Qualified Code(s): K92.2 - Gastrointestinal hemorrhage, unspecified (2) Pancytopenia Code(s): D61.818 - OTHER PANCYTOPENIA Status: Chronic (3) Abdominal pain Code(s): R10.9 - UNSPECIFIED ABDOMINAL PAIN Status: Acute Qualifiers: Abdominal location: right upper quadrant Qualified Code(s): R10.11 - Right upper quadrant pain (4) Liver cirrhosis secondary to PITTMAN (nonalcoholic steatohepatitis) Code(s): K75.81 - NONALCOHOLIC STEATOHEPATITIS (PITTMAN); K74.60 - UNSPECIFIED CIRRHOSIS OF LIVER Status: Chronic (5) S/P bilateral below knee amputation Code(s): Z89.512 - ACQUIRED ABSENCE OF LEFT LEG BELOW KNEE; Z89.511 - ACQUIRED ABSENCE OF RIGHT LEG BELOW KNEE Status: Chronic - Plan Plan: Pt is a 54 yo M with pmh of Alcoholic cirrhosis, HTN, DMII, CVA x2 (2012) who presents for blood in stool that started today. #GI Bleed -maroon colored stools on admission, now resolved with mostly brown stools -Hgb: 10.8 > 10.3 -Type & Screened in ED, No need for transfusion at this time -Hx of Esophageal banding 6-7 times -Consult GI, Dr. Orellana, appreciate recs * NPO currently, awaiting EGD & Colonoscopy this AM -Continue home med: Iron, & Protonix #Cirrhosis 2/2 PITTMAN -A&Ox3 -MELD-Na Score: 14 * <2% risk of 90 day mortality -Child-Curran Score: 9, Class B * derrick-operative mortality: 30% -Last lactulose dose prior to admission was March 25 -Continue home meds: Lasix, Spironolactone, Nadolol -Ammonia 74 (borderline high) -Unlikely SBP: WBC chronically low, No temp -will need outpatient follow up with his liver specialist Dr. Boyer in [place] -arterial doppler of liver: nodular liver with increased echotexture & cirrhosis features, normal doppler, marked ascites, enlarged spleen -alpha fetoprotein 4.3 (wnl) #HTN -admission BP: 139/96 -Will monitor -Continue home med: Spironolactone #DMII -B on admission -Continue home medication: Humulin 70/30 25 QAM & 45 QPM * Will hold AM dose due to NPO status -Moderate SSI, ACHS Accuchecks #Hx of CVA x2 -MD aware #Bilateral BKA -Continue home meds: Gabapentin & [place] #Depression -Continue home med: Venlafaxine Code Status: Full Diet: NPO for scopes IVF: SL DVT PPx: None, plts low and bleed GI PPx: Protonix- home medication PCP: MARIBEL Garcia Dispo: Stable, Admit to medical inpt for GI bleed. Plan for EGD & [place] with Dr. Orellana this morning. Anticipate discharge pending results of studies. Addendum - Attending - Attending Attestation Date/Time: 03/29/20 0803 I personally evaluated the patient and discussed the management with Dr. Chairez. I agree with the History, Examination, Assessment and Plan documented above with any addition or exceptions noted below. Patient overall stable. Here for concern for GI bleeding, H/H remains stable. On Rocephin for SBP ppx. GI on board with plans for c-scope and EGD today to further evaluate. Otherwise continue chronic meds and await further GI recs.
[2020-03-29 07:30] VITALS: BP 130/86; TEMP 97.3
[2020-03-29] MEDS: Ferrous Sulfate 325 MG TAB PO SCH (07:59)
[2020-03-29] MEDS: HumuLIN 70/30 (300 UNITS/3 ML VIAL) SC SCH (07:59)
[2020-03-29] MEDS: Furosemide 20 MG TAB PO SCH (07:59)
[2020-03-29] MEDS: Gabapentin 300 MG CAP PO SCH (07:59)
[2020-03-29] MEDS: Venlafaxine HCl XR 150 MG CAP PO SCH (08:00)
[2020-03-29] MEDS ORDERED: Ketamine 50 MG/ML (10ML VIAL) ONE (08:05)
--- NOTE | 2020-03-29 10:45 | OP ---
DATE OF PROCEDURE: 03/29/2020 MEMBER SERVICES COORDINATOR SURGEON: None. PROCEDURES PERFORMED: 1. Esophagogastroduodenoscopy, diagnostic. 2. Colonoscopy, diagnostic. INDICATIONS: 1. Gastrointestinal bleeding. 2. History of esophageal varices, status post multiple prior banding procedures. 3. History of colon polyps. 4. Pancytopenia. MEDICATIONS: See Anesthesia record. FINDINGS: After discussion of the risks, benefits, and alternatives of the procedure, informed consent was obtained and witnessed. Pre-endoscopic cardiopulmonary examination was satisfactory. Time-out was performed before sedation was achieved. Sedation was achieved with Anesthesia assistance in the endoscopy unit. A Pentax adult upper endoscope was placed into the oropharynx and passed through the cricopharyngeus under direct visualization. The esophageal mucosa appeared normal in the proximal and mid esophagus. In the distal esophagus, there are couple of trunks of grade 1 varices, which flattened out completely with insufflation and evidence of extensive scarring in the area from prior banding procedures. There were no high-risk stigmata for bleeding. No banding was performed as there was really nothing to band in this area. The endoscope was advanced into the stomach. Forward and retroflexed views of the entire gastric mucosa were obtained. There were no gastric varices on retroflexed view. There was diffuse portal hypertensive gastropathy characterized by submucosal hemorrhage, edema, and friability. This was more severe in the gastric antrum. There were several areas with slow oozing diffusely, but this does not have an appearance of vascular ectasias, but rather severe portal gastropathy. No therapy was applied. There was no significant bleeding. No other bleeding lesions noted. The endoscope was passed through the pylorus and into the first and second portions of the duodenum, which appeared unremarkable. The upper endoscope was completely withdrawn and the patient was repositioned. Digital rectal exam was performed, which was unremarkable. A Pentax adult colonoscope was inserted into the anus and passed forward to the cecum in the usual fashion. The cecal base was identified by the appendiceal orifice as well as the ileocecal valve. The terminal ileum was intubated and the ileal mucosa appeared normal. The colonoscope was then slowly withdrawn in a gradual and circumferential manner with careful examination of the entire colonic mucosa. The quality of the prep was fair and so small polyps may have been missed. There was no evidence of any old blood or active bleeding throughout the entire colon. There were few diverticula within the left colon. Retroflexion in the rectum demonstrated medium to large internal hemorrhoids. The colonoscope was completely withdrawn and the patient allowed to recover. The patient tolerated the procedure well. There were no immediate postprocedure complications. IMPRESSION: 1. Diffuse portal hypertensive gastropathy with several areas of slow oozing, no significant bleeding. 2. Grade 1 distal esophageal varices with evidence of extensive scarring from prior banding procedures, no stigmata of bleeding, nothing to band on this exam. 3. Internal hemorrhoids. 4. Otherwise, normal colonoscopy to the terminal ileum, with fair bowel preparation. RECOMMENDATIONS: 1. Advance diet to low-sodium diet. 2. Conservative hemorrhoidal care. 3. Continue other medications related to his liver disease, including the nadolol, pantoprazole, and iron supplementation. 4. Follow up in the outpatient GI[facility] with Dr. Latham or his PA later this month. GI will sign off. Okay for hospital discharge from a GI perspective. Please call back if needed. Job ID: [id number]
[2020-03-29] MEDS ORDERED: PROPOFOL 200 MG/20 ML VIAL ONE (11:02)
[2020-03-29] MEDS: cefTRIAXone\\ROCEPHIN 1 GM in Sodium Chloride 0.9% 100 ML IVPB SCH (12:31)
[2020-03-29] MEDS: Spironolactone 100 MG TAB PO SCH (12:31)
--- NOTE | 2020-03-30 00:58 | DIS ---
DATE OF ADMISSION: 03/28/2020 DATE OF DISCHARGE: 03/29/2020 PRIMARY CARE PHYSICIAN: Christi Garcia MD RESIDENT: Amarilis Chairez DO ADMITTING ATTENDING: Praneeth Turner MD DISCHARGE ATTENDING: Obie Maldonado MD CONSULT: GI, Castillo Orellana MD PROCEDURES: 1. Abdominal ultrasound on March 28, 2020: Marked ascites. Nodular liver with increased echotexture, compatible with cirrhosis. Normal hepatic Doppler. Spleen is enlarged measuring 16 cm in maximum dimension. Right hepatic lobe measures 14.2 cm. Increased echogenicity limits evaluation for hepatic masses and intrahepatic biliary dilation. Common bile duct diameter 0.48 cm. Evidence of cholelithiasis. 2. Esophagogastroduodenoscopy and colonoscopy with Dr. Orellana on March 29, 2020: Diffuse portal hypertensive gastropathy with several areas of slow oozing, no significant bleeding. Grade 1 distal esophageal varices with evidence of extensive scarring from prior banding procedures, no stigmata of bleeding, nothing to band on this exam. Internal hemorrhoids. Otherwise normal colonoscopy to the terminal ileum with fair bowel preparation. PRIMARY DIAGNOSES: Gastrointestinal bleed, now resolved, likely secondary to severe portal hypertensive gastropathy. SECONDARY DIAGNOSES: 1. Cirrhosis secondary to nonalcoholic steatohepatitis. 2. Hypertension. 3. Diabetes type 2. 4. History of cerebrovascular accident. 5. Bilateral below-knee amputation. 6. Depression. 7. Chronic portal vein thrombus. 8. Stable pancytopenia. DISCHARGE MEDICATIONS: 1. Pantoprazole 40 mg p.o. b.i.d. 2. Venlafaxine 150 mg p.o. daily. 3. Nadolol 20 mg p.o. daily. 4. Spironolactone 100 mg p.o. daily. 5. [place] 10-325 mg one tablet p.o. q.6 hours p.r.n. 6. Lactulose 10 g p.o. t.i.d. 7. Furosemide 20 mg p.o. daily. 8. Ferrous sulfate 65 mg p.o. daily. 9. Gabapentin 600 mg p.o. b.i.d. 10. Nystatin powder one application topical b.i.d. p.r.n. 11. NovoLog 70/30 of 25 units subcu q.a.m. 12. NovoLog 70/30 of 45 units subcu q.p.m. DISCONTINUED MEDICATIONS: None. HISTORY OF PRESENT ILLNESS/HOSPITAL COURSE: The patient is a 54-year-old male with past medical history of nonalcoholic fatty liver cirrhosis (PITTMAN), who presents to the [facility] Emergency Department on March 28, 2020 with complaint of blood in stool that started earlier in the day. The patient noted an episode of maroon-colored diarrhea just prior to arrival. He reports that he had not taken his lactulose for 3 days and had had generalized abdominal pain all day. He took a home [place] around 5 hours prior to presentation without relief. Appetite has also been recently decreased and increased fatigue over the last couple of days. The patient also reports that he has bright red bleeding around the rectum whenever he uses too much lactulose, which is why he had stopped taking it. The patient has a history of a ruptured varices about 4 to 5 years ago. At that time, he did require 7 to 9 units of blood transfused. In the Emergency Department, his labs were significant for white blood cell count 2.4, hemoglobin 10.8, INR 1.3, creatinine 1.24, and platelets 83. The patient was admitted to inpatient on the medical floor for suspected GI bleed. Dr. Orellana with GI was consulted. The patient was placed on Protonix and Rocephin for prophylaxis of SBP. The patient's white cell count was not elevated and he was afebrile with low suspicion on exam for SBP. The patient's lactulose was also restarted. His ammonia level came back at 74, a high limit of normal. On the morning of March 29, the patient had an EGD and colonoscopy completed by Dr. Orellana, see results above. Per Dr. Orellana, the patient will need conservative hemorrhoidal care, continue all other medications related to his liver disease, including nadolol, pantoprazole, and iron supplementation. The patient will need outpatient followup with GI, Dr. Latham later this month. The patient will also need outpatient followup with his liver specialist, Dr. Boyer in [place], [place]. On the afternoon of March 29, 2020, the patient was deemed stable for discharge back to home. DISPOSITION: Stable. DISCHARGE INSTRUCTIONS: 1. Location: Home. 2. Diet: Heart healthy. 3. Activity: As tolerated. 4. Follow up with PCP Dr. Christi Garcia at [facility] in 2 to 3 days. 5. Follow up with [facility] GI with either Dr. Orellana or Dr. Latham in 1 to 2 weeks. 6. Follow up with Dr. Boyer, liver specialist in [place] within the month. Job ID: [id number]
== END 2020-03-29 17:33 | disposition home or self-care (01) | DRG 441 ==
LOC: ERS 23:37 → T4-A 03-28 00:59
PROVIDERS: ADMIT Emergency Medicine; ATTEND Emergency Medicine
PROC: 0DJ08ZZ Inspection of Upper Intestinal Tract, Via Natural or Artificial Opening Endoscopic (ICD-10-PCS; principal; 2020-03-29)
PROC: 0DJD8ZZ Inspection of Lower Intestinal Tract, Via Natural or Artificial Opening Endoscopic (ICD-10-PCS; 2020-03-29)
DX: K76.6 Portal hypertension (principal); I81 Portal vein thrombosis; D61.818 Other pancytopenia; I85.10 Secondary esophageal varices without bleeding; R18.8 Other ascites; K92.2 Gastrointestinal hemorrhage, unspecified; I10 Essential (primary) hypertension; E11.9 Type 2 diabetes mellitus without complications; K74.69 Other cirrhosis of liver; K76.0 Fatty (change of) liver, not elsewhere classified; F32.9 Major depressive disorder, single episode, unspecified; E66.9 Obesity, unspecified; K75.81 Nonalcoholic steatohepatitis (NASH); K31.89 Other diseases of stomach and duodenum; K64.8 Other hemorrhoids; Z86.73 Personal history of transient ischemic attack (TIA), and cerebral infarction without residual deficits; Z79.4 Long term (current) use of insulin; Z79.899 Other long term (current) drug therapy; Z89.512 Acquired absence of left leg below knee; Z89.511 Acquired absence of right leg below knee; Z68.35 Body mass index [BMI] 35.0-35.9, adult
CPT/HCPCS: 36415; 36416; 76705; 80053; 82105; 82140; 83690; 85025; 85610; 85730; 86850; 86900; 86901; 99285; J0696; J1815; J2704; J3490

== ENCOUNTER 2020-06-16 22:32 | Inpatient (IN) | payer MEDICARE, OTHER ==
--- NOTE | 2020-06-16 22:59 | PDOC.FPRHP ---
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 He says that he is not able to get out of bed to use the bathroom due to weakness. C/o increasing abdominal distention and abdominal pain and anorexia. His contacted PCP, Dr Garcia , to discuss these problems and he was advised to go to ED. Has chronic cough due to smoking history, says allergy medicine helps, but does not like to use breathing treatments. He has chronic diarrhea due to lactulose. He sees Dr Latham, outpatient GI, but hasn't seen him "in a while" due to financial reasons. Denies fever, emesis, CP, hematemesis, hemoptysis. ED Course: 1g rocephin, norco - Allergies/Adverse Reactions Allergies Allergy/AdvReac Type Severity Reaction Status Date / Time No Known Drug Allergies Allergy Verified 06/17/20 02:14 - Home Medications Medication Instructions Recorded Confirmed Type Venlafaxine HCl [Venlafaxine HCl 150 mg PO DAILY 06/23/15 06/17/20 History ER] Nadolol [Corgard] 20 mg PO DAILY #0 tab 06/29/15 06/17/20 Rx Spironolactone [Aldactone] 100 mg PO 1200 08/13/15 06/17/20 History Pantoprazole [Protonix] 40 mg PO BID 10/27/15 06/17/20 History HYDROcodone/Acetaminophen 1 tab PO Q6HR PRN 11/30/18 03/28/20 History [Hydrocodone-Acetamin 10-325 mg] Lactulose 10 gm PO TID #1 udcup 12/04/18 06/17/20 Rx Furosemide 20 mg PO DAILY 02/22/19 06/17/20 History Gabapentin 900 tab PO BID 09/15/19 06/17/20 History Insulin Aspart Prot/Insuln Asp 40 unit SQ QPM 03/28/20 03/28/20 History [Novolog Mix 70-30 Vial] Pantoprazole [Protonix] 40 mg PO DAILY #30 tab 03/29/20 06/17/20 Rx - History PMHx: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 denies: fever/chills ENT: denies: nasal congestion Respiratory: reports: cough Cardiovascular: denies: chest pain, palpitation Gastrointestinal: reports: nausea, diarrhea, abdominal pain. denies: vomiting, constipation Genitourinary: denies: incontinence, dysuria Skin: denies: rashes Musculoskeletal: denies: pain, tenderness Neurological: reports: weakness - Vital signs BP: 123/87, HR 87, RR 24, O2 98% on RA, T 97.8F - Physical Exam -Constitutional: mildly increased work of breathing, speech was garbled at times and he seemed to take a little while to come up with answers but was AOx3 HEENT: grossly normal vision, grossly normal hearing -HEENT: sclera icteric Neck: supple, FROM Chest: no-tender to palpation Heart: RRR, normal S1/S2, no murmurs/rubs/gallops, pulses present -Heart: 1+ pitting edema of bilat upper legs -Lungs: rhonchi heard throughout lung snyder -Abdomen: abdominal distention, caput medusa, mildly tender to palpation -Musculoskeletal: bilateral BKA with prostheses Neurological: no focal deficit -Skin: jaundice Psychiatric: normal mood and affect FMR H&P: Results - Labs Result Diagrams: 06/17/20 01:51 06/17/20 01:51 - EKG Interpretation EKG: sinus rhythm FMR H&P: A/P - Plan #Sepsis 2/2 SBP - In ED: HR 170s, RR 30s - CXR: RLL atelectasis with possible infiltrate - given rocephin in ED, will continue - Consult IR in the morning to get paracentesis - consult GI, Dr Latham, in am - pending procal #Cirrhosis 2/2 PITTMAN - MELD- Na Score 20: 7-10% 90 day mortality - Child-Curran Score 9: Child Class B; pt says he is considering transplant - INR 1.5, PT 18.3 - ammonia normal, will continue home lactulose - Continue home meds: spironolactone, lasix, PPI - Palliative care consulted for goals of care and symptoms management #Cough - chronic - on PE, rhonchi heard bilat - pt stated he did not want breathing treatment #tachypnea - likely 2/2 increasing ascites - consult IR and GI #ALEXANDER - BUN/CR 35/1.35 - held gabapentin - pending urine studies: urine Cr, urine Urea - did not add IVF due to hx of HF, pitting edema and rhonchi heard on lung exam #Hx of GI bleed - hx of banding of esophageal varices - will hold DVT prophylaxis #HTN - continue home meds - will monitor #HFpEF - echo 08/2019 showed EF 55-60% with grade 1/3 diastolic dysfunction - appeared fluid overloaded on exam, no fluids started at this time #DM - SSI, glucose checks ACHS #tobacco abuse - encourage cessation DVT PPx: none due to hx of GI bleed, and BKA GI PPx: PPI Code: Full Dispo: admit to inpatient medical, consult IR and GI in am, LOS >48 hours Case discussed with Dr. Garcia and Dr Delgado FMR H&P: Upper Level - Plan Date/Time: 06/16/20 2093 I, Dacia Delgado MD, have evaluated this patient and agree with findings/plan as outlined by customer success intern resident. Pertinent changes/additions are listed here. 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 The patient sees Dr. Garcia in [facility] where he was seen 1 weeks ago. The patient was scheduled to get a paracentesis in procedure florez at [facility], but reported worsening status. Dr. Garcia called and patient and advised patient to come to the ER. In the ER, the patient reports that he has had increasing weakness. He states his "memory is getting bad." He reports increased difficulty getting up to go to the bathroom. Has not been eating well lately. He reports diarrhea due to lactulose. No recent fevers. Denies abd pain, chest pain. Endorses his belly feeling "tight." He denies palpitations, NV, bloody stools, coughing up blood. In the ER, the patient was started on rocephin. See customer success intern note for full histories. PE remarkable for protuberant abdomen, caput medusa present, spider angiomas, mild diffuse TTP of abdomen, BBKAs, axox3, scleral icterus, exp wheeze and rhonchi. At mental baseline per PCP after evaluation in ER. Plan: Sepsis 2/2 SBP On admission, HR 170s, RR 30s. No WBC. CXR with possible infiltrate. Hx of liver cirrhosis, worsening ascites. - Will continue rocephin for SBP coverage. Can consider transitioning him to bactrim oral once stable and eating better. - Consult IR in the morning to get paracentesis - Consult GI in the AM, sees Dr. 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 MELD-Na score 21 - 90 day mortality 7-10%. INR 1.5; PT 18.3. Ammonia nml. - Continue home regimen of lactulose, spironolactone, lasix, PPI BID - GI consult in the AM; patient states pursuing liver transplant - Palliative care consulted for goals of care and symptoms management ALEXANDER Cr 1.35, mild bump from previous - PO hydration, will hold off on additional fluids as patient appears overloaded on exam Hx of GI bleed s/p banding procedure. Hgb stable. Will hold off on anticoagulation Continue home meds for chronic conditions. Dispo: admit to med, inpt PPx: no DVT ppx - due to hx of GI bleed, low plt; home PPI BID Code: Full - palliative care consulted Case discussed with Dr. Garcia Addendum - Attending - Attending Attestation Date/Time: 06/17/20 0805 I personally evaluated the patient and discussed the management with Dr. 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 The patient sees Dr. Garcia in [facility] where he was seen 1 weeks ago. The patient was scheduled to get a paracentesis in procedure florez at [facility], but reported worsening status. Dr. Garcia called and patient and advised patient to come to the ER. In the ER, the patient reports that he has had increasing weakness. He states his "memory is getting bad." He reports increased difficulty getting up to go to the bathroom. Has not been eating well lately. He reports diarrhea due to lactulose. No recent fevers. Denies abd pain , chest pain. Endorses his belly feeling "tight." He denies palpitations, NV, bloody stools, coughing up blood. PMH/PSH/Meds/SH reviewed and agree with resident's documentation. Afebrile VSS. Exam repeated by me and agree with resident's findings. Labs: WBC=8.1, H/H=10.2/34.2, Plt=78m Kv=439, K=4.4, Cl=97 , CO2=29, BUN/Cr=35/1.35, Tuhm=581, tbili=1.8, AST/ALT=12/7, BNP=46.9, lactic acid=2.8, ammonia=65. CXR- poor inspiratory effort; RLL atelectasis A/P: 1) Sepsis possibly secondary to SBP - continue rocephin; plan for paracentesis in AM, 2) Symptomatic ascites secondary to cirrhosis from PITTMAN - plan for paracentesis with IR. Will send fluid for culture and analysis secondary to abdominal pain and patient's confusion and weakness. 3) Cirrhosis secondary to PITTMAN- continue lactulose, lasix and spironolactone, 4) DM- monitor BG and continue home meds. Will need to discuss goals of care with patient and family.
--- NOTE | 2020-06-16 23:04 | RAD ---
Exam: Chest one view HISTORY:Pain. Shortness of breath. Comparison: 09/04/2019 FINDINGS: Cardiac silhouette: Normal Aorta: Unremarkable Pulmonary vessels: Normal Costophrenic angles: Clear LUNGS: Diminished lung volumes, likely due to a poor inspiratory effort. Elevation of both hemidiaphr agms, right greater than left. Right lower lobe atelectasis is suspected. Superimposed infiltrate cannot be excluded. Pneumothorax: None Osseous abnormalities: None IMPRESSION: No 1. Diminished lung volumes, likely due to a poor inspiratory effort. 2. Right lower lobe atelectasis. Superimposed infiltrate cannot be excluded. Consider better interrog ation of the lung parenchyma with 2 view chest radiograph.
[2020-06-16] MEDS ORDERED: cefTRIAXone\\ROCEPHIN 1 GM VIAL ONE (23:06)
[2020-06-16 23:20] LABS: Hemoglobin 10.2 g/dL (14.0-18.0); Mean Corpuscular HGB CONC 29.8 g/dL (32.0-36.0); Mean Corpuscular Hemoglobin 27.3 pg (27.0-31.0); Mean Corpuscular Volume 91.7 fL (78.0-98.0); RBC Distribution Width 17.5 % (11.5-14.5); Red Blood Cell (RBC) Count 3.73 mill/uL (4.70-6.10); White Blood Cell (WBC) Count 8.1 thou/uL (4.8-10.8)
[2020-06-16 23:38] LABS: #Lymphocytes 0.3 thou/uL (1.20-3.40); #Monocytes 0.4 thou/uL (0.11-0.59); #Neutrophils 7.4 thou/uL (1.40-6.50); %Basophils 0.1 % (0.0-1.0); %Eosinophils 0.5 % (0.0-10.0); %Lymphocytes 3.6 % (21.0-51.0); %Monocytes 4.8 % (0.0-10.0); ALT (SGPT) Less than 7 U/L (8-55); AST (SGOT) 12 U/L (5-34); Albumin 2.3 g/dL (3.5-5.0); Alkaline Phosphatase 82 U/L (40-110); Anion Gap 11 mmol/L (10-20); BUN (Urea Nitrogen) 35 mg/dL (8.4-25.7); Bilirubin, Total 1.8 mg/dL (0.2-1.2); Calc. Creatinine Clearance 0 mL/min (70-130); Carbon Dioxide 29 mmol/L (22-29); Chloride 97 mmol/L (98-107); Estimated GFR-MDRD 55; Globulin 5.6 g/dL (2.4-3.5); Glucose 153 mg/dL (70-105); Hypochromia SLIGHT = 6-15 cells (100X) (0-5/hpf); MDiff Complete? YES; Mean Platelet Volume 10.1 fL (7.4-10.4); Platelet Count 78 thou/uL (130-400); Platelet Morphology Comment Appears Decreased; Potassium 4.4 mmol/L (3.5-5.1); Protein, Total 7.9 g/dL (6.0-8.3); Sodium 133 mmol/L (136-145)
[2020-06-17] MEDS ORDERED: Dextrose 50% Abboject 50 ML SYRINGE SLOW IVP PRN (00:28)
[2020-06-17] MEDS ORDERED: Ondansetron PF 4 MG/2 ML Vial IVP PRN (00:28)
[2020-06-17] MEDS ORDERED: Ondansetron ODT 4 MG TAB PO PRN (00:28)
[2020-06-17] MEDS ORDERED: Dextrose 5% in Water 1,000 ML IV PRN (00:28)
[2020-06-17] MEDS ORDERED: HumaLOG 300 UNITS/3 ML VIAL SC PRN (00:28)
[2020-06-17 00:39] LABS: INR-International Normal Ratio 1.5; PTT 35.8 sec (22.9-36.1); Prothrombin Time 18.3 sec (12.0-14.7)
[2020-06-17] MEDS ORDERED: HYDROcodone/Acetaminophen 10/325 mg Tablet ONE (00:48)
[2020-06-17 02:05] LABS: #Basophils 0.1 thou/uL (0.0-0.2); #Lymphocytes 0.3 thou/uL (1.20-3.40); #Monocytes 0.5 thou/uL (0.11-0.59); #Neutrophils 7.6 thou/uL (1.40-6.50); %Basophils 1.2 % (0.0-1.0); %Eosinophils 0.4 % (0.0-10.0); %Lymphocytes 3.6 % (21.0-51.0); %Monocytes 5.4 % (0.0-10.0); %Neutrophils 89.6 % (42.0-75.0); Mean Corpuscular HGB CONC 30.4 g/dL (32.0-36.0); Mean Corpuscular Hemoglobin 27.9 pg (27.0-31.0); Mean Corpuscular Volume 91.8 fL (78.0-98.0); Mean Platelet Volume 9.8 fL (7.4-10.4); Platelet Count 72 thou/uL (130-400); RBC Distribution Width 17.4 % (11.5-14.5); Red Blood Cell (RBC) Count 3.59 mill/uL (4.70-6.10); White Blood Cell (WBC) Count 8.5 thou/uL (4.8-10.8)
[2020-06-17 02:13] LABS: Lactic Acid 1.9 mmol/L (0.5-2.2)
[2020-06-17] MEDS ORDERED: Nystatin Powder 15 GM BOT TOP PRN (03:26)
[2020-06-17 03:44] LABS: ALT (SGPT) Less than 7 U/L (8-55); AST (SGOT) 11 U/L (5-34); Albumin 2.1 g/dL (3.5-5.0); Alkaline Phosphatase 81 U/L (40-110); Anion Gap 13 mmol/L (10-20); BUN (Urea Nitrogen) 35 mg/dL (8.4-25.7); Bilirubin, Total 1.7 mg/dL (0.2-1.2); Calc. Creatinine Clearance 100 mL/min (70-130); Carbon Dioxide 28 mmol/L (22-29); Chloride 97 mmol/L (98-107); Estimated GFR-MDRD 55; Globulin 5.7 g/dL (2.4-3.5); Glucose 169 mg/dL (70-105); Potassium 4.4 mmol/L (3.5-5.1); Protein, Total 7.8 g/dL (6.0-8.3); Sodium 134 mmol/L (136-145)
--- NOTE | 2020-06-17 05:56 | PDOC.FM ---
- Subjective Subjective: Patient resting in bed. Reports continued abdominal pain, notes his nausea is improving. Denies chest pain or shortness of breath. Reports swelling in his thighs. - Objective MAR Reviewed: Yes Vital Signs & Weight: Vital Signs (12 hours) Temp Pulse Resp BP Pulse Ox 06/17/20 01:50 96 06/17/20 01:20 98.0 F 85 20 129/87 96 Weight Weight 111.448 kg Result Diagrams: 06/17/20 01:51 06/17/20 01:51 Phys Exam - Physical Examination Constitutional: NAD HEENT: PERRLA dry mucous membranes ,sclera icteric rhonchi Cardiovascular: RRR, no significant murmur abdominal distention with caput medusa, tenderness to palpation throughout bilateral bka, 2+ pitting edema in b/l thighs mildly increased work of breathing, speech was garbled at times 4/5 strength in upper extremities Psychiatric: A&O x 3 Deviation from normal: jaundice Dx/Plan - Plan Plan: #Sepsis 2/2 Suspected SBP In ED: HR 170s, RR 30s, procal .021; vitals currently stable XR: RLL atelectasis with possible infiltrate Sees GI: [facility], has not had f/u in 1-2 years - given rocephin in ED, will continue - IR consult for paracentesis - will consult GI #Cirrhosis 2/2 PITTMAN - MELD- Na Score 20: 7-10% 90 day mortality - Child-Curran Score 9: Child Class B; pt says he is considering transplant - INR 1.5, PT 18.3 - ammonia normal, will continue home lactulose - Continue home meds: spironolactone, lasix, PPI - Palliative care consulted for goals of care and symptoms management #Tachypnea - likely 2/2 volume overload - GI/IR consulted #Cough - chronic - on PE, rhonchi heard bilat - pt stated he did not want breathing treatment #ALEXANDER - BUN/CR 35/1.35 - held gabapentin - pending urine studies: urine Cr, urine Urea - did not add IVF due to hx of HF, pitting edema and rhonchi heard on lung exam #Hx Thrombocytopenia, likely 2/2 cirrhosis - platelets 70s - IR will perform paracentesis #Hx of GI bleed - hx of banding of esophageal varices - will hold DVT prophylaxis #HTN - continue home meds - will monitor #HFpEF - echo 08/2019 showed EF 55-60% with grade 1/3 diastolic dysfunction - appeared fluid overloaded on exam, no fluids started at this time #DM - SSI, glucose checks ACHS #tobacco abuse - encourage cessation DVT PPx: none due to hx of GI bleed, and BKA GI PPx: PPI Code: Full Dispo: consult IR/GI, LOS >48 hours Addendum - Attending - Attending Attestation Date/Time: 06/17/20 3950 I personally evaluated the patient and discussed the management with Dr. Mota. I agree with the History, Examination, Assessment and Plan documented above with any addition or exceptions noted below. Patient overall at his chronic baseline. Mentation seems stable. He is having abdominal pain, but currently have low suspicion for SBP. Suspect this is increased distension from his noncompliance with medical therapy and outpatient paracentesis. He will go for IR guided procedure today, will send for lab studies as well. Consulting GI. PCP to have conversation with about goals of care for his progressively worsening chronic illness.
[2020-06-17] MEDS ORDERED: Furosemide 20 MG TAB PO SCH (09:00)
[2020-06-17] MEDS ORDERED: Nadolol 40 MG TAB PO SCH (09:00)
[2020-06-17] MEDS ORDERED: Gabapentin 300 MG CAP PO SCH (09:00)
[2020-06-17] MEDS: Spironolactone 100 MG TAB PO SCH ×2 (09:59→10:01)
[2020-06-17] MEDS: Venlafaxine HCl XR 150 MG CAP PO SCH (10:00)
[2020-06-17] MEDS: HYDROcodone/Acetaminophen 10/325 mg Tablet PO PRN ×3 (10:06→23:03)
[2020-06-17] MEDS: HumaLOG 300 UNITS/3 ML VIAL SC PRN ×2 (12:39→17:00)
[2020-06-17 12:56] LABS: SARS-CoV-2 MS2 Positive; SARS-CoV-2 N Gene Negative; SARS-CoV-2 S Gene Negative; SARS-CoV-2 by NAA Not Detected (NotDetected); SARS-CoV-2 orf1ab Negative
[2020-06-17 13:20] LABS: Bilirubin Negative (Negative); Blood, Urine Negative (Negative); Clarity Clear (Clear); Glucose, Urine (Dipstick) Normal (Negative); Ketone, Urine Negative (Negative); Leukocyte Negative Leu/uL (Negative); Nitrite Negative (Negative); Protein, Urine (Dipstick) Negative (Neg-Trace); Specific Gravity, Urine 1.021 (1.002-1.036); Urobilinogen 6 mg/dL (Less than 2); pH, Urine 5.5 (5.0-9.0)
[2020-06-17 13:40] LABS: Creatinine, Urine 107.06 mg/dL (63-166)
--- NOTE | 2020-06-17 14:07 | PDOC.FMACP ---
Advance Care Planning - Problem (1) ALEXANDER (acute kidney injury) Status: Acute Code(s): N17.9 - ACUTE KIDNEY FAILURE, UNSPECIFIED (2) Insulin dependent diabetes mellitus Status: Acute Code(s): E11.9 - TYPE 2 DIABETES MELLITUS WITHOUT COMPLICATIONS ; Z79.4 - MCFP (CURRENT) USE OF INSULIN (3) Nonalcoholic steatohepatitis (PITTMAN) Status: Acute Code(s): K75.81 - NONALCOHOLIC STEATOHEPATITIS (PITTMAN) (4) Palliative care encounter Status: Acute Code(s): Z51.5 - ENCOUNTER FOR PALLIATIVE CARE (5) Liver cirrhosis secondary to PITTMAN (nonalcoholic steatohepatitis) Status: Chronic Code(s): K75.81 - NONALCOHOLIC STEATOHEPATITIS (PITTMAN); K74.60 - UNSPECIFIED CIRRHOSIS OF LIVER - Note Participants: patient, palliative care Summary: Palliative Care revisited Advanced Care Planning, opportunity to decline. The diagnosis, prognosis and goals of care were discussed. Appropriate forms and documentation to accomplish the goals of care were discussed. All questions were answered. Mr Farias elected to complete MPOA, origional given to patient, copy placed on chart. Will continue to address Goal of Care and Directive to Physician. Time Spent (mins): 20
[2020-06-17] MEDS ORDERED: Sodium Bicarbonate 2.5 MEQ/5 ML VIAL ONE (14:18)
--- NOTE | 2020-06-17 16:47 | ULT ---
ULTRASOUND-GUIDED PARACENTESIS THERAPEUTIC AND DIAGNOSTIC: DATE: 06/17/2020 HISTORY: Symptomatic ascites: 54-year-old male with cirrhosis and abdominal distention. TECHNIQUE: Signed informed consent obtained. A four-quadrant survey of abdomen performed. Site selected for puncture: right lower quadrant Overlying skin prepared and draped in usual sterile fashion. 25-gauge needle used to apply buffered lidocaine superficially and deeply. 5 Filipino Yueh catheter with stylette advanced into the pocket of free intraperitoneal fluid. After drainage, the Yueh catheter was removed. Patient tolerated the procedure well. No complications. A 1 L bag of ascites fluid was sent to laboratory for analysis. FINDINGS: Volume of ascites prior to procedure:large. Volume of ascites fluid in the drainage pocket after drainage:large. Volume of ascites fluid drained:10 mL Appearance of ascites fluid:nonhemorrhagic, straw-colored. IMPRESSION: Successful diagnostic and therapeutic paracentesis, with drainage of 10 L of ascites fluid.
[2020-06-17 16:57] LABS: RBC Count-Automated (BF) 272 /cu.mm; WBC/Nucleated-Auto (BF) 102 uL
--- NOTE | 2020-06-17 17:04 | PDOC.PALFU ---
Palliative Care Follow-up Note Attempted to revisit patient to further discuss goal of care and address symptom management. Patient gone for paracentesis. Consideration may be made for Keymar drain/cath. Weigh risk verses gain.
[2020-06-17 17:17] LABS: BF Color Yellow; Body Fluid Source Ascites Body Fluid; Clarity Hazy (Clear); Tube # 1
[2020-06-17 17:24] LABS: BF Segmented Neutrophils 13 %; Cell Count Non Hematic 48 %; Eosinophils 1 %; Lymphocytes 38 %
[2020-06-17] MEDS: Sodium Chloride 0.9% 1,000 ML IV SCH (18:46)
[2020-06-17] MEDS: cefTRIAXone\\ROCEPHIN 2 GM in Sodium Chloride 0.9% 100 ML IVPB SCH (18:46)
[2020-06-17] MEDS: Albumin 25% 25 GM/100 ML BOT IVPB SCH (20:12)
[2020-06-17] MEDS ORDERED: cefTRIAXone\\ROCEPHIN 1 GM in Sodium Chloride 0.9% 100 ML IVPB SCH (23:00)
--- NOTE | 2020-06-17 23:19 | CON ---
DATE OF CONSULTATION: REASON FOR CONSULT: Cirrhosis. HISTORY OF PRESENT ILLNESS: Mr. Farias was brought to the emergency room by his yesterday. Apparently, he had been having poor intake for couple of days, increasing abdominal distention and increasing confusion and shortness of breath. The patient's talked to the primary physician who recommended they come to the hospital where he was seen in the ER and admitted. To the emergency room, apparently he said his belly hurt. When I have seen him today, he just had a paracentesis. He states he feels better. He does have a cough. He states it has been present for several days and the nurse reports he is tested negative for COVID. He denies any headache. Denies any chest pain or shortness of breath. Denies any hemoptysis. Denies any melena or hematemesis. He does have some bright red blood per rectum occasionally from the lactulose. In talking with his on the phone, she notes that he got more confused with auditory and visual hallucinations yesterday and has not been eating well for couple days before. She attributes this initially to his ascites, but was not sure maybe if he had infection or something else. REVIEW OF SYSTEMS: Positive for chills. Negative for fever. Positive for fatigue. Positive for weakness. He denies vision changes. Negative for chest pain, shortness of breath. Positive for dyspnea and cough. Negative for productive cough. Positive for shortness of breath. Positive for orthopnea. Positive for vague abdominal distention related to his ascites, but improved with tap. PAST MEDICAL HISTORY: Nonalcoholic cirrhosis; diabetes, poorly-controlled; hyperlipidemia; morbid obesity; hypertension; prior CVA x2. PAST SURGICAL HISTORY: Amputation of bilateral lower extremities, BKA, esophageal variceal banding several times, most recent EGD in March of this year with no varices, patent foramen ovale repair in the past. PSYCHIATRIC HISTORY: Depression. SOCIAL HISTORY: Patient lives at home with his . He works at the [employer]. He does not drink. He does not use drugs. He does smoke about half pack per day. ALLERGIES: NONE KNOWN. HOME MEDICATIONS: Lactulose 10 to 20 g three times per day, Aldactone 100 mg a day, Lantus insulin 40 units daily, gabapentin 600 mg b.i.d., venlafaxine, nadolol 20 mg daily, Protonix 40 mg daily, NovoLog 10 to 40 units subcutaneous three times a day sliding scale, furosemide 20 mg daily. Present medications here are Rocephin 1 g, Lasix 20 daily, spironolactone 100 mg daily, Protonix 40 mg daily, Zofran p.r.n., nystatin topical powder, Coreg 20 mg p.o. daily, Corgard/nadolol 20 mg daily, lactulose 10 t.i.d., insulin sliding scale, furosemide 20. FAMILY HISTORY: Noncontributory. PHYSICAL EXAMINATION: VITAL SIGNS: Blood pressure 112/75 to 128/83, pulse 85, temperature 97. GENERAL: He is mildly icteric. LUNGS: With coarse rhonchi. He has a deep cough that is mildly productive cough. There is no hemoptysis. There is no wheezing. Breath sounds are audible in both lung snyder. Slight expiratory wheeze in the right lower. ABDOMEN: Obese. There is still some shifting dullness and fluid wave. There is no palpable hepatosplenomegaly. There is no evidence of bruising or abdominal wall hernias. EXTREMITIES: Reveal bilateral AKA with edema in his legs and sacral area. SKIN: Spider angioma of the chest. NEUROLOGIC: He is alert and oriented to person, place, and time. Mild tremor. No hyperreflexia. LABORATORY DATA: White count 8.5, hemoglobin 10 similar to yesterday when he came in at 2200 and similar to his labs from 03/29/2020, platelets 72,000, neutrophils 89%. INR 1.5. Sodium 134, potassium 4.4, chloride 97, bicarb 28, BUN 35, creatinine 1.36, glucose 169. Hemoglobin A1c was 8.87 in 2019. Bilirubin 1.7. AST is 11, ALT is 7, alkaline phosphatase is 81, albumin 2.1, protein is 7.8, globulin is 5.7, procalcitonin is 0.21. B12 was 1000 last August. Previous autoimmune workup was negative. Hepatitis A, B, and C is negative. MICROBIOLOGY DATA: Blood cultures from yesterday are pending. UA was negative for leukocyte esterase. Pending labs include body fluid cell count. ASSESSMENT: Admission for worsening mental status, worsening ascites, poor p.o. intake. Found to have mildly elevated BUN and creatinine, prerenal azotemia. Patient likely has an infection. He has no signs of bleeding. Spontaneous bacterial peritonitis would be the leading diagnosis. With his elevated globulin gap, this is probably reactive. RECOMMENDATIONS: 1. Worsening renal function. In baseline, essentially his kidney function is probably worsened by about 50% from his baseline. He is at high risk for hepatorenal syndrome. Agree with cefepime. 2. Hold diuretics. 3. Start albumin infusion. 4. Monitor renal function closely. Would give him some IV fluids as well. We will follow along with you. Job ID: [id number]
[2020-06-18] MEDS: HYDROcodone/Acetaminophen 10/325 mg Tablet PO PRN ×4 (05:38→21:28)
[2020-06-18] MEDS: HumaLOG 300 UNITS/3 ML VIAL SC PRN ×3 (05:39→17:13)
[2020-06-18] MEDS: Sodium Chloride 0.9% 1,000 ML IV SCH (05:41)
[2020-06-18 06:03] LABS: #Lymphocytes 0.3 thou/uL (1.20-3.40); #Monocytes 0.4 thou/uL (0.11-0.59); %Eosinophils 0.5 % (0.0-10.0); %Lymphocytes 5.8 % (21.0-51.0); %Monocytes 6.3 % (0.0-10.0); %Neutrophils 87.3 % (42.0-75.0); Hemoglobin 9.2 g/dL (14.0-18.0); Mean Corpuscular Hemoglobin 27.4 pg (27.0-31.0); Mean Corpuscular Volume 91.3 fL (78.0-98.0); Mean Platelet Volume 11.5 fL (7.4-10.4); Platelet Count 40 thou/uL (130-400); RBC Distribution Width 17.9 % (11.5-14.5); Red Blood Cell (RBC) Count 3.36 mill/uL (4.70-6.10); White Blood Cell (WBC) Count 5.8 thou/uL (4.8-10.8)
[2020-06-18 06:05] LABS: INR-International Normal Ratio 1.7; PTT 39.4 sec (22.9-36.1); Prothrombin Time 19.9 sec (12.0-14.7)
--- NOTE | 2020-06-18 06:09 | PDOC.FM ---
Addendum entered and electronically signed by Latonia Mota DO 06/18/20 10:41: Initial Tachycardia and respiratory rate likely due to volume overload 2/2 cirrhosis. SBP not likely due to ascites fluid results, will continue rocephin and await GI recs. - will resume nadalol Original Note: - Subjective Subjective: Patient complaining of continued abdominal pain throughout the night, noting that the norco was not lasting 6 hours. No increased shortness of breath, no chest pain. - Objective MAR Reviewed: Yes Vital Signs & Weight: Vital Signs (12 hours) Temp Pulse Resp BP Pulse Ox 06/18/20 04:57 98.0 F 78 20 116/75 92 L 06/18/20 00:00 98.1 F 79 20 104/69 93 L 06/17/20 20:00 98.1 F 82 18 98/63 92 L Weight Admit Weight 111.448 kg Weight 111.448 kg I&O: 06/16/20 06/17/20 06/18/20 06:59 06:59 06:59 Output Total 352 Balance -352 Result Diagrams: 06/18/20 05:42 06/18/20 05:42 Phys Exam - Physical Examination Constitutional: NAD HEENT: PERRLA, moist MMs Respiratory: no wheezing rhonchi Cardiovascular: RRR, no significant murmur Gastrointestinal: positive bowel sounds abdominal distention with caput medusa, TTP worse on R 1+ edema b/l , b/l BKAs garbled speech, reported baseline Psychiatric: A&O x 3 Skin: no rash Dx/Plan - Plan Plan: #Sepsis 2/2 Suspected SBP In ED: HR 170s, RR 30s, procal .021; vitals currently stable XR: RLL atelectasis with possible infiltrate Sees GI: Yeison, has not had f/u in 1-2 years Paracentesis 06/17: 10L of fluid removed - stopped nadalol -Dr. Latham started albumin infusion TID, stopped spironolactone, holding lasix Ascites fluid: moderate WBCs, gram positive cocci in pairs - Rocephin 2gm daily, will discuss with Dr. Latham if he would like cefepime , appreciate recs - norco q6hr for pain control; will switch to q4hr #Cirrhosis 2/2 PITTMAN - MELD- Na Score 20: 7-10% 90 day mortality - Child-Curran Score 9: Child Class B; pt says he is considering transplant - INR 1.5, PT 18.3 - ammonia normal, will continue home lactulose - Continue home meds: continue PPI, hold lasix and spironolactone - Palliative care consulted for goals of care and symptoms management #Cough - chronic - on PE, rhonchi heard bilat - pt stated he did not want breathing treatment #ALEXANDER, resolved - Cr 1.35 > Cr 1.12 - held gabapentin - did not add IVF due to hx of HF, pitting edema and rhonchi heard on lung exam #Hx Thrombocytopenia, likely 2/2 cirrhosis - platelets 70s #Hx of GI bleed - hx of banding of esophageal varices - will hold DVT prophylaxis #HTN - continue home meds - will monitor #HFpEF - echo 08/2019 showed EF 55-60% with grade 1/3 diastolic dysfunction - appeared fluid overloaded on exam, no fluids started at this time #DM - SSI, glucose checks ACHS #tobacco abuse - encourage cessation DVT PPx: none due to hx of GI bleed, and BKA GI PPx: PPI Code: Full Dispo: consult IR/GI, LOS >48 hours Addendum - Attending - Attending Attestation Date/Time: 06/18/20 1051 I personally evaluated the patient and discussed the management with Dr. Mota. I agree with the History, Examination, Assessment and Plan documented above with any addition or exceptions noted below. Patient feeling improved. Continue albumin. GI on board, monitoring renal function. Liver function overall stable at this time. Discuss with family about halfway plans.
[2020-06-18 06:26] LABS: ALT (SGPT) Less than 7 U/L (8-55); AST (SGOT) 8 U/L (5-34); Albumin 2.1 g/dL (3.5-5.0); Alkaline Phosphatase 75 U/L (40-110); Anion Gap 8 mmol/L (10-20); BUN (Urea Nitrogen) 28 mg/dL (8.4-25.7); Bilirubin, Total 1.4 mg/dL (0.2-1.2); Calc. Creatinine Clearance 122 mL/min (70-130); Calcium 7.6 mg/dL (7.8-10.44); Carbon Dioxide 32 mmol/L (22-29); Chloride 98 mmol/L (98-107); Estimated GFR-MDRD 69; Globulin 4.4 g/dL (2.4-3.5); Glucose 197 mg/dL (70-105); Potassium 4.3 mmol/L (3.5-5.1); Protein, Total 6.5 g/dL (6.0-8.3); Sodium 134 mmol/L (136-145)
[2020-06-18] MEDS: Albumin 25% 25 GM/100 ML BOT IVPB SCH ×3 (09:29→21:28)
[2020-06-18] MEDS: Venlafaxine HCl XR 150 MG CAP PO SCH (09:30)
[2020-06-18] MEDS ORDERED: Nadolol 40 MG TAB PO SCH (11:15)
--- NOTE | 2020-06-18 12:26 | RAD ---
EXAM: Single view of the chest HISTORY: Hypoxia COMPARISON: 06/16/2020 FINDINGS: Single view of the chest shows a normal sized cardiomediastinal silhouette. Atelectasis is seen in the right lung base. Low lung volumes are seen on this exam. There is no evidence of consolidation, mass, or pleural effusion. No acute osseous abnormality. IMPRESSION: Right basilar atelectasis
[2020-06-18] MEDS: cefTRIAXone\\ROCEPHIN 2 GM in Sodium Chloride 0.9% 100 ML IVPB SCH (17:12)
--- NOTE | 2020-06-18 20:32 | PRG ---
DATE OF SERVICE: 06/18/2020 REASON FOR CONSULTATION: Cirrhosis, ascites. SUBJECTIVE: The patient underwent paracentesis yesterday and had improvement of his abdominal pain, although not resolution. He also complains of continued abdominal discomfort today, but not necessarily pain located primarily in the lower abdominal quadrants. He had been able to tolerate a diet, but did not eat all of his food today due to anorexia/decreased appetite. He does continue to have some mild confusion concerning his current clinical situation, but seems to be improved when compared to on admission. Otherwise, he denies any nausea, vomiting, fevers, chills, hematemesis, melena, hematochezia, odynophagia, or dysphagia. OBJECTIVE: VITAL SIGNS: Temperature 98.3, pulse 71, blood pressure 110/73, respiratory rate 16, and saturating 93% on room air. GENERAL: The patient is lying in bed, in no acute distress. Alert and oriented x3. CARDIOVASCULAR: Regular rate and rhythm. RESPIRATORY: Coarse breath sounds auscultated in all lung snyder with expiration. ABDOMEN: Normoactive bowel sounds. Mildly tense to palpation. Moderate to severe abdominal distention with tenderness to palpation in the lower abdominal quadrants. EXTREMITIES: Bilateral [id number]-[id number] amputations with 1+/2+ bilateral lower extremity edema extending into the lower abdomen. LABORATORY DATA: CBC with a white blood cell count of 5.8, hemoglobin 9.2, hematocrit 30.7, and platelets 40. INR 1.7. Chemistry with a sodium of 134, potassium 4.3, chloride 98, CO2 of 32, BUN 28, creatinine 1.12, glucose 197, AST 8, ALT less than 7, alkaline phosphatase 75, total bilirubin 1.4, calculated MELD score of 19. IMAGING DATA: No current GI imaging is available for review. 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 1. Abdominal pain/ascites. The patient is presenting with fairly acute onset of lower abdominal pain characterized as a sharp, pressure type sensation in addition to increasing/worsening ascites. He underwent paracentesis on June 17, 2020 with initial cytology not indicative of spontaneous bacterial peritonitis. However, upon review of microbiology, the fluid culture is growing out gram-positive cocci in pairs concerning for bacteria, ascites. The patient is currently getting ceftriaxone 2 g daily as part of impaired treatment for possible spontaneous bacterial peritonitis, which I think is appropriate at this time, especially with the presence of bacteria ascites. a. Recommendations: I. Continued antibiotics as you are doing. II. We would follow up microbiology for possible speciation and sensitivities and with further therapy guided by sensitivities. III. Pain control per primary team. 2. Ascites. The patient is presenting with worsening abdominal ascites as indicated by significant abdominal distention and removal of approximately 10 L of fluid removed. Initial cytology not indicative of infection, but fluid cultures growing a gram-positive cocci in pairs concerning for bacteria ascites. Upon review of the patient's labs, he does have an elevated BUN, indicative of probable prerenal azotemia secondary to diuretic use as an outpatient. However, the current clinical situation appears that the patient is intravascularly depleted, but extravascularly hypervolemic. a. Recommendations: I. We would continue albumin to maintain colloid oncotic pressure within the intravascular space in order to supply the kidney with greater perfusion. II. We will hold on diuretic therapy for another day, then consider restarting spironolactone at 50 mg daily. III. Continue low-sodium, high-protein diet. 3. Hepatic encephalopathy. The patient initially presented with complaints of altered mental status with both auditory and visual hallucinations. Upon review of the patient's clinical history, this seems to be consistent with hepatic encephalopathy despite the fact that the patient's ammonia was within normal limits. Currently, responding well to lactulose administration. a. Recommendations: I. We would continue patient on lactulose 10 g three times daily with a goal of titrating to have the patient have 3 to 4 bowel movements daily. II. Continue to monitor for worsening hepatic encephalopathy. 4. Esophageal varices. The patient is presenting with a history of esophageal varices with prior esophagogastroduodenoscopies in the past with band ligation to eradication. He underwent EGD in March of 2020, with small esophageal varices seen in the distal esophagus. However, given his prior history of bleeding esophageal varices, placement on nonselective beta-blockade is reasonable. a. Recommendations: We would continue nadolol 20 mg daily with a goal of having a target heart rate between 55 and 65 beats per minute and systolic blood pressure greater than 100 mmHg. We will continue to follow. Please call with any questions. Job ID: [id number]
[2020-06-19] MEDS: HYDROcodone/Acetaminophen 10/325 mg Tablet PO PRN ×3 (03:47→20:47)
[2020-06-19] MEDS: HumaLOG 300 UNITS/3 ML VIAL SC PRN ×2 (05:35→12:27)
[2020-06-19 05:43] LABS: INR-International Normal Ratio 1.7; PTT 39.6 sec (22.9-36.1); Prothrombin Time 19.7 sec (12.0-14.7)
[2020-06-19 05:58] LABS: ALT (SGPT) Less than 7 U/L (8-55); AST (SGOT) 10 U/L (5-34); Albumin 2.6 g/dL (3.5-5.0); Alkaline Phosphatase 71 U/L (40-110); Anion Gap 11 mmol/L (10-20); BUN (Urea Nitrogen) 21 mg/dL (8.4-25.7); Bilirubin, Total 1.5 mg/dL (0.2-1.2); Calc. Creatinine Clearance 138 mL/min (70-130); Calcium 7.8 mg/dL (7.8-10.44); Carbon Dioxide 30 mmol/L (22-29); Chloride 98 mmol/L (98-107); Estimated GFR-MDRD 79; Globulin 4.1 g/dL (2.4-3.5); Glucose 194 mg/dL (70-105); Potassium 4.3 mmol/L (3.5-5.1); Protein, Total 6.7 g/dL (6.0-8.3); Sodium 135 mmol/L (136-145)
--- NOTE | 2020-06-19 06:51 | PDOC.FM ---
- Subjective Subjective: Patient resting comfortably in bed. Notes his abdominal pain is better today. No acute events overnight. No other complaints. - Objective MAR Reviewed: Yes Vital Signs & Weight: Vital Signs (12 hours) Temp Pulse Resp BP Pulse Ox 06/19/20 04:00 98.2 F 86 16 127/82 93 L 06/19/20 00:00 98.1 F 82 16 120/77 94 L 06/18/20 20:00 93 L 06/18/20 19:30 98.3 F 71 16 110/73 93 L Weight Admit Weight 111.448 kg Weight 111.448 kg I&O: 06/17/20 06/18/20 06/19/20 06:59 06:59 06:59 Intake Total 1380 580 Output Total 353 2 Balance 1027 578 Result Diagrams: 06/19/20 06:57 06/19/20 05:18 Phys Exam - Physical Examination Constitutional: NAD HEENT: PERRLA, moist MMs rhonchi bilaterally Cardiovascular: RRR, no significant murmur Gastrointestinal: positive bowel sounds TTP across abdomen, abdominal distention with caput medusa Musculoskeletal: no edema 2+ pitting edema bilateral thighs, b/l BKAs Neurological: non-focal, normal sensation garbled speech, reported baseline Psychiatric: A&O x 3 Dx/Plan - Plan Plan: #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 Latham started albumin infusion TID, stopped spironolactone, holding lasix - Dr. Biswas saw 06/18 recommended continuin albumin, holding diuretics with possible restart spironolactone at 50 today -Rocephin 2gm daily -norco q4hr for pain control - will continue home lactulose - continue PPI - Palliative care consulted for goals of care and symptoms management Acute hypoxic respiratory failure, 2/2 volume overload No home O2, requiring 2LO2 06/18 d/t low sats CXR: RLL atelectasis with possible infiltrate --> Repeat shows CXR: atelectasis Patient has chronic cough, rhonchi bilaterally - pt stated he did not want breathing treatment - decreased sats likely 2/2 holding lasix and spironolactone, will continue today #ALEXANDER, resolved - Cr 1.35 > Cr 1.12 > .99 - held gabapentin - did not add IVF due to hx of HF, pitting edema and rhonchi heard on lung exam #Hx Thrombocytopenia, likely 2/2 cirrhosis - platelets 70s #Hx of GI bleed - hx of banding of esophageal varices - will hold DVT prophylaxis #HTN - continue home meds - will monitor #HFpEF - echo 08/2019 showed EF 55-60% with grade 1/3 diastolic dysfunction - appeared fluid overloaded on exam, no fluids started at this time #DM - SSI, glucose checks ACHS #tobacco abuse - encourage cessation DVT PPx: none due to hx of GI bleed, and BKA GI PPx: PPI Code: Full Dispo: consult GI, LOS >48 hours Addendum - Attending - Attending Attestation Date/Time: 06/19/20 1110 I personally evaluated the patient and discussed the management with Dr. Mota. I agree with the History, Examination, Assessment and Plan documented above with any addition or exceptions noted below. Patient stable. Continue IV abx, await cultures. GI on board. Family meeting this morning and they are discuss their future plans regarding his cirrhosis.
[2020-06-19 07:25] LABS: #Basophils 0.1 thou/uL (0.0-0.2); #Lymphocytes 0.2 thou/uL (1.20-3.40); #Monocytes 0.3 thou/uL (0.11-0.59); #Neutrophils 4.6 thou/uL (1.40-6.50); %Basophils 1.6 % (0.0-1.0); %Eosinophils 0.6 % (0.0-10.0); %Monocytes 5.1 % (0.0-10.0); %Neutrophils 88.8 % (42.0-75.0); Hemoglobin 9.1 g/dL (14.0-18.0); Mean Corpuscular Hemoglobin 27.2 pg (27.0-31.0); Mean Corpuscular Volume 90.8 fL (78.0-98.0); Mean Platelet Volume 12.7 fL (7.4-10.4); Platelet Count 39 thou/uL (130-400); RBC Distribution Width 18.3 % (11.5-14.5); Red Blood Cell (RBC) Count 3.35 mill/uL (4.70-6.10); White Blood Cell (WBC) Count 5.2 thou/uL (4.8-10.8)
[2020-06-19 08:21] LABS: Anisocytosis MODERATE=16-30 cells (100X) (0-5/hpf); Hypochromia SLIGHT = 6-15 cells (100X) (0-5/hpf); MDiff Complete? YES; Platelet Morphology Comment Appears Decreased; Polychromasia SLIGHT = 2-3 cells (100X) (0-2/hpf)
[2020-06-19] MEDS ORDERED: Furosemide 20 MG TAB PO SCH (09:00)
[2020-06-19] MEDS: Venlafaxine HCl XR 150 MG CAP PO SCH (09:16)
[2020-06-19] MEDS: Nadolol 40 MG TAB PO SCH (09:19)
[2020-06-19] MEDS ORDERED: Spironolactone 100 MG TAB PO SCH (12:00)
[2020-06-19] MEDS ORDERED: SPIRONOLACTONE 100 MG PO SCH (12:00)
[2020-06-19] MEDS ORDERED: Lidocaine 1% PF 5 ML VIAL ONE (14:15)
[2020-06-19] MEDS ORDERED: Sodium Bicarbonate 2.5 MEQ/5 ML VIAL ONE (14:15)
--- NOTE | 2020-06-19 15:30 | PRG ---
DATE OF SERVICE: 06/19/2020 REASON FOR CONSULTATION: Cirrhosis, ascites. SUBJECTIVE: Today, the patient states that his abdominal pain is better when compared to previous. He had been able to tolerate his diet without any difficulty, but does still have some mild abdominal pain in the lower abdominal quadrant, especially with movements. He also adds that his mind seems clear today when compared to previous. On conferring with the patient's nursing staff, she adds that he had approximately 8 bowel movements yesterday and refused the evening dose of lactulose because of the increased amounts of bowel movements that he has had and also refused the morning dose this morning because of ongoing diarrhea. Otherwise, he denies any nausea, vomiting, fevers, chills, hematemesis, melena, hematochezia, odynophagia, or dysphagia. OBJECTIVE: VITAL SIGNS: Temperature 98, pulse 74, blood pressure 121/76, respiratory rate 24, and saturating 90% on 2 L nasal cannula. GENERAL: The patient was lying in bed, in no acute distress. Alert and oriented x3. No conversational dyspnea. CARDIOVASCULAR: A 3/6 systolic murmur was best heard at the right upper sternal border. Otherwise, regular rate and rhythm. RESPIRATORY: Mildly coarse breath sounds auscultated primarily in the left upper and left lower lobes with clear to auscultation in the right lung field (improved when compared to previous). ABDOMEN: Normoactive bowel sounds, [id number] tense to palpation, [id number]-zm-[id number] abdominal distention with tenderness to palpation in the lower abdominal quadrants. Umbilical hernia present. EXTREMITIES: Bilateral kcdov-ywu-yece amputations with 1+/2+ bilateral edema extending into the lower abdomen. LABORATORY DATA: CBC with a white blood cell count of 5.2, hemoglobin 9.1, hematocrit 30.5, and platelets 39. INR 1.7. Chemistry with a sodium of 135, potassium 4.3, chloride 98, CO2 of 30, BUN 21, creatinine 0.99, glucose 194, AST 10, ALT less than 7, alkaline phosphatase 71, and total bilirubin 1.5. IMAGING DATA: No current GI imaging is available for review. ASSESSMENT AND PLAN: The patient is a 54-year-old male with past medical history of diabetes, hyperlipidemia, hypertension, cerebrovascular accident x2, morbid obesity, and nonalcoholic steatohepatitis complicated by cirrhosis, which was further complicated by ascites, hepatic encephalopathy, and esophageal varices presenting with altered mental status and abdominal pain. 1. Abdominal pain/ascites. The patient initially presented with acute onset of lower abdominal pain in addition to worsening ascites. He underwent paracentesis on June 17, 2020 with initial findings not indicative of spontaneous bacterial peritonitis. However, upon review of the microbiology, the fluid cultures growing out gram-positive cocci in pairs concerning for bacteria ascites. Currently, the patient is getting ceftriaxone 2 g daily as part of treatment for possible spontaneous bacterial peritonitis/bacteria ascites with increasing abdominal distention along with all the fluids he is receiving during this admission. A repeat paracentesis may be indicated in addition to placing the patient on low dose spironolactone to prevent further reaccumulation. a. Recommendations: I. Continue antibiotics as you are doing for possible SBP/bacteria ascites. II. Follow up on microbiology for possible speciation and sensitivity to guide further therapy. III. We will restart the patient on spironolactone 50 mg daily. IV. Continue albumin administration. V. We would repeat paracentesis for therapeutic purposes with the possibility of improving his abdominal pain. . Continue low-sodium, high-protein diet. 2. Hepatic encephalopathy. The patient initially presented with complaints of altered mental status with both auditory and visual hallucinations. Upon review of the patient's clinical history and chart review, this seems to be most consistent with hepatic encephalopathy that has responded well to lactulose administration. a. Recommendations: I. With his frequent bowel movements, we would decrease the lactulose to 10 g twice daily with a goal of titrating to have 3 to 4 bowel movements daily. II. Continue to monitor for worsening hepatic encephalopathy. 3. Esophageal varices. The patient is presenting with a history of esophageal varices with prior EGDs in the past with band ligation to eradication of these varices. He underwent EGD in March of 2020, with small esophageal varices seen in the distal esophagus and had been placed on nonselective beta blockade. a. Recommendations: I. We would continue nadolol 20 mg daily with a goal of having a target heart rate between 55 to 65 beats per minute and systolic blood pressure greater than 100 mmHg. II. Repeat EGD was not indicated until March 2021 or less the patient decompensates further or has the clinical indication to do so. We will continue to follow. Please call with any questions. Job ID: [id number]
[2020-06-19] MEDS: Albumin 25% 25 GM/100 ML BOT IVPB SCH ×2 (16:02→20:45)
[2020-06-19 16:47] LABS: RBC Count-Automated (BF) 249 /cu.mm; WBC/Nucleated-Auto (BF) 34 uL
--- NOTE | 2020-06-19 16:47 | ULT ---
Ultrasound-guided paracentesis: HISTORY: Cirrhosis and recurrent ascites. FINDINGS: Informed consent obtained prior to the procedure. Preprocedural imaging demonstrated intrap eritoneal free fluid. An area was marked in the Right lower quadrant , and then meticulously prepped and draped in normal s terile fashion and anesthetized with 1% buffered lidocaine. With direct sonographic guidance, a 19-gauge needle and 5 Occ[place] Yueh catheter were advanced into the abdomen. After the return of fluid, the catheter was advanced, and the needle was removed. Approximately 7 L of clear straw-colored fluid was aspirated. The introducer sheath was removed, and hemostasis was achieved with direct pressure. A dry sterile dressing was placed. The patient tolerated the procedure well and without immediate complication. The patient is receiving albumin int ravenously 3 times a day. A large amount of intraperitoneal free fluid persists after paracentesis. IMPRESSION: Technically successful ultrasound-guided paracentesis.
[2020-06-19 16:53] LABS: BF Color Yellow; Body Fluid Source Ascites Body Fluid; Clarity Hazy (Clear); Tube # EDTA
[2020-06-19] MEDS: cefTRIAXone\\ROCEPHIN 2 GM in Sodium Chloride 0.9% 100 ML IVPB SCH (17:17)
[2020-06-19 18:12] LABS: BF Segmented Neutrophils 13 %; Cell Count Non Hematic 53 %; Lymphocytes 34 %
[2020-06-19] MEDS: HumuLIN 70/30 (300 UNITS/3 ML VIAL) SC SCH (20:48)
[2020-06-19] MEDS ORDERED: INSULN ASP SQ SCH (21:00)
[2020-06-19] MEDS ORDERED: [UNRECOGNIZED DRUG - OTHER] SQ SCH (21:00)
[2020-06-19] MEDS ORDERED: INSULIN ASPART PROT SQ SCH (21:00)
[2020-06-20] MEDS: HYDROcodone/Acetaminophen 10/325 mg Tablet PO PRN ×5 (00:48→20:10)
[2020-06-20 06:01] LABS: #Lymphocytes 0.3 thou/uL (1.20-3.40); #Monocytes 0.3 thou/uL (0.11-0.59); %Basophils 0.2 % (0.0-1.0); %Eosinophils 0.5 % (0.0-10.0); %Lymphocytes 4.8 % (21.0-51.0); %Monocytes 4.5 % (0.0-10.0); Hemoglobin 9.8 g/dL (14.0-18.0); Mean Corpuscular HGB CONC 29.2 g/dL (32.0-36.0); Mean Corpuscular Hemoglobin 26.5 pg (27.0-31.0); Mean Corpuscular Volume 90.8 fL (78.0-98.0); Mean Platelet Volume 5.8 fL (7.4-10.4); Platelet Count 51 thou/uL (130-400); RBC Distribution Width 18.3 % (11.5-14.5); Red Blood Cell (RBC) Count 3.68 mill/uL (4.70-6.10); White Blood Cell (WBC) Count 5.6 thou/uL (4.8-10.8)
[2020-06-20 06:05] LABS: INR-International Normal Ratio 1.6; PTT 39.6 sec (22.9-36.1); Prothrombin Time 18.9 sec (12.0-14.7)
[2020-06-20 06:26] LABS: ALT (SGPT) Less than 7 U/L (8-55); AST (SGOT) 13 U/L (5-34); Albumin 2.7 g/dL (3.5-5.0); Alkaline Phosphatase 69 U/L (40-110); Anion Gap 9 mmol/L (10-20); BUN (Urea Nitrogen) 16 mg/dL (8.4-25.7); Bilirubin, Total 2.1 mg/dL (0.2-1.2); Calc. Creatinine Clearance 175 mL/min (70-130); Carbon Dioxide 28 mmol/L (22-29); Chloride 101 mmol/L (98-107); Estimated GFR-MDRD Greater than 90; Globulin 4.1 g/dL (2.4-3.5); Glucose 71 mg/dL (70-105); Potassium 4.3 mmol/L (3.5-5.1); Protein, Total 6.8 g/dL (6.0-8.3); Sodium 134 mmol/L (136-145)
--- NOTE | 2020-06-20 07:53 | PDOC.EVN ---
Addendum - Attending - Attending Attestation Date/Time: 06/20/20 2420 I personally evaluated the patient and discussed the management with Dr. Nithya Coelho. I agree with the History, Examination, Assessment and Plan documented in the progress note with any addition or exceptions noted below. Patient overall stable, resting comfortably. Abdominal pain improved s/p paracentesis yesterday, 7L off, 17L off this admission. Continue albumin, abx, await further GI recs. Family discussing future directions of his care regarding pursuing liver transplant versus hospice care. Liver function overall appears stable at this time.
--- NOTE | 2020-06-20 07:58 | PDOC.FM ---
- Subjective Subjective: Pt is doing well this morning. He was endorsing some abdominal pain but he was about to receive his next dose of pain medication. He endorses mild dyspnea but this appears to be normal for him as he states his usually sits him up on the side of the bed when this happens but that overnight there was no one to help him sit up. He is A&O x3. He wants to go home to discuss smoking cessation with liver transplant vs home hospice, with his . He is adamant he wants to have this conversation with her, in person. - Objective Vital Signs & Weight: Vital Signs (12 hours) Temp Pulse Resp BP Pulse Ox 06/20/20 07:15 97.9 F 69 20 111/67 97 06/20/20 05:12 97.9 F 72 18 104/67 92 L 06/20/20 00:00 98.7 F 78 18 100/59 L 100 06/19/20 22:10 93 L Weight Admit Weight 111.448 kg Weight 111.448 kg I&O: 06/19/20 06/20/20 06/21/20 06:59 06:59 06:59 Intake Total 680 100 Output Total 7000 Balance -6320 100 Result Diagrams: 06/20/20 05:38 06/20/20 05:38 Phys Exam - Physical Examination Constitutional: NAD Appear CTAB but upper airway sounds make it difficult to auscultate Cardiovascular: RRR, no significant murmur Gastrointestinal: positive bowel sounds Distended with caput medusa, ttp Neurological: non-focal Psychiatric: normal affect, A&O x 3 Skin: no rash Dx/Plan - Plan Plan: 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 Latham started albumin infusion TID, holding lasix - Dr. Biswas saw 06/18 recommended continuing albumin and restarted spironolactone at 50 (06/19) - Rocephin 2gm daily - [place] q4hr for pain control Will continue home lactulose Continue PPI Palliative care consulted for goals of care and symptoms management - Smoking cessation req'd for liver transplant. Otherwise, needs hospice. - Full code - MPOA Acute hypoxic respiratory failure, 2/2 volume overload No home O2, sats in 90s on RA CXR: RLL atelectasis with possible infiltrate --> Repeat shows CXR: atelectasis Patient has chronic cough, rhonchi bilaterally - Pt stated he did not want breathing treatment ALEXANDER, resolved - Cr 1.35 > Cr 1.12 > .99 - Held gabapentin - Did not add IVF due to hx of HF Hx Thrombocytopenia, likely 2/2 cirrhosis - Platelets 70s on admission -> 51 on 06/20 - Consider replacing if <25 Hx of GI bleed - hx of banding of esophageal varices - will hold DVT prophylaxis HTN - continue home meds - will monitor HFpEF - echo 08/2019 showed EF 55-60% with grade 1/3 diastolic dysfunction - appeared fluid overloaded on exam, no fluids started at this time DM - SSI, glucose checks ACHS Tobacco abuse - encourage cessation - Cessation req'd for liver transplant DVT PPx: none due to hx of GI bleed, and BKA GI PPx: PPI Code: Full Dispo: consult GI, LOS >48 hours
[2020-06-20] MEDS: Nadolol 40 MG TAB PO SCH (08:50)
[2020-06-20] MEDS: Venlafaxine HCl XR 150 MG CAP PO SCH (08:50)
[2020-06-20] MEDS: Albumin 25% 25 GM/100 ML BOT IVPB SCH ×2 (08:51→16:00)
[2020-06-20] MEDS: Spironolactone 25 MG TAB PO SCH (09:03)
--- NOTE | 2020-06-20 16:50 | PRG ---
DATE OF SERVICE: 06/19/2020 REASON FOR CONSULTATION: Cirrhosis, ascites, altered mental status. SUBJECTIVE: Per the nursing staff and per the patient's , he does continue to have some small left memory lapses and at times has been unable to relate to his the current plan of care during this hospitalization, which has been frustrating to the patient's . I did speak with the patient and his this morning and updated her on the current plan of care. Otherwise, the patient seems to be doing much better with no acute events or problems overnight. He does have some mild shortness of breath, especially when lying down flat in the bed, but this seems to be secondary to his increased abdominal distention/ascites. Per nursing staff, he has had approximately 3 to 4 bowel movements today while on the current dosing of lactulose. Otherwise, he denies any abdominal pain continues but seems to be a little bit improved when compared to previous. Otherwise, he denies any nausea, vomiting, fevers, chills, hematemesis, melena, hematochezia, odynophagia, or dysphagia. OBJECTIVE: VITAL SIGNS: Temperature 98.1, pulse 69, blood pressure 132/68, respiratory rate 22, saturating 97% on room air. GENERAL: The patient was lying in bed, in no acute distress. Alert and oriented x3. No conversational dyspnea. CARDIOVASCULAR: A 3/6 systolic murmur best heard at the right upper sternal border. RESPIRATORY: Mild coarse breath sounds auscultated primarily in the left upper and left lower lobes, but clear to auscultation in the right lung snyder. ABDOMEN: Normoactive bowel sounds, severe abdominal distention with tenderness to palpation in the lower abdominal quadrants. Umbilical hernia present. EXTREMITIES: Bilateral [id number] amputations with 1+/2+ bilateral edema extending into the lower abdomen. LABORATORY DATA: CBC with a white blood cell count of 5.6, hemoglobin 9.8, hematocrit 33.4, platelets 51. INR 1.6. Chemistry with a sodium of 134, potassium 4.3, chloride 101, CO2 of 28, BUN 16, creatinine 0.78, glucose 71, AST 13, ALT less than 7, alkaline phosphatase 69, total bilirubin 2.1. Calculated MELD score of 18. IMAGING DATA: No current GI imaging is available for review. ASSESSMENT AND PLAN: The patient is a 54-year-old male with past medical history of diabetes, hyperlipidemia, hypertension, cerebrovascular accident x2, morbid obesity, and nonalcoholic steatohepatitis complicated by cirrhosis and with a nonalcoholic steatohepatitis resulting in cirrhosis, which is further complicated by ascites, hepatic encephalopathy and esophageal varices, presenting with continued ascites and abdominal pain. Abdominal pain/ascites. The patient continues to have increased lower quadrant abdominal pain, which seems to be secondary to his massive ascites. He has currently undergone two paracenteses during this admission with 10 L and seven L removed respectively. However, he continues to have a significant amount of abdominal ascites with the acute kidney injury seen on admission. His kidney function has improved/resolved, so starting the patient on diuretic therapy is indicated. Recommendations; 1. Could discontinue the antibiotics given the lack of evidence of SBP on either paracentesis and lack of culture growth on either ascites fluid cultures thus far. 2. Continue to monitor renal function after restarting spironolactone 50 mg daily. 3. Would discontinue albumin administration at this time and continue to monitor the patient's volume status. 4. We would consider repeat paracentesis prior to discharge for therapeutic purposes to decrease abdominal pain and dyspnea. 5. Continue low-sodium, high-protein diet with sodium intake less than 2000 mg daily. 6. Hepatic encephalopathy. 7. The patient initially presented with complaints of altered mental status with both auditory and visual hallucinations. Over the course of the hospitalization, this has resolved, although the patient's still thinks that he has the hallucinations, it is unclear if this is due to hepatic encephalopathy versus delirium or underlying psychiatric disorder. 8. Continue the lactulose at 10 g twice daily with the goal of titrating to 3 to 4 bowel movements daily. 9. Continue to monitor for worsening hepatic encephalopathy. If worsening, would add rifaximin 550 mg b.i.d. Esophageal varices. The patient had an EGD in March 2020 showing small esophageal varices and was subsequently placed on nonselective beta blockade. He has not had any episodes of variceal bleeding or hematemesis since that time. Recommendations; 1. Continue nadolol 20 mg daily with goal of having a target heart rate between 55 and 65 beats per minute and a systolic blood pressure greater than 100 mmHg. Repeat EGD indicated in March 2021. 2. Given stabilization of his mental status, restarting diuretics. The patient could potentially have a repeat therapeutic paracentesis and then discharged to home without followup in the outpatient GI Clinic. We will sign off at this time. Please call with any questions. Job ID: [id number]
[2020-06-20] MEDS: cefTRIAXone\\ROCEPHIN 2 GM in Sodium Chloride 0.9% 100 ML IVPB SCH (18:31)
[2020-06-20] MEDS: HumuLIN 70/30 (300 UNITS/3 ML VIAL) SC SCH (20:16)
[2020-06-21] MEDS: HYDROcodone/Acetaminophen 10/325 mg Tablet PO PRN ×4 (00:11→15:27)
--- NOTE | 2020-06-21 05:38 | PDOC.FM ---
- Subjective Subjective: Mr. Farias was sleeping at a slight incline this morning and is doing well this morning and has no complaints. He rates his pain as 6/10 today and endorses some mild sacral pain consistent with wound care findings of erythema likely 2/2 wearing diapers and laying in bed. Denies dyspnea/SOB/CP/V. - Objective Vital Signs & Weight: Vital Signs (12 hours) Temp Pulse Resp BP Pulse Ox 06/20/20 22:26 97 06/20/20 20:00 98.1 F 72 18 155/89 H 97 Weight Admit Weight 111.448 kg Weight 111.448 kg I&O: 06/19/20 06/20/20 06/21/20 06:59 06:59 06:59 Intake Total 479 960 3305 Output Total 7000 Balance -6320 100 1300 Result Diagrams: 06/21/20 05:36 06/20/20 05:38 Phys Exam - Physical Examination Constitutional: NAD (Easily awakened) Respiratory: clear to auscultation bilateral (upper airway breath sounds audible ) Cardiovascular: RRR, no significant murmur Gastrointestinal: positive bowel sounds Abdomen hard d/t distention. 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 Repeat on 06/18, 7L removed Plan for one more paracentesis for sx management prior to d/c - Ascites fluid: moderate WBCs, gram positive cocci in pairs - GI recs: Dr. Latham started albumin infusion TID, holding lasix Dr. Biswas saw 06/18 recommended continuing albumin and restarted spironolactone at 50 (06/19) 06/20 Recommended d/c of Albumin, continuing spironolactone at 50, continuing Nadolol, continuing lactulose to maintain 3-4 BMs/day. Recommended considering starting Rifaximin if AMS continues/worsens. Signed off - All cx came back neg therefore discontinue Rocephin, per GI - Continue PPI - Palliative care consulted for goals of care and symptoms management Smoking cessation req'd for liver transplant. Otherwise, needs hospice. Full code MPOA Acute hypoxic respiratory failure, 2/2 volume overload - No home O2, sats in 90s on RA - CXR: RLL atelectasis with possible infiltrate --> Repeat shows CXR: atelectasis - Patient has chronic cough - Pt stated he did not want breathing treatment - Breath sounds difficult to differentiate from upper airway sounds - Endorses dyspnea when laying flat, likely 2/2 abdominal distension Sacral erythema - Documented by wound care on 06/20 - Likely 2/2 multiple BMs per day, diaper use, and lack of ambulation - Recommend frequent diaper changes and repositioning - Continue to monitor for development of ulcers Hx Thrombocytopenia, likely 2/2 cirrhosis - Platelets 70s on admission -> 51 on 06/20 - Consider replacing if <25 Hx of GI bleed - Hx of banding of esophageal varices - Will hold DVT prophylaxis - Per GI, continue Nadolol with goal HR of 55-65 and SBP >100 HTN - continue home meds - will monitor HFpEF - echo 08/2019 showed EF 55-60% with grade 1/3 diastolic dysfunction - appeared fluid overloaded on exam, no fluids started at this time DM - SSI, glucose checks ACHS ALEXANDER, resolved - Cr 1.35 > Cr 1.12 > .99 - Held gabapentin - Did not add IVF due to hx of HF Tobacco abuse - encourage cessation - Cessation req'd for liver transplant DVT PPx: none due to hx of GI bleed, and BKA GI PPx: PPI Code: Full Dispo: pending therapeutic paracentesis Addendum - Attending - Attending Attestation Date/Time: 06/21/20 6125 I personally evaluated the patient and discussed the management with Dr. Nithya Coelho. I agree with the History, Examination, Assessment and Plan documented above with any addition or exceptions noted below. Patient resting comfortably. GI has now signed off, can stop Rocephin as no evidence for SBP. Need to monitor volume status, and patient and family to determine future directions of treatment (hospice versus transplant eval) after discharge. Consider paracentesis prior to dc, either this afternoon or tomorrow.
[2020-06-21 05:57] LABS: #Eosinphils 0.1 thou/uL (0.0-0.7); #Lymphocytes 0.4 thou/uL (1.20-3.40); #Monocytes 0.4 thou/uL (0.11-0.59); #Neutrophils 4.3 thou/uL (1.40-6.50); %Basophils 0.2 % (0.0-1.0); %Eosinophils 1.8 % (0.0-10.0); %Lymphocytes 8.4 % (21.0-51.0); %Monocytes 7.9 % (0.0-10.0); %Neutrophils 81.7 % (42.0-75.0); Hemoglobin 9.4 g/dL (14.0-18.0); Mean Corpuscular HGB CONC 29.7 g/dL (32.0-36.0); Mean Corpuscular Hemoglobin 27.2 pg (27.0-31.0); Mean Corpuscular Volume 91.7 fL (78.0-98.0); Mean Platelet Volume 5.5 fL (7.4-10.4); Platelet Count 43 thou/uL (130-400); RBC Distribution Width 18.4 % (11.5-14.5); Red Blood Cell (RBC) Count 3.45 mill/uL (4.70-6.10); White Blood Cell (WBC) Count 5.2 thou/uL (4.8-10.8)
[2020-06-21] MEDS: Nadolol 40 MG TAB PO SCH (08:07)
[2020-06-21] MEDS: Venlafaxine HCl XR 150 MG CAP PO SCH (08:07)
[2020-06-21] MEDS: Spironolactone 25 MG TAB PO SCH (08:08)
[2020-06-21] MEDS ORDERED: Lidocaine 1% PF 5 ML VIAL ONE (12:31)
[2020-06-21] MEDS ORDERED: Sodium Bicarbonate 2.5 MEQ/5 ML VIAL ONE (12:31)
--- NOTE | 2020-06-21 13:28 | ULT ---
US Paracentesis with Imaging History: Therapeutic paracentesis. Ascites Comparison: None. Findings: Patient was brought to the ultrasound suite. Questions were answered. Informed consent obtained. Timeout performed. The patient's right lower quadrant was prepped and draped in normal sterile fashion. After adequate l ocal anesthesia with lidocaine, the peritoneal space was accessed. 5 L of straw-colored fluid was removed. Patient tolerated the procedure well without complication. Impression: Technically successful ultrasound-guided paracentesis.
[2020-06-21 19:12] VITALS: BP 119/72; TEMP 98.5
--- NOTE | 2020-06-23 16:55 | PQF ---
CLINICAL DOCUMENTATION CLARIFICATION FORM: Dear Dr. ALBERTO Date: 06/23/20 Please exercise your independent, professional judgment in responding to the clarification form. Clinical indicators are provided on the bottom of this form for your review. Please check appropriate box(es) to clarify if the following diagnosis has been ruled in our ruled out: SEPSIS [ ] Ruled in diagnosis [ ] Continue to treat [ ] Resolved [ ] Ruled out diagnosis [ ] Improving [ ] Cannot rule out diagnosis [ ] Other diagnosis [ ] Unable to determine In addition, please specify: Present on Admission (POA): [ ] Yes [ ] No [ ] Unable to determine For continuity of documentation, please document condition throughout progress notes and discharge summary. Thank You. ER NOTE: "SEPSIS" PN 06/17: ([facility]) "SEPSIS" PN 06/18 [facility]: "SEPSIS" LACTIC ACID 06/16: 2.8 ER NOTE: PULSE 179 / RR 24 RISKS: RLL ATELECTASIS WITH POSSIBLE INFILTRATE (PN 06/17 - [facility]) CHRONIC COUGH WITH RHONCHI HEARD BILATERALLY (PN 06/17 -[facility]) ALEXANDER (PN 06/17 -[facility]) H/O DIABETES (PN 06/17 -[facility]) TREATMENT: IV ROCEPHIN (ER-06/17) BLOOD AND URINE CULTURES (06/16 & 06/17) CULTURE OF ASCITES FLUID (06/17) CDS Signature: Traci Wong RN Phone #: [phone] Date: 06/23/20 This is a permanent part of the Medical Record [facility]
--- NOTE | 2020-06-24 15:35 | DIS ---
DATE OF ADMISSION: 06/17/2020 DATE OF DISCHARGE: 06/21/2020 RESIDENT: Maya Banks MD ADMITTING ATTENDING: Christi Garcia MD DISCHARGE ATTENDING: Obie Maldonado MD CONSULTS: GI (Dr. Latham, Dr. Caraballo), Palliative. PROCEDURES: Paracentesis x3 (06/17, 06/19, and 06/21). 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 SECONDARY DIAGNOSES: 1. Acute kidney injury. 2. Hypertension. 3. Diabetes mellitus, type 2. 4. History of gastrointestinal bleed secondary to esophageal varices. 5. Chronic portal vein thrombosis. 6. Tobacco use. 7. Thrombocytopenia. 8. Cerebrovascular accident x2. 9. Bilateral [id number] amputation. 10. Depression. DISCHARGE MEDICATIONS: 1. Gabapentin 600 mg. 2. Tylenol No. 3, 10/325 mg one tab p.o. q.4h. 3. NovoLog 40 units subcu q.p.m. 4. Lactulose 10 g/15 mL UD cup. 5. Nadolol 40 mg. 6. Nystatin. 7. Protonix 40 mg. 8. Spironolactone 50 mg. 9. Venlafaxine 75 mg. DISCONTINUED MEDICATION: Lasix 20 mg. HISTORY OF PRESENT ILLNESS: Roni is a 54-year-old male with past medical history of cirrhosis 2/2 PITTMAN, diabetes, and CHF, who presented with 2 weeks of worsening weakness and confusion as well as increasing abdominal distention and pain, and anorexia. His PCP, Dr. Garcia, advised him to go to the ED. He was following Dr. Latham in the outpatient setting, but had not seen him in a few years. MELD-Na score was 20, indicating a 7% to 10% 90-day mortality risk. Child-Curran score was 9 with Child class B. He was tachycardic, tachypneic, and had an elevated procal in the ED, so he met SIRS criteria with SBP being the suspected cause. He was given one dose of Rocephin in the ED. He had altered mental status consistent with hepatic encephalopathy, despite a normal ammonia level. GI and IR were consulted for possible paracentesis. Paracentesis was performed on 06/17: removed 10 L of fluid. Diuretics were held, DVT prophylaxis was held due to history of bleeding esophageal varices; albumin and lactulose started, per GI. Culture was taken of the ascites fluid which showed gram-positive cocci in pairs. The patient was requiring 2 L of oxygen on 06/18 due to low sats despite not requiring oxygen at home. Chest x-ray showed right lower lobe atelectasis, suspected to be due to holding his diuretics. Creatinine on arrival was 1.35, but by 06/19 was down to 0.99. Regardless, gabapentin was held since it is nephrotoxic. On 06/19, a second paracentesis was performed: 7 L were removed. Ultimately, patient was told he has to stop smoking in order to be considered for a liver transplant, which is the only solution. Otherwise, hospice will be his only option. He was adamant he wanted to have this discussion with his at home. On 06/21, Dr. Caraballo recommended discontinuation of albumin, continuation of spironolactone 50mg, continuing Nadolol, and starting Rifaximin if encephalopathy progressed. He did not want to increased dose of Spironolactone or re-start patient's home Lasix yet due to recent acute kidney injury. A third paracentesis was performed for symptom management prior to discharge. DISPOSITION: Stable DISCHARGE INSTRUCTIONS: Location: Home Diet: Diabetic diet, heart healthy Activity: as tolerated Follow up: Follow up with Dr. Garcia (PCP) and Dr. Latham within 14 days. Job ID: [id number] [facility]
== END 2020-06-21 17:22 | disposition home health service (06) | DRG 432 ==
LOC: ERS 22:32 → T4-B 06-17 00:19
PROVIDERS: ADMIT Family Medicine; ATTEND Family Medicine
PROC: 0W9G3ZZ Drainage of Peritoneal Cavity, Percutaneous Approach (ICD-10-PCS; principal; 2020-06-17)
PROC: 0W9G3ZZ Drainage of Peritoneal Cavity, Percutaneous Approach (ICD-10-PCS; 2020-06-19)
PROC: 0W9G3ZZ Drainage of Peritoneal Cavity, Percutaneous Approach (ICD-10-PCS; 2020-06-21)
DX: K74.69 Other cirrhosis of liver (principal); J96.01 Acute respiratory failure with hypoxia; N17.9 Acute kidney failure, unspecified; I50.32 Chronic diastolic (congestive) heart failure; J98.11 Atelectasis; K72.90 Hepatic failure, unspecified without coma; Z51.5 Encounter for palliative care; Z20.828 Contact with and (suspected) exposure to other viral communicable diseases; F17.210 Nicotine dependence, cigarettes, uncomplicated; K75.81 Nonalcoholic steatohepatitis (NASH); I11.0 Hypertensive heart disease with heart failure; E11.9 Type 2 diabetes mellitus without complications; E78.5 Hyperlipidemia, unspecified; E78.00 Pure hypercholesterolemia, unspecified; E66.01 Morbid (severe) obesity due to excess calories; D69.59 Other secondary thrombocytopenia; Z79.899 Other long term (current) drug therapy; Z86.73 Personal history of transient ischemic attack (TIA), and cerebral infarction without residual deficits; Z89.512 Acquired absence of left leg below knee; Z89.511 Acquired absence of right leg below knee; Z91.19 Patient's noncompliance with other medical treatment and regimen; L53.8 Other specified erythematous conditions
CPT/HCPCS: 36415; 36416; 49083; 71045; 80053; 81003; 82140; 82570; 82945; 83605; 83615; 83880; 84145; 84157; 84540; 85025; 85060; 85610; 85730; 87040; 87070; 87086; 87205; 87635; 89051; 93005; 93010; 96374; J0696; J1815; J3490; P9047; U0003